=== PATIENT | male | born 1945 | race Caucasian/White ===

== ENCOUNTER 2019-11-09 02:43 | Emergency (ER) | payer OTHER ==
--- OUTSIDE RECORDS SUMMARY | 2019-11-09 02:46 | XMS REPORT | Clinical Summary ---
:1945 Author Organization [facility] Address [address] [place] [address] Care Team Providers Name Role Phone MD Briana Primary Care Provider Allergies Active Allergy Reactions Severity Noted Date Comments Ciprofloxacin Rash Low 01/28/2011 Levofloxacin Other (See Comments) 09/20/2012 Sulfa (Sulfonamide Antibiotics) 0 In childhood Medications Medication Sig Dispensed Refills Start Date End Date Status multivitamin capsule Take 1 capsule 0 Active by mouth daily. Lactobacillus Take by mouth. 0 A ctive acidophilus (PROBIOTIC ORAL) mesalamine (LIALDA Take by mouth 0 Active ORAL) daily. nitrofurantoin, Take 1 capsule 6 capsule 0 11/07/2019 11/10/19 2 Active macrocrystal-monohydr (100 mg total) 0 ate, (MACROBID) 100 by mouth 2 MG capsule (two) times daily for 3 days. phenazopyridine Take 1 tablet 15 tablet 0 11/07/2019 Active (PYRIDIUM) 100 MG (100 mg total) 0 tablet by mouth 3 (three) times daily as needed (Burning with urination after ceron removal) for up to 5 days TO start after ceron removal. oxybutynin Take 1 tablet 5 tablet 0 11/07/2019 Acti ve (DITROPAN-XL) 5 MG 24 (5 mg total) 0 hr tablet by mouth daily as needed (Bladder spasms/cathete r pain) for up to 5 days. amoxicillin (AMOXIL) Take 250 mg by 0 10/21 Discontinued 250 MG capsule mouth 3 0 (three) times daily. Active Problems Problem Noted Date Bladder cancer 11/07/2019 Encounters Date Type Specialty Care Team Description 11/07/2019 Anesthesia Event Crys Hicks, WELDING ENGINEER 11/07/2019 Surgery Hermelindo Wynn, CYSTOSCOPY ,TURBT 11/07/2019 Hospital Encounter Hermelindo Wynn MD 11/04/2019 Hospital Encounter Pre-Admission Testing after 11/08/2018 Social History Tobacco Use Types Packs/Day Years Used Date Current Every Day Smoker Smokeless Tobacco: Never Used Comments: 1-2 cigars a day Alcohol Use Drinks/Week oz/Week Comments Yes 7 Shots of liquor 4.2 Sex Assigned at Date Recorded Not on file Job Start Date Occupation Industry Not on file Not on file Not on file Travel History Travel Start Travel End No recent travel history available. Last Filed Vital Signs Vital Sign Reading Time Taken Blood Pressure 135/81 11/07/2019 10:30 PM CDT Pulse 69 11/07/2019 10:30 PM CDT Temperature 36.7 C (98 F) 11/07/2019 10:30 PM CDT Respiratory Rate 17 11/07/2019 10:30 PM CDT Oxygen Saturation 97% 11/07/2019 10:30 PM CDT Inhaled Oxygen Concentration - - Weight 73.4 kg (161 lb 13.1 oz) 11/07/2019 10:4 4 AM CDT Height 177.8 cm (5' 10") 11/07/2019 10:44 AM CDT Body Mass Index 23.22 11/07/2019 10:44 AM CDT Plan of Treatment Not on file Procedures Procedure Name Priority Date/Time Associated Diagnosis Comme nts TRANSFUSION SERVICE 11/08/2019 6:24 PM REPORT - SCAN CDT CYSTOSCOPY,BLUE LIGHT 11/07/2019 1:25 PM Malignant ne oplasm of CYSVIEW CDT overlapping sites of bladder (HCC) Special Needs Checked by Florin Ann CYSTOSCOPY,TURBT 11/07/2019 1:25 PM CDT Maligna nt neoplasm of overlapping sites of bladder (HCC) Special Needs Checked by Florin Ann ABORH, MANUAL STAT 11/07/2019 11:51 AM CDT Res ults for this procedure are i n the results section . POTASSIUM-STAT LAB STAT 11/07/2019 11:23 AM CDT Results for this procedure are i n the results section . TYPE AND SCREEN, AUTOMATED Routine 11/07/2019 11:18 AM CDT Results for this procedure are i n the results section . after 11/08/2018 Results TRANSFUSION SERVICE REPORT - SCAN (11/08/2019 6:24 PM CDT) Narrative Performed At This result has an attachment that is no t available. ABORH, manual (11/07/2019 11:51 AM CDT) ABO Grouping A [facility] Rh Factor NEG [facility] Specimen Blood Performing Organization Address [facility] Phone Number [address] [address] Potassium-Stat Lab (11/07/2019 11:23 AM CDT) Potassium 4.8 3.6 - 5.5 meq/L [facility] Specimen Blood, Arterial Performing Organization Address [facility] Phone Number [address] [address] CENTER Type and screen, automated (11/07/2019 11:18 AM CDT) ABO/RH AUTOMATED (BEAKER) A NEGATIVE [facility] Ab Scrn NEGATIVE [facility] Specimen Blood Performing Organization Address [facility] Phone Number [address] [address] after 11/08/2018 Insurance Payer Benefit Plan / Group Subscriber ID Type Phone A ddress MEDICARE MEDICARE A B xxxxxxxxxxx Medicare FOR LIFE xxxxxxxxx Other Govt (, [place], [place], etc.)
--- OUTSIDE RECORDS SUMMARY | 2019-11-09 02:46 | XMS REPORT | Continuity of Care Document ---
:1945 Author Organization [facility] t Address [address] [place] [address] Care Team Providers Name Role Phone Briana CASTAÑEDA Primary Care Physician Isha CASTAÑEDA Attending Clinician Denny Hicks CRNA Attending Clinician ISHA Attending Clinician Unavailable ISHA Admitting Clinician Unavailable Payers Payer Name Policy Policy Number Effective Expiration Source Type Date Date MEDICAREMEDICARE A xxxxxxxxxxx [facility] FOR xxxxxxxxx [facility] LIFExxxxxxxxxOther Govt L ukes - (, [place], [facility], [facility] etc.) Center Problems Condition Condition Condition Status Onset Resolution Last Treating Co mments Source Name Details Category Date Date Treatment Clinician Date Bladder Bladder Disease Active [facility] cancer cancer [facility] - 00:00: Medical 00 Center Allergies, Adverse Reactions, Alerts Allergy Allergy Status Severity Reaction(s) Onset Inactive Treating Comm ents Source Name Type Date Date Clinician Sulfa Propensi Active In [facility] (Sulfona ty to 8-14 childhood [facility] - mide adverse 00:00: Medical Antibiot reaction 00 Center ics) s Levoflox Propensi Active Other (See [facility] ty to Comments) 09-20 [facility] - adverse 00:00: Medical reaction 00 Center s Ciproflo Propensi Active Rash 2010-03 [facility] xacin ty to 03-30 [facility] - adverse 00:00: Medical reaction 00 Center s Social History Social Habit Start Date Stop Date Quantity Comments Source Sex Assigned At [facility] Tobacco Comment 2019-11-04 2019-11-04 1-[address] [facility] - 00:00:00 00:00:00 [facility] Center Smoking Status Start Date Stop Date Source Current every day smoker 2019-11-08 00:00:00 [facility] Medications Ordered Filled Start Stop Current Ordering Indication Dosage Frequency Signature Comments Components Source Medication Medication Date Date Medication? Clinician (SIG) Name Name amoxicillin 2020- No 250mg [id number] Take 250 [facility] (AMOXIL) 11-06 [id number] mg by Lonnie es - 250 MG 20:28: 00:00 3D mouth 3 Medical capsule 27 :00 (three) Center times daily. phenazopyri 0 2020- Yes 100mg Take [address] dine 11-[address] [facility] - (PYRIDIUM) 00:00: 23:59 (100 mg Med ical 100 MG 00 :00 total) by [place] tablet mouth 3 (three) times daily as needed (Burning with urination after ceron removal) for up to 5 days TO start after ceron removal. oxybutynin 0 2020- Yes 5mg Take 1 [facility] (DITROPAN-X 11-06 tablet (5 Theresa kes - L) 5 MG 24 00:00: 23:59 mg total) M edical hr tablet 00 :00 by mouth Center daily as needed (Bladder spasms/cat heter pain) for up to 5 days. nitrofurant 2019-0 2020- Yes 100mg Q.5D Take [address] [facility]in, 11-[address] [facility] - macrocrysta 00:00: 23:59 (100 mg Me dical l-monohydra 00 :00 total) by [facility], mouth 2 (MACROBID) (two) 100 MG times capsule daily for 3 days. multivitami 2020-0 Yes 1{capsu QD Take [address] n capsule 11-03 le} capsule by Jonnathan s - 09:21: mouth Medical 16 daily. Center Lactobacill 2020-0 Yes Take by [facility] St us 8- mouth. [facility] - acidophilus 09:21: Medica l (PROBIOTIC 16 Center ORAL) mesalamine 2020-0 Yes QD Take by [facility] (LIALDA 8-14 mouth [facility] - ORAL) 09:21: daily. [address] Vital Signs Vital Name Observation Time Observation Value Comments Source Systolic blood 2019-11-07 22:30:00 135 mm[Hg] [facility] Diastolic blood 2019-11-07 22:30:00 81 mm[Hg] [facility] Heart rate 2019-11-07 22:30:00 69 /min [facility] Body temperature 2019-11-07 22:30:00 36.67 Azra [facility] Respiratory rate 2019-11-07 22:30:00 17 /min [facility] Oxygen saturation in 2019-11-07 22:30:00 97 /min [facility] Arterial blood by [facility] nter Pulse oximetry Body height 2019-11-07 10:44:00 177.8 cm [facility] Body weight Measured 2019-11-07 10:44:00 73.4 kg [facility] BMI 2019-11-07 10:44:00 23.22 kg/m2 [facility] Procedures Procedure Date / Time Performed Performing Clinician [facility] e TRANSFUSION SERVICE 2019-11-08 18:24:58 Provider, Default [facility] REPORT - SCAN Scanning [facility] CYSTOSCOPY,TURBT 2019-11-07 13:25:00 Hermelindo Wynn [facility] CYSTOSCOPY,BLUE LIGHT 2019-11-07 13:25:[address] [facility] ABORH, MANUAL 2019-11-07 11:51:00 Faby Thomas [facility] POTASSIUM-STAT LAB 2019-11-07 11:23:00 Timbo Vences [facility] TYPE AND SCREEN, 2019-11-07 11:18:00 Garo Bennett [facility] AUTOMATED [facility] Results Test Description Test Time Test Comments Results Result Comments Source ABORDone., manual 2019-11-07 12:40:00 Test Item Value Reference Range Interpretation Comme nts ABO Grouping (test code = 2588) A Rh Factor (test code = 2589) NEG [facility] and screen, [id number] 12:20:00 Test Item Value Reference Range Interpretation Comments ABO/RH AUTOMATED (BEAKER) (test A NEGATIVE code = 2260) Ab Scrn (test code = 890-4) NEGATIVE [facility] [id number] 11:33:00 Test Item Value Reference Range Interpretation Comments Potassium (test code = 2823-3) 4.8 meq/L 3.6-5.5 Lab Interpretation (test code = Normal 19583-0) [facility] [id number] 11:33:00 Test Item Value Reference Range Interpretation Comments POTASSIUM (BEAKER) (test code = 4.8 meq/L 3.6-5.5 379)
--- NOTE | 2019-11-09 03:28 | EDPHYS ---
Physician Documentation [facility] Name: Fuentes Mock Age: 74 yrs Sex: Male : 1945 Arrival Date: 11/09/2019 Time: 02:46 Bed 6 Private MD: Stuart Warren ED Physician Jeremy Saucedo HPI: 11/08 03:07 This 74 yrs old Male presents to ER via Ambulatory with complaints of Urinary pkl Retention. 03:07 The patient presents with urinary symptoms, retention. Patient had TURP 2 days ago. Was pkl discharged with Reyes catheter. Patient removed Reyes catheter yesterday, has been unable to urinate since 10 PM last night. Historical: - Allergies: 03:03 Levaquin; mg2 03:03 Ciprofloxacin; mg2 03:03 Sulfa (Sulfonamide Antibiotics); mg2 - Home Meds: 03:03 Phenazopyridine Oral [Active]; Macrobid Oral [Active]; Lialda 1.2 gram oral TbEC 2 tabs mg2 once daily [Active]; - PMHx: 03:03 bladder ca and prostate ca; mg2 - PSHx: 03:03 TURP; mg2 - Immunization history:: Flu vaccine is not up to date. - Social history:: Smoking status: Patient reports the use of cigarette tobacco products, cigars, Patient uses alcohol, on a daily basis. Patient/guardian denies using street drugs. ROS: 03:07 Eyes: Negative for injury, pain, redness, and discharge, ENT: Negative for injury, pkl pain, and discharge, Neck: Negative for injury, pain, and swelling, Cardiovascular: Negative for chest pain, palpitations, and edema, Respiratory: Negative for shortness of breath, cough, wheezing, and pleuritic chest pain. 03:07 Abdomen/GI: 03:07 Abdomen/GI: Positive for abdominal pain, of the suprapubic area. 03:07 Back: Negative for acute changes. 03:07 : Positive for difficulty urinating. 03:07 MS/extremity: Negative for acute changes. 03:07 Skin: Negative for rash. 03:07 Neuro: Negative for altered mental status. Exam: 03:07 Head/Face: Normocephalic, atraumatic. Eyes: Pupils equal round and reactive to light, pkl extra-ocular motions intact. Lids and lashes normal. Conjunctiva and sclera are non-icteric and not injected. Cornea within normal limits. Periorbital areas with no swelling, redness, or edema. ENT: Nares patent. No nasal discharge, no septal abnormalities noted. Tympanic membranes are normal and external auditory canals are clear. Oropharynx with no redness, swelling, or masses, exudates, or evidence of obstruction, uvula midline. Mucous membranes moist. Neck: Trachea midline, no thyromegaly or masses palpated, and no cervical lymphadenopathy. Supple, full range of motion without nuchal rigidity, or vertebral point tenderness. No Meningismus. Chest/axilla: Normal chest wall appearance and motion. Nontender with no deformity. No lesions are appreciated. Cardiovascular: Regular rate and rhythm with a normal S1 and S2. No gallops, murmurs, or rubs. Normal PMI, no JVD. No pulse deficits. Respiratory: Lungs have equal breath sounds bilaterally, clear to auscultation and percussion. No rales, rhonchi or wheezes noted. No increased work of breathing, no retractions or nasal flaring. 03:07 Abdomen/GI: Bowel sounds: normal, Palpation: mild abdominal tenderness, in the suprapubic area. 03:07 Back: Exam negative for acute changes. 03:07 : Bladder: distension, that is moderate. 03:07 Musculoskeletal/extremity: Exam is negative for acute changes. 03:07 Skin: Exam negative for rash. 03:07 Neuro: Orientation: is normal, Mentation: is normal, Cranial nerves: grossly normal, Motor: is normal. Vital Signs: 02:54 BP 152 / 93; Pulse 92; Resp 18; Pulse Ox 96% on R/A; Weight 74.84 kg; Height 5 ft. 10 mg2 in. (177.80 cm); 02:54 Body Mass Index 23.67 (74.84 kg, 177.80 cm) mg2 MDM: 02:48 Patient medically screened. pkl 03:26 Data reviewed: vital signs, nurses notes. ED course: Patient feeling better. Advised to pkl follow up with Urologist in 2 to 3 days. Patient understood instructions. 11/08 03:23 Order name: Urine Dipstick--Ancillary (enter results); Complete Time: 04:32 ds4 11/08 03:24 Order name: Urine Microscopic Only ds4 11/08 03:07 Order name: Reyes; Complete Time: 03:13 pkl 11/08 03:13 Order name: Bladder Scanner; Complete Time: 03:13 mg2 11/08 03:24 Order name: Urine Culture ds4 Administered Medications: No medications were administered Disposition: 11/09/19 03:28 Discharged to Home. Impression: Retention of urine. S/P TURP. - Condition is Stable. - Medication Reconciliation Form, Thank You Letter, Antibiotic Education, Prescription Opioid Use form. - Follow up: Private Physician; When: 2 - 3 days; Reason: Re-evaluation by your physician. - Problem is new. - Symptoms have improved. Signatures: Dispatcher [employer] EDMS Jeremy Saucedo MD MD pkl Antoinette Velasquez RN RN Michael Cagle RN RN mg2 Corrections: (The following items were deleted from the chart) 03:36 03:28 11/09/2019 03:28 Discharged to Home. Impression: Retention of urine. S/P TURP. ea Condition is Stable. Forms are Medication Reconciliation Form, Thank You Letter, Antibiotic Education, Prescription Opioid Use. Follow up: Private Physician; When: 2 - 3 days; Reason: Re-evaluation by your physician. Problem is new. Symptoms have improved. pkl
--- NOTE | 2019-11-09 03:28 | ER ---
Nurse's Notes [facility] Name[facility] Fuentes Mock Age: 74 yrs Sex: Male : 1945 Arrival Date: 11/09/2019 Time: 02:46 Bed 6 Private MD: Stuart Warren Diagnosis: Retention of urine. S/P TURP Presentation: 11/08 02:54 Chief complaint: Patient states: i had TURP done 2 days ago at [facility]. i was dc mg2 with FC on me and I called my Dr. if I can removed the catheter at home because i think i can pee on my own already. now im here because my lower abdomen hurts and last time I urinated was \T\ 10 pm last night. Coronavirus screen: Client denies travel out of the [place] in the last 14 days. At this time, the client does not indicate any symptoms associated with coronavirus-19. The client reports previous COVID testing was negative. Date of collection: October 2019. Ebola Screen: No symptoms or risks identified at this time. Initial Sepsis Screen: Does the patient meet any 2 criteria? No. Patient's initial sepsis screen is negative. Does the patient have a suspected source of infection? No. Patient's initial sepsis screen is negative. Risk Assessment: Do you want to hurt yourself or someone else? Patient reports no desire to harm self or others. Onset of symptoms was November 06, 2019. 02:54 Method Of Arrival: Ambulatory mg2 02:54 Acuity: ELY 4 mg2 Triage Assessment: 03:04 General: Appears in no apparent distress. comfortable, Behavior is calm, cooperative. mg2 Pain: Complains of pain in abdomen. EENT: No signs and/or symptoms were reported regarding the EENT system. Neuro: Level of Consciousness is awake, alert, obeys commands, Oriented to person, place, time, situation. Cardiovascular: Capillary refill < 3 seconds Patient's skin is warm and dry. Respiratory: Airway is patent Respiratory effort is even, unlabored, Respiratory pattern is regular, symmetrical. GI: No signs and/or symptoms were reported involving the gastrointestinal system. : Reports inability to void, since 10 pm pain in suprapubic area. Derm: Skin is intact, is healthy with good turgor, Skin is pink, warm \T\ dry. normal. Musculoskeletal: Circulation, motion, and sensation intact. Capillary refill < 3 seconds. Historical: - Allergies: 03:03 Levaquin; mg2 03:03 Ciprofloxacin; mg2 03:03 Sulfa (Sulfonamide Antibiotics); mg2 - Home Meds: 03:03 Phenazopyridine Oral [Active]; Macrobid Oral [Active]; Lialda 1.2 gram oral TbEC 2 tabs mg2 once daily [Active]; - PMHx: 03:03 bladder ca and prostate ca; mg2 - PSHx: 03:03 TURP; mg2 - Immunization history:: Flu vaccine is not up to date. - Social history:: Smoking status: Patient reports the use of cigarette tobacco products, cigars, Patient uses alcohol, on a daily basis. Patient/guardian denies using street drugs. Screenin:13 Abuse screen: Denies threats or abuse. Denies injuries from another. Nutritional mg2 screening: No deficits noted. Tuberculosis screening: No symptoms or risk factors identified. Fall Risk None identified. Assessment: 03:14 General: Appears in no apparent distress. comfortable, Behavior is calm, cooperative. mg2 03:35 Reassessment: Patient and/or family updated on plan of care and expected duration. Pain ea level reassessed. Patient is alert, oriented x 3, equal unlabored respirations, skin warm/dry/pink. Discharge instruction given to patient, verbalized the understanding of instruction. Pt left ED ambulatory tolerating well. Vital Signs: 02:54 BP 152 / 93; Pulse 92; Resp 18; Pulse Ox 96% on R/A; Weight 74.84 kg; Height 5 ft. 10 mg2 in. (177.80 cm); 02:54 Body Mass Index 23.67 (74.84 kg, 177.80 cm) mg2 ED Course: 02:46 Patient arrived in ED. es 02:46 Stuart Warren MD is Private Physician. es 02:48 Jeremy Saucedo MD is Attending Physician. pkl 02:54 Michael Hernández RN is Primary Nurse. mg2 03:00 Triage completed. mg2 03:05 Arm band placed on. mg2 03:13 No provider procedures requiring assistance completed. Patient did not have IV access mg2 during this emergency room visit. 03:14 Patient has correct armband on for positive identification. Pulse ox on. NIBP on. Door mg2 closed. Warm blanket given. 03:14 Bladder scan completed. 552 ml. mg2 03:20 Reyes cath inserted, using sterile technique, 16 Fr., by me, balloon inflated, to ea gravity drainage, urine specimen collected. 03:24 Urine Dipstick--Ancillary (enter results) Sent. ds4 03:24 Urine Culture Sent. ds4 03:24 Urine Microscopic Only Sent. ds4 03:24 Urine Dipstick--Ancillary (enter results) Sent. ds4 Administered Medications: No medications were administered Outcome: 03:28 Discharge ordered by . isac 03:36 Discharged to home ambulatory. ea 03:36 Condition: stable 03:36 Discharge instructions given to patient, Instructed on discharge instructions, follow up and referral plans. Demonstrated understanding of instructions. 03:36 Patient left the ED. ea Signatures: Jeremy Saucedo MD MD pkl Salyer, Edna es Swanson, Donovan ds4 Antoinette Velasquez, RN RN Michael Cagle RN RN mg2
[2019-11-09 03:34] LABS: Urine Blood 3+ (NEG); Urine Glucose TRACE (NEG); Urine Protein 3+ (NEG)
[2019-11-09 04:09] VITALS: BP 152/93; O2SAT 96
[2019-11-09 04:41] LABS: Urine Culture Reflex Order NOT NEEDED
[2019-11-09 04:42] LABS: Urine Bacteria 20-50 /HPF (NONE SEEN); Urine Mucus SLIGHT /HPF (NONE SEEN); Urine RBC TNTC /HPF (NONE SEEN); Urine Urothelial Cells <5 /HPF (NONE SEEN)
== END 2019-11-09 03:36 | disposition home or self-care (01) ==
LOC: ER 02:43
DX: R33.9 Retention of urine, unspecified (principal); Z98.890 Other specified postprocedural states; F17.210 Nicotine dependence, cigarettes, uncomplicated; Z85.46 Personal history of malignant neoplasm of prostate; Z85.51 Personal history of malignant neoplasm of bladder; Z88.1 Allergy status to other antibiotic agents; Z88.2 Allergy status to sulfonamides; Z88.3 Allergy status to other anti-infective agents
CPT/HCPCS: 51702; 81003; 81015; 87086; 87088; 99284

== ENCOUNTER 2020-05-29 17:23 | Inpatient (IN) | payer OTHER ==
--- OUTSIDE RECORDS SUMMARY | 2020-05-29 17:27 | XMS REPORT | Continuity of Care Document ---
:1945 Author Organization [facility] t Address [address] [place] [address] Dr. Whitfield [address] [place] [id number] Care Team Providers Name Role Phone Briana CASTAÑEDA Primary Care Physician Paulo Lozano MD Attending Clinician Xavier Almodovar MD Attending Clinician Cintia Villagran MD Attending Clinician Darell Little MD Attending Clinician Jerry Shaw MD Attending Clinician Nino Herrera MD Attending Clinician PAULO LOZANO Attending Clinician Unavailable ISHA Attending Clinician Unavailable Isha CASTAÑEDA Attending Clinician Amara Escamilla CRNA Attending Clinician [phone] [facility] Attending Clinician Unavailable John CASTAÑEDA Attending Clinician Saad CASTAÑEDA Attending Clinician JOHN Attending Clinician Unavailable Miguel Angel Naqvi MD Attending Clinician Unavailable Mario Hoffmann MD Attending Clinician Dank Sewell MD Attending Clinician Denny Hicks CRNA Attending Clinician Xavier ALMODOVAR Admitting Clinician Unavailable ISHA Admitting Clinician Unavailable JOHN Admitting Clinician Unavailable Payers Payer Name Policy Type Policy Effective Date Expiration Date Sour ce Number MEDICAREMEDICARE A [id number] [address] 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 00:00: Me dical 00 [place] Lung mass Lung mass Disease Active [facility] 11-29 kes - 00:00: Medical 00 [place] Bladder Bladder Disease Active [facility] cancer cancer 11-06 kes - 00:00: Medical 00 [place] 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 [facility] Lung Lung Disease Active [facility] cancer cancer [facility] Pancytopen Pancytopen Disease Active [facility] ia ia [facility] Chronic Chronic Disease Active [facility] anticoagul anticoagul [facility] PAF PAF Disease Active [facility] (paroxysma (paroxysma [facility] - l atrial l atrial Medica l fibrillati fibrillati Ce nter on) on) Allergies, Adverse Reactions, Alerts Allergy Allergy Status Severity Reaction(s) Onset Inactive Treating Comm ents Source Name Type Date Date Clinician Sulfa Propensi Active In [facility] (Sulfona ty to 8-14 childhood [facility] - mide adverse 00:00: Medical Antibiot reaction 00 [place] ics) s Levoflox Propensi Active Other (See [facility] ac[facility] ty to Comments) 09-20 [facility] - adverse 00:00: Medical reaction 00 [place] s Ciproflo Propensi Active Rash 2010-03 [facility] xacin ty to 03-30 [facility] - adverse 00:00: Medical reaction 00 [place] s Social History Social Habit Start Date Stop Date Quantity Comments Source Sex Assigned At [facility] Exposure to Not sure [facility] - SARS-CoV-2 [facility] (event) Tobacco use and 2020-05-14 2020-05-[address] Theresa kes - exposure 00:00:00 00:00:00 [facility] Alcohol intake 2020-05-14 2020-05-14 Current drinker [facility] Luargenis - 00:00:00 00:00:00 of alcohol [facility] (finding) Tobacco Comment 2019-11-04 2019-11-04 1-2 cig[address] [facility] - 00:00:00 00:00:00 [facility] Smoking Status Start Date Stop Date Source Current every day smoker 2020-05-14 00:00:00 [facility] Medications Ordered Filled Start Stop Current Ordering Indication Dosage Frequency Signature Comments Components Source Medication Medication Date Date Medication? Clinician (SIG) Name Name rivaroxaban Yes 20mg Take [address] (XARELTO) 2-22 tablet (20 [facility] - 20 mg Tab 00:00: mg total) Med ical tablet 00 by mouth Center daily with dinner. multivitami Yes 1{capsu QD Take [address] n capsule 2-20 le} capsule by Luke s - 15:15: mouth Medical 46 daily. Center Lactobacill Yes Take by [facility] us 2-20 mouth. [facility] - acidophilus 15:15: Medica l (PROBIOTIC 46 Center ORAL) mesalamine Yes 2.4g QD Take 2.[address] (LIALDA 2-20 by mouth [facility] - ORAL) 15:15: daily . Medical Center pantoprazol Yes 40mg QD Take [address] e 2-20 by mouth [facility] - (PROTONIX) 15:15: daily. Medic al 40 MG 46 Center tablet esomeprazol Yes 20mg QD Take [address] e (NexIUM) 2-20 by mouth [facility] - 20 MG 15:15: daily. Medical capsule 46 Center sucralfate Yes 1g Q.25D Take [address] (CARAFATE) 2-20 by mouth 4 [facility] - 100 mg/mL 15:15: (four) Medica l suspension 46 times Center daily. HYDROcodone Yes 15mL Take [address] -acetaminop 2-20 mLs by [facility] - hen 15:15: mouth Medical (LORTAB,HYC 46 every 6 Cente r ET) 7.5-325 (six) mg/15 mL hours as Soln needed for solution Pain. aluminum-ma Yes 30mL Take [address] gnesium 2-20 mLs by [facility] - hydroxide-s 15:15: mouth 4 Med ical imethicone 46 (four) Center (MAALOX times PLUS) daily suspension before 200-200-20 meals and mg/5 mL nightly. Magic Yes Take by [facility] Mouthwash 2-20 mouth [facility] - (NO 15:15: every 6 Medical steroid) 46 (six) Center oral hours as suspension needed. lidocaine-d Yes 5mL Take [address] iphenhyd-Al 2-20 by mouth [facility] - -mag-sim 15:15: every 6 Medica l 200-25-400- 46 (six) Center 40 mg/30 mL hours as Mwsh needed. rivaroxaban 2020- No 20mg Take [address] (XARELTO) 2-20 02-20 by mouth [facility] - 20 mg Tab 13:13: 00:00 daily with M edical tablet 24 :00 dinner. Center oxybutynin 2020- No 5mg Take [address] (DITROPAN) 03-27 tablet (5 [facility] es - 5 MG tablet 00:00: 23:59 mg total) Medical 00 :00 by mouth 3 Center (three) times daily as needed (For bladder spasms) for up to 10 days. traMADoL 2020- No 50mg Take [address] (ULTRAM) 50 03-2710 tablet (50 L ukes - mg tablet 00:00: 23:59 mg total) Me dical 00 :00 by mouth Center every 6 (six) hours as needed for Pain for up to 5 days. Max Daily Amount: 200 mg nitrofurant 2020- No 100mg Q.5D Take [address] oin, 03-27 capsule [facility] - macrocrysta 00:00: 23:59 (100 mg Me dical l-monohydra 00 :00 total) by Adryan ter te, mouth 2 (MACROBID) (two) 100 MG times capsule daily for 3 days. phenazopyri No 97.5mg Take 97.[address] dine 97.5 1-05 01-08 mg by [facility] - mg Tab 00:00: 23:59 mouth Medical 00 :00 daily as Center needed for up to 3 days Please be aware that this medication will turn your urine orange. This is a normal side effect. ondansetron 2019- No 4mg Take [address] (ZOFRAN) 4 11-28 09-15 tablet (4 [facility] es - MG tablet 00:00: 23:59 mg total) Me dical 00 :00 by mouth 3 Center (three) times daily as needed for Nausea for up to 7 days. amoxicillin 2019- No 250mg [id number] Take [address] (AMOXIL) 11-06 [id number] mg by Lonnie es - 250 MG 20:28: 00:00 3D mouth 3 Medical capsule 29 :00 (three) Center times daily. phenazopyri 2019- No 100mg Take [address] dine 11-06 tablet [facility]ukes - (PYRIDIUM) 00:00: 23:59 (100 mg Med ical 100 MG 00 :00 total) by Center tablet mouth 3 (three) times daily as needed (Burning with urination after ceron removal) for up to 5 days TO start after ceron removal. oxybutynin 2019- No 5mg Take [address] [facility] (DITROPAN-X 11-06 tablet (5 Theresa kes - L) 5 MG 24 00:00: 23:59 mg total) M edical hr tablet 00 :00 by mouth Center daily as needed (Bladder spasms/cat heter pain) for up to 5 days. nitrofurant 2019- No 100mg Q.5D Take [address] oin, 11-06 capsule [facility] - macrocrysta 00:00: 23:59 (100 mg Me dical l-monohydra 00 :00 total) by Adryan ter te, mouth 2 (MACROBID) (two) 100 MG times capsule daily for 3 days. Vital Signs Vital Name Observation Time Observation Value Comments Source Systolic blood 2020-05-12 12:56:00 117 mm[Hg] [facility] Diastolic blood 2020-05-12 12:56:00 93 mm[Hg] [facility] Heart rate 2020-05-12 12:56:00 83 /min [facility] Body temperature 2020-05-12 12:56:00 35.94 Azra [facility] Respiratory rate 2020-05-12 12:56:00 18 /min [facility] Oxygen saturation in 2020-05-12 12:56:00 95 /min [facility] Arterial blood by Medical Ce nter Pulse oximetry Body height 2020-05-10 15:19:00 177.8 cm [facility] Body weight 2020-05-10 15:19:00 72.576 kg [facility] BMI 2020-05-10 15:19:00 22.96 kg/m2 [facility] Procedures Procedure Date / Time Performed Performing Clinician [facility] e REPORT OF PROCEDURE - 2020-05-12 12:06:06 Akiko Herrera [facility] ENDOSCOPY [facility] UPPER ENDOSCOPY,BALLOON 2020-05-12 10:00:00 Akiko Herrera [facility] BASIC METABOLIC PANEL (7) 2020-05-11 03:40:00 Rene Ngo [facility] HEPATIC FUNCTION PANEL 2020-05-11 03:40:00 Rene Ngo [facility] PROTHROMBIN TIME/INR 2020-05-11 03:40:00 Rene Ngo [facility] MAGNESIUM 2020-05-11 03:40:00 Rene Ngo [facility] PHOSPHORUS 2020-05-11 03:40:00 Rene Ngo [facility] CBC W/PLT COUNT & AUTO 2020-05-11 03:39:00 Rene Ngo [facility] (CELLAVISION MANUAL DIFF) 2020-05-11 03:39:00 Rene Ngo [facility] SARS-COV2/RT-PCR (HS & 2020-05-10 23:06:00 Michael Lozano tt [facility] REF LABS) [facility] CBC W/PLT COUNT & AUTO 2020-05-10 23:04:00 Michael Lozano [facility] BASIC METABOLIC PANEL (7) 2020-05-10 23:04:00 Michael Lozano ett [facility] PROTHROMBIN TIME/INR 2020-05-10 23:04:00 Michael Lozano C [facility] HEPATIC FUNCTION PANEL 2020-05-10 23:04:00 Rene Ngo [facility] TISSUE EXAM 2020-03-27 09:23:00 Hermelindo Wynn [facility] CYSTOSCOPY,BLADDER BIOPSY 2020-03-27 08:08:00 Hermelindo Wynn [facility] CYSTOSCOPY,TURBT 2020-03-27 08:08:00 Hermelindo Wynn [facility] PROTHROMBIN TIME/INR 2020-03-27 07:22:00 Mathew Ray [facility] ECG 12-LEAD 2020-03-27 00:00:00 Mathew Ray [facility] TRANSFUSION SERVICE 2019-11-30 18:01:27 Provider, Default [facility] - REPORT - SCAN Scanning [facility] REPORT OF PROCEDURE - 2019-11-29 16:19:52 Triny Naqvi [facility] ENDOSCOPY [facility] TISSUE EXAM 2019-11-29 12:49:00 Triny Naqvi [facility] FLOW CYTOMETRY 2019-11-29 12:35:55 Triny Naqvi [facility] REQUISITION [facility] FLOW CYTOMETRY 2019-11-29 12:35:00 Triny Naqvi [facility] EBUS FNA REQUEST 2019-11-29 12:28:15 Triny Naqvi [facility] FINE NEEDLE ASPIRATE BY 2019-11-29 12:28:[address] BRONCHOSCOPY,ENDOBRONCHIA 2019-11-29 11:35:00 Triny Naqvi [facility] ULTRASOUND (EBUS) Medical [facility] er TRANSTRACH/ TRANSBRONCH SAMPLING BRONCHOSCOPY,BIOPSY 2019-11-29 11:35:00 [facility]IVE METABOLIC 2019-11-29 05:46:00 [facility]CI[facility], [facility]ON[facility]ED 2019-11-29 05:46:00 Seven Nash [facility] MAGNESIUM 2019-11-29 05:46:00 [facility] 2019-11-29 05:46:00 [facility] CBC W/PLT COUNT & AUTO 2019-11-29 04:37:00 [facility] AND [facility]EN, 2019-11-29 04:37:00 Triny Naqvi [facility] AUTOMATED [facility] APTT 2019-11-29 04:36:00 Cabrera [facility] PROTHROMBIN TIME/INR 2019-11-29 04:36:00 Cabrera [facility] SARS-COV2/RT-PCR ([facility] & 2019-11-28 08:39:00 Rowdy Yi [facility] - REF LABS) [facility] PROTHROMBIN TIME/INR 2019-11-28 08:33:00 Mikey Rees [facility] APTT 2019-11-28 08:33:00 [facility] CBC W/PLT COUNT & AUTO 2019-11-28 05:01:00 Eloisa Blanco CH, I [facility] COMPREHENSIVE METABOLIC 2019-11-28 05:01:00 Eloisa Blanco [facility] MAGNESIUM 2019-11-28 05:01:00 Eloisa Blanco [facility] PHOSPHORUS 2019-11-28 05:01:00 Eloisa Blanco [facility] BASIC METABOLIC PANEL (7) 2019-11-27 05:51:00 S[facility]an [facility] CALCIUM, IONIZED 2019-11-27 05:51:00 Saad [facility] PHOSPHORUS 2019-11-27 05:51:00 [facility] W/[facility]T [facility] & AUTO 2019-11-27 05:51:00 [facility]NES[facility]UM 2019-11-27 05:51:00 Saad [facility] CT CHEST WITH & WITHOUT 2019-11-26 04:46:00 Charito Murray [facility] - IV CONTRAST [facility] CT ABDOMEN/PELVIS WITH & 2019-11-26 04:46:00 Charito Murray [facility] - WITHOUT IV CONTRAST Medical Cent er IR PORT-A-CATH PLACEMENT 2019-11-25 19:44:00 Susan Mcclellan [facility] SARS-COV2/RT-PCR ([facility] & 2019-11-25 12:23:00 Susan Mcclellan [facility] - REF LABS) [facility] CBC W/PLT COUNT & AUTO 2019-11-25 11:30:[address] [facility] PROTHROMBIN TIME/INR 2019-11-25 11:30:00 Charito Murray [facility] APTT 2019-11-25 11:30:00 Charito Murray [facility] COMPREHENSIVE METABOLIC 2019-11-25 11:30:00 Hannah Oscar [facility] TRANSFUSION SERVICE 2019-11-08 18:24:58 Luz Gamboa [facility] REPORT - SCAN Scanning [facility] TISSUE EXAM 2019-11-07 19:23:00 Hermelindo Wynn [facility] CYSTOSCOPY,TURBT 2019-11-07 17:53:[address] [facility] CYSTOSCOPY,BLUE LIGHT 2019-11-07 17:53:[address] [facility] 2019-11-07 11:51:00 Faby Thomas [facility] POTASSIUM-STAT LAB 2019-11-07 11:23:00 Timbo Vences [facility] TYPE AND SCREEN, 2019-11-07 11:18:00 PelonmichelleGaro [facility] - AUTOMATED [facility] Plan of Care Planned Activity Planned Date Details Comments Source Future Scheduled 2020-03-[address] [facility] - Test 00:00:00 (12+) [code = Medical Center DEPRESSION SCREENING (12+)] Future Scheduled 2019-11-22 INFLUENZA VACCINE (#1) [facility] - Test 00:00:00 [code = INFLUENZA Medical Ce nter VACCINE (#1)] Future Scheduled 2010-09-[address] [facility] - Test 00:00:00 WELLNESS (YEAR 2 or Medical Center FIRST YEAR if no IPPE) [code = MEDICARE ANNUAL WELLNESS (YEAR 2 or FIRST YEAR if no IPPE)] Future Scheduled 2009 PNEUMOCOCCAL 65+ YRS [facility] - Test 00:00:00 (1 of 1 - Medical Center [id number] PCV13) [code = PNEUMOCOCCAL 65+ YRS (1 of 1 - [id number] PCV13)] Future Scheduled 1994 SHINGLES VACCINES ([address] [facility] - Test 00:00:00 of 2) [code = SHINGLES Medic al Center VACCINES (1 of 2)] Future Scheduled 1963-09-24 DTAP/TDAP/TD VACCINES [facility] - Test 00:00:00 (1 - Tdap) [code = Medical C enter DTAP/TDAP/TD VACCINES (1 - Tdap)] Future Scheduled 1962 HEPATITIS C [facility]CRE[facility]ING [facility] - Test 00:00:00 [code = HEPATITIS C Medical Center SCREENING] Future Scheduled [address] [facility] - Test 00:00:00 [facility]) [code = 486139438] Encounters Start End Encounter Admission Attending Care Care Encounter Source Date/Time Date/Time Type Type Clinicians Facility Department ID 2020-03-14 2020-03-14 Outpatient [facility] [id number] [place] 00:00:00 00:00:00 EDWARD [address] 2020-03-01 2020-03-01 Outpatient [facility] [id number] [place] 00:00:00 00:00:00 EDWARD [address] 2020-03-01 2020-03-01 Outpatient [facility] [id number] [place] 00:00:00 00:00:00 EDWARD [address] Results Test Description Test Time Test Comments Results Result Comments Source CBC with platelet count + automated diff 2020-05-11 09:00:00 Test Item Value Reference Range Interpretation Comme nts WBC (test code = 6690-2) 1.8 See_Comment L [A utomated message] The system which generated this result transmitted ref erence range: 3.5 - 10.5 K/L. T he reference range was not u sed to interpret this result as normal/abnormal. RBC (test code = 789-8) 3.70 See_Comment L [Au tomated message] The system which generated this result transmitted ref erence range: 4.63 - 6.08 M/ L. The reference range was not u sed to interpret this result as normal/abnormal. MCHC (test code = 786-4) 33.0 See_Comment L [A utomated message] The system which generated this result transmitted ref erence range: 32.3 - 36.5 GM/ DL. The reference range was not u sed to interpret this result as normal/abnormal. Hematocrit (test code = 35.2 % 40.1-51 L 4544-3) MCV (test code = 787-2) 95.1 fL 79-92.2 H MCH (test code = 785-6) 31.4 pg 25.7-32.2 RDW (test code = 788-0) 13.2 % 11.6-14.4 Platelets (test code = 777-3) 123 See_Comment L [Automated message] The system which generated this result transmitted ref erence range: 150 - 450 K/CU MM. The reference range was not u sed to interpret this result as normal/abnormal. MPV (test code = 91180-1) 10.9 fL 9.4-12.4 nRBC (test code = 413) 0 See_Comment [Aut omated message] The system which generated this result transmitted ref erence range: 0 - 0 /100 WBC. The reference range was not used to interpret this result as corrie l/abnormal. Lab Interpretation (test code Abnormal = 12229-0) [facility] [id number] 09:00:00 Test Item Value Reference Range Interpretation Comments % Neutros (test code = 74 % 2816) % Lymphs (test code = 1 % 2817) % Monos (test code = 16 % 2818) % Eos (test code = 2 % 2819) % Baso (test code = 1 % 2820) % Metamyelo (test code 1 % 0-0 H = 2821) % Myelo (test code = 1 % 0-0 H 2822) % Bands (test code = 3 % 0-10 2826) # Neutros (test code = 1.33 K/ul 1.78-5.38 L 2830) # Lymphs (test code = 0.02 K/ul 1.32-3.57 L 2831) # Monos (test code = 0.29 K/uL 0.3-0.82 L 2832) # Eos (test code = 0.04 K/uL 0.04-0.54 2834) # Baso (test code = 0.02 K/uL 0.01-0.08 2835) # Metamyelo (test code 0.02 K/uL 0-0 H = 2836) # Myelo (test code = 0.02 K/uL 0-0 H 2837) # Bands (test code = 0.05 K/uL 0-0.8 2840) Total Counted (test 100 code = 1351) Large Platelet (test Present code = 2156) Toxic Granulation (test Present code = 771) Basophilic Stippling Present (test code = 473) Artifact (test code = Present 3432) Platelet Conc (test Decreased code = 3438) SENG (test code = SENG) Material Flow Engineer ID - Danica Jerry comments: Slide comments: Lab Interpretation Abnormal (test code = 99670-8) [facility] W/PLT COUNT & AUTO [id number] 09:00:00 Test Item Value Reference Range Interpretation Comments WHITE BLOOD CELL COUNT (BEAKER) 1.8 K/ L 3.5-10.5 L (test code = 775) RED BLOOD CELL COUNT (BEAKER) 3.70 M/ L 4.63-6.08 L (test code = 761) HEMOGLOBIN (BEAKER) (test code = 11.6 GM/DL 13.7-17.5 L 410) HEMATOCRIT (BEAKER) (test code = 35.2 % 40.1-51.0 L 411) MEAN CORPUSCULAR VOLUME (BEAKER) 95.1 fL 79.0-92.2 H (test code = 753) MEAN CORPUSCULAR HEMOGLOBIN 31.4 pg 25.7-32.2 (BEAKER) (test code = 751) MEAN CORPUSCULAR HEMOGLOBIN CONC 33.0 GM/DL 32.3-36.5 (BEAKER) (test code = 752) RED CELL DISTRIBUTION WIDTH 13.2 % 11.6-14.4 (BEAKER) (test code = 412) PLATELET COUNT (BEAKER) (test 123 K/CU MM 150-450 L code = 756) MEAN PLATELET VOLUME (BEAKER) 10.9 fL 9.4-12.4 (test code = 754) NUCLEATED RED BLOOD CELLS 0 /100 WBC 0-0 (BEAKER) (test code = 413) (CELLAVISION MANUAL DIFF)2020-05-11 09:00:00 Test Item Value Reference Range Interpretation Comments NEUTROPHILS - REL 74 % (CELLAVISION)(BEAKER) (test code = 2816) LYMPHOCYTES - REL 1 % (CELLAVISION)(BEAKER) (test code = 2817) MONOCYTES - REL 16 % (CELLAVISION)(BEAKER) (test code = 2818) EOSINOPHILS - REL 2 % (CELLAVISION)(BEAKER) (test code = 2819) BASOPHILS - REL 1 % (CELLAVISION)(BEAKER) (test code = 2820) METAMYELOCYTES - REL 1 % 0-0 H (CELLAVISION)(BEAKER) (test code = 2821) MYELOCYTES - REL 1 % 0-0 H (CELLAVISION)(BEAKER) (test code = 2822) BANDS - REL (CELLAVISION)(BEAKER) 3 % 0-10 (test code = 2826) NEUTROPHILS - ABS 1.33 K/ul 1.78-5.38 L (CELLAVISION)(BEAKER) (test code = 2830) LYMPHOCYTES - ABS 0.02 K/ul 1.32-3.57 L (CELLAVISION)(BEAKER) (test code = 2831) MONOCYTES - ABS 0.29 K/uL 0.30-0.82 L (CELLAVISION)(BEAKER) (test code = 2832) EOSINOPHILS - ABS 0.04 K/uL 0.04-0.54 (CELLAVISION)(BEAKER) (test code = 2834) BASOPHILS - ABS 0.02 K/uL 0.01-0.08 (CELLAVISION)(BEAKER) (test code = 2835) METAMYELOCYTES - ABS 0.02 K/uL 0.00-0.00 H (CELLAVISION)(BEAKER) (test code = 2836) MYELOCYTES-ABS 0.02 K/uL 0.00-0.00 H (CELLAVISION)(BEAKER) (test code = 2837) BANDS - ABS (CELLAVISION)(BEAKER) 0.05 K/uL 0.00-0.80 (test code = 2840) TOTAL COUNTED (BEAKER) (test code = 100 1351) LARGE PLT(BEAKER) (test code = Present 2156) TOXIC GRANULATION (BEAKER) (test Present code = 771) BASOPHILIC STIPPLING (BEAKER) (test Present code = 473) ARTIFACT (CELLAVISION)(BEAKER) Present (test code = 3432) PLATELET CONCENTRATION Decreased (CELLAVISION)(BEAKER) (test code = 3438) Material Flow Engineer ID - Danica Jerry comments: Slide comments:Basic metabolic [id number] 05:56:00 Test Item Value Reference Range Interpretation Comments Sodium (test code = 139 meq/L 494-988 0819-2) Potassium (test code = 3.9 meq/L 3.5-5.1 2823-3) Chloride (test code = 104 meq/L 98-107 2075-0) CO2 (test code = 23 meq/L 22-29 8-9) BUN (test code = 31 mg/dL 7-21 H 3094-0) Creatinine (test code 0.79 mg/dL 0.57-1.25 = 2160-0) Glucose (test code = 108 mg/dL 70-105 H 2345-7) Calcium (test code = 9.1 mg/dL 8.4-10.2 64413-9) EGFR (test code = 96 mL/min/1.73 [place] [address]-8) NOT ACCURATE CREATININE CLEARANCE IN PREDICTING GLOMERULAR FILTRATION RATE . ESTIMATED GFR I S NOT APPLICABLE FOR DIALYSIS PATIENTS. SENG (test code = SENG) Material Flow Engineer ID - EDASI Lab Interpretation Abnormal (test code = 70821-1) [facility] [id number] 05:56:00 Test Item Value Reference Range Interpretation Comments Protein, Total (test 6.7 See_Comment [Autom ated code = 2885-2) message] The system which generated this result transmit angie reference range : 6.0 - 8.3 gm/dL . The reference range was not u sed to interpret th is result as normal/abnormal . Albumin (test code = 3.7 g/dL 3.5-5 30329-8) Total Bilirubin (test 0.5 mg/dL 0.2-1.2 code = 1974-2) Bilirubin, Direct 0.2 mg/dL 0.1-0.5 (test code = 1967-7) Alkaline Phosphatase 56 U/L 40-150 (test code = 6768-6) AST (test code = 15 U/L 5-34 1920-8) ALT (test code = 16 U/L 6-55 1742-6) SNEG (test code = SENG) Material Flow Engineer ID - EDASI Lab Interpretation Normal (test code = 89665-5) [facility] 05:56:00 Test Item Value Reference Range Interpretation Comments Magnesium (test code = 1.8 mg/dL 1.6-2.6 49587-2) SENG (test code = SENG) Material Flow Engineer ID - EDASI Lab Interpretation (test Normal code = 23754-3) [facility] 05:56:00 Test Item Value Reference Range Interpretation Comments Phosphorus (test code = 3.7 mg/dL 2.3-4.7 2777-1) SENG (test code = SENG) Material Flow Engineer ID - EDASI Lab Interpretation (test Normal code = 05448-2) [facility] 05:56:00 Test Item Value Reference Range Interpretation Comments PHOSPHORUS (BEAKER) (test code = 3.7 mg/dL 2.3-4.7 604) Material Flow Engineer ID - EDASIHEPATIC FUNCTION [id number] 05:56:00 Test Item Value Reference Range Interpretation Comments TOTAL PROTEIN (BEAKER) (test code = 6.7 gm/dL 6.0-8.3 770) ALBUMIN (BEAKER) (test code = 1145) 3.7 g/dL 3.5-5.0 BILIRUBIN TOTAL (BEAKER) (test code 0.5 mg/dL 0.2-1.2 = 377) BILIRUBIN DIRECT (BEAKER) (test 0.2 mg/dL 0.1-0.5 code = 706) ALKALINE PHOSPHATASE (BEAKER) (test 56 U/L 40-150 code = 346) AST (SGOT) (BEAKER) (test code = 15 U/L 5-34 353) ALT (SGPT) (BEAKER) (test code = 16 U/L 6-55 347) Material Flow Engineer ID - EDASIBASIC METABOLIC [id number] 05:56:00 Test Item Value Reference Range Interpretation Comments SODIUM (BEAKER) 139 meq/L 136-145 (test code = 381) POTASSIUM (BEAKER) 3.9 meq/L 3.5-5.1 (test code = 379) CHLORIDE (BEAKER) 104 meq/L 98-107 (test code = 382) CO2 (BEAKER) (test 23 meq/L 22-29 code = 355) BLOOD UREA NITROGEN 31 mg/dL 7-21 H (BEAKER) (test code = 354) CREATININE (BEAKER) 0.79 mg/dL 0.57-1.25 (test code = 358) GLUCOSE RANDOM 108 mg/dL 70-105 H (BEAKER) (test code = 652) CALCIUM (BEAKER) 9.1 mg/dL 8.4-10.2 (test code = 697) EGFR (BEAKER) (test 96 mL/min/1.73 ESTIMA ANGIE GFR IS code = 1092) sq m NOT ACCURATE CREATININE CLEARANCE IN PREDICTING GLOMERULAR FILTRATION RATE . ESTIMATED GFR I S NOT APPLICABLE FOR DIALYSIS PATIEN TS. Material Flow Engineer ID - [id number] 05:56:00 Test Item Value Reference Range Interpretation Comments MAGNESIUM (BEAKER) (test code = 1.8 mg/dL 1.6-2.6 627) Material Flow Engineer ID - EDASIProthrombin time/[id number] 05:12:00 Test Item Value Reference Interpretation Comments Range Protime (test code = 16.8 See_Comment H [Autom ated 5902-2) message] The system which generated this result transmitted reference range : 11.9 - 14.2 seconds. The reference range was not used to interpret this result as normal/abnormal . INR (test code = 1.41 See_Comment [Automated 1121-6) message] The system which generated this result transmitted reference range : <=5.90. The reference range was not used to interpret this result as normal/abnormal . SENG (test code = Effective 08/18/2018: SENG) PT Reference Range ChangeNew: 11.9-14.2 Previous: 11.7-14.7 RECOMMENDED COUMADIN/WARFARIN INR THERAPY RANGESSTANDARD DOSE: 2.0-3.0 Includes: PROPHYLAXIS for venous thrombosis, systemic embolization; TREATMENT for venous thrombosis and/or pulmonary embolus.HIGH RISK: Target INR is 2.5-3.5 for patients wiht mechanical heart valves. Lab Interpretation Abnormal (test code = 78039-8) [facility][id number] 05:12:00 Test Item Value Reference Range Interpretation Comments PROTIME (BEAKER) 16.8 seconds 11.9-14.2 H (test code = 759) INR (BEAKER) (test 1.41 See_Comment [Automat ed message] code = 370) The system [employer] generated this result transmitted ref erence range: <=5.90. The reference range was not used to int erpret this result as normal/abnormal . Effective 08/18/2018: PT Reference Range ChangeNew: 11.9-14.2 Previous: 11.7- 14.7RECOMMENDED COUMADIN/WARFARIN INR THERAPY RANGESSTANDARD DOSE: 2.0-3.0 Includes: PROPHYLAXIS for venous thrombosis, systemic embolization; TREATMENT for venous thrombosis and/or pulmonary embolus.HIGH RISK: Target INR is2.5-3.5 for patients wiht mechanical heart valves.SARS-CoV2/RT-PCR (Asymptomatic ONLY) 2020-05-11 03:41:00 Test Item Value Reference Range Interpretation Comments SARS-COV2/RT-PCR Negative Not Detected, (test code = Negative, See 21765-3) external report for linked test SARS-COV-2 [facility] PERFORMING LAB (test code = 98441-0) SENG (test code = Negative result for this SENG) test determines that SARS-CoV-2 RNA was not present in the specimen above the Limit of Detection (LOD). However, Negative results do not preclude SARS-CoV-2 infection and should not be used as the sole basis for treatment or patient management decisions. Negative results must be combined with clinical observations, patient history, and epidemiological information. A false negative result may occur if a specimen is improperly collected, transported or handled. A false negative result should be considered if patient's recent exposures or clinical presentation indicate that COVID-19 (SARS-CoV-2) is likely and diagnostic tests for other causes of illness are negative. Re-testing should be considered in cases of suspected false negatives. The limit of detection for this assay is 800 copies/mL. This SARS CoV-2 test is a real-time RT-PCR test intended for the qualitative detection of nucleic acid from SARS-CoV-2 in a nasopharyngeal swab specimen collected from individuals suspected of COVID-19 by their healthcare provider. This test has not been Food and Drug Administration (FDA) cleared or approved. This is a modified version of an approved Emergency Use Authorization (EUA) and is in the process of review by the FDA. Once authorized by the FDA, the issued EUA will be effective until the declaration that circumstances exist justifying the authorization of the emergency use of in vitro diagnostic tests for detection and/or diagnosis of COVID-19 is terminated under Section 564(b)(2) of the Act or the EUA is revoked under Section 564(g) of the Act. Fact Sheet for Healthcare Providers:https://www.[employer]/sites/default/f mary ellen/product/documents/F act_Sheet_HC_Providers_L rpf_EDCP-SzF-4.pdf Fact Sheet for Healthcare Patients:https://www.[employer].com/sites/default/fi les/product/documents/Fa ct_Sheet_Patients_Lyra_S ARS-CoV-2.pdf Performing Laboratory:[facility] [place] [address] [facility])2020-05-11 03:41:00 Test Item Value Reference Range Interpretation Comments SARS-COV2/RT-PCR (test Negative Not Detected, Negative, code = 7045499) See external report for linked test SARS-COV-2 PERFORMING LAB [facility] (test code = 6251221) Negative result for this test determines that SARS-CoV-2 RNA was not present in the specimen above the Limit of Detection (LOD). However, Negative results do not preclude SARS-CoV-2 infection and should not be used as the sole basis for treatment or patient management decisions. Negative results mustbe combined with clinical observations, patient history, and epidemiological information. A false negative result may occur if a specimen is improperly collected, transported or handled. A false negative result should be considered if patient's recent exposures or clinical presentation indicate that COVID-19 (SARS-CoV-2) is likely and diagnostic tests for other causes of illness are negative. Re-testing should be considered in cases of suspected false negatives.The limit of detection for this assay is 800 copies/mL.This SARS CoV-2 test is a real-time RT-PCR test intended for the qualitative detection of nucleic acid from SARS-CoV-2 in a nasopharyngeal swab specimen collected from individuals susp ected of COVID-19 by their healthcare provider.This test has not been Food and Drug Administration (FDA) cleared or approved. This is a modified version of an approved Emergency Use Authorization (EUA) and is in the process of review by the FDA. Once authorized by the FDA, the issued EUA will be effective until the declaration that circumstances exist justifying the authorization of the emergency use of in vitro diagnostic tests for detection and/or diagnosis of COVID-19 is terminated under Section 564(b)(2) of the Act or the EUA is revoked under Section 564(g) of the Act.Fact Sheet for Healthcare Providers:https://www.[employer]/sites/default/files/product/documents/Fact_Sigrid burtonf_EY_Vngzyhpvs_Mptu_SABE-HpG-8.pdfFact Sheet for Healthcare Patients:https://www.[employer]/sites/default/files/product/ documents/Bkpb_Ajyet_Ykaiohek_Hjyj_WVWR-KeK-3.pdfPerforming Laboratory:[facility], [place] [address]LOKDDJZ FUNCTION [id number] 00:10:00 Test Item Value Reference Range Interpretation Comments TOTAL PROTEIN (BEAKER) (test code = 8.2 gm/dL 6.0-8.3 770) ALBUMIN (BEAKER) (test code = 1145) 4.5 g/dL 3.5-5.0 BILIRUBIN TOTAL (BEAKER) (test code 0.6 mg/dL 0.2-1.2 = 377) BILIRUBIN DIRECT (BEAKER) (test 0.3 mg/dL 0.1-0.5 code = 706) ALKALINE PHOSPHATASE (BEAKER) (test 67 U/L 40-150 code = 346) AST (SGOT) (BEAKER) (test code = 14 U/L 5-34 353) ALT (SGPT) (BEAKER) (test code = 18 U/L 6-55 347) Material Flow Engineer ID - PIAYA LBASIC METABOLIC [id number] 23:26:00 Test Item Value Reference Range Interpretation Comments SODIUM (BEAKER) 141 meq/L 136-145 (test code = 381) POTASSIUM (BEAKER) 4.2 meq/L 3.5-5.1 (test code = 379) CHLORIDE (BEAKER) 102 meq/L 98-107 (test code = 382) CO2 (BEAKER) (test 23 meq/L 22-29 code = 355) BLOOD UREA NITROGEN 32 mg/dL 7-21 H (BEAKER) (test code = 354) CREATININE (BEAKER) 0.99 mg/dL 0.57-1.25 (test code = 358) GLUCOSE RANDOM 109 mg/dL 70-105 H (BEAKER) (test code = 652) CALCIUM (BEAKER) 10.1 mg/dL 8.4-10.2 (test code = 697) EGFR (BEAKER) (test 74 mL/min/1.73 ESTIMA ANGIE GFR IS code = 1092) sq m NOT ACCURATE CREATININE CLEARANCE IN PREDICTING GLOMERULAR FILTRATION RATE . ESTIMATED GFR I S NOT APPLICABLE FOR DIALYSIS PATIEN TS. Material Flow Engineer ID - PIAYA LPROTHROMBIN TIME/[id number] 23:23:00 Test Item Value Reference Range Interpretation Comments PROTIME (BEAKER) 16.4 seconds 11.9-14.2 H (test code = 759) INR (BEAKER) (test 1.36 See_Comment [Automat ed message] code = 370) The system [employer] generated this result transmitted ref erence range: <=5.90. The reference range was not used to int erpret this result as normal/abnormal . Effective 08/18/2018: PT Reference Range ChangeNew: 11.9-14.2 Previous: 11.7- 14.7RECOMMENDED COUMADIN/WARFARIN INR THERAPY RANGESSTANDARD DOSE: 2.0-3.0 Includes: PROPHYLAXIS for venous thrombosis, systemic embolization; TREATMENT for venous thrombosis and/or pulmonary embolus.HIGH RISK: Target INR is2.5-3.5 for patients wiht mechanical heart valves.CBC W/PLT COUNT & AUTO [id number] 23:15:00 Test Item Value Reference Range Interpretation Comments WHITE BLOOD CELL COUNT (BEAKER) 2.2 K/ L 3.5-10.5 L (test code = 775) RED BLOOD CELL COUNT (BEAKER) 4.44 M/ L 4.63-6.08 L (test code = 761) HEMOGLOBIN (BEAKER) (test code = 14.0 GM/DL 13.7-17.5 410) HEMATOCRIT (BEAKER) (test code = 42.2 % 40.1-51.0 411) MEAN CORPUSCULAR VOLUME (BEAKER) 95.0 fL 79.0-92.2 H (test code = 753) MEAN CORPUSCULAR HEMOGLOBIN 31.5 pg 25.7-32.2 (BEAKER) (test code = 751) MEAN CORPUSCULAR HEMOGLOBIN CONC 33.2 GM/DL 32.3-36.5 (BEAKER) (test code = 752) RED CELL DISTRIBUTION WIDTH 13.4 % 11.6-14.4 (BEAKER) (test code = 412) PLATELET COUNT (BEAKER) (test 151 K/CU MM 150-450 code = 756) MEAN PLATELET VOLUME (BEAKER) 10.8 fL 9.4-12.4 (test code = 754) NUCLEATED RED BLOOD CELLS 0 /100 WBC 0-0 (BEAKER) (test code = 413) NEUTROPHILS RELATIVE PERCENT 70 % (BEAKER) (test code = 429) LYMPHOCYTES RELATIVE PERCENT 11 % (BEAKER) (test code = 430) MONOCYTES RELATIVE PERCENT 16 % (BEAKER) (test code = 431) EOSINOPHILS RELATIVE PERCENT 1 % (BEAKER) (test code = 432) BASOPHILS RELATIVE PERCENT 1 % (BEAKER) (test code = 437) NEUTROPHILS ABSOLUTE COUNT 1.51 K/ L 1.78-5.38 L (BEAKER) (test code = 670) LYMPHOCYTES ABSOLUTE COUNT 0.23 K/ L 1.32-3.57 L (BEAKER) (test code = 414) MONOCYTES ABSOLUTE COUNT (BEAKER) 0.35 K/ L 0.30-0.82 (test code = 415) EOSINOPHILS ABSOLUTE COUNT 0.02 K/ L 0.04-0.54 L (BEAKER) (test code = 416) BASOPHILS ABSOLUTE COUNT (BEAKER) 0.02 K/ L 0.01-0.08 (test code = 417) IMMATURE GRANULOCYTES-RELATIVE 1 % 0-1 PERCENT (BEAKER) (test code = 2801) Tissue [id number] 11:13:00 Test Item Value Reference Range Interpretation Comments Case Report (test code Surgical Pathology = 104) Report Case: [id number] Authorizing Provider: Hermelindo Wynn MD Collected: 03/27/2020 09:23 AM Ordering Location: [facility] Received: 03/27/2020 10:04 AM SERVICES Pathologist: Asa Huber MD Specimens: A) - Bladder Biopsy, Anterior left lateral wall B) - Bladder Biopsy, Anterior bladder neck DIAGNOSIS (test code = m2egnNJeWRVhx4kxNUJecSX 3220) uZzEwMzNcZnRuYmpcdWMxIH tccnRmMVxlcGljOTIwMFxhb aMsFDKwwBDuL9MbuupfMRlt YD3kLC6gcSxsiVQmmJWlDEU vAyMgq8wrh049oTBfd5djTA CHzekdlHi8jKqbU61vg3N2F atqC83yhWMcSMcqjRNfwaen dlYgNQQrYXGHKZ4RLpgbVhd BMHURSmpiPR9AIBFSX2EqQF VGVCBMQVRFUkFMIFdBTEwsI QLTS3WDQRWFKpQoPpMFCQFI DI9EBJYMZJ5XMOJVGOlPUAk ySbGWDZUCEU8VGP5HQKHVPI JKXKE1RWogWLGzZBLdVJ6sB SXQFhtUBMNzXbUSWILGJW7H WAMPTKUvN9hYWupWI3zpPJA oHJUmPL2dOeVUD7FAXcAuWI HVIDkKXUhFKJCQPSWXT4OPT SFNOBoGIOgLWAKAB2WzELfR BWkTV3fBY66KTBqYNkTSW1m duAVlNXVsOZZhRW6FZ0ENCD FSSVMgUFJPUFJJQSBJUyBQU rCBAW2CZMVgstctBVZsUe7j VVJJTkFSWSBCTEFEREVSLCB BTlRFUklPUiBORUNLIFdBTE ctIDRID4MQUYDZHqEiFkANZ MUNIY2XMTMPFZ3RAZBFSQdR YIpsHpULKTAGPN1XZN4UGOV SVZKPMWL7YJdzTFXfENHxUH 0gUFJFVklPVVMgUkVTRUNUS W1MFXBMGTFpR3iIXsjWQ2pl ZHPzCWQkTN8vKbNZG8ZNYtK gVVJPVEhFTElBTCBDSEFOR0 IXNMPCUIaSHNuBGUDDY5NyH JmTEYpCT5jXS46DZIwNOlYQ Z4efuHIlHWGfFVIcNM1PP0V VTEFSSVMgUFJPUFJJQSBJUy IZVnGCFJ5QPHCnnisjCQV1y 1xydGYxXHNzdGUxODAwMFxh bnNpXGRlZmxhbmcxMDMzXGZ 0bmJqXHVjMVxkZWZmMHtcZm 0tfNOevVniYyNfEULkv6ofb uPWzwlmiDa1t7otZRAxWtG1 aAScXNocA3rcceZweKSxERW hWGl9hW67JCPbgR9ceJMiYL wszkFrDuS4UNdbYBSeHwA4M YTdkGYkLASiK5hkKGSaWTfn HNYeIOumkBKnWHQ7cClbo4N 5bGVzaGVldHtcZjBcZnMyMi XGo2RpHRg1aRblT7CgFDGcH wI4lMUaHNCfVTavSSMtTNNc wiW1yK89XWxfumD0nKYae1A rs78rn265gU7zhLScEVR5EU XgWOIvsLEoMFErTWO1FCRyf FIjU4owHTHcEV9psiqdSBem EZlnVGNlcXV1SRFknEOzE0O iFXMeFLnqEJFginf6WlHzWa 2gdZBorYaqUCcoz1dht6ehk TAjInl5XJIeGsJjQagiEXpu u3Mqa8adZIEutr4eECC9oBQ gdQrlc0T8iIGlUPWymJJvJG ZkKC2btWBeBLKpgY1dhyctW HBnYnJkcmhlYWRccGdicmRy Fs0jwCdyMWA1OAmaJ1ljyM6 rYdN8KJmvJ5gisT1iVQj6YI joPXCuqBZ1mlZ6QYYnfHXaN 1OzfK8qVZWcAC0pmor9p2qg HYM0POyuWIXtWdB9yhE7DFT yvMXeXKDtwLamNRnav720EZ V8KqPyJSCej4OeS1YbpAlzL 14bcGeuQ27jGPPokJozhQ9q kKxaaP7eWtAsNdSjVOgrrVa cBP2bQUNzM7vrwZMgYJVvNW MkR2egSqQiwE5wtJuqISntt zShRZDqMka5BRKfqAKuUOHu Gje0DQXzWWUbV95haumkMMT 9xC2ll5qem5LuQSayMLL4PA Eui97nUNuscnQ8XNvdEk3oS YIbDmm2EkyxTCL2kM== CPT Code(s) (test code k0bpqGHyCQYzwGD9FsHtKAL = 3357) jx5ehp4CmfLBfkZPzJIifbY NzhwUvag89pQY5yH38AT7mL NYoLsG0OUArzzH6Qxb7GLJn SPNpsIQjU699b4izg8xqvgK piLM2eCpjGTKpSCEsUIjpRL ZzMjAgODgzMDUgeDIgXHBhc n0= CLINICAL HISTORY (test j7vpnGRrCHMnlFF4LqMzWWS code = 3356) rp8iuy7AmqCDexEDqTHskrW FckmKwdt53tCP1iQ96FH6xO APdXzK5DUPhjoP0Ltk8MHKi ZMAvyHHdC371p0lgf7wjwmA xfYG3uHgsNLZrWVIjQIdwGS WkUgRfVPQjdGxuLE49TG0lu 5ViYQNzCN7qHW23RILpLPZr rE9xYDEzlICjVV0kMSSaRNL kZXJccGFyfQ== SPECIMEN SOURCE (test h6codJBvSOLnbAI2FgKaOVV code = 3377) cz9urj7LqePAibLIiXDkxcG IytxBptm31nIF8wH82WT2oN PUuBsT3SHEhpcH8Vyh0PVUx ISPtqQWjE125o1gbr9hbepM deLV1vQjgWHAcKLAlXCyeIW HuOhUhKO9wPMGfNYItUBVhM JAmuBCsoU5qMEjhBrNtx0Os gDhdaN9sZHKiOFWOmPGxOWU yLCBhbnRlcmlvciBuZWNrXH Bhcn0= GROSS DESCRIPTION u2zleYFjERExsWAcFpBwRZK (test code = 3366) cJQPee5feOCReuXSlDkFrLt NcZnRuYmpcdWMxXGRlZmYwe 4yto065mFImv0ujBLEyNiY9 aSWiIDRzfVPzQ168l4nvd0f tjcVfmNP3LFGaTVH5XTiipu ZovbA0KNszfQOtQkT7KVjsk dVfZFnphuHyrpDxFre2LIDu D147HNV7uPldd3qoCHC6DTJ tLAOsJbYmGc9qvWMuK197EN GxLQQNXYWdwWp7EVBbtxCjy nInaMKUw515Q011g7weJKRy bzTlsThAwxvrf4fiG962EHI hcGVydzEyMjQwXHBhcGVyaD V5KSTkTF6dttvpGqQqMD6tc wwzKyEjWB5zxmw0SuCrGD1c cmdiNzIwXGhlYWRlcnkwXGZ ap9MpgmjuGS8iM5Ovt8M8dT 9maXRcZGVmdGFiNzIwXGZvc a5yyZEqLWpys2UqOFD3ywH7 vWBmwZLfFMPkLH26Cimre0H qMvuxNBW5FBKjpwNze3Qsr8 ewUqThmgKtY0vfM4BlLUIvD RYyENTqEpMqqtSvg7Doi0Vm mEHoyTz7s4pkHHRxLMHtnXj so7wvEBU6VJSnZ3S9aUXic8 hdHIhlHKHxnCT0wwavJZegE YXvroS9squjURogDMPdlKW7 vvadHCvoZZTwFlG6gxxvISl dRCBzQXG9MGozd439HQY9PH xzYmtwYWdlXHBnbmNvbnRcc GduZGVjXHBsYWluXHBsYWlu XGYwXGZzMjRccWxccGxhaW5 mAlLbSvMcOEeqGZ7sSEAwI1 mzsDDoKLRzDHAdC4igNcWkf K8rtZyqFVxtceOuIMHzBNMt C7JcpgQxJDvwLJDski3kyRr rQLwjEUWvQ70xxLCpueItUJ xpOoTnTGZwx2f9uEW3eTKpg QI3oGXkqKgvCxPmHP2jvYGl CR6fYRygDBdvjnFtw0OsPA8 1bWJlciBhbmQgImJsYWRkZX YqXdzmsUS8DsNrhmVjxwTdC 1ygpHztoCDol3OugDNndKws sOZtJBBhqk8opD1kPJDdcuZ yK8BzQYPena9tvXtgjoP7fS YdqKHyEAprDObxYBN3ZFPjW kJjpMnyp7soG2yiCYVcLDT5 Fw1ocOLlYINyclS1d7DpXBw uIEExLlxwYXJccGFyIEIuIF SeT2HkqsLpONvnBGHiaz8qs XnkNDqtGKCxC31syPLtaaHy NMjdWlNbIBEpx8m0rBJ7xWW jqFW0zCDwsFgpCuOiZU5cjZ LsCS5yLSlcEKilocXzb7FqB B94iKYhteRhdzJyXmHkSJQi QDVzFbrzsOA4HrTklnToUQK 4XI1vsEwwuopmnEXwKZk2lL QoVN0hFXMvWVSezTzrx4Cnt nQkJXA5KMIbQGV3WOSmOnZn jCjre7spR2eiKSXmTMZ9Gh5 kwMWcFPTajyL1m1XgSRyiIH IxLlxwYXJccGFyIENoZWxzZ ZLdI9MpaG4pYC9GWtycURWg XPOEL7VdQ57hoDHkgF== MICROSCOPIC c3cgcTIxMQWdxVW3MzPcHGG DESCRIPTION (test code ji1kef7FgoDGktIDzLRbzyH = 3371) HlkbQess63mUO9uW57DW3rA BKhBaG5WPUhflO6Xut0XOSq NGMfeQOlB999n0ntw7qqwiF tyYI3wZxcSAKtFTLdABysNB BbCkYrDQ1IUuKZIKHqi6GlQ WQuIFxwYXJ9 Gross assessment was [facility] performed at ([facility], code = 2777) Department of Pathology, [address] [place] [address], Technical component [facility] was performed at ([facility], code = 2778) Department of Pathology, [address] [place] [address], Professional component [facility] was performed at ([facility], code = 2779) Department of Pathology, [address] [place] [address], [facility] [id number] 11:13:00Surgical Pathology Report Case: [id number] Authorizing Provider: Hermelindo Wynn MD Collected: 03/27/2020 09:23 AM Ordering Location: [facility] Received: 03/27/2020 10:04 AM SERVICES Pathologist: Asa Huber MD Specimens: A) -Bladder Biopsy, Anterior left lateral wall B) - Bladder Biopsy, Anterior bladder neck A. URINARY BLADDER, ANTE RIOR LEFT LATERAL WALL, BIOPSY AND RESTAGING TRANSURETHRAL RESECTION OF BLADDER: - PREVIOUS RESECTION SITE CHANGES - REACTIVE UROTHELIAL CHANGES, NEGATIVE FOR DYSPLASIA/MALIGNANCY - MUSCULARIS PROPRIA IS PRESENTB. 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 Bladder, anterior left wallB. Bladder, anterior neckA. Received in formalin in a container labeled with the patient's name, medical record number and "bladder biopsy" is an aggrigate of multiple, montiel-pink, irregular nodular tissues (1 x 1 x 0.2 cm) which are submitted in toto in A1.B. Received in formalin in a container labeled with the patient's name,medical record number and "bladder biopsy" are 4 montiel-pink, irregular nodular tissues (1 x 0.5 x 0.2 c m) which are submitted in toto in B1.ZUHAIR Sanders, PA ([facility])nurse charge rn-B: Performed. [facility], Department of Pathology, [address] [place] [address], [facility], [address] [place] [address], Tel [phone], Department of Pathology, [address] [place] [address], JXVVMIUIGAV TIME/INR 2020-03-27 08:02:00 Test Item Value Reference Range Interpretation Comments PROTIME (BEAKER) (test code = 15.4 seconds 11.9-14.2 H 759) INR (BEAKER) (test code = 370) 1.25 <=5.90 Effective 08/18/2018: PT Reference Range ChangeNew: 11.9-14.2 Previous: 11.7- 14.7RECOMMENDED COUMADIN/WARFARIN INR THERAPY RANGESSTANDARD DOSE: 2.0-3.0 Includes: PROPHYLAXIS for venous thrombosis, systemic embolization; TREATMENT for venous thrombosis and/or pulmonary embolus.HIGH RISK: Target INR is2.5-3.5 for patients wiht mechanical heart valves.Fine Needle Aspiration by EBUS 2019-12-02 08:55:00 Test Item Value Reference Range Interpretation Comments Case Report (test code Medical Cytology Report = 104) Case: [id number] Authorizing Provider: Triny Naqvi MD Collected: 11/29/2019 12:28 PM Ordering Location: [facility] Received: 11/29/2019 02:03 PM SERVICES Pathologist: Asa Huber MD Specimen: Lymph Node, Subcarinal, Station 7 DIAGNOSIS (test code = o2ygqAPhBTYakYGfBlMqPFT 3220) pTCRag9fwSRFieZTkHvGsVz NcZnRuYmpcdWMxXGRlZmYwe 4fmm444pWFhd7ugUHVeYbY7 kMRgUXBqgUYtJ488ZEEtTWx er8yaw9ZsMPOrxHJmy2J0CW RUpxpkyXe7dIukZ64tp3I2X fyuI7pyCLSgVOCdY2CdDZ5b RBVhJtr0NCQ1OMA3SVRuZLV rC0OoFK1tXEGicCExYWj0a3 jyxFqvTVDoTUD7o0byRAurv qQ8XZ6mka0pnIu0n8izuiQx FZYbMAElzBISDMMgD0PwcMt sGz3zkBe1wIslFzbtOPJ1Kt j9MG6prw73jjf3uXmxBQKyt wknTqQ2JRncKFUvzmhzKFp4 MFxtYXJnbDcyMFxtYXJncjc yMFxtYXJndDcyMFxtYXJnYj piZSukSVSbMCS4TPyuu391M FZ9MTeqs7swc4ubxJNyRcw1 ARRvSnLiHekvSBgie2Ysj4l hOKMsFvM6LWxqXE5ruv54LS EiBPQ8qa1wwLRqhDhgybRrp QWdFHdfP2QsMXHzv896SLFn H7McGJQlp6H0tnTpCuWaODR moFM9tcY2PDMjPSg3tXNknm D0alCjbMXeG2rzsR38MgWnk KZvX8QhxY72YqKuqRDcI4Zg tQ95OsCmzSFeP5QoeR96XgD hbCUqWOYbzRWcMe7cmJSroA Eom1ZfxFNlLBwsA52wm837A NSqivHvG4iniGHytdzxaMUx gkvtBRkthmQ4AQYkCBQoTMe uXGYxXGZzMjBcbGFuZzEwMz NcaGljaFxmMVxkYmNoXGYxX BrsP3usVyKwHbMnUWWOBW8F QRZBX1GTUYOVEBRPQEFPSgZ NBFHJXZTIII0AUJdoXXVOPA HRZJDDZVeMVZLTRF6nJTHUV G3GNAeJPnJXRyLyT4PYUWEH UF9BEnSKWuWRH0CVZrRJXMt 6DCFkmdNsPYGuAOPQT8kFVT GOUKLIGeLRDDoAZ81QHbTFV RgvAKGzKDNwTJZPH82QKMGC QkxFIFdJVEggTUVUQVNUQVR KElQHP96FBIjaNQaLBpZVPJ 5IBEHTYBFlJ7TOGH3ZVWDpE 7ZMJ5iRF87MVGLFXC1QQPOX NN0BOcsmeAOiNQHgAEobIFK xXGZzMjJcbGFuZzEwMzNcaG ljaFxmMVxkYmNoXGYxXGxvY 3rmFzEsTzSeGog8AJXpmBBl UTPsUsj0ROGvoYZeBYEMxCj puQ0oSSLasWapxL2ubKP3NX MttwNqaLMBbD4iXPUFsJ1dH vI4BmWwEjD1CGW4ITThrFXi EBTnfgIhdQtksD2fVvHoVbE eOEhpxLDwymciGIlziaQ0EP Bhcn0= COMMENT (test code = w0nuvQJeVFIacJCmUkJnQIJ 3359) sOYQsy6ztXBAvtMCvNbDuMb NcZnRuYmpcdWMxXGRlZmYwe 9qsn168rTErn2mgZITkHoA8 jNEdSJJktTJtT874UGFkJPp fw3wdr4NmAJSumJEfi9T8JP HUvbzhgBk3uYnmC36vy6N1X buaW0biZMWxHVDoA2DaTS0i UQFfXih1CFU8ENX2FCNwKSY mH4OjIH9tVLGuzIQxMCl6t9 vonVsiBXPuNNG7r9rhTBipk rQtJG1uiu7msMm9f1ktcqBs QUOcQUAidLMLLZWgJ2XffRe oEs8azSx8kKixOqbbVLB2Zk c2KE1lbm79bjz6bSafZFIpj kfiYnL8RQldDNWebdfbIPy9 MFxtYXJnbDcyMFxtYXJncjc yMFxtYXJndDcyMFxtYXJnYj etUSlkMGVnQPZ0UBcvi403J TJ1JJkju1fks9eczXOmHgh1 EKBlYsBcSuikDStgv2Rxc0b iWZLekh6vLJM8iEKxaYxmm9 B6qQCvKHCmxFAvjzGyVMHwO gV2OSofDM9bzs38VYVtTVG4 dn1vzMIqcHkqhtQsyBQpQKn oU5UcKJLib127TBHcK6CqCZ Ykl1Y8wtWpMyShZWFjoHS4z sY5RJAqJQa7sXBhriB9byNj zKScB0xpvG26XuCmaHIbR7A xnE27ApUppVAmE7FqeO72Ha QifHZrB5FzpT46JyTgfRAtI JUezSMcGx2noQNpcGGus2By mWXyJJstE67an454SOQflfP hE5vkeWVckecceMTauwuyYQ kthtZ5OIMdQWRrDMnvKJKaI GZzMjBcbGFuZzEwMzNcaGlj cYnzLCobQbQhGLBdBWonY6l cZjFcZnMyMCBObyBzbWFsbC BjZWxsIGNvbXBvbmVudHMgY LCmAEYkLY8edH8qgCabIDFi WQDcjbYkp2OmX9coQU7iEGH hclxwYXIgUGxlYXNlIGFsc2 7cc9ImIRJ8nkapT0MyOWRjt UybrV4wmRShENVaqpObPeSp OXNdXPO1HpCYwLemUMQ4eja vD6VvDZUgo6CofUKijCPayE 0hisUviY51emG5sAckGKVeh ySwds5fDQFxbLDqIIIwULRv hpAtoV1buOzdqSPiZm7eOWG oLWIgc4ChuD4us5s1JJ8xVC IblOFfxLGol3Gxn264eSKrR aJsQTs6yTIgASFttYXsnDrk xIRka9v7lVRoVDFvn5GeqMm mCUcsR3nyK4VtTIJacEVdeA falNxupIEeXBJooZ4pzISvn 9KrWWBmz61tsWauYUlsTgXx CG52mFB9ZWZlc5W3OB2ddQZ hV4TmO7aii46cQD0eYJVeCZ o3dinmHGLTkZArT4TVRF1gD BY9RSnlEVfjBOXby2t2gKWn RZcoKMAdLQF1za34mMDuqDV tZJDqtPZbdsMntZYoHcL1iH KqIclhGMUpgeTkRS7pTLRgV HRoaXMgaXMgdHlwaWNhbCBv PrS9ir30hXVqtPYnZGFkasH fgc2qOXwfz0hayKOdfRchLC vWDIGpQwVyyxSwIMvouOm1W AGvaxL2zBRxxRBsEoQnuZ1u p3zmQPA1vOkkXEepFg2mTVD hv5N8SX8afGEdW3VmD7tcf5 4qCW1nAANlJRYkGr8hTRjaM SDhs66hqOqvCIbsPrLkHN57 zID1XENrw2J1XN8fpCCmN4I lN6mur59oVN9dVPVqCSNinP 9iAFczSPfxN7rhaPWwXJGga mVkLiAgXHBhcn0= CPT Code(s) (test code l0caqOSjFARxmFYuZyYcSSX = 3357) sYWCbq4wnUXTvnQCkZwKaXd NcZnRuYmpcdWMxXGRlZmYwe 9rhe585wIKga6fmQDWmBsP1 zFHgTCWqeJAgX630w2rzv5l hodVovSQ0KDIrNDE4GGcsji GydeE7KPfwlFTbQyC4HSjaz rKtKNrudoNnscAeBoo5JFIl G359AYM3sWiff9bmMRA4TEB uPTMjJsJuQw9ayBFvV558TE TpUGGDPGCkqVb3XTKnkmBzs jDmrSDJw118H454a8ngZZYl wyZpdVeBrywzj1mdL986NTD hcGVydzEyMjQwXHBhcGVyaD E2IYDhBC7qjbilOmIdOJ2vd knlHcYeZL7prvq8LfLwTD4t cmdiNzIwXGhlYWRlcnkwXGZ wd9KszzzlAS9rS7Lcq8A7qB 9maXRcZGVmdGFiNzIwXGZvc d3pvWHoUIcnl9ArRIX6abC6 sIWxtPGjQEQeBR07Rntoi9J yHppgITS9DIAtbhAxv0Pot5 gnPePonpQzG0atW1CiZWOjO NZdZSQvCaDlseUxd4Oxf8Zg lXZtyFo7r4kzEPNiSXCdyKg mr8raXGP3BSKbR8W6kAWks4 niUFhpEGQmvTC3yrvrUHxgV KUwknF2projGCjcDYUhzQT5 fzlxFQgnQPMcHcH6uetvRNu rZQEfGTE7EHkcg103GSW4EO xzYmtwYWdlXHBnbmNvbnRcc GduZGVjXHBsYWluXHBsYWlu XGYwXGZzMjRccWxccGxhaW5 zSfGaYdKyMMhtOZ4mYUZsI1 ocsVErOMVsDSUnA6vyNkKpi Z8ptTvlVLnuydRlQYa1TPkh OPI7KHGzNGzmHPY8 CLINICAL DATA (test l2odvSDaNLCtgIOvWvYsSYP code = 3355) mLCKas1uxNAGtgUNiMhPvWn NcZnRuYmpcdWMxXGRlZmYwe 4sht176jUMhe9svDFSjLgL0 hOYqYPChuSOlS289ISTvOJt id9lns2VyBKGwtRYwk4G4GC FQykipsFh4gTacC74gf0X2E vauW6eiYPWnZOOfN1KtQP4b GNZgZeo4GOF9CGP1DJLfEJE eN9RdQG1lDLXimOFcYRh3n7 rrkNhzKBDdIOH6x9qvYKmbn dZcBC3toh7kkXi4k4drfbYp DINxEXHqfFGCESEgT7ZcmNu pFp9mrGp4wUfpHhzxFBY8At w6PN5wpm46ixh1dQbhDTDif lnhKkR6PYbiZIMgmvtzTJh9 MFxtYXJnbDcyMFxtYXJncjc yMFxtYXJndDcyMFxtYXJnYj csAWrkPQVuMNK1VObdg435Z SU8JXpgy8riy2hnnPQqOdz2 NZBvMaVgFzqkEFzos5Mby7n zBETsns4qRJR7xXJkzDfli3 Q8qAIxDYRicCDeuiHoFOGiL bT3QNhzXK4tyt29NTLpLTT1 ai7lnBTkyDvnjjSapHQlAPv qM9JyCQXic310ABIdH0YxXQ Zvv3D7iyVmRnQbUMXbkTC4p cE9MOTzRLb2nCRgofX4kyCa kVMeS1nifR55BmJzeXWbT8M seV52OzLtgWUqU2BnrB62Io LplBSiE2HapO10WdYhzMQzV SGzcKUcJy1obZQnhLDvh1Nf mIXyEWetC25rr734CRRwdoY eT7ojzCNmyxydvITowrplFQ wssiC3RNPgDQXmXBfcTLQaO GZzMjBcbGFuZzEwMzNcaGlj tFtbQRtlMpWmSPJeHKaaA6y bTzPfKlEdIMMXGJLgWLJ3vO 6avBPqnQ9boJBcQX7wfJO3g Pl1CKgwh3Kubkqdw1EsrZhy sPEdbdLxFBS1zw55iVInwCA pLFSetvPcpz1fMQAvPuFyiR OiCTKoCIvtl106EZ01rH4oF LrtbREjgLsoiVtwgByaqY2l vRKwlO3tVYRpfQwwePGadTS ltsHrs30rcKurC2QtwYAgCM YkcO7teHNbVHkKWqSdVTH1N SlccGFyfQ== SPECIMEN SOURCE (test p2pztCCpHMVpmBXzRnHnOVG code = 3377) zRUChg7dhMFXruPDjIdSkVb NcZnRuYmpcdWMxXGRlZmYwe 0bps109nSTbh9meLOFhLxK5 wJKrLGIflNTcQ887u1lnd7t dwcElsJD9LSNjNQH8EXnlky RjopV1CBsxoUIiJzZ2EFkij rYuZCaznvCsrxXeBlr0CDPa X848SCZ6nOfrg6uiESZ3NWA hLYIkSkRvHl5zcCVdN684WP TmEPOMYEUbtJs0PIRgvlQup gSroBXRk156N830c7eoCPOd bdVsvUyOrihij7coY880CKS hcGVydzEyMjQwXHBhcGVyaD P7UADlAJ9yfagjMxWaWQ2nj mtkMlGuRK1esos4FnVyZJ3s cmdiNzIwXGhlYWRlcnkwXGZ mj0HliwabTV2rR0Ddd9B6jH 9maXRcZGVmdGFiNzIwXGZvc q5hxJFqRSqqr1RcAOZ6imQ3 hCYunNPhJWOkGG90Qwkvj7E qEjjrHTC1IFDyqjBun2Rdv6 htHsEzjuEfL4yaT3JwFJYvH COmXBDtNiSoyeMee1Opr2Fp sQRniYa7m4laTLAiGUCmuWi tn3zbVSI7LLMxQ5Q4eQGpv6 sqKRmwJUCayKL1waurDIluM PFpsdX7skblXDzgFEXggYG0 cfmbMBbeWVKrRrV8ctdfKIv oWSBpUJV0EBnuo311EZD7GQ xzYmtwYWdlXHBnbmNvbnRcc GduZGVjXHBsYWluXHBsYWlu XGYwXGZzMjRccWxccGxhaW5 lKxYvBaKqHVrwLL9lLOJdQ4 vsvQBrUSNgSVUuK6ceHpSdb R4hmExzQNschvQhMWvINKDW VM6OVSOtROGHDpTPRwtNMPk wVTOGGXSWV00yOyFQSnLtqR FyfQ== GROSS DESCRIPTION f9knpJUmLIUiwQHoKkYhARC (test code = 3366) iMRRxm4ddLPInkYMrLdYxHv NcZnRuYmpcdWMxXGRlZmYwe 1pxi713gVVmh3czTPVcPlC2 aORuSGEtzUPwX753WJEtOOp xb2gll6SdFVHxtDDth1O3PD MCbvrkaCg9pJmhW03ly7V9I szeV6yhSEIwUWRtP1OgWI6z NVCfOvp7PNT3EJC1WVAyIVO yH0RbYT5rGOGvoFUeTHh7i0 omrVssMDZbMZU9x8vaHSyrl cXsHN2pyj4cdZz3t0lbbwIg MSHhOQJfiWSGWBOvA0FfqVa mVu4tpRb9dHbeIdwmHDJ4Ea p7UP1ngr35lnu7eHjoGEDrx mawUeU4KPdnKDOhtdnhHOf2 MFxtYXJnbDcyMFxtYXJncjc yMFxtYXJndDcyMFxtYXJnYj wqGIocNSFtGSD4TPxsa254V DI3VNnna1hag3qnaTAaIxd4 LNZhQgPjEudjIPbon6Kjt0s lGUHpfb8iFOF1oTDmtRrjv6 H7kEYmAGXhfLHmvkRfGONgD yR2TUpaMK0hbb26JJFiMWI8 fh0loUMbiVstgcTsaULxGWj zT0VfHGHfi617NGPaH4CpZG Ugv6Z9jkJvGcPqZLXniSQ8r rW9YWEgFAu3tIQhlnV9ltEo sZPvW8fkyD55IgAwbXMaY4T ffT68GtSlkYAhS4RhbC62Vo UklLPtB3ByuK66KgAjuSEuV RPtwWGqBk2vyIErkRMij9Fk zFBySNcvS69vt792PKIrbcZ uI9ibgGLizrkcrEJuewzjEL hxsbV5NZEdCOEbIJwxVBOpF GZzMjJcbGFuZzEwMzNcaGlj wWkqUAwdDyGvRROtSAouP8r cZjFcZnMyMiBSZWNlaXZlZC AzNiBtbCBjeXRvcmljaCByZ YUbTgx2VNWrqsGfz9BxqNvn OyBwcmVwYXJlZCBjZWxsIGJ xw5MyBYNzQQFlxjGaGbHsyS Ftk4VnncAdxLYqAARkeEkiA 3RlZDogMDkwODIwXHBhciBS ZWNlaXZlZDogMDkwODIwXHB hcn0= MICROSCOPIC k3iexDGdZEMjeYQgZrPnNBD DESCRIPTION (test code gYHOww4yeTKTsuFBkFgEzYf = 3371) NcZnRuYmpcdWMxXGRlZmYwe 1tfn264uPBya3raCSXdKqO5 vOQlAVDvzQCyE302s6cga7c ytaKgrNM3HXKpPOV7VFpgzs IgqpU0ZYkuiTUfUbW2BMpkl tDqXGjhgjGvjvQwQkf1ITXw D519HOI9rYgmf3zhOHY1DXP dKXInLiUuAf7asJSqH942NV InPPLBBRKouRi4MLHwmxQzt oGavYAPt762L301w4zxRHTr slZexGhGfgxpr4sqZ259IAZ hcGVydzEyMjQwXHBhcGVyaD Q3SXMiVS1qnoasOuUgBD9bz ippPhLbPD2rgnn7LwQkUY4u cmdiNzIwXGhlYWRlcnkwXGZ hf3WuzavjVW0iH9Ruy1L3oQ 9maXRcZGVmdGFiNzIwXGZvc b3hnNFhPThht7XaOKQ1hxS0 mRYkpGBaKCPoED91Hyauu4I dUhwbMIM0DDEbabSod7Svl6 yoLnQzbxKbX0mrD9JfMMVfJ XQeKVTaGcIpilYba0Pbe0Cp jKJusDv2k9igPSJcWBOkmBa up8kiCNR5DOSsP7L4gHOty7 poAOglLYJelOF2zxcnKXtkC ETgotQ8nqqlVUkaOFIxsKQ0 kjirZOeyKBXrNhR1fqvmQPf lODZlCQK0WChqy775PLO5PM xzYmtwYWdlXHBnbmNvbnRcc GduZGVjXHBsYWluXHBsYWlu XGYwXGZzMjRccWxccGxhaW5 qQeUeZrOkPNvnQX9rEJGlJ0 uqzVQjHKXsWNNyA8nrEdFir B6sqZqgCBmmjlEeQPUsdiIk yw0nDD4eJDUfak6= SPECIAL STUDIES (test b4zwwLIuJSPsa2doYIDmhPG code = 3376) uZzEwMzNcZnRuYmpcdWMxIH gxulRaHWvsf0QvX6CuTzFmU FxhbnNpXGRlZmxhbmcxMDMz HRT8mpTyXANsNLpqYMEeIKb mVw0aeDRfkFpnKwNvQYAqi4 rjrdVMqrtsrRo0m2siTVClA cU3bFXyRCcxF2gdfgJltNSo Q4QyfKIrdGb4m5pxIkFhPuP 6hJSrPDvoX0uovlGrhAYsXH LwSKg2dH92DJOyfE9nhYKsC NgoqqZqMmQ8LEriSODeVuV7 VBZglKBiYAIdP3zrUELfSMw fODRgVVsoxRNmKJF8aPkof3 J9aNKfwYVjaVpsDwBlPuAjY eDFn9VaGAb2nEiyR7NwGHWl RmB8dJAnTKHmFTliMHLaNGF mssQ4pPzzfmKis75trMAtFM YwXGZzMjBcbGkwXHJpMCBDb 2HejFgyCEW2uTg1pAriKxbb EBL7Atr7CU4chn87kns2aHb cHHXjwxyjCyC0FJxzVRQwom zfJYm4BPgxOJAepBZ2RZOrh JEdQ8XmHZCeXS7xolq6DMC8 CRloCRAeMwF8TLCnrNOsYTK tlCmqSJauu660QBR7DbXcXV 3qC7Hkk8N2qW9owLBwNVKuv SHtRgEdOEUxai9dhSPyDKdp r9RtIWJ0ddO6vPCxvERvKHS kBT79Uumvk1EdSuckw9XgN3 1lyHI4YYfvh3jcVE9rHhZ8v zRyJQmfw8tygE4sHrA8RThs EP3oDU5kGRKgoT8qrfbdPQU nYnJkcmhlYWRccGdicmRyZm 5zzCfxXBV2NNvkF9wynI8eO iB6NAbgS9zraN9zYCk1AIqx cDQ7CXJncI8cUP8fbpeyv0x iBTvxZKemEJKsqcJ4dpK3UU QlfKNoY0RqwN3oTAInFK9ab tuhv9sdAGY7PRiuQNOiEEZ5 AsXiTNQli6Zaduf0FuXxw7L mrJBrMYruY74kt910XJBqzd YiI8sudMDiycntzZVkqvrnD KgdmbL7NGTmDEUwPJbyPVRj XGZzMjJcbGFuZzEwMzNcaGl jaFxmMVxkYmNoXGYxXGxvY2 nkXzJuX5MhLWTsGgSgLUfnT CtzgLUeoWZvcQQ3sX0nGB5n CXLblVVwQ5NiVPHfavAbnQU jCDU1vYDzaMUcGE1cAIztzR Pcx1thw3JyP8xtrLqsjYH4P D3yQTAtDMBeBXlln0SqdN6o LlxwbGFpblxmMVxmczIyXGx brgnjNLDjHUhfB1ncAqJlRX ZodZjvVSjin4LzVQRcAFBgW dkboxYjDIq2gcNxPLJfkrxt DAVevSkznR0eQgZwGgRdCxb lIW8oDOQhR1wbuEVzMBRcPH MkN4qzFpMevJ6vwQoePJdmV zIwVcFgPbEUj209if7tQZJr vJVqtzFDgLSywU4hYYnpKMm sFDymfLWwRUixa0zsGDXkh7 n5tDRnSVQbaeKut4udXKkhk yEaGTFdxVSkzJWeLKPvm88g OXhdgWtxjGpwTNKnn4VnkWq dh2IlOcAkAJuqf3DwF15txT JvbCBzbGlkZXMgcnVuIGFsb 83eu9acIKVnVyZ0iWJzpZS3 iDPohTGgi3SciUtgGXDuy1u dOMQdvv3xxmfemFNar6QybH 5pbmcuIEludGVybmFsIHBvc 4q5gMZoGNAnFKEjURsbxNb2 VITfb856nm7loaV5cCUsTAE 2YWlsYWJsZSBhcmUgZXZhbH VhdGVkXHBsYWluXGYxXGZzM jJcbGFuZzEwMzNcaGljaFxm IVqyGeHqYAYjZOklR2qyCgL nD6CiQZAqLvEdeQJqW6rwjI FyXHBsYWluXGYxXGZzMjJcb GFuZzEwMzNcaGljaFxmMVxk RkKiAHTcKWrdU7qdNdWoH2Y yXGZzMjIgIFxwbGFpblxmMV xmczIyXGxhbmcxMDMzXGhpY 1buXyIqHYWklAjxIAinn3Bw CPLlKITbUlevknIsFKa1mtF oXHBhclxwbGFpblxmMVxmcz OkAPcymoumCNKmRCkyR7ivG iJwVCNsjUgfUEril5IpCDRt GRRvZneeseNdNSwyqMYzl7j ue6PmY6lheYlarFY3XELnV9 llsVSbeOR6TQP0sU4wVSrzt qAzNCOqp2XpVVDvAEDoDjF5 mM5gOJJ4CuFLqCrlLSGdJSo uXGYxXGZzMjJcbGFuZzEwMz NcaGljaFxmMVxkYmNoXGYxX FlvR7klHkRqP3GvZLSlJpBp sTwmAWkeWTk5HoqzfSCrpjn mMVxmczIyXGxhbmcxMDMzXG vvK3iiDoNvERYcrVjgYTlgz 2NoXGYxXGNmMlxmczIyIHMg GTBprQQtsTHLOI90NCAnGGP vkOkuuK9vaHUNIIQxhkB7y0 J6RWyhQVXvHCv5PBrgobZmT AThuI7tYDItGL7dOHn7znFj AJWeg0WeIN3fWKGveLQeOQI 2BNHwv9NhW5Qfo2ZvRJTeVS Gunr2kxuRzWiOUkKHzTUZjg b74HIIcKU2oQ7xlTUZjPILv aaEepHQdf8BiWTPeaES9fAQ fVW2GKfFOp45uMIRbENPHur IhNROnuHafrNU1keO1tS5yV iBUaGUgRkRBIGhhcyBkZXRl nv8szcTcOJVrCEFsr5DxxWF rxKNdkvJiL2Gic5MiLASgqo 30RHixpPRrbl78VY1xM8Mvh 9XcxO5nJNjwNQNug8YtsDQu hFXxAOScv7AxV4izlscmZAr azMKirQ5wEIGiDNm9AXTcy1 AqXLAwp4BaPbLgtwKfSKStC EPlXHBgfJ02UEA9iVycnWic bzAvKK0nJSFrqrXhWODoRBS kuC4nTZkkzxVrIOVvrnR8n3 Y1DKscPFCfngEuFrayFAT6o xEgigK9rEVgB8tqvhxtUPrr XQUfr9PqrJ8tcONWwXNka1T tpYFsxVKUtZQzPF6zkfRjGY 6vTBB8IAmgMUTKFWUpVZzqB TTgGMY5KQrbMxenIBW8kxUr MBPyb8YeVNjjA8goA59xyPz wsFe5lSLglQqvdOYsgLSpPD ItewG4u4L7AVEqf8RdcbvmM HBsYWluXGYyXGZzMjJcbGFu ZzEwMzNcaGljaFxmMlxkYmN gTTMpNRfiH7gtCdMnCrOdUa ttJOX0oI== Gross assessment was [facility] performed at ([facility], code = 2777) Department of Pathology, [address] [place] [address], Technical component [facility] was performed at ([facility], code = 2778) Department of Pathology, [address] [place] [address], Professional component 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 This surgical biopsy specimen shows this carcinoma also present in th lung. The morphology of this tumor would be either compatible with metastatic high grade urothelial carcinoma or a poorly differentiated squamous carcinoma of th lung. The MANISHA-3 stain is positive in the urothelial component of the bladder cancer (this is typical of urothelial carcinoma) while the MANISHA-3 in negative inthe lung biopsy (typical for a squamous carcinoma). Therefore, a poorly differentiated squamous carcinoma of the lung is highly favored. 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 The interpretation of this case included the use of immunohistochemistry or special stains.Control Slides Examined: In-house known positive controls were evaluated along with the test tissue. These control slides run alongside of the patients sample show appropriate staining. Internal positive and negative controls when available are evaluated Immunohistochemistry technical testing was performed at [facility], Pathology Laboratory where it was developed and its performance characteristics were determined. It has not been cleared or approved by the U.S. Food and Drug Administration. The FDA has determined that such clearance or approval is not necessary. The test is used for clinical purposes. It should not be regarded as investigational or for research. This laboratory is certified under the Clinical Laboratory Improvement Amendments of 1988 (CLIA-88) as qualified to perform high complexity clinical laboratory testing.[facility], Department of Pathology, [address] [place] [address], [facility], [facility] of [facility]ology, [address] [place] [address], [facility], Department of Pathology, [address] [place] [address], EOTXDB [id number] 08:47:00Surgical Pathology Report Case: [id number] Authorizing Provider: Hermelindo Wynn MD Collected: 11/07/2019 07:23 PM Ordering Location: [facility] Received: 11/08/2019 09:13 AM SERVICES Pathologist: Asa Huber MD Specimens: A) -Bladder Tumor, Left anterior lateral wall bladder tumor B) - Bladder Tumor, Base of bladder tumor Immunostain for MANISHA-3 in order to compare with mediastinal tumor diagnosed subsequently:MANISHA-3 immunostain: Positive in uro thelial component; negative in small cell component.Additional CPT code:[id number] electronicallysigned by Asa Huber MD on 12/02/2019 at 8:47 AMThe addendum is to report results of an immunohistochemical stain. The final diagnosis is unchanged. GATA3 (block A2): positive in urothelia l carcinoma component, negative in small cell component. The control is adequate. The following special studies were performed on block A2 in this case and the interpretation is incorporated in the diagnostic report above:The immunohistochemistry test was developed and its performance characteristics d etermined by [facility], Pathology Laboratory. It has not been cleared or approvedby the U.S. Food and Drug Administration. The FDA has determined that such clearance or approval is not necessary. The test is used for clinical purposes. It should not be regarded as investigational or for research. This laboratory is certified under the Clinical Laboratory Improvement Amendments of 1988 (CLIA-88) as qualified to perform high complexity clinical laboratory testing. Additional CPT code: 14768Qpytdvyx electronically signed by Maria Elena Stuart MD on 12/01/2019 at 6:53 PMA. URINARY BLADDER,LEFT ANTERIOR LATERAL WALL, TUMOR, TURBT: - UROTHELIAL CARCINOMA/SMALL CELL CARCINOMA, HIGH GRADE (WHO GRADE 3), INVASIVE INTO MUSCULARIS PROPRIA (SEE COMMENT) - NEGATIVE FOR LYMPHOVASCULAR INVASIONB. URINARY BLADDER, BASE TUMOR, TURBT: - UROTHELIAL CARCINOMA/SMALL CELL CARCINOMA, HIGH GRADE (WHO GRADE 3), INVASIVE INTO MUSCULARIS PROPRIA (SEE COMMENT) - NEGATIVE FOR LYMPHOVASCULAR INVASION Signing Pathologist Direct Phone Line: [phone] signedby Asa Huber MD on 11/10/2019 at 3:59 PMA. 50% CONVENTIONAL UROTHELIAL, INCLUDING PAPILLARY COMPONENT AND 50% SMALL CELL CARCINOMAB. 80% SMALL CELL CARCINOMA, 15% CONVENTIONAL UROTHELIAL CARCINOMA AND 5% GLANDULAR [id number] B0Gvumg diagnosis: Malignancy neoplasm of overlapping sites of bladderA and B: Bladder tumorA. Received in formalin labeled with the patient's name, accession number and "left anterior lateral wall bladder tumor" is a 5.5 x 2.0 x 0.3 cm aggregate of montiel-pink rubbery tissue which is entirely submitted in A1-A3. B. Received in formalin labeled with thepatient's name, accession number and "base of bladder tumor" is a 4.0 x 2.0 x 0.3 cm aggregate of montiel-pink rubbery tissue which is entirely submitted in B1-B2. PA/pl A-B: Performed.TISSUE [id number] 18:49:00Surgical Pathology Report Case: [id number] Authorizing Provider: Triny Naqvi MD Collected: 11/29/2019 12:49 PM Ordering Location: [facility] Received: 11/29/2019 02:05 PM SERVICES Pathologist: Maria Elena Stuart MD Specimen: Lung, Left Lower Lobe, EBBX. Process in Cytology for Collodion Bag. Reflex Genetic Markers. LUNG, LEFT LOWER LOBE , ENDOBRONCHIAL BIOPSY:- POORLY DIFFERENTIATED SQUAMOUS CARCINOMA, FAVOR LUNG PRIMARY (SEE COMMENT) Signing Pathologist Direct Phone Line: [phone] signed by Maria Elena Stuart MD on 12/01/2019 at 6:49 PMUrothelial and squamous carcinomas can have some overlapping features. The prior bladder biopsy [id number] was reviewed. Based on the overall histologic features and immunohistochemical stains (negative GATA3, uroplakin III in current lung biopsy, and positive GATA3 in prior bladder biopsy ), history of smoking with a lung mass; a primary pulmonary squamous carcinoma is favored. INTRADEPARTMENTAL CONSULTATION: - Asa Huber MD has seen the case and agrees with the diagnosis.19841, 57817, 38017 x 4Mediastinal lymphadenopathy; bladder cancerA. Lung, Left Lower Lobe Endobr onchial Biopsy Specimen A: The specimen is received in a formalin-filled container and labeled with the patient's information and labeled "Lung, Left Lower Lobe Endobronchial biopsy" and consists of 0.4 cm x 0.3 cm white fragment, submitted entirely in A1 in a mesh bag. Performed. The interpretation of this case included the use of immunohistochemistry or special stains.FGZX0-xetfutgqWBD0-ejnlenmjQ61-positiveUroplakin III-negativeNapsin A- negativeControl Slides Examined: In-house known positive controls were evaluated along with the test tissue. These control slides run alongside of the patientssample show appropriate staining. Internal positive and negative controls when available are evaluated Immunohistochemistry technical testing was performed at [facility], Pathology Laboratory where it was developed and its performance characteristics were determined. It has not been cleared or approved by the U.S. Food and Drug Administration. The FDA has determined that such clearance or approval is not necessary. The test is used for clinical purposes. It should not be regarded as investigational or for research. This laboratory is certified under the Clinical Laboratory Improvement Amendments of 1988 (CLIA-88) as qualified to perform high complexity clinical laboratory testing.[facility], Department of Pathology, [address] [place] [address], [facility], [facility] of [facility], [address] [place] [address], [facility], Department of Pathology, [address] [place] [address], Jpsn Cytometry Requisition 2019-11-30 17:18:00 Test Item Value Reference Range Interpretation Comments Flow Cytometry (test code See Separate Report = 2758) Case # (test code = 2759) [id number] [facility] [id number] 17:18:00 Test Item Value Reference Range Interpretation Comments FLOW CYTOMETRY RESULT See Separate Report POINTER (HEDY) (test code = 2758) FLOW CYTOMETRY AP CASE # [id number] (BEAKER) (test code = 2759) Flow [id number] 14:20:00 Test Item Value Reference Range Interpretation Comments Case Report (test code = Flow Cytometry Report 104) Case: [id number] Authorizing Provider: Triny Naqvi MD Collected: 11/29/2019 12:35 PM Ordering Location: [facility] Received: 11/29/2019 02:10 PM SERVICES Pathologist: Kali Borjas MD Specimen: Other Flow Interpretation [id number] (test code = 3364) ZXmYDTko2stXXTlaRTjYw EwMzNcZnRuYmpcdWMxXGR lHpCwz4aio281mUKzf7lx SIAqEeD9cZYlHRLmwKDqO 336ZGYdDSozk3wuy7SkWH LwxJPpl6D6IEESneippNb 8sFzcO64or1P7HcspL7yi TYEqCBWlE2GtXX0lDCEaB zd7TGK9CQT9FNAjVXYxW7 NgYB9eMFKasDOkWYp2m3y yiOjkFQRmYIX3c9ruCOrm xeGhIX7mdc1vkEh8i9shq zEgRGVmYXVsdCBQYXJhZ3 LvwImzAm9wfSo5bQgjUhz sABT2Jpm5GA4dyn20reh3 xHnoKWDdmgnqEyM3LPznW KCjqwkpHVp4VVfpGXWyqW cyMFxtYXJncjcyMFxtYXJ ndDcyMFxtYXJnYjcyMFxo XEJzQHL1NEiml686GQC2N Lvta7kvh3wrhWYlHth4PV OpGaYbPpzxFGifd0Qqq8c rAMKbhn6dUWN9lHGtxGpv u7H6xXSnVFNlpGUxgzCtZ EJsFyH8WXocRR3xmz20DY XxDFF1sk6akMCufCejhhR xpILwUPewV2ZzPUEsi976 VHAiA6ZkHLAvq2E2ikEnO oDeXICyjIG5hsB5CONyTZ w2wRXnjjZ4mfPpdMZqN7r taS80FhFgnCWwZ8TxzZ61 PyBsjUTcK8OcbR15KuInr TDdC5RygN11WdCyeMLaSS CmxCKtPk9nhNTjrRTii6E emHZyFScrR19ct111FIJv axMuD2teaZZfxanhaDVvy gjwWWqbfzH3WKVyWSNlKD luXGYxXGZzMjBcbGFuZzE wMzNcaGljaFxmMVxkYmNo AMNhBYsvK7pdVjZoUaCrO YXPCP0ZVAbjZd0TLFfvPK FXVbAIBT9MCE7ORNKUXAZ JY7VOPzLOCNcyFksLUyIF RSNLGBIDIsr4GPGweyWdD t6vKKFXUeDVLmTuRLZDEU 7NGT5STTMUNHECNXECZVY BP83vjEEvBV4WBaRYTeZC K0pMRdSkIdRWVgKKYR6LB SYwPQxGRIlAF2gGXCRoJE ZBSUxBQkxFIEZPUiBFVkF IMKTGHD0EXDLyojOhF1SB IVVVTM6COxRlgOVbmH== Flow Interpretation i8mtwGZyZQIvgRGaWwKvC Comment (test code = LCbOSLqn3soBNRywSHeVd 3365) EwMzNcZnRuYmpcdWMxXGR iAnJir4zhu526hJFyl9yk IYNkMbI2qIPmOWNmsUKiO 415ARHaYHdrf3hzo6CqBM GwiNOhb7L4BTJSrfzimTj 9qVgaV69sg7G0WacgY0qm ZNIlFUUnI1KhHV1tPQJwK cs5IRB4RQC3NVFoWZNbK2 AoLK4fXBFwcNYoAMf9z0w hlFhlJYObETQ5r7raISfq brZdNO8apy8gkDn5f7gew zEgRGVmYXVsdCBQYXJhZ3 BmmOilSw7zzAp7rGscWwp aDZM4Btu7DV6kra83szp6 mMnvYWRepvqfZkY7FEiaI CSvvmszQQa8SLadCABmuL cyMFxtYXJncjcyMFxtYXJ ndDcyMFxtYXJnYjcyMFxo AFStLBP5IKcmd754GDW1K Jioa3tgu2rylSAwHkr7QM YsRhGrTzewMMmsw7Iym0p vKFTudo1iNDY5wLYpqXwx g6B2hGPyEKFivJCbpdBrM WPjdl22mYUqyLClqPRurt 1houTnbYYcsGZjFHK4lRC axaXcQPZlbZFjCLOaRX5h oOLtCYDhgZ6dqjojQVXvA nJkcmhlYWRccGdicmRyZm 3yrPvdWTJ2TGweZ1xboF8 xVuQ7IQsaH2fmwN1wBEh1 YDuyeOJ8GGGxfW3gMV9bw ilaz6flKxZuGE8wfrmcv6 yzBcEkXF1zmts7p8fxOjA pEV0ijafsg1joAyLmSCxv NDZtrntjWFLvf2OilwxpQ SCny6CyA8MqpFmjP21jyH cbN55sIBXylNqskU5heQk rqZ9zJxGcVgXsQVqoHWVr DNJqrWUgOTP6pCMtekVsz VMyiZXgTAPzZXfjMZS7nA BhclxwbGFpblxmMVxmczI lLCgwshuaNYLhPZrkT5sb SbTjPZQbdPagNKtqr9ZrV BJyBAYkMaxfqiUfDZw7wx JlOBXjq5xlJ1l3d75vrDY 5PX3rNHOaXHSzZAkoCRHh XGZzMjBcbGFuZzEwMzNca GljaFxmMVxkYmNoXGYxXG upV8cePfJeAkFjZSRhjJ6 isKQck3NwBLJOHTYaLp5B VJZlkPRrlZ6uQFBgYVmbO GYxXGZzMjBcbGFuZzEwMz NcaGljaFxmMVxkYmNoXGY sWBpiS3auSnQzI2NbYQQm PpBwiIMlD4qsXPbjxLPjw lxmMVxmczIwXGxhbmcxMD VyCYveI8jvAvTnXOVftEc cJBvkp7FiHKCuKPYqPyGw WL1rvhMBF8EdTDJtINkwC GYxXGZzMjBcbGFuZzEwMz NcaGljaFxmMVxkYmNoXGY mUPqvG1xyYaHhC8HlQUEy ApLmcOPbB9ocMKZdc74ui LNhfWWpjSyhxT0nOsYeTe PtVIveBS9eZCRfN2svsGS aRECiQXDeG2lbNoOtyV0i aFxmMVxmczIwICBccGxha N2gLoWpUoWeDHdrYL9qEN OqL9qnlBRpEPPgYFCyT0d vScFhfM2jyDgwTBixMoEv ZnMyMFxsdHJjaCBldmlkZ F9mKXAlGdHbOY6rd5HrPG O4rRInMKNofV9lbE3dfLX lTEAzb4Cno1BzABWktNmz yV1jYrLiEqDaVYxzWC6lQ SSxC4rfuZJgNUOrHDQnU3 byDcTjaD7edXctJHqrfzN cCH4xLQFdW79jAcwkIH12 VI17iICokwIoXvDDUPd7f HAzp1L6cUIaNUHtukGdZK wxJSkgaWRlbnRpZmllZC4 gIFRoZXJlIGlzIGlccGxh gU4nScJpSyLnHHtrLR4gZ WEoH5ubyCGyNQPkCFLhG7 ztDhAhvY5xdQrvMNllUyH iSbEwVDfleUManTKnb9Dq BvydnXMvxUHWQWd9rTWjs 4K1vSrwLIN1SC30rgRyd7 MhkNYskYWoXRi6pQDdm31 aNDA5SVc2GEDsu95mPNJy R61ykBYjDQIdn3YsGDvij GdeivC9xZDbIPW2bO2my5 e9XhdjkGVwpjbfJMouflP zFGxtpwbsEQXqJDefK2qw SlZaKXBfuAozNVvhu1KgC GYxXGZzMjBccGFyXHBsYW luXGYxXGZzMjBcbGFuZzE wMzNcaGljaFxmMVxkYmNo SKJeXLlcH4tzYyErE1CjW PHxSlJqnZDhF0ffEUgssI FpblxmMVxmczIwXGxhbmc aDOXfPLgzL2ckAaKbIMEo vDjjKNsiy5RgHLAvURBwO jBccGFyfQ== CPT Code(s) (test code = [id number] 3357) EZbGTDnr2blVABhiBZdBr EwMzNcZnRuYmpcdWMxXGR rNuByr5uzg052sMOdx4fx DODhCbP4uCRpFNDorHJiD 620IRWpRTxtw4bbu6BqXJ OtdQUog7D1HXENnyxcnIi 3xAgdQ28li5E3IdatL5tr RLKdWCCnH6VdEN6wXXTjA ic6PVV3WPT3KFYhKGVfA0 CsLZ4kNTQehAUwKOg0o4s sbTvlCVNwINT2p8koVNoh vfGkLJ3beg9jdYj6a5nou zEgRGVmYXVsdCBQYXJhZ3 XafUoiTl7rzDg5qUxnTmw iPII0Gru2GV1uxm33zfk5 xDgxSJOsgkjiInI7NSbyW IOmntysMEi1KAxbBYWyjQ cyMFxtYXJncjcyMFxtYXJ ndDcyMFxtYXJnYjcyMFxo TDMkZXG7LBkam488MMW6X Ixyr3sef9jwgLXcOxj2MA RgBrCgNexzJDkzn0Fzj5h gMCJriz1zTXT7wSTcjJtb k5D5fXGjTKPzxVKktrJlQ OPqVkM1UOqrQP4cqr08WN JmPWZ2jv3teARnjMgxulK fcSVbZVpeN7GiCPGfu204 VHHmK4FgAGNyw2K7pmFxN oDaBGZufUI3suH2WDWbKF e4qCYughG5vtRexOWnZ0v iwR35DlFjcUIvV3LawX76 PwHwpKVxO5QrxE65JsMrw QEhM4JynG98SkOrxBXqLI WpuEHqHj3hzDUgcZIxe1D ajXOcUXrlE93dw246HBFq ktCpA5npjEOenxnvfTUya risPZwhjnJ2JTQeSCMxOA luXGYxXGZzMjJcbGFuZzE wMzNcaGljaFxmMVxkYmNo FJWsZJugH7xcHoWfYkCsA sG5KWN8XUtcpOUpvbvqLR xmczIwXGxhbmcxMDMzXGh qW5mjEoPwKQRscOuiHJte k3MdRZNaEHIrRuKxpFTwv Q== CLINICAL HISTORY (test x9gjyXJiDAQmdLIaWlUyM code = 3356) ABbKVQmg3jbXRYfeRKxDq EwMzNcZnRuYmpcdWMxXGR yOlSeh4tjn273pSBmt9rx OPAoTsM8yOKhOGHhcAAcR 697RRZmLGjrc6nyz3HqJI WulHZso1F9UIFsbzcnxNo 2tRrbH52sl6J5CsdsM5il VNHsNKAiT4ZaFF2mZCTcV lv1ZKC2TNW1MKClQMHaP5 EuRI0pZHGdbDNzLSz9x8i trMloLQIjUYP3n5keSJib meRfSX5bvx4xuEg1s0vks zEgRGVmYXVsdCBQYXJhZ3 LkkVczBo9pfAm7kFreXpu vNIF2Tff0JV7yld78qnf6 gOaoNQSbpwyrOpQ1ZYpeL CUsgchtBGy2QLriXBRquV cyMFxtYXJncjcyMFxtYXJ ndDcyMFxtYXJnYjcyMFxo NNXiMYQ1TUddc695FJL4Q Rsej8hjh5qkcEHnWqc8PB DiBhMiBsmbMNxen7Hvp7j rNFLozo9jFMK8nXHpxBhj m4L7eKRwWJZkxZQsvwToM GCjNhF6VBuxPZ0adg49GU OmYBX8gc1otJOsdKnfveN vjUDfYFaxK1EmHAHyl051 HKZaY8QnEOHdk3V9phXlC hIqOLMmyKV8bdV7YLBrAV f0dIAwudC1tvLqaZWaY9y liT17HuPtuNWfO3IezI63 ZaMviEMhM2WpnZ06GmHrk YKvY3XjzL38TtDymNAoRO SifHZxJg5seMRpeNTde2G nhMBbAYqtD84gm685FFLp ktKrW5xsqNOpluvpbHNqa kfzQVwrugL9HWdoTdojlT FcbHRycGFyXHFsXHBsYWl uXGYxXGZzMjBcbGFuZzEw MzNcaGljaFxmMVxkYmNoX IQfJMrhJ8ldDfGtTvIiZC T3CKR6OUZyOZndbKlmcYV kaWFzdGluYWwgbWFzcyBc cGFyfQ== SPECIMEN SOURCE (test s7ltcOAlGDVboPSoVrOjQ code = 3377) IHzAULtu4xhBAHlgWRvUl EwMzNcZnRuYmpcdWMxXGR uKvFwt1bcz984pMFaf8ev FPShCrY4kXJnPQFusDGtM 058EDMaSLkhk9iwp8WaZT SuhFWgl4A9PUUVcwfswZs 4dPvdJ10kz8L0KdvuS0bl GFHlEPKvZ7ShEO3gICUwY tm4UVS2XHM2TOQrKJUjH8 UfYR7yOBMsfMAsVQl7w6d ypUdvITDePSB9c1veDHlm ttPqPS7bwa9hpVq6p8mtf zEgRGVmYXVsdCBQYXJhZ3 HeqFbuOx7oxMf0rQbhIrw kYLP1Jsz4PV0fap09wgw7 tWdjPXQejoniQsF4WMllA OGxnodjUKo3JNtnFGOzwE cyMFxtYXJncjcyMFxtYXJ ndDcyMFxtYXJnYjcyMFxo XVChVSA3OAccc578MIO8M Koqm8wtf8nptTFaKsn4GM SlRnXeBqgzQSqpv3Zln8h sVRCywq0jLMH0iCEocQwo o6C7oRBlSXLaeAUoeaMmY XCvGfS6HCugNB1ufj28BF KzZRG3ze1paINtdCltzyP vkBYhEFdqX1WuZAYrb038 VFSyV1AmEQLvb5S1lfJuU bZmKQXewIP4yvI9IMKoAM f2yOWhmqK3rgDquCUwG0o ziR06FzXsbDJcC9TyvN22 YpGxzLTtQ4FtcQ44MwTut RXjN7MamJ66AnMtnXOrVQ GgbQUbCw6okNMmhGXjz2W cfETdESwgA95pd437BDWw kwJzL8zaySDgggejuBUiu bqrPOqqqvC9LPOlhrHhyO eslB1hMlSxUkEeXAmtUS3 cHCBgF4kemXAyULJrJSQm S8ylFfYbyJ7qbJbcBShxs mLdHWhSAIeURPHCJ4AGPY BFQlVTIEZJTkUgTkVFREx FIEFTUElSQVRFXHBhcn0= CELLULAR BIOMARKER k3zxyPKnQRGjeNHhKdMoH ANALYSIS (test code = OFeREKje1leKWIesNVdAs 3380) EwMzNcZnRuYmpcdWMxXGR vIeZqq4tnq843dEPzr0vy KFEiHcO5sVHaNNRxiDVgF 519DFLeTFkgt1com9GkPN IxbOPmo0N7YLDIwlwdnSv 6lYebK22mx5X1FnkwZ9cv SLMyGSPgM0EeLK5lYGZvU su1GKD1JBQ8YNSjTNKkI2 YdWY9oGAJqeYKfOUh0l2t dmNpoREDyYJL0h4pcNJlk pnTxBK5fjk3emFk1n5xaf zEgRGVmYXVsdCBQYXJhZ3 ReaWxbCc1khKa5zPpqEdi hYHH9Lxl1VS8ile07rpd6 nNvqFQTiocylJsN6KRjjO PMvcicrEIb3QWqfRYZfnJ cyMFxtYXJncjcyMFxtYXJ ndDcyMFxtYXJnYjcyMFxo ECOrULE2EDjjv936QIL1Y Hdmt1wmk7qodUQzFbp2HV HaIrCuNmwaEIjvw3Ihz6a gMMNoyz9rCJL3zXYkpKer z0T6yCFdMWOgfVMvkiSxA HFlBzS2WNlfKZ3ggc35AW XyAPW9oe5srQIomJwmnnA cxPVeKPtjD9NhHAOsy633 DMUjV3SdTKJgm8P3wwQhR nMxOGJcePL4hsH1CNFsHO x5dDSsnjU0vzSblAQuB9h wsM70ZmEseUVoX1KdnJ63 CnQtdAFrI2DnzR69YnFjs BPwH6SxaZ49RiUvoYIiJJ YyuGLyKs8avGFobJOcr8W cqAArVDqvU15sl158VDKd irHdZ7glgGAhdhvevFFdy akgLFltyoN6BGLbwoHyoZ kdpH1iSqJhGyBbXEtxNL4 bMBZmW1aupYKoOFKrCFCb H4jlZfIatY7hsHmbVHdzr jUsGFQLBEqol8TiLbHoEL 1dLVJqHOnwE5D4Pcawv7G nUhAdBY7ySQ9tANIyMWEX ORmgI2TtJNwxN8OyMEffQ 0QzLCBDRDIwLCBDRDQsIE NENDVccGFyfQ== IMMUNOPHENOTYPIC n9xacMXgNOFfdUGcVaHmI FINDINGS (test code = DYvDRPpl8xbXZIfcCZaLa 3379) EwMzNcZnRuYmpcdWMxXGR qNyNmj0byw766hVBjk2sb OWCxYtL2kQVjXQIvtPLmJ 135OCPgEWozj6lkd6KgDR ZaeCKvl9D1JMGGekmagMo 1i4vdWdWwOlS3uARkSKjh F1rerhNrkSFsA9RlvXQks Gk7yDrfQ68dx3K8LxvgZ5 lgXQQfWUUqM6IfMT9dGUD uZbu1YGR2KUW0BYVfDGKa V2PqYY9qBCBpfSLbNSa4z 5mdvRxuALArWUF6s8xuBS ihjsUqMA9efl8kgUl6t2r jczEgRGVmYXVsdCBQYXJh N5MyqQftJr6qoJi0bMyaH hiwDEF9Ygc8ME1izh78to x6eJxuCCOniczlBuX1ZBe zQSUtaeabSRw6ZLrySARm bDcyMFxtYXJncjcyMFxtY XJndDcyMFxtYXJnYjcyMF ymIVFgEQR2TNsfd890EBV 7QZwcc9qau1rswSWzOxt2 UDVvOlNsHmziWGlel4Dvu 2goASWyou7yBWM0rFOnbL zte6V6wCMhGBNgsVVmcqO dOYOvSoK8MBodAI8mcw82 HIUiVQL3dz8flVWlmNxpc rGmnCYnVAtbF0SdMFJxr0 50HBGmN6GoYWXne8M7yjD tMpYnLFQtmSL5glE4XNPy NNh9eIRjqjD0jvWeoRQzV 3xfzB66WoMzbZFjZ6NgsJ 66HzGzuHFvR7XuxG43QpK hoHQrN2XqhC07TwCvwWLh ADTwkYJcAc1zvVXinUFna 6KrfSPgTNjzR73xo470WE TgrwTnX7zaeZFeblyqbMM yjmhcNWqoeyV2HUVsgyDl a9UiBORpZKN9WIybPQodt Vn9uEHruOpxDYSrmShbuQ 6cDjLkKgBxKBdsOJ5kRCI cR4mkhOEtJVBxJPLdT1cc XzQitQ6wyYxxPFedcgWmA FNwZWNpbWVuIFZpYWJpbG b3kSdjNbzdUVPtkoo+XH5 cflx+LH98lKRewaQoQtKG hcDwyBHjOVFwbBvhLBQ7N SL9LHisMLBocsp+XHBhci APxYKmGl0tvM91kY4cOME egRPxLTMux78wGABrMQZp ZGVudGlmaWVkOlxwYXJcc WLjWBd1yNHws1K1yYWfDn SEddopzMTyV9D6YFnrhJt xyCrjN6m1TFToF95ilDUk w9SeQp56KHTgUdN8f0Hqb JYfUReqlm8iBNAzVIdywb VzhV86QLBrQ5H8MfVMKTZ zERVlkyOnZnW4PsQcWR9j US3ien2keSIuiRIaOCNah B6rWV7tFOUvQDEyVY7hTP NlHIqpOCJgqNbgMC3qDUH MUaElprUdX1V2CtExyhvd VWXVKOZjlBzvYNczWA75b ZAlXUNyu5mwQ0aaTPSdVO EjCJMhoWs7aUGxRgN2ySS cFMEik0PsyUZ9bBPpYkAz XMXgrIxhNH9kTTKqRpd+L lxwYXJcflxwYXIgTXllbG 4mRC4qc33lM2j1aJExmB4 klHccoAhkkdO2RUXaLCbf PJ26tZBlSWDxNcucN2P6I UQqjdCrrKzyuBJtu0MbyC KkfuXkjOFkRXC8ZEDas1T sX6GjGCfmLV33uE3fwRCy cqLpu90qjbayVGR4Jd13Q O2xWTJdgXJuYUPlpYtyAV ZabeAawX0hy9V7vFPgGMA maLIvtEKwEIPlSKEia6La sE16BKhuH8PjtTBiVISor lx+XHBhciBUaGUgcmVtYW eidP7zJMN9QB70wkHnzqE seXplZCByZXByZXNlbnQg ee9nutkuPxgqIIEoxSgpT OYmd99nxNDmRCYgmEeyxO dlaNRkH7SetDLiRSUgDLD kZWJyaXMuXHBhclxwbGFp blxmMlxmczIyXGxhbmcxM GNrILgvU1olKmQlCPVkcW bgAhoha1AvUIFoCMVyGus mczIyXHBhclxwYXJkXHNz uXUfUUK2wRUrxiEjnVjpw WqvvI7rRhWpXbEtLZyhzH FpblxmMVxmczIwXGxhbmc hUMKkYDtsV2bkImToXAHd jGybAOhmz3DhMAZuUJDcJ jBccGFyfQ== DISCLAIMER (test code = g5xlhPOjFAYqkDGkSaKwS 3363) UBlABZsl2yvVXZhaKUjLp EwMzNcZnRuYmpcdWMxXGR jCqIfj1hgu781tKMsc3ri CWCeCdC8iIQyJIBzjRCrM 141PFMyBScem1rhs0BrLP HjyLCml4L6ITVWdhtsoCe 3eYrbR58bw5Q9VttzJ3sk XEXtOSGjY5EjVF9bXDPeX if0KIY1QDV0LFMlDGWdX5 PdLG0aXTZfkICqNNq8g3u riUwhFQUcAIS8j0eoXQay xoP7IP7dop4ljEo8n0ifz zEgRGVmYXVsdCBQYXJhZ3 RbpQahHv1vqMo6kPqbBgp wMZD5Lhx5GH7avx02yyh0 nEfeDYCmmsxyBxA3PYplE VYvfgozNBt0OYbhXCNkqH cyMFxtYXJncjcyMFxtYXJ ndDcyMFxtYXJnYjcyMFxo IOBqHBM5XPkky554EGS5C Vnss4bht2mifWPuBzp0OB FdDbGcQqwaVSaur7Vta4q vIDCpShV0DNekOA1zrw37 KRFoOXJ8xb4yqOYdxGgjp xTdgRHmOGopB9TgANKnu4 29LXLrS9UwLBEmy5I8gcL iObTsLFImlXQ7yeD2XWVb TGz1gKWdceV8enBofSQhZ 0absB44XvGwaGFjZ6SzqH 41MuRpuYTrL2RdnE78XtD bzPKsA0YpeP73EvUkfKCg IEXucTFnQh8lbAIzrPOay 7VfqYNdMWrcD63fe333TT GpbiTgC0mwxRIzanvkqWJ bdobxNMzbwoI2XKDgWBAc YWluXGYxXGZzMjJcbGFuZ zEwMzNcaGljaFxmMVxkYm EpYLNsQLzjG7dhKgBpHcB lIvFTlDWrMAT6AFQ0jwJ2 XPKbFRQieeRds5QwBTXbh uWvmBlzoWErtAGmFq6kxJ BlY2UmK7zeolTknVBzfWD 0aWNzIGRldGVybWluZWQg UcqbCoI1sP5gCUE8FeCWu VnjM1WdDBWluEBlpFAIKK 38BNTwkHWmGPNBeVZ6SKv cykJume18JGOgPH8rX2gf KRQwUCSmpaWhyZMxe6FnR NAkfJA0iXFcSQ8LGyDTs8 9kIGFuZCBEcnVnIEFkbWl alUB0cxW6cM7gCgOSvAHv RvFTIUcxhhMfFXUogl5uj aInVMVzPQOcx6WciTCcaI MmrfZdK4Hhm4QbCMBvxe9 5KQjmgNQeou80UA6zB2Cv c1VbkV3sDZWcw5uvgKilU S6gyYXcACThKDenbwIzPN CgqbOeksBdi7BaB2F8xK3 aYZana1OgPf1fAEAmq3Yk kyCeWxTAwAnqKHtkAk8fN WVxqycdzKQqK8ShnKrgfR VkIHVuZGVyIHRoZSBDbGl zmAWzuTTJOWSabyT0k8E2 LPozaWNmdcFnVV32YCVtW F0rxHXriOJkr4EdYQk5IT AoIkNMSUEiKSBhcyBxdWF mcHUzUZHevZ3wrZZpYg3l bSBoaWdoLWNvbXBsZXhpd YmyJ1fzpeeiSUtbiUDhzA otSr0mzUZtGMRlqzEcyNe deB2gPeUaFyXwIGcnvWJo uxbxTDeifjB4CUImlb3= Technical component was [facility] performed at ([facility], = 2778) Department of Pathology, [address] [place] [address], Professional component [facility] was performed at ([facility], code = 2779) Department of Pathology, [address] [place] [address], [facility] [id number] 14:20:00Flow Cytometry Report Case: [id number] Authorizing Provider: Triny Naqvi MD Collected: 11/29/2019 12:35 PM Ordering Location: [facility] Received: 11/29/2019 02:10 PM SERVICES Pathologist: Kali Borjas MD Specimen: Other LYMHPH NODE, EBUSFINE NEEDLE ASPIRATE, FLOW CYTOMETRY:-NO ABERRANT T LYMPHOCYTE POPULATION-INSUFFICIENT NUMBER OF B LYMPHOCYTES AVAILABLE FOR EVALUATION-SEE COMMENT Flow cytometry of a lymph node EBUS FNA sampling does NOT demonstrate evidence of a neoplastic T lymphocyte process. No significant number of B lymphocyte events(<1%) identified. There isinsufficient B lymphocytic events for proper lymphoma evaluation. Recommend correlation with cytology. [id number] year with mediastinal mass LYMHPH NODE, EBUS FINE NEEDLE ASPIRATECD8, surface- kappa, CD56,surface-lambda, CD5, CD19, CD10, CD3, CD20, CD4, QA10Ywoojmuy Viability: 67.1% Number of EventsAcquired: 73258 The following populations are identified:Lymphocytes: Bright CD45+ lymphocytes comprise 2.7% of total cells. T cells show a CD4:CD8 ratio of 4.4 and normal expression of the garcia T cell antigens CD3 and CD5. <1% B cells identified which appear polytypic with a kappa:lambda ratio of 1.6 . Myeloid/monocytic populations: As identified by CD45 and light scatter characteristics, granulocytes comprise 87.7%of total cells, and monocytes comprise 1.1% of total cells. The remaining events analyzed represent nonviable cells, non-hematolymphoid cells, and debris.These tests were developed and their performance characteristics determined by [facility] They have not been cleared or approved by the U.S. Food and Drug Administration. The FDA has determined that such clearance or approval is not necessary. It should not be regarded as investigational or for research. This laboratory is certified under the Clinical Laboratory Improvement Amendments of 1988 ("CLIA") as qualified to perform high-complexity clinical testing.[facility], Department of Pathology, [address] [place] [address], [facility], [facility] of [facility], [address] [place] [address], VXOP FNA [id number] 16:00:00 Test Item Value Reference Range Interpretation Comments Cytology (test code = See Separate Report 2629) [facility] [id number] 16:00:00 Test Item Value Reference Range Interpretation Comments CYTOLOGY RESULT POINTER See Separate Report (BEAKER) (test code = 2629) Comprehensive metabolic [id number] 09:09:00 Test Item Value Reference Range Interpretation Comments Protein, Total (test 6.1 See_Comment Specime n slightly code = 4045-2) hemolyzed [Automated message] The system which generated this result transmit angie reference range : 6.0 - 8.3 gm/dL . The reference range was not u sed to interpret th is result as normal/abnormal . Albumin (test code = 3.5 g/dL 3.5-5 Specime n slightly 37404-7) hemolyzed Alkaline Phosphatase 55 U/L 40-150 (test code = 6768-6) Total Bilirubin (test 0.5 mg/dL 0.2-1.2 Specim en slightly code = 1974-2) hemolyzed Sodium (test code = 137 meq/L 390-550 6637-2) Potassium (test code 4.3 meq/L 3.5-5.1 Specime n slightly = 0773-3) hemolyzed Chloride (test code = 108 meq/L 98-107 H 2074-0) CO2 (test code = 21 meq/L 22-29 L 2027-) BUN (test code = 21 mg/dL 7-21 3094-0) Creatinine (test code 0.94 mg/dL 0.57-1.25 Specim en slightly = 2160-0) hemolyzed Glucose (test code = 136 mg/dL 70-105 H 2345-7) Calcium (test code = 8.5 mg/dL 8.4-10.2 54733-1) AST (test code = 20 U/L 5-34 Specimen sl ightly 1920-8) hemolyzed ALT (test code = 30 U/L 6-55 Specimen sl ightly 1742-6) hemolyzed EGFR (test code = 78 mL/min/1.73 [place] [address]-2) NOT ACCURATE CREATININE CLEARANCE IN PREDICTING GLOMERULAR FILTRATION RATE . ESTIMATED GFR I S NOT APPLICABLE FOR DIALYSIS PATIEN TS. SENG (test code = SENG) Material Flow Engineer ID - CARLOS C Lab Interpretation Abnormal (test code = 87644-7) [facility] 09:09:00 Test Item Value Reference Range Interpretation Comments MAGNESIUM (BEAKER) 2.0 mg/dL 1.6-2.6 Specimen slightly (test code = 627) hemolyzed Material Flow Engineer ID - CARLOS [id number] 09:09:00 Test Item Value Reference Range Interpretation Comments PHOSPHORUS (BEAKER) 4.5 mg/dL 2.3-4.7 Specimen slightly (test code = 604) hemolyzed Material Flow Engineer ID - CARLOS CCOMPREHENSIVE METABOLIC [id number] 09:09:00 Test Item Value Reference Range Interpretation Comments TOTAL PROTEIN 6.1 gm/dL 6.0-8.3 Specimen sligh tly (BEAKER) (test code = hemoly zed 770) ALBUMIN (BEAKER) 3.5 g/dL 3.5-5.0 Specimen sl ightly (test code = 1145) hemolyzed ALKALINE PHOSPHATASE 55 U/L 40-150 (BEAKER) (test code = 346) BILIRUBIN TOTAL 0.5 mg/dL 0.2-1.2 Specimen sli ghtly (BEAKER) (test code = hemoly zed 377) SODIUM (BEAKER) (test 137 meq/L 136-145 code = 381) POTASSIUM (BEAKER) 4.3 meq/L 3.5-5.1 Specimen slightly (test code = 379) hemolyzed CHLORIDE (BEAKER) 108 meq/L 98-107 H (test code = 382) CO2 (BEAKER) (test 21 meq/L 22-29 L code = 355) BLOOD UREA NITROGEN 21 mg/dL 7-21 (BEAKER) (test code = 354) CREATININE (BEAKER) 0.94 mg/dL 0.57-1.25 Specimen slightly (test code = 358) hemolyzed GLUCOSE RANDOM 136 mg/dL 70-105 H (BEAKER) (test code = 652) CALCIUM (BEAKER) 8.5 mg/dL 8.4-10.2 (test code = 697) AST (SGOT) (BEAKER) 20 U/L 5-34 Specimen slightly (test code = 353) hemolyzed ALT (SGPT) (BEAKER) 30 U/L 6-55 Specimen slightly (test code = 347) hemolyzed EGFR (BEAKER) (test 78 mL/min/1.73 ESTIMA ANGIE GFR IS code = 1092) sq m NOT ACCURATE CREATININE CLEARANCE IN PREDICTING GLOMERULAR FILTRATION RATE . ESTIMATED GFR I S NOT APPLICABLE FOR DIALYSIS PATIEN TS. Material Flow Engineer ID - CARLOS CCalcium, [id number] 06:24:00 Test Item Value Reference Range Interpretation Comments Calcium, Ion (test code = 1993-) 1.21 mmol/L 1.12-1.27 pH, Blood (test code = 55060-0) 7.35 [facility], [id number] 06:24:00 Test Item Value Reference Range Interpretation Comments CALCIUM IONIZED (BEAKER) (test 1.21 mmol/L 1.12-1.27 code = 698) PH, BLOOD (BEAKER) (test code = 7.35 1810) CBC W/PLT COUNT & AUTO [id number] 06:18:00 Test Item Value Reference Range Interpretation Comments WHITE BLOOD CELL COUNT (BEAKER) 10.6 K/ L 3.5-10.5 H (test code = 775) RED BLOOD CELL COUNT (BEAKER) 4.07 M/ L 4.63-6.08 L (test code = 761) HEMOGLOBIN (BEAKER) (test code = 13.0 GM/DL 13.7-17.5 L 410) HEMATOCRIT (BEAKER) (test code = 39.1 % 40.1-51.0 L 411) MEAN CORPUSCULAR VOLUME (BEAKER) 96.1 fL 79.0-92.2 H (test code = 753) MEAN CORPUSCULAR HEMOGLOBIN 31.9 pg 25.7-32.2 (BEAKER) (test code = 751) MEAN CORPUSCULAR HEMOGLOBIN CONC 33.2 GM/DL 32.3-36.5 (BEAKER) (test code = 752) RED CELL DISTRIBUTION WIDTH 12.8 % 11.6-14.4 (BEAKER) (test code = 412) PLATELET COUNT (BEAKER) (test 178 K/CU MM 150-450 code = 756) MEAN PLATELET VOLUME (BEAKER) 11.3 fL 9.4-12.4 (test code = 754) NUCLEATED RED BLOOD CELLS 0 /100 WBC 0-0 (BEAKER) (test code = 413) NEUTROPHILS RELATIVE PERCENT 92 % (BEAKER) (test code = 429) LYMPHOCYTES RELATIVE PERCENT 5 % (BEAKER) (test code = 430) MONOCYTES RELATIVE PERCENT 2 % (BEAKER) (test code = 431) EOSINOPHILS RELATIVE PERCENT 0 % (BEAKER) (test code = 432) BASOPHILS RELATIVE PERCENT 0 % (BEAKER) (test code = 437) NEUTROPHILS ABSOLUTE COUNT 9.82 K/ L 1.78-5.38 H (BEAKER) (test code = 670) LYMPHOCYTES ABSOLUTE COUNT 0.50 K/ L 1.32-3.57 L (BEAKER) (test code = 414) MONOCYTES ABSOLUTE COUNT (BEAKER) 0.22 K/ L 0.30-0.82 L (test code = 415) EOSINOPHILS ABSOLUTE COUNT 0.00 K/ L 0.04-0.54 L (BEAKER) (test code = 416) BASOPHILS ABSOLUTE COUNT (BEAKER) 0.01 K/ L 0.01-0.08 (test code = 417) IMMATURE GRANULOCYTES-RELATIVE 1 % 0-1 PERCENT (BEAKER) (test code = 2801) Type and screen, [id number] 05:43:00 Test Item Value Reference Range Interpretation Comments ABO/RH AUTOMATED (BEAKER) (test A NEGATIVE code = 2260) Ab Scrn (test code = 890-4) NEGATIVE [facility] 05:10:00 Test Item Value Reference Range Interpretation Comments PTT (test code = 29769-5) 29.9 See_Comment [ Automated message] The system Shoop[employer] generated this result transmitted ref erence range: 22.5 - 3 6.0 seconds. The re ference range was not u sed to interpret this result as normal/abnor mal. Lab Interpretation (test Normal code = 12292-9) [facility] 05:10:00 Test Item Value Reference Range Interpretation Comments PARTIAL THROMBOPLASTIN TIME 29.9 seconds 22.5-36.0 (BEAKER) (test code = 760) PROTHROMBIN TIME/[id number] 05:09:00 Test Item Value Reference Range Interpretation Comments PROTIME (BEAKER) (test code = 15.0 seconds 11.9-14.2 H 759) INR (BEAKER) (test code = 370) 1.22 <=5.90 Effective 08/18/2018: PT Reference Range ChangeNew: 11.9-14.2 Previous: 11.7- 14.7RECOMMENDED COUMADIN/WARFARIN INR THERAPY RANGESSTANDARD DOSE: 2.0-3.0 Includes: PROPHYLAXIS for venous thrombosis, systemic embolization; TREATMENT for venous thrombosis and/or pulmonary embolus.HIGH RISK: Target INR is2.5-3.5 for patients wiht mechanical heart valves.SARS-COV2/RT-PCR ([facility]) 2019-11-28 13:24:00 Test Item Value Reference Range Interpretation Comments SARS-COV2/RT-PCR (test Negative Not Detected, Negative, code = 9799849) See external report for linked test SARS-COV-2 PERFORMING LAB [facility] (test code = 5876097) Negative result for this test determines that SARS-CoV-2 RNA was not present in the specimen above the Limit of Detection (LOD). However, Negative results do not preclude SARS-CoV-2 infection and should not be used as the sole basis for treatment or patient management decisions. Negative results mustbe combined with clinical observations, patient history, and epidemiological information. A false negative result may occur if a specimen is improperly collected, transported or handled. A false negative result should be considered if patient's recent exposures or clinical presentation indicate that COVID-19 (SARS-CoV-2) is likely and diagnostic tests for other causes of illness are negative. Re-testing should be considered in cases of suspected false negatives.The limit of detection for this assay is 800 copies/mL.This SARS CoV-2 test is a real-time RT-PCR test intended for the qualitative detection of nucleic acid from SARS-CoV-2 in a nasopharyngeal swab specimen collected from individuals susp ected of COVID-19 by their healthcare provider.This test has not been Food and Drug Administration (FDA) cleared or approved. This is a modified version of an approved Emergency Use Authorization (EUA) and is in the process of review by the FDA. Once authorized by the FDA, the issued EUA will be effective until the declaration that circumstances exist justifying the authorization of the emergency use of in vitro diagnostic tests for detection and/or diagnosis of COVID-19 is terminated under Section 564(b)(2) of the Act or the EUA is revoked under Section 564(g) of the Act.Fact Sheet for Healthcare Providers:https://www.[employer]/sites/default/files/product/documents/Fact_Shee z_CO_Wrbkjkagc_Amhk_EPDI-AmE-0.pdfFact Sheet for Healthcare Patients:https://www.[employer]/sites/default/files/product/ documents/Bsme_Fsnqv_Vaxvljnh_Dpik_KHLG-KzV-0.pdfPerforming Laboratory:[facility], [place] [id number] 09:17:00 Test Item Value Reference Range Interpretation Comments PARTIAL THROMBOPLASTIN TIME 31.6 seconds 22.5-36.0 (BEAKER) (test code = 760) PROTHROMBIN TIME/[id number] 09:16:00 Test Item Value Reference Range Interpretation Comments PROTIME (BEAKER) (test code = 14.7 seconds 11.9-14.2 H 759) INR (BEAKER) (test code = 370) 1.18 <=5.90 Effective 08/18/2018: PT Reference Range ChangeNew: 11.9-14.2 Previous: 11.7- 14.7RECOMMENDED COUMADIN/WARFARIN INR THERAPY RANGESSTANDARD DOSE: 2.0-3.0 Includes: PROPHYLAXIS for venous thrombosis, systemic embolization; TREATMENT for venous thrombosis and/or pulmonary embolus.HIGH RISK: Target INR is2.5-3.5 for patients wiht mechanical heart valves.[id number] 07:57:00 Test Item Value Reference Range Interpretation Comments PHOSPHORUS (BEAKER) (test code = 3.5 mg/dL 2.3-4.7 604) Material Flow Engineer ID Kimmy KHAN [id number] 07:57:00 Test Item Value Reference Range Interpretation Comments MAGNESIUM (BEAKER) (test code = 2.2 mg/dL 1.6-2.6 627) Material Flow Engineer ID - BILL MCOMPREHENSIVE METABOLIC [id number] 07:57:00 Test Item Value Reference Range Interpretation Comments TOTAL PROTEIN 6.8 gm/dL 6.0-8.3 (BEAKER) (test code = 770) ALBUMIN (BEAKER) 3.8 g/dL 3.5-5.0 (test code = 1145) ALKALINE PHOSPHATASE 68 U/L 40-150 (BEAKER) (test code = 346) BILIRUBIN TOTAL 0.6 mg/dL 0.2-1.2 (BEAKER) (test code = 377) SODIUM (BEAKER) (test 138 meq/L 136-145 code = 381) POTASSIUM (BEAKER) 4.0 meq/L 3.5-5.1 (test code = 379) CHLORIDE (BEAKER) 108 meq/L 98-107 H (test code = 382) CO2 (BEAKER) (test 21 meq/L 22-29 L code = 355) BLOOD UREA NITROGEN 15 mg/dL 7-21 (BEAKER) (test code = 354) CREATININE (BEAKER) 0.83 mg/dL 0.57-1.25 (test code = 358) GLUCOSE RANDOM 135 mg/dL 70-105 H (BEAKER) (test code = 652) CALCIUM (BEAKER) 8.7 mg/dL 8.4-10.2 (test code = 697) AST (SGOT) (BEAKER) 23 U/L 5-34 (test code = 353) ALT (SGPT) (BEAKER) 35 U/L 6-55 (test code = 347) EGFR (BEAKER) (test 90 mL/min/1.73 ESTIMA ANGIE GFR IS code = 1092) sq m NOT ACCURATE CREATININE CLEARANCE IN PREDICTING GLOMERULAR FILTRATION RATE . ESTIMATED GFR I S NOT APPLICABLE FOR DIALYSIS PATIEN TS. Material Flow Engineer ID - BILL [facility]BC W/PLT COUNT & AUTO [id number] 06:23:00 Test Item Value Reference Range Interpretation Comments WHITE BLOOD CELL COUNT (BEAKER) 7.6 K/ L 3.5-10.5 (test code = 775) RED BLOOD CELL COUNT (BEAKER) 4.51 M/ L 4.63-6.08 L (test code = 761) HEMOGLOBIN (BEAKER) (test code = 14.4 GM/DL 13.7-17.5 410) HEMATOCRIT (BEAKER) (test code = 43.2 % 40.1-51.0 411) MEAN CORPUSCULAR VOLUME (BEAKER) 95.8 fL 79.0-92.2 H (test code = 753) MEAN CORPUSCULAR HEMOGLOBIN 31.9 pg 25.7-32.2 (BEAKER) (test code = 751) MEAN CORPUSCULAR HEMOGLOBIN CONC 33.3 GM/DL 32.3-36.5 (BEAKER) (test code = 752) RED CELL DISTRIBUTION WIDTH 12.7 % 11.6-14.4 (BEAKER) (test code = 412) PLATELET COUNT (BEAKER) (test 166 K/CU MM 150-450 code = 756) MEAN PLATELET VOLUME (BEAKER) 10.2 fL 9.4-12.4 (test code = 754) NUCLEATED RED BLOOD CELLS 0 /100 WBC 0-0 (BEAKER) (test code = 413) NEUTROPHILS RELATIVE PERCENT 91 % (BEAKER) (test code = 429) LYMPHOCYTES RELATIVE PERCENT 7 % (BEAKER) (test code = 430) MONOCYTES RELATIVE PERCENT 1 % (BEAKER) (test code = 431) EOSINOPHILS RELATIVE PERCENT 0 % (BEAKER) (test code = 432) BASOPHILS RELATIVE PERCENT 0 % (BEAKER) (test code = 437) NEUTROPHILS ABSOLUTE COUNT 6.95 K/ L 1.78-5.38 H (BEAKER) (test code = 670) LYMPHOCYTES ABSOLUTE COUNT 0.53 K/ L 1.32-3.57 L (BEAKER) (test code = 414) MONOCYTES ABSOLUTE COUNT (BEAKER) 0.10 K/ L 0.30-0.82 L (test code = 415) EOSINOPHILS ABSOLUTE COUNT 0.00 K/ L 0.04-0.54 L (BEAKER) (test code = 416) BASOPHILS ABSOLUTE COUNT (BEAKER) 0.01 K/ L 0.01-0.08 (test code = 417) IMMATURE GRANULOCYTES-RELATIVE 0 % 0-1 PERCENT (BEAKER) (test code = 2801) [id number] 08:57:00 Test Item Value Reference Range Interpretation Comments PHOSPHORUS (BEAKER) (test code = 3.5 mg/dL 2.3-4.7 604) Material Flow Engineer ID DANICA [id number] 08:57:00 Test Item Value Reference Range Interpretation Comments MAGNESIUM (BEAKER) (test code = 2.1 mg/dL 1.6-2.6 627) Material Flow Engineer ID DANICA FBASIC METABOLIC [id number] 08:57:00 Test Item Value Reference Range Interpretation Comments SODIUM (BEAKER) 137 meq/L 136-145 (test code = 381) POTASSIUM (BEAKER) 4.0 meq/L 3.5-5.1 (test code = 379) CHLORIDE (BEAKER) 107 meq/L 98-107 (test code = 382) CO2 (BEAKER) (test 23 meq/L 22-29 code = 355) BLOOD UREA NITROGEN 11 mg/dL 7-21 (BEAKER) (test code = 354) CREATININE (BEAKER) 0.77 mg/dL 0.57-1.25 (test code = 358) GLUCOSE RANDOM 110 mg/dL 70-105 H (BEAKER) (test code = 652) CALCIUM (BEAKER) 8.5 mg/dL 8.4-10.2 (test code = 697) EGFR (BEAKER) (test 98 mL/min/1.73 ESTIMA ANGIE GFR IS code = 1092) sq m NOT ACCURATE CREATININE CLEARANCE IN PREDICTING GLOMERULAR FILTRATION RATE . ESTIMATED GFR I S NOT APPLICABLE FOR DIALYSIS PATIEN TS. Material Flow Engineer ID Kimym MENDOZA FCALCIUM, [id number] 06:31:00 Test Item Value Reference Range Interpretation Comments CALCIUM IONIZED (BEAKER) (test 1.18 mmol/L 1.12-1.27 code = 698) PH, BLOOD (BEAKER) (test code = 7.36 1810) CBC W/PLT COUNT & AUTO [id number] 06:12:00 Test Item Value Reference Range Interpretation Comments WHITE BLOOD CELL COUNT (BEAKER) 7.0 K/ L 3.5-10.5 (test code = 775) RED BLOOD CELL COUNT (BEAKER) 4.51 M/ L 4.63-6.08 L (test code = 761) HEMOGLOBIN (BEAKER) (test code = 14.3 GM/DL 13.7-17.5 410) HEMATOCRIT (BEAKER) (test code = 43.7 % 40.1-51.0 411) MEAN CORPUSCULAR VOLUME (BEAKER) 96.9 fL 79.0-92.2 H (test code = 753) MEAN CORPUSCULAR HEMOGLOBIN 31.7 pg 25.7-32.2 (BEAKER) (test code = 751) MEAN CORPUSCULAR HEMOGLOBIN CONC 32.7 GM/DL 32.3-36.5 (BEAKER) (test code = 752) RED CELL DISTRIBUTION WIDTH 13.1 % 11.6-14.4 (BEAKER) (test code = 412) PLATELET COUNT (BEAKER) (test 157 K/CU MM 150-450 code = 756) MEAN PLATELET VOLUME (BEAKER) 10.5 fL 9.4-12.4 (test code = 754) NUCLEATED RED BLOOD CELLS 0 /100 WBC 0-0 (BEAKER) (test code = 413) NEUTROPHILS RELATIVE PERCENT 69 % (BEAKER) (test code = 429) LYMPHOCYTES RELATIVE PERCENT 17 % (BEAKER) (test code = 430) MONOCYTES RELATIVE PERCENT 11 % (BEAKER) (test code = 431) EOSINOPHILS RELATIVE PERCENT 3 % (BEAKER) (test code = 432) BASOPHILS RELATIVE PERCENT 0 % (BEAKER) (test code = 437) NEUTROPHILS ABSOLUTE COUNT 4.80 K/ L 1.78-5.38 (BEAKER) (test code = 670) LYMPHOCYTES ABSOLUTE COUNT 1.20 K/ L 1.32-3.57 L (BEAKER) (test code = 414) MONOCYTES ABSOLUTE COUNT (BEAKER) 0.75 K/ L 0.30-0.82 (test code = 415) EOSINOPHILS ABSOLUTE COUNT 0.18 K/ L 0.04-0.54 (BEAKER) (test code = 416) BASOPHILS ABSOLUTE COUNT (BEAKER) 0.02 K/ L 0.01-0.08 (test code = 417) IMMATURE GRANULOCYTES-RELATIVE 0 % 0-1 PERCENT (BEAKER) (test code = 2801) ANG, TUNNEL CATH CENTRAL INS W/PORT [id number] 15:10:00Reason for exam:- >bladder cancerFINAL REPORT Right internal jugular chest port insertion History: Bladder cancer. Modality: Sonography and fluoroscopy. Sedation: Moderate sedation was administered. 1 mg of Versed and 50 mcg of fentanyl IV was used for moderate sedation monitored under my direction. Total intra-service time of sedation was 30minutes. The patient's vital signs were monitored throughout the procedure and recorded in the patient's medical record by the nurse. Transmission Worker: Cliff Crabtree MD Police Dispatcher: Ana Dey (resident). Approach: Right internal jugular vein Estimated blood loss: < 5 cc. Specimen: None. Fluoroscopy Time: 1.0 min.Reference Air Kerma (Ka, r): 2.6 mGy. Technique: Informed written consent was obtained. Discussion of risks, benefits, and alternatives were made with the patient. The patient expressed understanding and agreed to proceed. A universal timeout was performed prior to starting the procedure. Allelements maximal sterile barrier technique was utilized for this procedure, including utilization ofsterile scrub solution for skin prep, a large sterile sheet to cover the areas of the patient that were not prepped, and hand hygiene, mask, head covering, and sterile gown for performing radiologist and scrub technologist. The skin was anesthetized with 2% lidocaine. Ultrasound evaluation showed a patent and compressible right internal jugular vein, which was punctured under direct real- time ultrasound guidance with a micropuncture needle. An ultrasound image was saved to PACS. A 0.018 inch wire was placed through the needle into the right atrium. A 4 Faroese micropuncture sheath was placed and a 0.035 wire was advanced into the IVC. A subcutaneous tunnel and pocket were created in the right a nterior chest wall by blunt dissection. The pocket was flushed with antibiotic solution. A 6 FrenchBard single lumen power injectable port was placed within the pocket and the catheter brought through the tunnel. The catheter was cut to appropriate length A peel-away sheath was placed in the right IJ vein and the catheter was advanced through the sheath, with its distal tip terminating in the cavoatrial junction. The peel-away sheath was removed. The port was flushed and aspirated easily followingplacement. The skin incision was closed with 3-0 Monocryl and Dermabond. The small jugular incisionsite was closed using Dermabond. The patient tolerated the procedure well and left the department in the same condition. Results: Spot radiograph of the chest demonstrates the new right IJ Port-A-Cath to lie in the expected position with its tip overlying the cavoatrial junction. Impression: Successful, uncomplicated placement ofa right internal jugular chest port using sonographic and fluoroscopic guidance and conscious sedation. The port is ready for immediate use. Signed: Cliff Crabtree MDReport Verified Date/Time: 11/26/2019 15:10:51 Reading Location: [facility] P048 Angio Body Reading Room IR Port-a-Cath [id number] 15:10:00Interface, External Ris In - 11/26/2019 3:12 PM CDTFINAL REPORT Right internal jugular chest port insertion History: Bladder cancer. Modality: Sonography and fluoroscopy. Sedation: Moderate sedation was administered. 1 mg of Versed and 50 mcg of fentanyl IV was used for moderate sedation monitored under my direction. Total intra-service time of sedation was 30 minutes. The patient's vital signs were monitored throughout the procedure and recorded in the patient's medical record by the nurse. Transmission Worker: Cliff Crabtree MD Police Dispatcher: Ana Dey (resident). Approach: Right internal jugular vein Estimated blood loss: < 5 cc. Specimen: None. Fluoroscopy Time: 1.0 min.Reference Air Kerma (Ka, r): 2.6 mGy. Technique: Informed written consent was obtained. Discussion of risks, benefits, and alternatives were made with the patient. The patient expressed understanding and agreed to proceed. A universal timeoutwas performed prior to starting the procedure. All elements maximal sterile barrier technique was ut ilized for this procedure, including utilization of sterile scrub solution for skin prep, a large sterile sheet to cover the areas of the patient that were not prepped, and hand hygiene, mask, head covering, and sterile gown for performing radiologist and scrub technologist. The skin was anesthetized with 2% lidocaine. Ultrasound evaluation showed a patent and compressible right internal jugular vein, which was punctured under direct real-time ultrasound guidance with a micropuncture needle. An ultrasound image was saved to PACS. A 0.018 inch wire was placed through the needle into the right atrium. A 4 Faroese micropuncture sheath was placed and a 0.035 wire was advanced into the IVC. A subcutaneous tunnel and pocket were created in the right anterior chest wall by blunt dissection. The pocket was flushed with antibiotic solution. A 6 Faroese Bard single lumen power injectable port was placed within the pocket and the catheter brought through the tunnel. The catheter was cut to appropriatelength A peel-away sheath was placed in the right IJ vein and the catheter was advanced through the sheath, with its distal tip terminating in the cavoatrial junction. The peel-away sheath was removed.The port was flushed and aspirated easily following placement. The skin incision was closed with 3-0 Monocryl and Dermabond. The small jugular incision site was closed using Dermabond. The patient tolerated the procedure well and left the department in the same condition. Results: Spot radiograph of the chest demonstrates the new right IJ Port-A-Cath to lie in the expected position with its tip overlying the cavoatrialjunction. Impression: Successful, uncomplicated placement of a right internal jugular chest port using sonographic and fluoroscopic guidance and conscious sedation. The port is ready for immediate use. Signed: Cliff Crabtree MDReport Verified Date/Time: 11/26/2019 15:10:51 Reading Location: [place] [address] [facility] [address] [id number] 06:21:00Unlisted Reason for Exam - Click Yes and Enter Reason Below->NoFINAL REPORT CLINICAL HISTORY: Bladder cancer, staging FINDINGS: Multiple axial images of the chest, abdomen and pelvis were performed before and after the Kumpe located administration of IV contrast. Oral contrast was not given. This exam was performed according to our departmental dose-optimization program, which includes automated exposure control, adjustment of the mA and/or kV according to patient size and/or use of the iterative reconstruction technique. Comparison: None. Chest: Lung parenchyma: Moderate to severe emphysematous changes. There is a 5.0 x 2.6 cm cyst mass at the posterior margin of the left hilum adjacent to the mediastinum, possibly reflecting a pulmonary mass, mediastinal mass or adenopathy. Calcified granulomata in the right middle lobe and left lower lobe. Pleural effusion: None. Pneumothorax: None. Tracheobronchial tree: No significant findings.Pulmonary vasculature: No significant findings. Cardiac contours and great vessels: Atherosclerotic calcification of the coronary arteries. Mediastinum: 5.0 x 2.6 cm mass adjacent to the mediastinum and posterior left hilum, as described above. Lymph Nodes: 5.0 x 2.6 cm mass described above. No adenopathy is otherwise identified or suspected in the mediastinum or cathi. Skeleton: No lytic or blastic lesions in the thoracic spine. Other:Right IJ chest port Abdomen and pelvis: Liver: No significant find ings. Gallbladder and biliary tree: No significant findings. Spleen: Punctate calcified granulomata Adrenal Glands: No significant findings. Kidneys and ureters: No significant findings. Stomach and Duodenum: Small hiatal hernia. Pancreas: Punctate parenchymal calcifications Bowel: No significant findings. Appendix: Normal. Bladder: Decompressed Major vascular structures: Atherosclerotic calcifications. Reproductive organs: Previous prostatectomy and pelvic lymph node dissection. Other: No free air, fluid or adenopathy Skeleton: No lytic or blastic lesions in the lumbar spine, pelvis or femurs. IMPRESSION: 5.0 x 2.6 cm mass posterior to the left hilum, possibly reflecting bronchogenic malignancy,metastatic adenopathy or pulmonary metastasis. The lesion appears amenable to bronchoscopic biopsy. Pulmonary emphysema. No CT evidence of metastatic disease in the abdomen or pelvis. Previous prostatectomy. Signed: Sameer Raya MDReport Verified Date/Time: 11/26/2019 06:21:56 CT, ABDOMEN 2019-11-26 06:21:00Unlisted Reason for Exam - Click Yes and Enter Reason Below- >YesUnlisted Reason for Exam->bladder cancer stagingFINAL REPORT CLINICAL HISTORY: Bladder cancer, staging FINDINGS: Multiple axi al images of the chest, abdomen and pelvis were performed before and after the Kumpe located administration of IV contrast. Oral contrast was not given. This exam was performed according to our departmental dose-optimization program, which includes automated exposure control, adjustment of the mA and/or kV according to patient size and/or use of the iterative reconstruction technique. Comparison: None. Chest: Lung parenchyma: Moderate to severe emphysematous changes. There is a 5.0 x 2.6 cm cyst mass at the posterior margin of the left hilum adjacent to the mediastinum, possibly reflecting a pulmonary mass, mediastinal mass or adenopathy. Calcified granulomata in the right middle lobe and left lower lobe. Pleural effusion: None. Pneumothorax: None. Tracheobronchial tree: No significant findings.Pulmonary vasculature: No significant findings. Cardiac contours and great vessels: Atherosclerotic c alcification of the coronary arteries. Mediastinum: 5.0 x 2.6 cm mass adjacent to the mediastinum and posterior left hilum, as described above. Lymph Nodes: 5.0 x 2.6 cm mass described above. No adenopathy is otherwise identified or suspected in the mediastinum or cathi. Skeleton: No lytic or blastic lesions in the thoracic spine. Other:Right IJ chest port Abdomen and pelvis: Liver: No significant findings. Gallbladder and biliary tree: No significant findings. Spleen: Punctate calcified granulomata Adrenal Glands: No significant findings. Kidneys and ureters: No significant findings. Stomach and Duodenum: Small hiatal hernia. Pancreas: Punctate parenchymal calcifications Bowel: No significant findings. Appendix: Normal. Bladder: Decompressed Major vascular structures: Atherosclerotic calcifications. Reproductive organs: Previous prostatectomy and pelvic lymph node dissection. Other: No free air, fluid or adenopathy Skeleton: No lytic or blastic lesions in the lumbar spine, pelvis or femurs. IMPRESSION: 5.0 x 2.6 cm mass posterior to the left hilum, possibly reflecting bronchogenic malignancy,metastatic adenopathy or pulmonary metastasis. The lesion appears amenable to bronchoscopic biopsy. Pulmonary emphysema. No CT evidence of metastatic disease in the abdomen or pelvis. Previous prostatectomy. Signed: Sameer Raya MDReport Verified Date/Time: 11/26/2019 06:21:56 CT abdomen/pelvis without & with IV [id number] 06:21:00Interface, External Ris In - 11/26/2019 6:24 AM CDTFINAL REPORT CLINICAL HISTORY: Bladder cancer, staging FINDINGS: Multiple axial images of the chest, abdomen and pelvis were performed before and after the Kumpe located administration of IV contrast. Oral contrast was not given. This exam was performed according to our departmental dose-optimization program, which includes automated exposure control, adjustment of the mA and/or kV according to patient size and/or use of theiterative reconstruction technique. Comparison: None. Chest: Lung parenchyma: Moderate to severe emphysematous changes. There is a 5.0 x 2.6 cm cyst mass at the posterior margin of the left hilum adjacent to the mediastinum, possibly reflecting a pulmonary mass, mediastinal mass or adenopathy. Calcified granulomata in the right middle lobe and left lower lobe. Pleural effusion: None. Pneumothorax: None. Tracheobronchial tree: No significant findings. Pulmonary vasculature: No significant findings. Cardiac contours and great vessels: Atherosclerotic calcification of the coronary arteries. Mediastinum: 5.0 x 2.6 cm mass adjacent to the mediastinum and posterior left hilum, as described above. LymphNodes: 5.0 x 2.6 cm mass described above. No adenopathy is otherwise identified or suspected in the m ediastinum or cathi. Skeleton: No lytic or blastic lesions in the thoracic spine. Other:Right IJ chest port Abdomen and pelvis: Liver: No significant findings. Gallbladder and biliary tree: No significant findings. Spleen: Punctate calcified granulomata Adrenal Glands: No significant findings. Kidneys and ureters: No significant findings. Stomach and Duodenum: Small hiatal hernia. Pancreas: Punctate parenchymal calcifications Bowel: No significant findings. Appendix: Normal. Bladder: Decompressed Major vascular structures: Atherosclerotic calcifications. Reproductive organs: Previous prostatectomy and pelvic lymph node dissection. Other: No free air, fluid or adenopathy Skeleton: No lytic or blastic lesions in the lumbar spine, pelvis or femurs. IMPRESSION: 5.0 x 2.6 cm mass posterior to the lefthilum, possibly reflecting bronchogenic malignancy, metastatic adenopathy or pulmonary metastasis. The lesion appears amenable to bronchoscopic biopsy. Pulmonary emphysema. No CT evidence of metastaticdisease in the abdomen or pelvis. Previous prostatectomy. Signed: Samere Raya MDReport Verified Date/Time: 11/26/2019 06:21:56 [facility] [id number] 06:21:00 Interface, External Ris In - 11/26/2019 6:24 AM CDTFINAL REPORT CLINICAL HISTORY: Bladder cancer, staging FINDINGS: Multiple axial images of the chest, abdomen and pelvis were performed before and after the Kumpe located administration of IV contrast. Oral contrast was not given. This exam was performed according to our departmental dose-optimization program, which includes automated exposure control, adjustment of the mA and/or kV according to patient size and/or use of theiterative reconstruction technique. Comparison: None. Chest: Lung parenchyma: Moderate to severe emphysematous changes. There is a 5.0 x 2.6 cm cyst mass at the posterior margin of the left hilum adjacent to the mediastinum, possibly reflecting a pulmonary mass, mediastinal mass or adenopathy. Calcified granulomata in the right middle lobe and left lower lobe. Pleural effusion: None. Pneumothorax: None. Tracheobronchial tree: No significant findings. Pulmonary vasculature: No significant findings. Cardiac contours and great vessels: Atherosclerotic calcification of the coronary arteries. Mediastinum: 5.0 x 2.6 cm mass adjacent to the mediastinum and posterior left hilum, as described above. LymphNodes: 5.0 x 2.6 cm mass described above. No adenopathy is otherwise identified or suspected in the mediastinum or cathi. Skeleton: No lytic or blastic lesions in the thoracic spine. Other:Right IJ chest port Abdomen and pelvis: Liver: No significant findings. Gallbladder and biliary tree: No significant findings. Spleen: Punctate calcified granulomata Adrenal Glands: No significant findings. Kidneys and ureters: No significant findings. Stomach and Duodenum: Small hiatal hernia. Pancreas: Punctate parenchymal calcifications Bowel: No significant findings. Appendix: Normal. Bladder: Decompressed Major vascular structures: Atherosclerotic calcifications. Reproductive organs: Previous prostatectomy and pelvic lymph node dissection. Other: No free air, fluid or adenopathy Skeleton: No lytic or blastic lesions in the lumbar spine, pelvis or femurs. IMPRESSION: 5.0 x 2.6 cm mass posterior to the lefthilum, possibly reflecting bronchogenic malignancy, metastatic adenopathy or pulmonary metastasis. The lesion appears amenable to bronchoscopic biopsy. Pulmonary emphysema. No CT evidence of metastaticdisease in the abdomen or pelvis. Previous prostatectomy. Signed: Sameer Raya MDReport Verified Date/Time: 11/26/2019 06:21:56 [facility]2019-11-25 17:40:00 Test Item Value Reference Range Interpretation Comments SARS-COV2/RT-PCR (test Negative Not Detected, Negative, code = 3309229) See external report for linked test SARS-COV-2 PERFORMING LAB [facility] (test code = 5877784) Negative result for this test determines that SARS-CoV-2 RNA was not present in the specimen above the Limit of Detection (LOD). However, Negative results do not preclude SARS-CoV-2 infection and should not be used as the sole basis for treatment or patient management decisions. Negative results mustbe combined with clinical observations, patient history, and epidemiological information. A false negative result may occur if a specimen is improperly collected, transported or handled. A false negative result should be considered if patient's recent exposures or clinical presentation indicate that COVID-19 (SARS-CoV-2) is likely and diagnostic tests for other causes of illness are negative. Re-testing should be considered in cases of suspected false negatives.The limit of detection for this assay is 800 copies/mL.This SARS CoV-2 test is a real-time RT-PCR test intended for the qualitative detection of nucleic acid from SARS-CoV-2 in a nasopharyngeal swab specimen collected from individuals susp ected of COVID-19 by their healthcare provider.This test has not been Food and Drug Administration (FDA) cleared or approved. This is a modified version of an approved Emergency Use Authorization (EUA) and is in the process of review by the FDA. Once authorized by the FDA, the issued EUA will be effective until the declaration that circumstances exist justifying the authorization of the emergency use of in vitro diagnostic tests for detection and/or diagnosis of COVID-19 is terminated under Section 564(b)(2) of the Act or the EUA is revoked under Section 564(g) of the Act.Fact Sheet for Healthcare Providers:https://www.[employer].com/sites/default/files/product/documents/Fact_Shee j_VL_Wivetlhkc_Pejb_CAJY-QvH-1.pdfFact Sheet for Healthcare Patients:https://www.[employer].com/sites/default/files/product/ documents/Uqai_Iizxa_Bxehfida_Jfns_WTQO-NbZ-9.pdfPerforming Laboratory:[facility], [place] [address]VXONPUDUBARAO METABOLIC [id number] 12:06:00 Test Item Value Reference Range Interpretation Comments TOTAL PROTEIN 7.8 gm/dL 6.0-8.3 (BEAKER) (test code = 770) ALBUMIN (BEAKER) 4.4 g/dL 3.5-5.0 (test code = 1145) ALKALINE PHOSPHATASE 78 U/L 40-150 (BEAKER) (test code = 346) BILIRUBIN TOTAL 0.7 mg/dL 0.2-1.2 (BEAKER) (test code = 377) SODIUM (BEAKER) (test 139 meq/L 136-145 code = 381) POTASSIUM (BEAKER) 5.1 meq/L 3.5-5.1 (test code = 379) CHLORIDE (BEAKER) 104 meq/L 98-107 (test code = 382) CO2 (BEAKER) (test 28 meq/L 22-29 code = 355) BLOOD UREA NITROGEN 17 mg/dL 7-21 (BEAKER) (test code = 354) CREATININE (BEAKER) 0.93 mg/dL 0.57-1.25 (test code = 358) GLUCOSE RANDOM 109 mg/dL 70-105 H (BEAKER) (test code = 652) CALCIUM (BEAKER) 9.7 mg/dL 8.4-10.2 (test code = 697) AST (SGOT) (BEAKER) 17 U/L 5-34 (test code = 353) ALT (SGPT) (BEAKER) 18 U/L 6-55 (test code = 347) EGFR (BEAKER) (test 79 mL/min/1.73 ESTIMA ANGIE GFR IS code = 1092) sq m NOT ACCURATE CREATININE CLEARANCE IN PREDICTING GLOMERULAR FILTRATION RATE . ESTIMATED GFR I S NOT APPLICABLE FOR DIALYSIS PATIEN TS. Material Flow Engineer ID - PIAYA LPROTHROMBIN TIME/[id number] 11:59:00 Test Item Value Reference Range Interpretation Comments PROTIME (BEAKER) (test code = 15.2 seconds 11.9-14.2 H 759) INR (BEAKER) (test code = 370) 1.23 <=5.90 Effective 08/18/2018: PT Reference Range ChangeNew: 11.9-14.2 Previous: 11.7- 14.7RECOMMENDED COUMADIN/WARFARIN INR THERAPY RANGESSTANDARD DOSE: 2.0-3.0 Includes: PROPHYLAXIS for venous thrombosis, systemic embolization; TREATMENT for venous thrombosis and/or pulmonary embolus.HIGH RISK: Target INR is2.5-3.5 for patients wiht mechanical heart valves.[id number] 11:59:00 Test Item Value Reference Range Interpretation Comments PARTIAL THROMBOPLASTIN TIME 32.9 seconds 22.5-36.0 (BEAKER) (test code = 760) CBC W/PLT COUNT & AUTO [id number] 11:42:00 Test Item Value Reference Range Interpretation Comments WHITE BLOOD CELL COUNT (BEAKER) 6.8 K/ L 3.5-10.5 (test code = 775) RED BLOOD CELL COUNT (BEAKER) 4.80 M/ L 4.63-6.08 (test code = 761) HEMOGLOBIN (BEAKER) (test code = 15.4 GM/DL 13.7-17.5 410) HEMATOCRIT (BEAKER) (test code = 46.6 % 40.1-51.0 411) MEAN CORPUSCULAR VOLUME (BEAKER) 97.1 fL 79.0-92.2 H (test code = 753) MEAN CORPUSCULAR HEMOGLOBIN 32.1 pg 25.7-32.2 (BEAKER) (test code = 751) MEAN CORPUSCULAR HEMOGLOBIN CONC 33.0 GM/DL 32.3-36.5 (BEAKER) (test code = 752) RED CELL DISTRIBUTION WIDTH 13.1 % 11.6-14.4 (BEAKER) (test code = 412) PLATELET COUNT (BEAKER) (test 184 K/CU MM 150-450 code = 756) MEAN PLATELET VOLUME (BEAKER) 10.6 fL 9.4-12.4 (test code = 754) NUCLEATED RED BLOOD CELLS 0 /100 WBC 0-0 (BEAKER) (test code = 413) NEUTROPHILS RELATIVE PERCENT 69 % (BEAKER) (test code = 429) LYMPHOCYTES RELATIVE PERCENT 19 % (BEAKER) (test code = 430) MONOCYTES RELATIVE PERCENT 9 % (BEAKER) (test code = 431) EOSINOPHILS RELATIVE PERCENT 2 % (BEAKER) (test code = 432) BASOPHILS RELATIVE PERCENT 0 % (BEAKER) (test code = 437) NEUTROPHILS ABSOLUTE COUNT 4.68 K/ L 1.78-5.38 (BEAKER) (test code = 670) LYMPHOCYTES ABSOLUTE COUNT 1.28 K/ L 1.32-3.57 L (BEAKER) (test code = 414) MONOCYTES ABSOLUTE COUNT (BEAKER) 0.62 K/ L 0.30-0.82 (test code = 415) EOSINOPHILS ABSOLUTE COUNT 0.14 K/ L 0.04-0.54 (BEAKER) (test code = 416) BASOPHILS ABSOLUTE COUNT (BEAKER) 0.02 K/ L 0.01-0.08 (test code = 417) IMMATURE GRANULOCYTES-RELATIVE 0 % 0-1 PERCENT (BEAKER) (test code = 2801) SHTIAL, [id number] 12:40:00 Test Item Value Reference Range Interpretation Comments ABO Grouping (test code = 2588) A Rh Factor (test code = 2589) [facility]G [facility] [id number] 11:33:00 Test Item Value Reference Range Interpretation Comments Potassium (test code = 2823-3) 4.8 meq/L 3.6-5.5 Lab Interpretation (test code = Normal 39913-1) [facility] [id number] 11:33:00 Test Item Value Reference Range Interpretation Comments POTASSIUM (BEAKER) (test code = 4.8 meq/L 3.6-5.5 379)
[2020-05-29] MEDS ORDERED: NA CHLORIDE 0.9% 1,000 ML IV ONE (17:42)
[2020-05-29 17:46] VITALS: BMI 21.8
[2020-05-29] MEDS ORDERED: ONDANSETRON 4 MG/2 ML VIAL IV PRN (17:57)
[2020-05-29] MEDS: GOLYTELY 4000 ML PO SCH (18:14)
[2020-05-29 18:52] LABS: Absolute Lymphocytes (CBC) 0.2 K/uL (0.7-4.9); Basophils % 0.3 % (0-1.3); Hematocrit 31.5 % (39.6-49.0); Lymphocytes % 6.9 % (15.3-44.8); MPV 8.6 fL (7.6-11.3); RBC Red Blood Cell Count 3.37 M/uL (4.33-5.43)
[2020-05-29] MEDS: NA CHLORIDE 0.9% 1,000 ML IV SCH (19:00)
[2020-05-29 19:07] LABS: Potassium 4.7 mmol/L (3.5-5.1)
[2020-05-29 19:30] LABS: Urine Appearance CLEAR; Urine Bilirubin NEGATIVE (NEG); Urine Blood 1+ (NEG); Urine Color YELLOW; Urine Glucose NEGATIVE (NEG); Urine Protein TRACE (NEG); Urine Specific Gravity 1.015 (1.005-1.030); Urine Urobilinogen 0.2 mg/dL (0.2-1.0)
[2020-05-29 19:41] LABS: Blood Morphology Comment NOT SEEN (NOT SEEN); Platelet Estimate DECR; White Blood Cell Scan OK (OK)
[2020-05-29 19:58] LABS: Urine Microscopic Reflex ORDER UMIC
[2020-05-29 20:08] LABS: Urine Bacteria <20 /HPF (NONE SEEN)
[2020-05-30 06:37] LABS: Absolute Lymphocytes (CBC) 0.2 K/uL (0.7-4.9); Basophils % 0.2 % (0-1.3); Hematocrit 27.9 % (39.6-49.0); Lymphocytes % 9.8 % (15.3-44.8); MPV 8.2 fL (7.6-11.3); RBC Red Blood Cell Count 2.99 M/uL (4.33-5.43)
[2020-05-30 06:51] LABS: BUN Blood Urea Nitrogen 13 mg/dL (7-18); Bicarbonate 27 mmol/L (21-32); Glucose Level 98 mg/dL (74-106); Sodium Level 140 mmol/L (136-145)
[2020-05-30 07:17] LABS: Urine Appearance CLEAR; Urine Bilirubin NEGATIVE (NEG); Urine Blood 3+ (NEG); Urine Color YELLOW; Urine Glucose NEGATIVE (NEG); Urine Protein NEGATIVE (NEG); Urine Urobilinogen 0.2 mg/dL (0.2-1.0)
[2020-05-30 07:18] LABS: Urine Microscopic Reflex ORDER UMIC
[2020-05-30 07:26] LABS: Urine Bacteria NONE SEEN /HPF (NONE SEEN); Urine RBC 20-50 /HPF (NONE SEEN)
[2020-05-30] MEDS: NA CHLORIDE 0.9% 1,000 ML IV SCH ×2 (08:09→11:00)
[2020-05-30 08:39] LABS: Blood Morphology Comment NOT SEEN (NOT SEEN); Platelet Estimate DECR; White Blood Cell Scan OK (OK)
[2020-05-30 11:05] VITALS: O2SAT 100
--- NOTE | 2020-05-30 14:57 | RAD REPORT ---
EXAM DESCRIPTION: RAD - Abdomen 1 View (KUB) - 05/30/2020 2:27 pm CLINICAL HISTORY: Abdomen pain. FINDINGS: The rectum is mildly distended with stool. Surgical clips are present throughout the pelvi s. Air is present remainder the colon nondilated small bowel in nonspecific. No significant abnormal calcification is displayed
[2020-05-30] MEDS ORDERED: BISACODYL 10 MG RECTAL SUPP PR SCH (17:00)
[2020-05-30] MEDS ORDERED: RIVAROXABAN 20 MG TABLET PO SCH (17:00)
--- NOTE | 2020-05-30 17:40 | PN ---
Date of Progress Note: 05/30/2020 The patient states he has not had any bowel movement and he has consumed 3/4 of the GoLYTELY. He sta negar in the past however to ease his lower abdominal discomfort has passed some gas and had some belch ing as well. He is slightly tender in the lower abdomen, which was not present on admission. Theref ore sent down for a KUB. HR/MODL Voice ID: [id number] Report ID: [id number]
[2020-05-30] MEDS: GOLYTELY 4000 ML PO SCH (18:00)
--- NOTE | 2020-05-30 18:01 | HP ---
Date of Admission: 05/30/2020 Entrance Complaint: General abdominal discomfort with no bowel movement. History Of Present Illness: The patient has had significant problems over the past months after shivani gaitan diagnosed with lung cancer and bladder cancer. He has been undergoing chemo and radiation. He und erwent the EGD a couple weeks ago and repeated a few days ago. Significant difference with the latte r showing multiple ulcerations, at the moment is unknown etiology. Awaiting biopsy report. However, constipation has been an issue over these past few weeks despite the use of wccl-peg-aepmray medicat ion and in the past few days, he has not had a bowel movement at all. A few days prior to this, he s tates they were very firm, hard, balls of stool, and had a normal bowel movement for weeks now. Social History: The patient has a history of alcohol intake and smoking. However, neither has been an issue as of late. Family History: Noncontributory. Physical Examination: General: The patient is a slightly uncomfortable elderly male. Vital Signs: Stable vital signs. Head and Neck: Normocephalic. Pupils equal to light and accommodation. Fundi negative. Trachea mi dline. Thyroid not palpable. ENT negative. Chest: Clear to P and A. Cardiovascular: PMI midclavicular line. Heart: Sounds normal. Peripheral pulses present and equal bilaterally. Abdomen: Minimal tenderness in the lower abdominal or in suprapubic area. No guarding, rebound, ten derness or rigidity. Bowel sounds hypoactive. Extremities: Moderately dehydrated. Good tone and movement bilaterally. Reflexes physiological. Rectal: High impaction. Impression: The patient will be admitted, kept n.p.o., GoLYTELY will be administered and the patient is advised to put the radiation which was supposed to be done in next few days on hold until this is rectified. HR/MODL Voice ID: [id number]
[2020-05-30 18:30] VITALS: BP 151/72; TEMP 97
[2020-05-30] MEDS ORDERED: HOME MED 1 EA UNK (Esomeprazole Mag Trihydrate [Nexium] 40 MG Capsule.Dr) PO SCH (21:00)
[2020-05-31] MEDS ORDERED: PANTOPRAZOLE 40MG TABLET PO SCH (07:30)
[2020-05-31] MEDS ORDERED: Mesalamine [Mesalamine] 1.2 GM Tablet.Dr PO SCH (09:00)
--- NOTE | 2020-07-09 20:42 | DS ---
Date of Discharge: 05/30/2020 Hospital Course: The patient was admitted to the hospital on 05/30 after been seen in the office wit h lower abdominal discomfort, no bowel movement, and limited intake. Diagnosis of dehydration was billy bhatia. He had a high rectal impaction on examination and therefore admitted. Once in the hospital, he was placed on IV fluids, required GoLYTELY and the impaction. Once this was done, the patient felt c onsiderably better. KUB showed no obstruction. Once he had his bowel movement and hydrated, he tole rated fluids. He was discharged in fair condition. Final Diagnoses: Rectal impaction, dehydration, lung cancer by history, bladder cancer by history. HR/MODL Voice ID: [id number] Report ID: [id number]
== END 2020-05-30 19:45 | disposition home or self-care (01) | DRG 392 ==
LOC: 2ND 17:23 → OBSVTOIN 05-30 16:12
PROVIDERS: ADMIT Family Medicine; ATTEND Family Medicine
DX: K59.00 Constipation, unspecified (principal); C34.90 Malignant neoplasm of unspecified part of unspecified bronchus or lung; C79.11 Secondary malignant neoplasm of bladder; Z20.822 Contact with and (suspected) exposure to COVID-19
CPT/HCPCS: 36415; 74018; 77300; 77336; 77338; 80048; 81003; 81015; 85025; 87086; 87088; G0378; G0379; J7030; U0002

== ENCOUNTER 2020-06-28 06:18 | Emergency (ER) | payer OTHER, MEDICARE ==
--- OUTSIDE RECORDS SUMMARY | 2020-06-28 06:23 | XMS REPORT | Continuity of Care Document ---
:1945 Author Organization [facility] t Address [address] [place] [address] Dr. Whitfield [address] [place] [id number] Care Team Providers Name Role Phone Briana CASTAÑEDA Primary Care Physician Paulo Lozano MD Attending Clinician Xavier Almodovar MD Attending Clinician Cintia Villagran MD Attending Clinician Darell Little MD Attending Clinician Jerry Shaw MD Attending Clinician Nino Herrera MD Attending Clinician PAULO LOZANO Attending Clinician Unavailable TIANNA Attending Clinician Unavailable Tianna CASTAÑEDA Attending Clinician Amara Escamilla CRNA Attending Clinician [phone] RAMO Attending Clinician Unavailable Vy CASTAÑEDA Attending Clinician Saad CASTAÑEDA Attending Clinician VY Attending Clinician Unavailable Miguel Angel Naqvi MD Attending Clinician Unavailable Mario Hoffmann MD Attending Clinician Dank Sewell MD Attending Clinician Denny Hicks CRNA Attending Clinician Xavier ALMODOVAR Admitting Clinician Unavailable TIANNA Admitting Clinician Unavailable VY Admitting Clinician Unavailable Payers Payer Name Policy Type Policy Effective Date Expiration Date Sour ce Number MEDICAREMEDICARE A [id number] 2009 [facility] [place] [id number] 2009-P 00:00:00 - Medical resentMedicare Center [facility] FOR [id number] [facility] [id number] 2020- 00:00:00 - Medical PresentOther Govt Center ([facility] [place], [facility], etc[facility] Problems Condition Condition Condition Status Onset Resolution Last Treating Co mments Source Name Details Category Date Date Treatment Clinician Date Dysphagia, Dysphagia, Disease Active [facility] unspecifie unspecifie 2 Theresa kes - d type d type 00:00: Medical 00 [place] 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 00:00: Me dical 00 [place] Lung mass Lung mass Disease Active [facility] St 11-29 [facility] - 00:00: Medical 00 [place] Bladder Bladder Disease Active [facility] cancer cancer 11-06 kes - 00:00: Medical 00 [place] 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 [facility] Lung Lung Disease Active [facility] cancer cancer [facility] Pancytopen Pancytopen Disease Active C [facility] ia ia [facility] Chronic Chronic Disease Active [facility] anticoagul anticoagul [facility] PAF PAF Disease Active [facility] (paroxysma (paroxysma kes - l atrial l atrial Medica l fibrillati fibrillati Ce nter on) on) Allergies, Adverse Reactions, Alerts Allergy Allergy Status Severity Reaction(s) Onset Inactive Treating Comm ents Source Name Type Date Date Clinician Sulfa Propensi Active In [facility] (Sulfona ty to 8-14 [facility] [place] - mide adverse 00:00: Medical Antibiot reaction 00 Center ics) s Levoflox Propensi Active Other (See [facility] acin ty to Comments) 09-20 [facility] - adverse 00:00: Medical reaction 00 [place] Ciproflo Propensi Active Rash 2010-03 [facility] xacin ty to 03-30 [facility] - adverse 00:00: Medical reaction 00 [place] s Social History Social Habit Start Date Stop Date Quantity Comments Source Sex Assigned At [facility] Tobacco use and 2020-05-14 2020-05-[address] [facility] [address] [facility] kes - exposure 00:00:00 00:00:00 [facility] Center Alcohol intake 2020-05-14 2020-05-14 Current drinker ISSAC burton Luargenis - 00:00:00 00:00:00 of alcohol [facility] (finding) Tobacco Comment 2019-11-04 2019-11-04 1-2 cigars [address] [facility] - 00:00:00 00:00:00 [facility] Smoking Status Start Date Stop Date Source Current every day smoker 2020-05-14 00:00:00 [facility] Medications Ordered Filled Start Stop Current [...] 50mg Take [address] [facility] (ULTRAM) 50 03-27 tablet (50 L ukes - mg tablet [...] 4mg Take [address] (ZOFRAN) 4 11-28-15 tablet (4 [facility] es - MG tablet 00:00: 23:59 mg total) Me dical 00 :00 by mouth 3 Center (three) times daily as needed for Nausea for up to 7 days. amoxicillin No 250mg [id number] Take [address] (AMOXIL) 11-06 [id number] mg by Lonnie es - 250 MG 20:28: 00:00 3D mouth 3 Medical capsule 29 :00 (three) Center times daily. phenazopyri No 100mg Take [address] [...] Me dical l-monohydra 00 :00 total) by [facility] ter te, mouth 2 (MACROBID) (two) 100 MG times capsule daily for 3 days. Vital Signs Vital Name Observation Time Observation Value Comments Source Systolic blood 2020-05-12 12:56:00 117 mm[Hg] [facility] Diastolic blood 2020-05-12 12:56:00 93 mm[Hg] [facility] Heart rate 2020-05-12 12:56:00 83 /min [facility] Body temperature 2020-05-12 12:56:[address] [facility] Respiratory rate 2020-05-12 12:56:00 18 /min [facility] Oxygen saturation in 2020-05-12 12:56:00 95 /min [facility] Arterial blood by Medical Ce nter Pulse oximetry Body height 2020-05-10 15:19:00 177.8 cm [facility] Body weight 2020-05-10 15:19:00 72.576 kg [facility] BMI 2020-05-10 15:19:00 22.96 kg/m2 [facility] Procedures Procedure Date / Time Performed Performing Clinician [facility] e REPORT OF PROCEDURE - 2020-05-12 12:06:06 Akiko Herrera [facility] ENDOSCOPY [facility] UPPER ENDOSCOPY,BALLOON 2020-05-12 10:00:[address] [facility] BASIC METABOLIC PANEL (7) 2020-05-11 03:40:00 Rene Ngo [facility] HEPATIC FUNCTION PANEL 2020-05-11 03:40:00 Rene Ngo [facility] PROTHROMBIN TIME/INR 2020-05-11 03:40:00 Rene Ngo [facility] MAGNESIUM 2020-05-11 03:40:00 Rene Ngo [facility] PHOSPHORUS 2020-05-11 03:40:00 Rene Ngo [facility] CBC W/PLT COUNT & AUTO 2020-05-11 03:39:00 Rene Ngo [facility] (CELLAVISION MANUAL DIFF) 2020-05-11 03:39:00 Rene Ngo [facility] SARS-COV2/RT-PCR ([facility] & 2020-05-10 23:06:00 Michael Lozano tt [facility] - REF LABS) [facility] CBC W/PLT COUNT & AUTO 2020-05-10 23:04:00 Michael Lozano [facility] DIFFERENTIAL [facility] BASIC METABOLIC PANEL (7) 2020-05-10 23:04:[address] [facility] PROTHROMBIN TIME/INR 2020-05-10 23:04:00 Michael Lozano C [facility] HEPATIC FUNCTION PANEL 2020-05-10 23:04:00 Rene Ngo [facility] TISSUE EXAM 2020-03-27 09:23:00 Hermelindo Wynn [facility] CYSTOSCOPY,BLADDER BIOPSY 2020-03-27 08:08:00 Hermelindo Wynn [facility] CYSTOSCOPY,TURBT 2020-03-27 08:08:00 Hermelindo Wynn [facility] PROTHROMBIN TIME/INR 2020-03-27 07:22:00 Mathew Ray [facility] ECG 12-LEAD 2020-03-27 00:00:[address] [facility] TRANSFUSION SERVICE 2019-11-30 18:01:27 Provider, Luz [facility] - REPORT - SCAN Scanning [facility] REPORT OF PROCEDURE - 2019-11-29 16:19:52 Triny Naqvi [facility] T[facility] EX[facility] 2019-11-29 12:49:00 [facility] FLOW CYTOMETRY 2019-11-29 12:35:[address] [facility] REQUISITION [facility] FLOW CYTOMETRY 2019-11-29 12:35:[address] [facility] EBUS FNA REQUEST 2019-11-29 12:28:15 Triny Naqvi [facility] FINE NEEDLE ASPIRATE BY 2019-11-29 12:28:00 [facility] BRONCHOSCOPY,ENDOBRONCHIA 2019-11-29 11:35:00 Triny Naqvi [facility] ULTRASOUND (EBUS) Medical Cent er TRANSTRACH/ TRANSBRONCH SAMPLING BRONCHOSCOPY,BIOPSY 2019-11-29 11:35:00 Triny Naqvi [facility] COMPREHENSIVE METABOLIC 2019-11-29 05:46:00 Triny Naqvi [facility] CALCIUM, IONIZED 2019-11-29 05:46:00 Seven Nash [facility] MAGNESIUM 2019-11-29 05:46:00 [facility]OS[facility] 2019-11-29 05:46:00 Eloisa Blanco [facility] CBC W/PLT COUNT & AUTO 2019-11-29 04:37:00 [facility] SCREEN, 2019-11-29 04:37:00 [facility] APTT 2019-11-29 04:36:00 Mikey Rees [facility] PROTHROMBIN TIME/INR 2019-11-29 04:36:00 Cabrera [facility] SARS-COV2/RT-PCR ([facility] & 2019-11-28 08:39:00 Rowdy Yi [facility] - REF LABS) [facility] PROTHROMBIN TIME/INR 2019-11-28 08:33:00 Mikey Rees [facility] APTT 2019-11-28 08:33:00 Cabrera Mikey [facility] CBC W/PLT COUNT & AUTO 2019-11-28 05:01:00 Eloisa Blanco [facility] COMPREHENSIVE METABOLIC 2019-11-28 05:01:00 Eloisa Blanco [facility] MAGNESIUM 2019-11-28 05:01:00 Eloisa Blanco [facility] PHOSPHORUS 2019-11-28 05:01:00 Eloisa Blanco [facility] BASIC METABOLIC PANEL (7) 2019-11-27 05:51:00 [facility] CALCIUM, IONIZED 2019-11-27 05:51:00 Seven Nash [facility] PHOSPHORUS 2019-11-27 05:51:00 [facility] W/[facility]T [facility] & AUTO 2019-11-27 05:51:00 Seven Nash [facility] MAGNESIUM 2019-11-27 05:51:00 [facility] CHEST WITH & WITHOUT 2019-11-26 04:46:00 Charito Murray [facility] - IV CONTRAST [facility] CT ABDOMEN/PELVIS WITH & 2019-11-26 04:46:00 Charito Murray [facility] - WITHOUT IV CONTRAST Medical Cent er IR PORT-A-CATH PLACEMENT 2019-11-25 19:44:00 Susan Mcclellan [facility] SARS-COV2/RT-PCR ([facility] & 2019-11-25 12:23:00 Susan Mcclellan [facility] - REF LABS) [facility] CBC W/PLT COUNT & AUTO 2019-11-25 11:30:00 Charito Murray [facility] PROTHROMBIN TIME/INR 2019-11-25 11:30:[address] [facility] APTT 2019-11-25 11:30:00 Charito Murray [facility] COMPREHENSIVE METABOLIC 2019-11-25 11:30:00 Hannah Oscar [facility] TRANSFUSION SERVICE 2019-11-08 18:24:58 Luz Gamboa [facility] REPORT - SCAN Scanning [facility] TISSUE EXAM 2019-11-07 19:23:00 Hermelindo Wynn [facility] CYSTOSCOPY,TURBT 2019-11-07 17:53:[address] [facility] CYSTOSCOPY,BLUE LIGHT 2019-11-07 17:53:00 Hermelindo Wynn [facility] S t [facility] ABORH, MANUAL 2019-11-07 11:51:[address] [facility] POTASSIUM-STAT LAB 2019-11-07 11:23:[address] [facility] TYPE AND SCREEN, 2019-11-07 11:18:00 Garo Bennett [facility] s - AUTOMATED [facility] Plan of Care Planned Activity Planned Date Details Comments Source Future Scheduled 2020-11-[address] [facility] - Test 00:00:00 (Season Ended) [code = Medic la Center INFLUENZA VACCINE (Season Ended)] Future Scheduled 2020-03-[address] [facility] - Test 00:00:00 (12+) [code = Medical Center DEPRESSION SCREENING (12+)] Future Scheduled 2010-09-[address] [facility] - Test 00:00:00 WELLNESS (YEAR 2 or Medical Center FIRST YEAR if no IPPE) [code = MEDICARE ANNUAL WELLNESS (YEAR 2 or FIRST YEAR if no IPPE)] Future Scheduled 2009 PNEUMOCOCCAL 65+ YRS [facility] - Test 00:00:00 (1 of 1 - Medical Center [id number] PCV13) [code = PNEUMOCOCCAL 65+ YRS (1 of 1 - [id number] PCV13)] Future Scheduled 1994 SHINGLES VACCINES ([address] [facility] - Test 00:00:00 of 2) [code = SHINGLES Medic la Center VACCINES (1 of 2)] Future Scheduled [...] es - Test 00:00:00 malignant neoplasm of [facility] colon (procedure) [code = 898564203] Encounters Start End Encounter Admission Attending Care Care Encounter Source Date/Time Date/Time Type Type Clinicians Facility Department ID 2020-03-14 2020-03-14 Outpatient RAMO, [facility] [id number] [address] [place] 00:00:00 00:00:00 EDWARD [address] 2020-03-01 2020-03-01 Outpatient RAMO, [facility] [id number] [address] [place] 00:00:00 00:00:00 EDWARD [address] 2020-03-01 2020-03-01 Outpatient RAMO, [facility] [id number] [address] [place] 00:00:00 00:00:00 EDWARD [address] [...] result as normal/abnormal. MPV (test code = 36275-9) 10.9 fL 9.4-12.4 nRBC (test code = 413) 0 See_Comment [Aut omated message] The system which generated this result transmitted ref erence range: 0 - 0 /100 WBC. The reference range was not used to interpret this result as corrie l/abnormal. Lab Interpretation (test code Abnormal = 74719-8) [facility] [id number] 09:00:00 Test Item Value Reference Range Interpretation [...] = 3438) SENG (test code = SENG) Resp Ther ID - Danica Jerry comments: Slide comments: Lab Interpretation Abnormal (test code = 49934-4) [facility]T COUNT & AUTO [id number] 09:00:00 Test Item Value Reference Range Interpretation [...] CONCENTRATION Decreased (CELLAVISION)(BEAKER) (test code = 3438) Resp Ther ID - Danica Jerry comments: Slide comments:Basic metabolic [id number] 05:56:00 Test Item Value Reference Range Interpretation Comments Sodium (test code = 139 meq/L 028-516 8891-2) Potassium (test code = 3.9 meq/L 3.5-5.1 2823-3) Chloride (test code = 104 meq/L 98-107 5-0) CO2 (test code = 23 meq/L 22-29 2027-9) BUN (test code = 31 mg/dL 7-21 H 3094-0) Creatinine (test code 0.79 mg/dL 0.57-1.25 = 2160-0) Glucose (test code = 108 mg/dL 70-105 H 2345-7) Calcium (test code = 9.1 mg/dL 8.4-10.2 64099-0) EGFR (test code = 96 mL/min/1.73 [place] [address]-5) NOT ACCURATE CREATININE CLEARANCE IN PREDICTING GLOMERULAR FILTRATION RATE . ESTIMATED GFR I S NOT APPLICABLE FOR DIALYSIS PATIENTS. SENG (test code = SENG) Resp Ther ID - EDASI Lab Interpretation Abnormal (test code = 59731-4) [facility] function [id number] 05:56:00 Test Item Value Reference Range Interpretation Comments Protein, Total (test 6.7 See_Comment [Autom ated code = 2885-2) message] The system which generated this result transmit ugo reference range : 6.0 - 8.3 gm/dL . The reference range was not u sed to interpret th is result as normal/abnormal . Albumin (test code = 3.7 g/dL 3.5-5 67494-8) Total Bilirubin (test 0.5 mg/dL 0.2-1.2 code = 1974-2) Bilirubin, Direct 0.2 mg/dL 0.1-0.5 (test code = 1968-7) Alkaline Phosphatase 56 U/L 40-150 (test code = 6768-6) AST (test code = 15 U/L 5-34 1920-8) ALT (test code = 16 U/L 6-55 1742-6) SENG (test code = SENG) Resp Ther ID - EDASI Lab Interpretation Normal (test code = 90026-5) [facility]2021-02-19 05:56:00 Test Item Value Reference Range Interpretation Comments Magnesium (test code = 1.8 mg/dL 1.6-2.6 62577-4) SENG (test code = SENG) Resp Ther ID - EDASI Lab Interpretation (test Normal code = 47287-9) [facility]2021-02-19 05:56:00 Test Item Value Reference Range Interpretation Comments Phosphorus (test code = 3.7 mg/dL 2.3-4.7 2777-1) SENG (test code = SENG) Resp Ther ID - EDASI Lab Interpretation (test Normal code = 49360-8) [facility]2021-02-19 05:56:00 Test Item Value Reference Range Interpretation Comments PHOSPHORUS (BEAKER) (test code = 3.7 mg/dL 2.3-4.7 604) Resp Ther ID - EDASIHEPATIC FUNCTION [id number] 05:56:00 Test Item Value Reference Range Interpretation [...] (test code = 16 U/L 6-55 347) Resp Ther ID - EDASIBASIC METABOLIC [id number] 05:56:00 Test Item Value Reference Range Interpretation [...] 697) EGFR (BEAKER) (test 96 mL/min/1.73 ESTIMA UGO GFR IS code = 1092) sq m NOT ACCURATE CREATININE CLEARANCE IN PREDICTING GLOMERULAR FILTRATION RATE . ESTIMATED GFR I S NOT APPLICABLE FOR DIALYSIS PATIEN TS. Resp Ther ID - [id number] 05:56:00 Test Item Value Reference Range Interpretation Comments MAGNESIUM (BEAKER) (test code = 1.8 mg/dL 1.6-2.6 627) Resp Ther ID - EDASIProthrombin time/[id number] 05:12:00 Test Item Value Reference Interpretation Comments Range Protime (test code = 16.8 See_Comment H [Autom ated 5902-2) message] The system which generated this result transmitted reference range : 11.9 - 14.2 seconds. The reference range was not used to interpret this result as normal/abnormal . INR (test code = 1.41 See_Comment [Automated 6301-6) message] The system which generated this result [...] valves. Lab Interpretation Abnormal (test code = 67501-2) [facility]illo[facility]HROMBIN TIME/[id number] 05:12:00 Test Item Value Reference Range Interpretation Comments PROTIME (BEAKER) 16.8 seconds 11.9-14.2 H (test code = 759) INR (BEAKER) (test 1.41 See_Comment [Automat ed message] code = 370) The system [employer] h generated this result transmitted ref erence range: [...] Not Detected, (test code = Negative, See 15592-7) external report for linked test SARS-COV-2 [facility] PERFORMING LAB (test code = 29298-5) SENG (test code = Negative result for [...] of the Act. Fact Sheet for Healthcare Providers:https://www.[employer].Wepa/sites/default/f mary ellen/product/documents/F act_Sheet_HC_Providers_L yzo_NROW-IzW-9.pdf Fact Sheet for Healthcare Patients:https://www.Thucy/sites/default/fi les/product/documents/Fa ct_Sheet_Patients_Lyra_S ARS-CoV-2.pdf Performing Laboratory:[facility] [place] [address] [facility] & REF LABS)2020-05-11 03:41:00 Test Item Value Reference Range Interpretation Comments SARS-COV2/RT-PCR (test Negative Not Detected, Negative, code = 8810315) See external report for linked test SARS-COV-2 PERFORMING LAB [facility] (test code = 3949461) Negative result for this test determines that [...] 564(g) of the Act.Fact Sheet for Healthcare Providers:https://www.[employer]/sites/default/files/product/documents/Fact_Sigrid burtons_TW_Kxsqpbagt_Ykdl_OTCJ-WfI-2.pdfFact Sheet for Healthcare Patients:https://www.[employer]/sites/default/files/product/ documents/Wvda_Tungk_Ixkrqisg_Gtbj_MTLQ-StD-7.pdfPerforming Laboratory:[facility] [place], [place] [address]TJSEXKP FUNCTION [id number] 00:10:00 Test Item Value Reference Range Interpretation [...] (test code = 18 U/L 6-55 347) Resp Ther ID - PIAYA LBASIC METABOLIC [id number] 23:26:00 Test Item Value Reference Range Interpretation [...] 697) EGFR (BEAKER) (test 74 mL/min/1.73 ESTIMA UGO GFR IS code = 1092) sq m NOT ACCURATE CREATININE CLEARANCE IN PREDICTING GLOMERULAR FILTRATION RATE . ESTIMATED GFR I S NOT APPLICABLE FOR DIALYSIS PATIEN TS. Resp Ther ID - PIAYA LPROTHROMBIN TIME/[id number] 23:23:00 Test Item Value Reference Range Interpretation Comments PROTIME (BEAKER) 16.4 seconds 11.9-14.2 H (test code = 759) INR (BEAKER) (test 1.36 See_Comment [Automat ed message] code = 370) The system [employer] generated this result transmitted ref erence range: [...] mechanical heart valves.CBC W/PLT COUNT & AUTO [id number] 23:15:00 Test Item Value Reference Range Interpretation [...] PERCENT (BEAKER) (test code = 2801) Tissue [id number] 11:13:00 Test Item Value Reference Range Interpretation Comments Case Report (test code Surgical Pathology = 104) Report Case: [id number] Authorizing Provider: Hermelindo Wynn MD Collected: 03/27/2020 09:23 AM Ordering Location: [facility] Received: 03/27/2020 10:04 AM SERVICES Pathologist: Asa Huber MD Specimens: A) - Bladder Biopsy, Anterior left lateral wall B) - Bladder Biopsy, Anterior bladder neck DIAGNOSIS (test code = w5pdqIGdJVEhi8osZJQsgBK 3220) uZzEwMzNcZnRuYmpcdWMxIH tccnRmMVxlcGljOTIwMFxhb gZpEXUdwCKyI0KmzpanLFpq JB4lWV5mpHgdiTImaSHeKOU cDtLpm6lei543rNRkn3qaQP WTpjsxqPr9fUmyO49uk5Z4S izwI18faSViKQiozRCnreyy ulYvUIVpTAUPBH7ONvrlIdk KBUITPnuxGM3JOAMID1JsWS VGVCBMQVRFUkFMIFdBTEwsI YUBR6SEWEQVWfPuYuNKRJTT WP8BXPWZBY4GJIHVMTgTMAd cPjULDWEAUI4ZPN7DMFZJPQ DXQZD6URctUUJdFJXoNU0qU WNGClvARFZnMbRXBDFDXY8X MBKMNZIgQ0sOZqxME0kiLTF gRGDrUP3eBeGLU1UJPkBgYG OTXPsAUKoQBEZULAMBB9IBC LLAYLkLDQoZUXNOY9TtNFsB IVsOJ8kNU70VKVbUEaJJG5n atPXmAPEeWUTuQB6GC6LLRW FSSVMgUFJPUFJJQSBJUyBQU iBSRT4OZCSjpcnmRKRzIs6g VVJJTkFSWSBCTEFEREVSLCB BTlRFUklPUiBORUNLIFdBTE qtMTKHL7WDBOOEBsQoQjRIO FHHMV7QTALEUE6BSHEOXTqK MOydTyNVIJCEKW9KJO1SROZ PGOBFNVR2VXsvVFVvTULdCA 0gUFJFVklPVVMgUkVTRUNUS A7SHNGLFNVcX5nWBgyNX6oo MYMvHUYqLT5aScDIE4XSMyR gVVJPVEhFTElBTCBDSEFOR0 MVAWPXUHnDXFnDLFZME0DvK KhJFXdZC7zCI84KFGmUAeXC U5ektYOaYVIqLPIjOM7QI8Q VTEFSSVMgUFJPUFJJQSBJUy LIIjKRRL7NMLWchcntEPW9h 1xydGYxXHNzdGUxODAwMFxh bnNpXGRlZmxhbmcxMDMzXGZ 0bmJqXHVjMVxkZWZmMHtcZm 4tdKGwrVjkVtBcCYFsp4cwf mYYtilufSq5q4ixIFUsCmE1 uCUpGTkuM1wrfbEtyPHqJHQ lFDl5wB55OERsrY4wiEDlDH johiUcIpS2RSvoEVZmRnB9Q EFfvXJaQBZwX9czLMXiHIwz DZNtDNcevSYsSCO4aKsug7I 5bGVzaGVldHtcZjBcZnMyMi XXm1LlMZa8zVypP4EjKLFxN hU5aXRzNPCjNIanULBtIXYj zwB9iP14JPoitbM2jZEcg6V jr06hr773yQ8saXFwQLJ0NW JfVDFsfXAwXLLrVXS0VRVjx AGeI2gaMLStOH7puialRKrw IZwoTWFylVK0RSOitJGdO4S oISYwYJutPKCufsv6XvMtNv 6ywQLvxOykGQgfs3epw0auq XQcVgy4PQXiVpXbUovfEBrs n8Mzg9whJNLpxo6uTBD2tCC xhXkxm0K9hGWdYKTraMFkUK TsGJ0wwVSeJBOllD3giqwwP HBnYnJkcmhlYWRccGdicmRy Ad3cqXnfEYV0PYieM1yqhR0 nTdM1PRjrZ6gngX4tYWc8YD mlERJxfBT1zhV1GWHvfDBlH 1UmfL1yNUEkXM3rqwj3d3ns RFU1INoqUKMnZeC8diB9AYQ jlGMzPMFucIvcBJhwf688HU Q6FpVaTMTaw2ZlE8CikTigU 04edNrzF14oNFUvvFqyzK6v lJngeY3lSuOhAcSlFWhaqBb sWK1mWETmD0jjyTAlYHMbMF YtW6gfRkRgzJ9zwFvaRBrua hSrLICjFha5XRIuqXXjCPPb Lcs5OYJtRQAtM20gpuhdDTT 0dM1nf5lhq1IiGHboEGU9IF Lnc22jKIrxigE4LNjoBp6qW ALtMdw1ZptcBYZ4uG== CPT Code(s) (test code e1zfyBGwQSVjnQO2GdFxMIP = 3357) il8dqu4MkwFIxzSEaQJaplU YtjjYpnk43aZH2wJ11VW6lA BIcDgV5IIXucdW5Sej2OYRi VXJpaMSyN485z8iaj5pfytP tbWS9iDptKZNfVUIeNLkyGI ZzMjAgODgzMDUgeDIgXHBhc n0= CLINICAL HISTORY (test j3eqzLKkTGEjhOK1XiJoUXU code = 3356) pi3jyd4IfnOJaxXUwIIoptN FqyoYkoy31gMI0zB58QH0kV SBjChE5NOVuwdA3Tye5MGCo FFJunYVsC266d9gpr0lclzN ckLL4vKnoHVDqSQHzNCgdRE JwWfYtXIIvjBjhAI77EY2fu 4UeFHAiPP7zPA41OYFcMWPy pD0hUGZixZSnWH4gXRBvOUM kZXJccGFyfQ== SPECIMEN SOURCE (test e7yyuUYdDENjbQP9HdTdYWA code = 3377) ms1wmc4SciDTueIAzIGnltT DivdWuui66pWL6eG10OV9nZ JOaUqB4YJNgpeY4Blt8OXCg RKDdmIScX710s0liu5rqhzJ oiPD5lLmzGGLhGETgDHpzCP EoFlOxRZ7mSXAiCDLgXBXaY LYdbUTikZ8qGZpnAtQgb0Sw wHyrlK1iQLZdVYYKhFVtYUR yLCBhbnRlcmlvciBuZWNrXH Bhcn0= GROSS DESCRIPTION s4nilQNvSNQlbJKdUvHgXFC (test code = 3366) gSRBhd2jjCMXzwWYkUvEkPy NcZnRuYmpcdWMxXGRlZmYwe 5oes665oWUkn9bvSFYyCiH0 xDKpBYGuoWCxY659j7kle2c xhvFqsPA1YNLsNXD8KWstpo BnkrT0FEzrtISbMnQ9UThez xHpNWxmarDeplQgHde2NWQw T705RFO3bWhuz6tpBQN3LNY qKOSeHdXcWv1jzAOjK558RH RvCCGIQXTryNp9AJDrypBmf bVfvHOMr566V002p7grXSBo eoDebKfCjtgoo6nwW557WUC hcGVydzEyMjQwXHBhcGVyaD A2SLTlBB3gnvrxInZlNQ5pt wnmQhZzJC9iqog2RnWxJL9m cmdiNzIwXGhlYWRlcnkwXGZ xq3KweurfOU5vY0Qhg9L8dR 9maXRcZGVmdGFiNzIwXGZvc d4inJOjOCqed4FwHKO7nuS7 vLKurLSlHCXyPI26Hxuyu3O vKzzePDM7MPLimaNsc7Edw7 pvPeYtzxXlW6ebE7YmWPLxI WOvULKhUiGdhbEdr2Xkb8Ev lPUgvNx3n7nyAPIuDFJyeHa dj2qxCFN1ATFiI3Q0iRGsb4 ilLNtyRYRmdNI2drjwDBjzK QOhxdG9mvkxWZoyQQCwiSS8 hqggWXajKOAvExM3awowZBi cGNYbDEM3FUjcy695WXI1LU xzYmtwYWdlXHBnbmNvbnRcc GduZGVjXHBsYWluXHBsYWlu XGYwXGZzMjRccWxccGxhaW5 rWhNtJmJxAYckED2bGUPjM4 cqgJNzLOVeQPJzY2ufYbAio Q0pfLojVUldpnVyXHYvNPRt K8PdwbRxWQhfLGPlkh3hcXs fVIfpEQTbA15kjHDdqfMyDR anBcFuDILrn7n0aYX3sLGep KG7rNGfjEcsPrJpDS3bpTHi AI4mXViuPIntqsKqz8BeLC1 1bWJlciBhbmQgImJsYWRkZX EhJljqfYN4SgGdknTkeyAdI 2yqqNybbQOtu4DahPMaaElq dOXmRVRhxs3dvY1rIDPlivX nF1IwYKLmte4frEalikN7aL GmoVLvDOueIThpWPX4UBBxZ gIquBgqc3buG5urVLOeZHC7 Pl2ucXQvXQXbvrV8a2McJTa uIEExLlxwYXJccGFyIEIuIF WeZ3DzuhEcDPggIZZoyp0ix PfnJXafGXSyI96hjXCfbpRb PTapCkOrMWIrg3t0oTZ7tEY ikEE2gJCcxFbqPbReYY5ziQ NnRR5dUHyaNAwkucGie7EdB G48cQTkakYgomRlZuAeTLDn BWYgQsacaKY5YzBtqrStPUV 0RG9yzVbratfnyLVmWUv7zE NmHA7fSHZeZNYtuRrka5Msw iCmJAC6LDFtLLF5QOXqZjMd vMwtw8ihG9hwQEFfIUC5Kv8 rkAZqPESfizW4o6YbSLekKT IxLlxwYXJccGFyIENoZWxzZ ZInT5ZxkU9uUB3XAkvnAAVg UJBEO5JfP56kvKKybH== MICROSCOPIC k3ppbDFnORWriPF5CqSkBEZ DESCRIPTION (test code cq8bou9BxsWTizIHnOQwupE = 3371) QpntQhpj74sHQ2pT51HC2jR QImTrN1KDCfucP6Jsl7ANWj YKLjtMSgS726y2apk1iwhvS yjMX2rCfzLHPyRMMkAPkiFT IbUqRfNY1TMeKVIPLps7QyX WQuIFxwYXJ9 Gross assessment was [facility] performed at ([facility], code = 2777) Department of Pathology, [address] [place] [address], Technical component [facility] was performed at ([facility], code = 2778) Department of Pathology, [address] [place] [address], Professional component [facility] was performed at ([facility], code = 2779) Department of Pathology, [address] [place] [address], [facility]ISS[facility] [id number] 11:13:00Surgical Pathology Report Case: [id number] Authorizing Provider: Hermelindo Wynn MD Collected: 03/27/2020 09:23 AM Ordering Location: [facility] Received: 03/27/2020 10:04 AM SERVICES Pathologist: [...] IS PRESENT Signing Pathologist Direct Phone Line: [phone] signed by Asa Huber MD on 03/28/2020 at 11:12 [id number] x2 Malignant neoplasm of overlapping sites of [...] are submitted in toto in B1.ZUHAIR Sanders, ELIESER ([facility])research and development specialist-B: Performed. [facility], Department of Pathology, [address] [place] [address], [facility], Department of Pathology, [address] [place], [place] [address], Tel [phone], Department of Pathology, [address] [place], [place] [address], CCLWMCVWCQC TIME/INR 2020-03-27 08:02:00 Test Item Value Reference [...] code Medical Cytology Report = 104) Case: [id number] Authorizing Provider: Triny Naqvi MD Collected: 11/29/2019 12:28 PM Ordering Location: [facility] Received: 11/29/2019 02:03 PM SERVICES Pathologist: Asa Huber MD Specimen: Lymph Node, Subcarinal, Station 7 DIAGNOSIS (test code = [id number] 3220) tSLAjz1rlEFPsxAHyDpJvKk NcZnRuYmpcdWMxXGRlZmYwe 1agy112lJJsc7xlZKFqZtO1 zKPyTHRbpNUuU285SBVwNCk og2dnx5YbTDAjiUVux2L7GV PGwyfsbJe6xCpzT01fs6M4I girD0fbCUZzSWDtT8LrLH3a WUWxVkb4DGW1KGU7ZWXtXNA dI8OtKW5iHWTqiLHdEQa8k6 lepAhjVRYsXKR5o9usLSmkb mK5UH7cfc8njSi2f3vkxkDg PALnRIOuxJHPTJRbM2XgkXw bIb8qnQp4kTwjLfscQBI6Lz m1IV0oxd93jas1iFnrMTTpp hmiNfT2JXmvNFHelgfyAOn1 MFxtYXJnbDcyMFxtYXJncjc yMFxtYXJndDcyMFxtYXJnYj ohQDkjFFZgOPY9UWrtw373C NT5HQozo9hhn1fruNKsEev4 LYArSyBuEuaoBZket6Sin2g jEUCbReB5ADbxLP9loi18RW EdVJP9lj6tnWSodPrpjiShj UFmCBzpR7KfCSHnj481SNUb R4RkDAAgp5G8sfLzDpHrPGI diFW5ylB4LRNpKLx1xMOahy M4vnXswJYoM9ygpH84QeEmb HKgU9EheW18CfGzfYWbZ0Fp bD81EcVrmXLqA5MvgF47VrR ztQShEVKpxXTaTr7thVJesX Qzu6KtwSDbCOdjK12ex368G OKsolTtD6ujhIXtrxckpUWx alalWGtalcK6UHCrSKKbBMf uXGYxXGZzMjBcbGFuZzEwMz NcaGljaFxmMVxkYmNoXGYxX VtgL6ynKuHjBbOtLDYKJU5I KPCRL8GLNICWSJEENFDIMwL TDERJNVOHVZ7NSYjgEDDYGR VCEVIQPIbCJGPLGW7nBWUGW V6DDMxWOwSYScLuU9OIWZZT QH1RHvFFWwJSY7APYwIVMXv 3RHNebaEaKWSnMIEGG0aOSH NZGKLBVpPSEUiPV12CKtITA BjlQFQzRAZiTJGZK42UVPTQ QkxFIFdJVEggTUVUQVNUQVR CHrVIX70DKIvvVYyHPxFZQV 8CPOCWLHMdZ9HBRO7CMMReD 5LJI6uCR55NOKSLBN7PPUCW IC6XEhokzOGtFWEuDKvwBRJ xXGZzMjJcbGFuZzEwMzNcaG ljaFxmMVxkYmNoXGYxXGxvY 8qdJbTdHzTrWbv9PWUveZVa GLPlJbq5OLOulQAjRVZIpZz kjD7tZSQbqBqhiC8dtFR6RJ TlafWwcTLTfE2xAFFBxD0zG fD6UgLrHlY6XPP7BZKbbKSe DMLkwaHbhWkmjQ7rPtRwJnS lLOlboRFftutcBBtbjvY4RZ Bhcn0= COMMENT (test code = k1buhNXkCQFhqOZdXjZfVWZ 3359) aPYGwv4cdSVHwbINlVkKhIl NcZnRuYmpcdWMxXGRlZmYwe 5sqh300yDSor3nvHLTwTtS3 dNBeMSAkkFPeU599LBFmLPi re7ueu9WlNYLynBLaw0A6ON GNqkwsnQq1oOyzG87sv6L5P lpxL8ykZSFhIIIrR1FaRS3k XULfNgd3OAB1IVD4RNSnHGO xQ4PvKU5dTKFklUTbMKs6z1 cssRcwIBAxVMZ2b9mqVFzir fXgNK1mpk1ycUw0r4njndQl LKGrNIPtcSGNPSOzO0FijXu qLf6asSa4sXxsYbcrWYL9Va t1NJ2csn97oxe2iQeoIWEgm otmBfL4HErgXTLcnwxbZHa6 MFxtYXJnbDcyMFxtYXJncjc yMFxtYXJndDcyMFxtYXJnYj ebBSeaNRQzCQA2SHclm013U FK7FVvdy3zjk1jamIHpFdw3 GNZaWzYzDqcgBNfie3Uic7n sONTptm6rHPE2jQBcvQowq4 E1lOViTJZcwNHgjzNuFKHqD qL3HPwgNB2loj92AKNaPSA0 ge3lpCEmcYxbemGisJBbCWe jT1ClVYMby679RUYgC6WhOB Fzt0R7oyNnAvIoNCIplWQ3i oF8NLPiPCb4bHHwudM6moPb lCNrX9syoC86ZxAkaQHpV2Z fpW71CiJrtUCoP6OfnE77Gc VjmMEuA1LxiP10GjZvqNPmU RUttSJfZd6uyNUbePDdj9Vw bXVmKUfwA78oq602WGJqyzK fT6ugbDAxeyuzvLZmxycfUA byvpZ3GNXjJYHePCzlELJuY GZzMjBcbGFuZzEwMzNcaGlj qXwdNCddGxIeYIOvCZsoH3y cZjFcZnMyMCBObyBzbWFsbC BjZWxsIGNvbXBvbmVudHMgY KTaEFXxKD7rxV0uvOyqJNZm HFWsieDlk2UxU8hbXR2bBYH hclxwYXIgUGxlYXNlIGFsc2 0sf7WsYIZ6vuwhP5IpDIQfj UnddJ6dpPUmQCJhekYpBjCi GILhHZJ7NyXQyEwqEQP9iui tT5QhVOKzx9DurOJviCOgkS 1qqmTgmN07jcH0xPulLMRnv pWsgj6sRPFonOKbICFtPDVw mbLtrT3gdTcjaIQsLa9wXMC bPUTvi4AvkW2es5c3AN5zWP LwbBPhpKLzn5Bcs115dZXaL iHsQXd3bOQgKLXxsPGlkVdp wWDuh0e2qQYnJOOcv0YohNb aEUsdC4vzW4YaGFXmhBXxsF setOdlqHWwPDSslV2pzNMqw 3YvWMGcv06psUryXLxwXgYm QO60iNI3YPWwb7I5VC6uqHZ sD1FyZ3ccf21lXS9zXHTkIL s0cgkzHKEXvPLeD1QISM8qA KF5UGhsJBzbWVEna2w5pBTc EByzWSFlLEU8ye51sLWyqMG nLODrtASokhIadYIfDkQ1nN FwBcujBVZfuxLiWK5tWDTiE HRoaXMgaXMgdHlwaWNhbCBv LkD3fm36bGZudQWbGNYfrtI wcy9xCPfvw5npjEGtoZllKY qFLAUgSsSecjUcLYmsjDy7J BDcjeM4nQHczOEwReJoyO0l x2irAIM5pGtmUDimIq9wDZM gn1Q5VY3pyNAoQ7VaC4nnz0 3fGD5jGUMvNVHqZp0rOAhpT BKvk06mvGgrVRyrBvDxQQ18 iZQ5BCVkl8N9JD6nnMXsV9G qS8jqq14eSB3oQJWvTSQlxA 1gVQurPKsvV1irwCHjXCZga mVkLiAgXHBhcn0= CPT Code(s) (test code e9ckvMDqZQRhdNGgCqNlPUK = 3357) qTGRbp5liWXWqtGMhFvDhUs NcZnRuYmpcdWMxXGRlZmYwe 9lvj657hQWby1eoVVPwFrL3 oGPmZJGgsQJaL584d7ade2o xdpEtkQC4MSMtTOT7CEivlp YfmwO5ESnvhUNfUnY0DBmtz nShNRixfgNgvdXeKnz5KZTx B873EYY2jMyph6pkXHO3BAS cHVLmUfFcTq4xaFDvZ699NT RyVATFHNVapQh6BYBfvsVms lIddCKKo127V954a4rfFITl etHlmKcXtifpx0ehE129HKZ hcGVydzEyMjQwXHBhcGVyaD B2ZJWnWP6fdgkyNbQyFM2in amoOkHdHO0basz2DxJzTV7k cmdiNzIwXGhlYWRlcnkwXGZ sl9JnrlooGO8zD1Vxx6I9fL 9maXRcZGVmdGFiNzIwXGZvc n5fxXJgXOciv9JuPME1yaJ6 zZSmzTSbSNCnEO28Hsgau3U rDdgjLXG3SPNifbLrd7Ucn2 soZpYgkxKtS5mxA1TjPHAxC SCdXJYuAsNflbPwy3Qzv2Oe vHHvoPe4r8ijZTTnECVnaXj mb8nrAJM8BYNwF1S4qLGwi8 hiHGvcJFHunNN3kjjhPDdkH NYmknX3nmbfVKniCPYaxEG4 twvxHYbaVIJzHnA1nvkaIWf rQFLdDLF5JElrk872XLD0IL xzYmtwYWdlXHBnbmNvbnRcc GduZGVjXHBsYWluXHBsYWlu XGYwXGZzMjRccWxccGxhaW5 iTaLaVlBkVIyuZC7dKZTnQ8 onrMHwJTYiQVAbZ1yoZnPty H9uvVjbQVsgnjKpXWs9GJzi PNZ7FHWgEOldGNY3 CLINICAL DATA (test j3hyrSYbDUKdkUHlXpCiEAX code = 3355) hIUFwj1xjGBUilODuYnUcJk NcZnRuYmpcdWMxXGRlZmYwe 3oeb651xZBhc6fnOTAnRbR6 cTYlZQIedEXjI695LTMdSNs zm6vew8WoKATilIZxn7K0UE NKihzagSj1gSmgH40tv3H1I jayI9fwINJrGJQxX4OdMY3d YGPfKjc4ISK1IMP3HKEvUQK yI5CiSD9qUTXfvXVoARq7j3 stmYreENHbFPT7v2czYTzwe hQlCJ7uky5hqOt5x0bgmkZv MOVnPWPocGBUNFPxB4QzeMm jBj4rlOb1jSkrQfnpSCO7Pj i0XY3hcl05ljp9kBjrEPWzm jteHgC0QUlfPJQojsrpTUi2 MFxtYXJnbDcyMFxtYXJncjc yMFxtYXJndDcyMFxtYXJnYj caDRwxXTFxHIE3XHcii813K UA2XLnru1hox2ccbHSrTbu4 QFAtOkIaOqssVNkoo2Mzi0d oDFOseo2rIBX2gBIjlEztq9 R1xXAhEIOxbXKssxGoGFKiL zY0VEdiCI6fib78WUXhEPK7 vt4vuJNrkPhctgJauELoRXg bY7LwGULoc485YZZhK7RsPO Jaj4C7cbLzVbJvJPGedOE3w kU6QTFfOEk8jJVmdyU0jwLg fISmY0iuyX84NeXilSBzN8F ylV36NyKkqYLvZ9JaeD90Pd ZxkHFdQ0JkiB29VlSqzWXnF GDzpIKkEp7jtIKrzDTtr0Cn qHNaMOxiS46ly177YHCbreE xS1rjlRKwcvqxbDHawhlcIO wyftT0PUZpTWAePDxvUULeW GZzMjBcbGFuZzEwMzNcaGlj jVjsXBqqZpYcRXNpJGmnD6g wMpCvTzIrAESQIBZiUVW7pR 4hlCLayN3imPPdEU5vbPY2y Vv0JYepm8Zeamssc3BidEps wBUmnlGaWXZ3pb10hMTimER xQWVkykEswt0hOEBeRbYxsS QgUXKwXJtoo387IO81qU1vA CoouTFeaMmznNhckPwnuY4p wUQywS3hMJVfjMthdANerAG bfrFwf50edBbkB2RlfLEfEM LtvZ8quOOoMQeBFnOhQCB4D SlccGFyfQ== SPECIMEN SOURCE (test j3qyqHYyIIHacHCgRaCaAWO code = 3377) xQPWkr0oyKIAgxERcWeJeFf NcZnRuYmpcdWMxXGRlZmYwe 4bcu906aYOnr7mdDOSwHfN5 dXKiYMOmtDTqH929o9trs5s ztwRncWT6UZIuMPE6LRfmaz HgzxL2WBvqiFYfRjS3XTygz pMaVVxyujGaznOuJaj7LHOu Q808FIU7bTgng1ejYZN8BBH uBFSvRgHxTk3slENqC711TP QnZHMNGEQxzOq8UIHbmoZvb bKckQWIf535D572e6klTZZy stVeoCpFxjova8rbB291RAO hcGVydzEyMjQwXHBhcGVyaD L6FLBwRC7bsdwiZpFiCP5xh rrpHnSoVQ4clbv6TaIoFR5y cmdiNzIwXGhlYWRlcnkwXGZ io5BvcyesWF7pJ2Xdr5A6rV 9maXRcZGVmdGFiNzIwXGZvc e0msGFhITzwg0LkQIB0udV8 aGZexLFqKGTjUS03Hlqni4K fDcayYRU8ADQnuoLlt1Brd8 ecDkIozoXnS4fvF3FuSIImZ MCfZVOtCsInltYct6Xim9Aj fCZytXs1w3heKBOvBRVwiDp xf8gwOEY0WUFyX1P4aMHgu5 ozDQyjIOIvvCE3jjinQXdkJ UZgxuN4cwulDMnaKORxaYI7 bkyuAWpxAHPhKbS5bupkKVo xWEVhYKB7NElcr391RZK1XY xzYmtwYWdlXHBnbmNvbnRcc GduZGVjXHBsYWluXHBsYWlu XGYwXGZzMjRccWxccGxhaW5 hJwTuRaAhZIlfGM8vDRQsU4 pbjDDxKDHfOUMrS0jcEoTvu B3xvTjySOlzzrTvKHrIIODO HO0LWEWeLIGJQrFZAudPMGw vOJGPAKBWH55eWyTHRlBjbU FyfQ== GROSS DESCRIPTION k0yngFXmVBWubECrKlTrKKF (test code = 3366) aFJZbq1xhWLCwlPKfXjNbQv NcZnRuYmpcdWMxXGRlZmYwe 9nuy853sATxc5xtFRGxZsU4 aXYvXPKbtOAiO377CPLtCRh iq0tvc7PvTCVenEUlj8E4JT ZBoqnitKe3wJvwB17lz9E7U dgmJ1rzGGQjGKJcX3DxAR0e BLJvFky1UVV2STL6SVWjKFC rU1YgTP5mYXOmaULrNJw4p4 npmSsxBMCoVXX1x0qfFTkjl xUnNM6zuv6puJv5n1ccqoIt GDJnGMYtbGFEZEQkP0FpmBz rCu7xrBb3qNchRhbuGJR0Lv t1KU9cja88nvn8yIjrIFTze zyqVjB4HWrfKFEqggukWFc9 MFxtYXJnbDcyMFxtYXJncjc yMFxtYXJndDcyMFxtYXJnYj ngDEpeGTOnKEZ2LOrqb019S TG4DFaza3hnb9gzlFDxFss4 WHSuIaAjBrrwWNmzo1Gaw3e tYPKkrj5uPSL6dLXfrHigg6 Y2fKRuQDJkuDPwhkTjXBMsC hT7PXpqUP3mnq87NFIjFRL5 vy7bfCRziUzmffUknYGkXRy dA8WeICTcl273BZSeG4VpSW Awf7R2pzSwKyZnKXCbkDU5t iC2NFSrTGn4aXUjjqB8xhIt yMOrK3bzkM99SkBtuTYgB3A weD06XjOrzCZwR0YkgI32Ib TcvSVoV0JuaM82DpFtoLYxZ LXtzEXrNf1eeUOjyRPmn7Aa bXDrJUnzW16ly407YMKedaR kX6tzfFZpwlanwBDzhtevXP wmlaC9AQWqICTiPRkmBQIeW GZzMjJcbGFuZzEwMzNcaGlj fPbnCXliQvQxGBLoEMmsW3q cZjFcZnMyMiBSZWNlaXZlZC AzNiBtbCBjeXRvcmljaCByZ PBoAql7WJJsamAdv7GwpAua OyBwcmVwYXJlZCBjZWxsIGJ mt0LzBDNgWKRxytJrLgFchS Uda7PwxiBrvUTnSKUrdFhrF 3RlZDogMDkwODIwXHBhciBS ZWNlaXZlZDogMDkwODIwXHB hcn0= MICROSCOPIC v7mgyYAlKMShnVQaCuVuQIW DESCRIPTION (test code eVEGbu2heSPBgiPQsAxVjHi = 3371) NcZnRuYmpcdWMxXGRlZmYwe 6sfw511dJKap4cbYOZwKzD2 nYZhLYVlnLFpF692b7vqj3c pyxNwyXS9DIOkVWG0WEouwv YjszF5PVpnfIEtTeW7RJvxt hVrUNjnrpBbffGiVem3ZVEj B694RIM7nNuzj6fmMQR0VGJ uFHBbFfMaOv0wxWVhB815UP MoDCEASNEogFe7JQFtkoUhp cIntTSXh130Z941w9pxVPKd wuGqfQuQpwbbx4ohB047SKB hcGVydzEyMjQwXHBhcGVyaD W8SDFlJG6ubndjGyBlMH5ag dcbXyYaIC9xoyh3JcTbHR6w cmdiNzIwXGhlYWRlcnkwXGZ xb0WzfyvtVX4wG9Yqs5G1kD 9maXRcZGVmdGFiNzIwXGZvc z8xcWPaWPeic1QcZFK0smQ1 fNEeqVCnUUDgNX57Opamy6E oAaysXJB3CFYbvdYwb1Iss2 eaXoCykbKuD0vkA6PuPNSaA DXhRJEkAmBrwiRkg4Xsa2Ex pBPhdJk2p9jeGAJzKGOvoTt bb9txGJE6XPVkM4L6zRDil2 rsUDkdPFXcjXT3ybuwEYktM KZzmdE1tpmsAJhbCNAonZX2 evhdTPnqIYJzDeM5yqdrHPw mDCTcXIO5JTbeg778XWZ6OG xzYmtwYWdlXHBnbmNvbnRcc GduZGVjXHBsYWluXHBsYWlu XGYwXGZzMjRccWxccGxhaW5 hUlCpFqNqAQljGJ1hVEAaO9 ndkGQdYWGzRYDtX2umUpNvx D5avDzgGYbrfeOeNIIsbsNo ex8fQZ4gBQOesm0= SPECIAL STUDIES (test t7vyzWLkVDPvr5swBUAtyOE code = 3376) uZzEwMzNcZnRuYmpcdWMxIH kgucSzJRzds3PsY1HcAhDvK FxhbnNpXGRlZmxhbmcxMDMz DWU1lfCvJYWdHMdzMHJaOHa bKg5ieCLjfWuhFlGgXVUnf3 nyfkJKiyiybDz4n3dvNFLlK iU2eCLuAYwiB9rbicAjiHLw N5AcqKBfwAz7b1hpSuLjChJ 0tLIrDNgiE9aeitTzdWGgYC TtSDc8xK56SDOlbC6gjGCbS JxovcTaLvI0FPliNBAdSiQ1 EFCryTIpAIUyP6ldVDQxNYu jXOOwMTrnkHMfVAQ0bDwqo2 Q3qOUrtQZdqCubKqOyKiTuX bDSj2DhDUb6wQciO7JzLIEa EfG8gHIjAAPnDFvhABDvPYU rbtC5aRdxizEam62xgURfHK YwXGZzMjBcbGkwXHJpMCBDb 2RfuFiaYQX9uJa8kYfeHgoz IHV9Kfu4CA1osk35nry3gAd hOQTmxanuSvE7NAjdBSTnii wmJDd5YGufIDRmoAO7ZRVtj MIzI0SpCBSyUR5cjhl2KMN3 LDocAHJdUuK0NGSxgLQbPFB uhYvqDIlwq567XPA4MnQoPE 9wX6Ctc5E7nM1hgGCuVUVho PYzFnTwFCItly4kgEUcSTij h7NrOIH2xiC2dFGodGUnFDZ bIP01Nqils1ZqEuyip8VwX8 1kaBG1WYkcu0xmOX5jYvI0u oRoFKfhd0gufU6mMhQ9JGtf DF1lHZ3bMTAaiA3yufxbVIZ nYnJkcmhlYWRccGdicmRyZm 3hzYfyQIJ5CMebJ3nohK0aM wD3GIqiK1ittK4uYEc4BDvh kQD5EIJebY7pOV0vqxhck8j vLKraVLwoUMBxvyY3cdB5PS JnhGXuU4WapH8jLBDaIC4cc musr3unYQW7OQalSJRyEUG1 WaXmYSKmm5Adgxn2WxYql9V luYLpZMcyV91xh805KYUojr DfB2bmoOPvdwnxmWOkpftrG OeasyC2IAMdCWUfULgmWVHu XGZzMjJcbGFuZzEwMzNcaGl jaFxmMVxkYmNoXGYxXGxvY2 cjFbPkI5OiYMQkKiCeTVtlK EbqiUEpgWLdeCY0aV0fFX2z LGBzhTJzN5CdTDDoupMygKB jUCK2mINiaSHpDI3bYMcsfH Pfg6kas2FeP0poeAqmrWT3W Y8kSGTiRALlJPsui1TmrG5y LlxwbGFpblxmMVxmczIyXGx kbaenLDWfWGavH4dnLeSnWC RszIijGIinw6ZoDYWtVRFhI cukccPkOPu7laIlUUBywnkj IMJhgCnhzA3hUdCvSfShHst xWI8pRZZwG0vvoDFkFQIxVP OoB7fvNyWvgA1nkQuzITclY qQoMhYtByUEp582am1aAEGf jIRcqlSAoUTwcY9ePYhdHWs tBJbobNTmQYuaf0vrBKXoi2 r1bYKnWDKyfdNpw8nqXMxph gTbAUIuuIGphUQdYDHvp85b OYzloKinmLqvVYAnm3KelNz zd4JaEcYoYTvoy3SjJ89lgS JvbCBzbGlkZXMgcnVuIGFsb 90dx3emZFSfXjN9bZJbdTS2 jLCbnUIqj6VpzOgnAFQil3j yYSFrny4rnuwomLWrz7OjbY 5pbmcuIEludGVybmFsIHBvc 4s8zNMjSMZmEPNgYGcnhBh4 RVVcu814mh3dyrL4cOYqMFO 2YWlsYWJsZSBhcmUgZXZhbH VhdGVkXHBsYWluXGYxXGZzM jJcbGFuZzEwMzNcaGljaFxm MPcdAkLaNBYmVLaoY8ewBaU zA4TzBCRfZsWegIPpM4rniS FyXHBsYWluXGYxXGZzMjJcb GFuZzEwMzNcaGljaFxmMVxk YkQcUORxOFdiT0cdEePqB1T yXGZzMjIgIFxwbGFpblxmMV xmczIyXGxhbmcxMDMzXGhpY 8dzSdCjUESfoLzbQVsvc1Vx ZPAwRXPjQijjahNuBPl2xiV oXHBhclxwbGFpblxmMVxmcz UeXFqksnmfJPCnNYulO0arG dVaBYVgcDzkUJnhx5EiJGJu HJNxZenpvuGjBRqepFLlg8m cz5ZhW1dlqQqwiIU7VQAzJ2 mnwOZojEY6SPR4iO4wRDjnm pTvJYVdu0EpKTOjOCNtYaL7 mQ5mQHD8KdJVdHeyZCVdYJv uXGYxXGZzMjJcbGFuZzEwMz NcaGljaFxmMVxkYmNoXGYxX HebT8kuBnEnE5VkRQRdZmFp wRonSTjwYSb7RczesPSemhy mMVxmczIyXGxhbmcxMDMzXG jpV5vxHzIsKATucOoiGWduv 2NoXGYxXGNmMlxmczIyIHMg KYIifSRnrYYQHG44GSXpPMG mnDwzxP7nhCVJYVJewyD4t2 F2CNnyTPFbGNy2XXeivsDbN DRwaM5rTATjVP0fUDn3ocZj IFCmk6RlMN1iLUNpeVEsSDO 2LAJct7ZkW1Joi2EwKHWmGD Yntd8fkmYnYzAAcELjLDGqu v08YXQvDS1bE0tmGRNeRNNj zvAdfOEfa2ErRJGlhYA0aKT nYS5DEiNIi07rWKFlLTBFzb RvXOLbmOwzsNX2srY0yY0tG iBUaGUgRkRBIGhhcyBkZXRl kq1wjcUfUXRzZXOkr1YnzRI eeFHwbuUxG1Jlz1BvSRXvcq 45CQtggVRcrf07BD8rH7Nov 3AlvP3wQEvcIBWdl1IfnUMy cMZeRBUzj7OoS5bhxrcwAEz wdFRrwN1yIQQlZVa7RAXah7 TbYRZar6FiRfChksOvVIZqE YXbOEKzlL09CDD4jKitcHvg grMgCR2oNSGdsvPyJNTwDLA anS7kBJyknuYeDOHtqjO8i0 S3NXziCNRllhTqXwltOIS3g wIgupH3mLPiJ1iylefmFRos BGVes7GesB8iiIVQwGCik8A yvUMlxZLAyMNpCC5xvvEyLE 8uIXH9YCnuANIOAVLpRJagB ABaJZT4FPmfHajjDFO3gaFf ZGBqw1KyDZupN5akG97hkGw juIy6kDWtvSixiRFepHSeRH YomiI7f7P6OMSik1CipsimQ HBsYWluXGYyXGZzMjJcbGFu ZzEwMzNcaGljaFxmMlxkYmN pVQCjUNcfT6iqJyCuRgNtUk hqNKS5xK== Gross assessment was [facility] performed at ([facility], code = 2777) Department of Pathology, [address] [place] [address], Technical component [facility] was performed at ([facility], code = 2778) Department of Pathology, [address] [place] [address], Professional component [facility] was performed at ([facility], code = 2779) Department of Pathology, [address] [place] [address], 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 This surgical biopsy specimen shows this carcinoma [...] carcinoma of the lung is highly favored. 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 The interpretation of this case included the use of immunohistochemistry or special stains.Control Slides Examined: In-house known positive controls were evaluated along with the test tissue. These control slides run alongside of the patients sample show appropriate staining. Internal positive and negative controls when available are evaluated Immunohistochemistry technical testing was performed at [facility], Pathology Laboratory where it was developed and [...] qualified to perform high complexity clinical laboratory testing.[facility], Department of Pathology, [address] [place] [address], [facility], Department of Pathology, [address] [place] [address], [facility], Department of Pathology, [address] [place] [address], GMTVTM [id number] 08:47:00Surgical Pathology Report Case: [id number] Authorizing Provider: Hermelindo Wynn MD Collected: 11/07/2019 07:23 PM Ordering Location: [facility] Received: 11/08/2019 09:13 AM SERVICES Pathologist: Asa Huber MD Specimens: A) -Bladder Tumor, Left anterior lateral wall bladder tumor B) - Bladder Tumor, Base of bladder tumor Immunostain for MANISHA-3 in order to compare with mediastinal tumor diagnosed subsequently:MANISHA-3 immunostain: Positive in uro thelial component; negative in small cell component.Additional CPT code:10052Uvyubrql electronicallysigned by Asa Huber MD on 12/02/2019 [...] and its performance characteristics d etermined by [facility], Pathology Laboratory. It has not been cleared [...] complexity clinical laboratory testing. Additional CPT code: 11041Jcyggtfx electronically signed by Maria Elena Stuart MD [...] LYMPHOVASCULAR INVASION Signing Pathologist Direct Phone Line: [phone] signedby Asa Huber MD on 11/10/2019 at 3:59 PMA. 50% CONVENTIONAL UROTHELIAL, INCLUDING PAPILLARY COMPONENT AND 50% SMALL CELL CARCINOMAB. 80% SMALL CELL CARCINOMA, 15% CONVENTIONAL UROTHELIAL CARCINOMA AND 5% GLANDULAR [id number] I6Soslb diagnosis: Malignancy neoplasm of overlapping sites of [...] entirely submitted in B1-B2. PA/pl A-B: Performed.TISSUE [id number] 18:49:00Surgical Pathology Report Case: [id number] Authorizing Provider: Triny Naqvi MD Collected: 11/29/2019 12:49 PM Ordering Location: [facility] Received: 11/29/2019 02:05 PM SERVICES Pathologist: Maria Elena Stuart MD Specimen: Lung, Left Lower Lobe, EBBX. Process in Cytology for Collodion Bag. Reflex Genetic Markers. LUNG, LEFT LOWER LOBE , ENDOBRONCHIAL BIOPSY:- POORLY DIFFERENTIATED SQUAMOUS CARCINOMA, FAVOR LUNG PRIMARY (SEE COMMENT) Signing Pathologist Direct Phone Line: [phone] signed by Maria Elena Stuart MD on 12/01/2019 at 6:49 PMUrothelial and squamous carcinomas can have some overlapping features. The prior bladder biopsy [id number] was reviewed. Based on the overall histologic features and immunohistochemical stains (negative GATA3, uroplakin III in current lung biopsy, and positive GATA3 in prior bladder biopsy ), history of smoking with a lung mass; a primary pulmonary squamous carcinoma is favored. INTRADEPARTMENTAL CONSULTATION: - Asa Huber MD has seen the case and agrees with the diagnosis.08872, 20427, 35373 x 4Mediastinal lymphadenopathy; bladder cancerA. Lung, Left [...] included the use of immunohistochemistry or special stains.YBTO1-cxkjyktsPRR9-ftwlhjjvW36-positiveUroplakin III-negativeNapsin A- negativeControl Slides Examined: In-house known positive controls were evaluated along with the test tissue. These control slides run alongside of the patientssample show appropriate staining. Internal positive and negative controls when available are evaluated Immunohistochemistry technical testing was performed at [facility], Pathology Laboratory where it was developed and [...] qualified to perform high complexity clinical laboratory testing.[facility], Department of Pathology, [address] [place] [address], [facility], Department of Pathology, [address] [place] [address], [facility], Department of Pathology, [address] [place] [address], [employer] Cytometry Requisition 2019-11-30 17:18:00 Test Item Value Reference Range Interpretation Comments Flow Cytometry (test code See Separate Report = 2758) Case # (test code = 2759) [id number] [facility]illo[facility]OW CY[facility]OMETRY [id number] 17:18:00 Test Item Value Reference Range Interpretation Comments FLOW CYTOMETRY RESULT See Separate Report POINTER (HEDY) (test code = 2758) FLOW CYTOMETRY AP CASE # [id number] (HEDY) (test code = 2759) Flow [id number] 14:20:00 Test Item Value Reference Range Interpretation Comments Case Report (test code = Flow Cytometry Report 104) Case: [id number] Authorizing Provider: Triny Naqvi MD Collected: 11/29/2019 12:35 PM Ordering Location: [facility] Received: 11/29/2019 02:10 PM SERVICES Pathologist: Kali Borjas MD Specimen: Other Flow Interpretation [id number] (test code = 3364) YPtBFZlg0ipGSWwbMUoUh EwMzNcZnRuYmpcdWMxXGR hKjBwg0drl435rCTco4si QIHyQpK1mYWsHTRqjGCnQ 745EYPvKTrbd7ncq2PiFB RyyQWtc4F4DWQQblqjrIu 1qHrgZ25yn4N0RzjlB8ts EQPpXIUvY5JpFK6kYEKnH tj0SLJ3GXR0SQYfKSEnE7 FwKT7aRFTbeNBdHIr2s0u buTgoOXJtCOW5c4ccRFgz kmRbHW1vnn1wsRy2r2ady zEgRGVmYXVsdCBQYXJhZ3 TafYptZm4djQi7uMpxPsg cXYL5Nnd3VZ4ukz73xrd2 dPwoTTLfraqoZiS0HBnzM ZUeoqqtXEl2ATfhWMWzoQ cyMFxtYXJncjcyMFxtYXJ ndDcyMFxtYXJnYjcyMFxo NVKbTRF0PMvxm681TFR0W Sinq9izh4rkzTNvWmt1PO DnRiDdBkotNMshu6Coq2t bMJPyin4zKNB1fUIuiHaj v7B4qKRpIFWggOMmniZsO CRqYlO8XMfvGA1tig77UV QbELS2ae8ozGFnaQyrulQ nzRJzZGpjX6XfMDWuf804 ZPGkC7OiUBZxd4U1xxDqJ pMwHJFgwSE4rdW5ZBJgTZ o7lPAnxoX1kcIbbINbX9i kwO15BdSxjKJjR7LjdV39 LzXlrZEyB1AlwP98KzHiu ZOvE3QazY99JtVaaSDrOS BnyKMiFn8hzFGmmQRso4C daIMdGGbvB05nj446HQXj ggCpE0xkcOJashedaCQdw cwpDYjbuiR1DIBhAJVrAT luXGYxXGZzMjBcbGFuZzE wMzNcaGljaFxmMVxkYmNo GNWsWUtiX5ukUiWlYwAuI LTRVM0BFFfsHl8AGWcjVO GDIcIANY4NJZ8PPAWDOOP GN1KXFyHXSPllUxyUFtWH BLVSCYOIPig4IAFrymCwI x2uHDGMEcLKGeDjCFPYJH 4NYG1ZUZMLOGOKSJTGBZA LZ44knPDqLQ6JPdVXWtEI Q2tUEvWgPgGCRfQFFC9GV ZXeKPdSCSfPG1vIERAiSU ZBSUxBQkxFIEZPUiBFVkF ZVSQNMD7XXZXwioTkW7MI UGGNFV3OQdScuKAirI== Flow Interpretation z6rtaLLdUYRqiAYvLqDyG Comment (test code = XHmDAOtw2vcENXgnSSzNr 3365) EwMzNcZnRuYmpcdWMxXGR qRdHso3hnd712nILdm0mc HPAuJoZ8pJLmOGHlhQZgG 603GYMoYTquy0kdr0RtJR ZlxDSyu2O0CHNZxedryBn 6yQznC55yh9H6RuczU1oq BRRfTWNdC1RhAD5jKMQtE pp9OEP1FZH4VYTzXAStT8 UhDJ8zNGAmvBMrZPp8j8o zlZhkESDeXHV9r7kyHLww juMwVU5qki8viPs7s3ouz zEgRGVmYXVsdCBQYXJhZ3 ObtLstMt9xmCo9fXzbMmh cSTH4Jrz3RA2diw03baz5 mFfjUDArsblxOjI4MFdnR VXlayqoINl2SZuaFMVfaX cyMFxtYXJncjcyMFxtYXJ ndDcyMFxtYXJnYjcyMFxo OTFuAAH9YNmfh630BNP5E Gzzw7rds0vxiACdOsy9QB UfLrMqOcwoQVjpr7Awx5n hIIVkjh5kDSU7mZOzxMja u5U2hGDlRUWrqIKhvaDcM OQpan27cHHirBUxoTYyed 7lcnGtjGYawSKjMWH5xSR fcuHuSRXgqXBnSFPtBJ2n lIIgFGCgnO6plhrgTISrZ nJkcmhlYWRccGdicmRyZm 3qjIkjAOH0PIfwQ2ribT9 zXnJ4AAndB2hgsD3jQOj1 GFdvwQF9QAIhpF3xFU3tu hvdz8lwMyApUH5vrhelg4 vqRuNcIQ9xrno2f4jtGsG nIN2axfgfg1lmHaLoAYrq KOIqmqrdAPEov2EjfqytH HYud2DtW9McaUaiC30klU sjL58nHXDwiSzopW4zoVa ifG8fEuBzNgOjLNtwFJVl WIQotYMuVEM1kEMbfbXhr JUawJHpVIOnCDacALP6wC BhclxwbGFpblxmMVxmczI mDVfljjniMTQgIRdiH4ba IdUcVQOcuOapSGrmk5JdO MJyAWOfHgvnavXtKLn6lj WqYMGvx2jiW9y4g00fvVX 7PV9iTMPoXWXrVFlrDRIl XGZzMjBcbGFuZzEwMzNca GljaFxmMVxkYmNoXGYxXG zyD3spRiInYiWtLMKcjY3 zjLJbn4TkYFKFAJMkRw6W HNHmxVMveN7jQLFtKYivE GYxXGZzMjBcbGFuZzEwMz NcaGljaFxmMVxkYmNoXGY rACgsQ3phSyMrM3EjGTGx UbVebFOnX5afPMvbiZBmy lxmMVxmczIwXGxhbmcxMD IfBFnoW0tyFyVoSLLedQx jQLgbt7FrYEYsDNUvCvWl KZ6myrTTT2ZqEYRzMChgN GYxXGZzMjBcbGFuZzEwMz NcaGljaFxmMVxkYmNoXGY tTFtvZ9jtPtGcK7WjWBBg LpZieIMaY1tjIFIpa91gw YBvsSIdgAqeqX6dIfEpPk LdTWebSJ9vCYLpY0hdfPV pTOWyFUXbQ5nhWgSeoF1k aFxmMVxmczIwICBccGxha X6zQrFmWnRkYQypHI4iUP XxO8zebGEfMTQaPTIxQ5x tUgGjeC2crTzbXUamZhOg ZnMyMFxsdHJjaCBldmlkZ W4iFJDeXqHzEL1ng4XsLL C4wXKzKEQfyD5clA3htUR zMFUgp7Ijz3FxDXKltOtg bJ2kKfLvAbYdCYhwEO0oA IYnN0irgTJgIAVbZMFwR2 ocHxZfcZ3spDpiRUbawwV xJD7tZQZxX34wFfpoYD53 RL57uWFnfjOhDdDIHWp8j VStt4L2oAOvPWZhpsXuES wxJSkgaWRlbnRpZmllZC4 gIFRoZXJlIGlzIGlccGxh cP2aWfKpCpCrTHhcVV5qR MQmZ7bfmWIxVXAqGEWjY7 kiLjRakR0vrHzeLCpdEtC cPcCsHCiosDVlnIWti6Op EpduyZGomISRABn7hMUhc 9H1sJgxASX0ZB06fzPbc5 ZddHHfgILqBQq1lUTmh22 pNHJ9DNz2ASTdn40aSTVw G11vcBLvATUrr2ItDFeqf LqwwaC5tFPjSEZ0vU5hp4 b3KsoglBYmlmrqQNtwiaH zRRyvnboyWFNdOQxbI1dp PtUtLJCghWdpKMdny3NiK GYxXGZzMjBccGFyXHBsYW luXGYxXGZzMjBcbGFuZzE wMzNcaGljaFxmMVxkYmNo HNQiIJpfR2syPuKoC6OrH AMbLbXahZMtX2tmYNwpiB FpblxmMVxmczIwXGxhbmc fDVLwLKtgY5udScXxQZKa sCldGIbjx4WiPBKiOSVuA jBccGFyfQ== CPT Code(s) (test code = l2dnvJEzLMIkdZTpGpMvD 3357) KDhZWQzq7jyTUUfgDReBp EwMzNcZnRuYmpcdWMxXGR xNbUig6eji154xYLzv2sy TBBaMgC7tRUwXLWhaCDbY 997WBGrMRcak3ijr8OdNT BglJFkr6U4NHDCbuiweNw 7zAlvM72dh0U0TyppM9jz PTVzUNAfV8MfTY1bUCVsR dt3YQH4LBK7HVEmVTSeP6 SqRY7sFEYfhNFeGPr9r4n xdFueSSSuFJB9i1lwDHgs hmKsEA4mea3ghPn0f2mcs zEgRGVmYXVsdCBQYXJhZ3 AueHahQu1guTc0jIjlYrs rCBO5Kyl7SY2uga11bqw0 yPxcGVCyciuqZdA8JVskU JOrygbuOAa9RAwoNAZpwC cyMFxtYXJncjcyMFxtYXJ ndDcyMFxtYXJnYjcyMFxo KOIpMGD7LNape868GNU6H Euyq5srs1zadILsRjl2QJ UiFmTiSpiePBtpl4Jhk3j xUZEpxa3uAQM9wLDfbHvq x8J2fLUcEQAkoLRrczGfG JSnGlE6DZmxUL2axw22QQ AiFNY0tl4mrXWpoIgaqfL paDHeDWfrN6GhJQVgc748 NXQiA2FhELElf5X5foNjV sXwSQMmtWV2rkI4UKSfFG s9vHAezpI0ocGcrQCvT5x jrE06NeXmnWCpG5TrhW94 TeQbwJUuC8JovB02UjJmd FIoF0QmhJ84KvYrrNQrIP ZpoXIaGi7nwHBkaKNir2Z lsXNrWNloN92eg019OHJd upMuE9fegRMhkiczjJLbs fguYYcvclJ5EBFzKGJgSQ luXGYxXGZzMjJcbGFuZzE wMzNcaGljaFxmMVxkYmNo YPEtTDdzW3nkHyNoDcFqI aB3OUL4CLsapZCtnywmFE xmczIwXGxhbmcxMDMzXGh jI9dnHcYlPVGhaAzqCThs s7TbNSQgDCNzUhFwtNKvg Q== CLINICAL HISTORY (test l2jisYEtTLUudKMwXmZzV code = 3356) KYxHLAlq7qpLJTrgEVzIg EwMzNcZnRuYmpcdWMxXGR zCrLrr6eqd370lLLku2jp RVOySuB1dRNcRFIicPNsT 764APKwRQrot2ydo3ScXP OwvPBnv2T5RWKsfpjixKn 2yXlsB65cz1V3ExplL9nr DELnLRWyW0WeWQ7fXQEcL rn0RTW5YQU8UQIpSRKlB8 XpWD0zYWPntMRkATv7n9p xsXydUQBhUZP9i1dhELim dgAkLA9nyy4bhRs0x9dxm zEgRGVmYXVsdCBQYXJhZ3 LtfRcuPm3bgIc3dAgpRqn vRMM0Xhj0YV1lmx21zrr4 oDpgWLYxcaznUwE8XWizN PWutvzrOLx3FEqtSGCoxE cyMFxtYXJncjcyMFxtYXJ ndDcyMFxtYXJnYjcyMFxo XABgSTX6CHzcn607QMR1U Zuwd4qej9risNYeNjs9WX HxExKoFmqqVAqxb6Sfi5y nQRJptm9bPCL1sYJelUgg u5H9yBFzIMXxnRTvkhDfL SGfZiQ0FXdmRN6ohg48MI QnNWQ3it9cgLAdsYibciP feOFhBQweV9TtUYCba940 GIInH8JsBXOau9R8juMcV pRgWPCqwUY6kjF3YBSsEC h5cMRtivC4fyHgyWVgX8x bbP33XjGvfRYfF0PhkD44 ZmMqaYEfW7KsvD94OnFji XAoJ1JaeR50JiZuyTAlUF XfuGHaEv1czJHjkDWhi9U ahZXdEHrpD22qr565FIGe dtAsC8jgiELdundgiQQdq tuuLVwpzfC5ZSfmPimvpE FcbHRycGFyXHFsXHBsYWl uXGYxXGZzMjBcbGFuZzEw MzNcaGljaFxmMVxkYmNoX YQuAEsjR5teKpRxEiMlFQ G6YIW3KQDnMMkbhUubaYP kaWFzdGluYWwgbWFzcyBc cGFyfQ== SPECIMEN SOURCE (test u0deyMPgWTDpbUClXiUtN code = 3377) ZYnSLPxi9olVIPyyWGgDb EwMzNcZnRuYmpcdWMxXGR pTvMmk2dfm141yNUdt3wy VEKyGhD8dWZeGNAebRQjL 309TGFgVRgll1swm3ElKA VfkKUow8P8IIGXgsicdDj 1rKknW61uh3Y7ZxwuP1jj RDCsQROpD8PlKW1aKJUfX fu5RGL8ZHD1SCOxDGCnJ1 BzNH4aCAQknUXcQQi3o6y svKpoLCFvYJZ4t5kbXOey haDhNZ1rvs4otEj3j9owc zEgRGVmYXVsdCBQYXJhZ3 RalWtlBm3vvBo2jXlkAhw vYYO8Pqj0XP0hqa99jxf6 tDoaMANtvmzkFlI4ZEgbX OGoxyiwQDb9ALqnOQTtvG cyMFxtYXJncjcyMFxtYXJ ndDcyMFxtYXJnYjcyMFxo PURzJMV5WUuqt722DNI6L Kiab3agw7osePRpEqc6VK MiAuAtYcgfMWpzj0Kqa6d sXIYhzj1oXWV9iHJirLuc q8Z3gKXrRMOmvGZdfzMlV NRkBkN8LFiyDQ3fjq68OQ GlAMF8hx0miQFnnAfschF suPHpETgnO8YiAMQsr076 VPSgM6JlLPZcw5C4lkQwW fSkCPYxuTS0fjS6NZLkDD a5kQOzuaT8jjQynSTqA2v qbI91WwOefZCiC2AgzZ28 UtAvwWFcV2KmeE87OtPfq PHtK8DawF40RgSsiGGlWK WxjMKoCc2bvDLcwLLmz1Y leBQlWHovD34oz634IJMp hqWzA5uezDVabhnobANst zhxYBmnqiQ0ADAbfrYblB wzrQ8zZiHyDaEuEUqqEE5 oYCZkM7lrzRPfYGSfFHFh G1ljMkUiwX8xlJbpWHnmv wAwOVxWFOyRTGOPM9BSZE BFQlVTIEZJTkUgTkVFREx FIEFTUElSQVRFXHBhcn0= CELLULAR BIOMARKER w6ajgUXsADPayDVuFvDzB ANALYSIS (test code = HQvARLum9enLFPtyPHqIr 3380) EwMzNcZnRuYmpcdWMxXGR rVcDjr4jma628mGRma5rs VYDfXaR3uAVnILEdhMFnW 589LNLhGHheg2ggb0HfNS MruCDps0Y8BNXYkjzhmHr 0rWzjQ28io7L7WewxT1zs ZPVbLJIiZ3KrYH9uFPAqF sj2LCB4EBI7UMInPMLrH3 DeBT0yAYDhyJRbWFe0j7y jdMxhPRCjREH1c9lmRGzm rxHiKQ9cuz2biEy4z2fzw zEgRGVmYXVsdCBQYXJhZ3 RahTeeKh3jpYr4aGmlDog hGJT7Qly7JW9fpm02vim4 yKjlEPUjxzpbXpH2OUkrN ERehxqhTSt1RDlmXOJbmP cyMFxtYXJncjcyMFxtYXJ ndDcyMFxtYXJnYjcyMFxo WJMqXEU6VVhdy708BUN0C Rgue1ama6xkePWzZbt4VM EtDxHlDybvQNazr8Fag5v aAZAjfw7wQEU5oDWqcEgq n5N7nGRqEXJzcMPovyDrZ GFaZxN2GJzpRL5ivw73DL BkFAW6iz3tgBJkeLvcayF oaCYkPNqxY3SiGZSdb748 LAXhB6InRXEcj9H2viYvX iClBTNtlJT6nqE7FTAxGR m0qJFtwiT8scXugVIqX9o noX61EfUwxYFeT3PpqY77 LvMcnNGaX4XedF49SeMtm ZQcS5GhqN15OrWlxTNgIR LpkLYyGl4qxGEquATws4Z apPOaRGtgZ37pu304ZJHm amTmT9nshDSdkwvwoPWay sjpKFhhqtX9BQNvykUudC yyoZ4wIkLcXyAuGNypDR5 mLGUzZ6zldSCcLOWcLKLb O4fvYyHbqF5viCbeQHouf dEvTSTEMIpdm5BoPoZtJW 6iBXNgSMxeY0X3Buhoa0A aDhLpJX5hBD6hUFKiYQEB NBkyE5XwUAfeR4GvGDuvL 0QzLCBDRDIwLCBDRDQsIE NENDVccGFyfQ== IMMUNOPHENOTYPIC l8aziPCzZVTltRNaGwOwE FINDINGS (test code = EWaKORee6asJHXicWDdPk 3379) EwMzNcZnRuYmpcdWMxXGR fZrChs1uqu733sIUmc5ag NBRpLmE6bIEdUFRgmRNyX 047RBWgYYvuh7nsl7KiFZ WspKVuw0L6DYFJgepshVi 4l6dyKwPbEjO9bPEsCWtf K2akfmFroVQqK6CfzIHqs Os8zAqbM91jt6H8CupsX9 nfPZRmNWMvV7BjSN7lHSI tZeb9NDB9MBI9PGPwEXPv E9FgYA1nDERcfORyDPt8y 7poiQhxJKNsZNE6x4urUR gmqmGmSN8hnh7wvMy1a9x jczEgRGVmYXVsdCBQYXJh A0JzhCfrFp9apUw4vAaoP uueBRI4Teh7VA6jvr74vg v9tBngDMKbqjbaSfO0MSp zZJCulnbzCZd0MNzhGHXs bDcyMFxtYXJncjcyMFxtY XJndDcyMFxtYXJnYjcyMF yyTQUfGIG0NOgjr949QCJ 1ZNkrn4kxp7qknUVoGds3 OSLkOdFoMeobLEvqk3Pdc 2owOISuxs2tGCF0uNEzuW mal4K6oTBjMBCamGYedpZ rLZMqLlZ8IEohXW1saq83 LCUzPFX8bd7cpKYqeNmdl uRiwJToCMbvR8OgLLXjw9 99HHImU5OsHIXlb8D6axM hRnGzKYJzuOD5ctS1JJGo IXh2kJCvfuG3zoXykPLlS 3zdqB67OeAdiWVmS8ZxlL 09CcKjhIUnG0WasJ84DvR vcCWlX0FitO30XwPlkOMv TBQotXTlNw9xgIJobPSyt 6ByiSShYJrdI91le786HR IfuuPlH5oqgOEtsxsgrVV wcgorGSfxcwF1EYRefoXw d9KfVUCxXDL9JGnyQFupj Uj4zKHwtBsjXZXsjGuzoN 5bOwCqTyNiBYcmNB1cZYF mG1bnjSQoYLKpPMJtD0nh IsAskP4bfOrtRPxnzfEtM FNwZWNpbWVuIFZpYWJpbG e2fKwfHsciBWFoqgs+XH5 cflx+ZT14eJRmehGpCiHB joMuwRNyNLUszTjlJMR1R XB9TKgcRUPoxjf+XHBhci HToNItBx2ykH15zN1kDYV rgMUxXPBkr70yYUAbFQDk ZGVudGlmaWVkOlxwYXJcc UUoMGj9mSGjt1V3mKWjSi FRgnneaRYdR4V0ZSmqkLe ynNgsW7w8JJTaX15miDEr k4FcSo79STAjReC6w3Eib OYuNTneed8aDULvMJamqp YtzM60MLHkZ5B2OxMNNGA xCFNqvxTfToT4NxZeCT0u BG2ktq4xbEDlwKQiBZAyu U6nJZ9yAAFeVBWjQL5nIL EdLRkqKYQswQsiME6fDCP ZKyGukoRaW1X8ZvXnynto RIKJYFPtfCgoGJjeTV11w CRqNNSko3qbX9rqZSIbAA LeIJCzgDb7cPXuHmO8vKY uQCHgy6HcqHQ8kITaMjOz FVDrcWpeMR7uMFHhDxo+L lxwYXJcflxwYXIgTXllbG 4lEP5cg43tR9j6sXPsnK5 leQvduFpejwA7DZSwUBse PT03sJYqUBCfFmzaF8V7C AVndxGaxDuowBVcz7UwgU ZbvaLrkMDvUZE1YTIwv6F mZ8NlEXxfID86kC7smHIp wlQet88hqtezFSG2Pw56Z Y5hIYRswPPzKXWafZfbGB ZjlfUtdP2ez6F0hFBcQWY kgSXrjFOxGDKeKDVea0Gn aX44ACthB3TmiVRkRNJur lx+XHBhciBUaGUgcmVtYW mlyO5eGLS5XF48puPxjfD seXplZCByZXByZXNlbnQg gc8wxttuOzdcUBBhbHaeG HEoi52ykLPxOQMinNujwG wetHOzO1EdnGUoYINrAZA kZWJyaXMuXHBhclxwbGFp blxmMlxmczIyXGxhbmcxM TLlAKytP5jgLvLhEHQouT qkBsyzt5YiZODbVQXnCdd mczIyXHBhclxwYXJkXHNz dSLhCRP0xDVsbiNewFjdc QfbdY9jWeKeLiTlYLifoS FpblxmMVxmczIwXGxhbmc xGERyLOjdD1phDaVnRRMu yYjzSKznx9ZaYONzTCCzI jBccGFyfQ== DISCLAIMER (test code = b4gwjGXfLBQnuMXmRdAsG 8582) GTrLMCdx9dxSBUvfIHbJx EwMzNcZnRuYmpcdWMxXGR hYeFay5dkd503nLDxq7us ZCNePmI5cEAyNBRwgIGsD 207BQWrXLuyz9eda2GkNM McuOJdl9C4TVNFtlycoCq 3gDlxM06ng7B2JtvhR2qa QZAxWHNgK9MkFE2kODPbW qw3UEG8DSJ7UWDjLOIoG0 TlHA5qINYgnGGeTHo4c1h dgHrtVNHrYNB8q3deWCjx joQ4JG8lml2fvIh0h3jfc zEgRGVmYXVsdCBQYXJhZ3 OcoZlfHc0bkBc3eDkcFfg dUHY0Nth1SL6rzu65zgd1 xIizJDLeimfaOxW7ABugR AZpyxldUTm3JAqbCNEewD cyMFxtYXJncjcyMFxtYXJ ndDcyMFxtYXJnYjcyMFxo XFHgQPO1YEkfe375SOF4P Quis0psl9iqcNUwNdi1II EsUtPqKaqzJHojo0Kzd7t qJHMtDpM7DEyrFE9dzy09 FCKrJKU8ed6ooRLesHjfk zSwkZMdVBgkL0OqDCTgg9 37JBGzW1CtYZMkc0S3oqQ sOdKgLMEdrPH4bdN7RYKk QSw8iSKjwxE8vnPzeMMhL 2hunT71BkBqwKBhD5LnvR 39XuSzaEFlD2UopM78LbX qxZCsO2JttL29AgHduWZr QVPiaQKxCh1seIPugOVld 3SqgJBiTHdjP26ds795OG MkdtEgX4sotCGefxwhnJM xodtkKGzzosR7IYCxLYMg YWluXGYxXGZzMjJcbGFuZ zEwMzNcaGljaFxmMVxkYm StSVWjYDnmW1neHuKcZoR rZoQJtYMdILI0XIR2zzU9 WUXsTBOdcnYgo1HsODHgs aYofKtipUAnoLChYb9dnV EtG9DlI5wcljGygPGgvXQ 0aWNzIGRldGVybWluZWQg EyshApH4tJ3zADO0ZtGXi UojB8JzEUQfnFYlrBKIFE 92EKPcqRXkIUWRsQJ0QFr nzeVpus23NDWiYS6kE1if KOYzESJrtgKcjFOip7CrK GPboML7vEQjYR0OAcKDm9 9kIGFuZCBEcnVnIEFkbWl iyJZ0ipF4bA8cScQSsWQe KmNKCWunsnYeIVHagk4me zMnKWHpKKFum5NqqPNkyB WgjuVbY1Jkn3XaJXMdtq9 8CCeyfPAqpa85JL2zA9Ef b4UtyM9aNBVcq3gbrPrcG I7ffFKaXWUpZIutvnQyGX ZczaMekuAyh7OnC3S9kC9 tZOgpg3TqPd9mZAUdd0Fl noPaHoEEjCedDSehFp3oG VXikwekaGEpR3NigMslyR VkIHVuZGVyIHRoZSBDbGl ihWDaaPAGWJKxruT5d0C7 QNwytDHlrmIeDV81OVAyH P3zwKTmrLPbl2HuWSk1LZ AoIkNMSUEiKSBhcyBxdWF xuFRlRAHdeY4vrMKmPg6f bSBoaWdoLWNvbXBsZXhpd LfjP7redkwpYMcolFQaeX daAb9xqRTiPBUamuYipXj vyJ2qEwXmNxKqBRgdbNJb zsugDXttkyM8QGRtjb6= Technical component was [facility] performed at ([facility], = 5294) Department of Pathology, [address] [place] [address], Professional component [facility] performed at ([facility], code = 2779) Department of Pathology, [address] [place] [address], [facility] [id number] 14:20:00Flow Cytometry Report Case: [id number] Authorizing Provider: Triny Naqvi MD Collected: 11/29/2019 12:35 PM Ordering Location: [facility] Received: 11/29/2019 02:10 PM SERVICES Pathologist: [...] proper lymphoma evaluation. Recommend correlation with cytology. [id number] year with mediastinal mass LYMHPH NODE, EBUS FINE NEEDLE ASPIRATECD8, surface- kappa, CD56,surface-lambda, CD5, CD19, CD10, CD3, CD20, CD4, NC10Shuudprt Viability: 67.1% Number of EventsAcquired: 31427 The following populations are identified:Lymphocytes: Bright CD45+ [...] developed and their performance characteristics determined by [facility] They have not been cleared or approved by the U.S. Food and Drug Administration. The FDA has determined that such clearance or approval is not necessary. It should not be regarded as investigational or for research. This laboratory is certified under the Clinical Laboratory Improvement Amendments of 1988 ("CLIA") as qualified to perform high-complexity clinical testing.[facility], Department of Pathology, [address] [place] [address], [facility], Department of Pathology, [address] [place] [address], [facility] FNA [id number] 16:00:00 Test Item Value Reference Range Interpretation Comments Cytology (test code = See Separate Report 2629) [facility] [id number] 16:00:00 Test Item Value Reference Range Interpretation Comments CYTOLOGY RESULT POINTER See Separate Report (BEAKER) (test code = 2629) Comprehensive metabolic [id number] 09:09:00 Test Item Value Reference Range Interpretation Comments Protein, Total (test 6.1 See_Comment Specime n slightly code = 5995-2) hemolyzed [Automated message] The system which generated this result transmit ugo reference range : 6.0 - 8.3 gm/dL . The reference range was not u sed to interpret th is result as normal/abnormal . Albumin (test code = 3.5 g/dL 3.5-5 Specime n slightly 43653-4) hemolyzed Alkaline Phosphatase 55 U/L 40-150 (test code = 6768-6) Total Bilirubin (test 0.5 mg/dL 0.2-1.2 Specim en slightly code = 1974-2) hemolyzed Sodium (test code = 137 meq/L 361-201 8688-2) Potassium (test code 4.3 meq/L 3.5-5.1 Specime n slightly = 2823-3) hemolyzed Chloride (test code = 108 meq/L 98-107 H 2074-0) CO2 (test code = 21 meq/L 22-29 L 2027-) BUN (test code = 21 mg/dL 7-21 3094-0) Creatinine (test code 0.94 mg/dL 0.57-1.25 Specim en slightly = 2160-0) hemolyzed Glucose (test code = 136 mg/dL 70-105 H 2345-7) Calcium (test code = 8.5 mg/dL 8.4-10.2 12868-5) AST (test code = 20 U/L 5-34 Specimen sl ightly 1920-8) hemolyzed ALT (test code = 30 U/L 6-55 Specimen sl ightly 1742-6) hemolyzed EGFR (test code = 78 mL/min/1.[place] [address]-4) NOT ACCURATE CREATININE CLEARANCE IN PREDICTING GLOMERULAR FILTRATION RATE . ESTIMATED GFR I S NOT APPLICABLE FOR DIALYSIS PATIEN TS. SENG (test code = SENG) Resp Ther ID - CARLOS C Lab Interpretation Abnormal (test code = 32377-5) [facility] Test Item Value Reference Range Interpretation Comments MAGNESIUM (BEAKER) 2.0 mg/dL 1.6-2.6 Specimen slightly (test code = 627) hemolyzed Resp Ther ID - CARLOS [id number] 09:09:00 Test Item Value Reference Range Interpretation Comments PHOSPHORUS (BEAKER) 4.5 mg/dL 2.3-4.7 Specimen slightly (test code = 604) hemolyzed Resp Ther ID - CARLOS CCOMPREHENSIVE METABOLIC [id number] 09:09:00 Test Item Value Reference Range Interpretation [...] hemolyzed EGFR (BEAKER) (test 78 mL/min/1.73 ESTIMA UGO GFR IS code = 1092) sq m NOT ACCURATE CREATININE CLEARANCE IN PREDICTING GLOMERULAR FILTRATION RATE . ESTIMATED GFR I S NOT APPLICABLE FOR DIALYSIS PATIEN TS. Resp Ther ID - CARLOS CCalcium, [id number] 06:24:00 Test Item Value Reference Range Interpretation Comments Calcium, Ion (test code = 1993-) 1.21 mmol/L 1.12-1.27 pH, Blood (test code = 49379-2) 7.35 [facility] [id number] 06:24:00 Test Item Value Reference Range Interpretation Comments CALCIUM IONIZED (BEAKER) (test 1.21 mmol/L 1.12-1.27 code = 698) PH, BLOOD (BEAKER) (test code = 7.35 1810) CBC W/PLT COUNT & AUTO [id number] 06:18:00 Test Item Value Reference Range Interpretation [...] (test code = 2801) Type and screen, [id number] 05:43:00 Test Item Value Reference Range Interpretation Comments ABO/RH AUTOMATED (BEAKER) (test A NEGATIVE code = 2260) Ab Scrn (test code = 890-4) NEGATIVE [facility] 05:10:00 Test Item Value Reference Range Interpretation Comments PTT (test code = 42952-7) 29.9 See_Comment [ Automated message] The system F[employer] generated this result transmitted ref erence range: 22.5 - 3 6.0 seconds. The re ference range was not u sed to interpret this result as normal/abnor mal. Lab Interpretation (test Normal code = 84254-6) [facility] 05:10:00 Test Item Value Reference Range Interpretation Comments PARTIAL THROMBOPLASTIN TIME 29.9 seconds 22.5-36.0 (BEAKER) (test code = 760) PROTHROMBIN TIME/[id number] 05:09:00 Test Item Value Reference Range Interpretation [...] is2.5-3.5 for patients wiht mechanical heart valves.SARS-COV2/RT-PCR ([facility]) 2019-11-28 13:24:00 Test Item Value Reference Range Interpretation Comments SARS-COV2/RT-PCR (test Negative Not Detected, Negative, code = 6462987) See external report for linked test SARS-COV-2 PERFORMING LAB [facility] (test code = 3161533) Negative result for this test determines that [...] 564(g) of the Act.Fact Sheet for Healthcare Providers:https://www.[employer]/sites/default/files/product/documents/Fact_Shee u_FC_Jerhnzkbx_Mnhw_JUFM-TvX-5.pdfFact Sheet for Healthcare Patients:https://www.[employer]/sites/default/files/product/ documents/Ymuu_Lmfxk_Pyvqzsgf_Hmbt_KYLJ-CgB-7.pdfPerforming Laboratory:[facility], [place] [id number] 09:17:00 Test Item Value Reference Range Interpretation Comments PARTIAL THROMBOPLASTIN TIME 31.6 seconds 22.5-36.0 (BEAKER) (test code = 760) PROTHROMBIN TIME/[id number] 09:16:00 Test Item Value Reference Range Interpretation [...] INR is2.5-3.5 for patients wiht mechanical heart valves.[id number] 07:57:00 Test Item Value Reference Range Interpretation Comments PHOSPHORUS (BEAKER) (test code = 3.5 mg/dL 2.3-4.7 604) Resp Ther ID - BILL [id number] 07:57:00 Test Item Value Reference Range Interpretation Comments MAGNESIUM (BEAKER) (test code = 2.2 mg/dL 1.6-2.6 627) Resp Ther ID - BILL MCOMPREHENSIVE METABOLIC [id number] 07:57:00 Test Item Value Reference Range Interpretation [...] 347) EGFR (BEAKER) (test 90 mL/min/1.73 ESTIMA UGO GFR IS code = 1092) sq m NOT ACCURATE CREATININE CLEARANCE IN PREDICTING GLOMERULAR FILTRATION RATE . ESTIMATED GFR I S NOT APPLICABLE FOR DIALYSIS PATIEN TS. Resp Ther ID - BILL MCBC W/PLT COUNT & AUTO [id number] 06:23:00 Test Item Value Reference Range Interpretation [...] 0-1 PERCENT (BEAKER) (test code = 2801) [id number] 08:57:00 Test Item Value Reference Range Interpretation Comments PHOSPHORUS (BEAKER) (test code = 3.5 mg/dL 2.3-4.7 604) Resp Ther ID Kimmy MENDOZA [id number] 08:57:00 Test Item Value Reference Range Interpretation Comments MAGNESIUM (BEAKER) (test code = 2.1 mg/dL 1.6-2.6 627) Resp Ther ID Kimmy MENDOZA FBASIC METABOLIC [id number] 08:57:00 Test Item Value Reference Range Interpretation [...] 697) EGFR (BEAKER) (test 98 mL/min/1.73 ESTIMA UGO GFR IS code = 1092) sq m NOT ACCURATE CREATININE CLEARANCE IN PREDICTING GLOMERULAR FILTRATION RATE . ESTIMATED GFR I S NOT APPLICABLE FOR DIALYSIS PATIEN TS. Resp Ther ID Kimmy MENDOZA FCALCIUM, [id number] 06:31:00 Test Item Value Reference Range Interpretation Comments CALCIUM IONIZED (BEAKER) (test 1.18 mmol/L 1.12-1.27 code = 698) PH, BLOOD (BEAKER) (test code = 7.36 1810) CBC W/PLT COUNT & AUTO [id number] 06:12:00 Test Item Value Reference Range Interpretation [...] 2801) ANG, TUNNEL CATH CENTRAL INS W/PORT [id number] 15:10:00Reason for exam:- >bladder cancerFINAL REPORT Right [...] the patient's medical record by the nurse. Para Professional: Cliff Crabtree MD Geospatial Developer: Ana Dey (resident). Approach: Right internal jugular [...] needle into the right atrium. A 4 Libyan micropuncture sheath was placed and a 0.035 [...] MDReport Verified Date/Time: 11/26/2019 15:10:51 Reading Location: [place] [address] Angio Body Reading Room IR Port-a-Cath [id number] 15:10:00Interface, External Ris In - 11/26/2019 3:12 [...] the patient's medical record by the nurse. Para Professional: Cliff Crabtree MD Geospatial Developer: Ana Dey (resident). Approach: Right internal jugular [...] needle into the right atrium. A 4 Libyan micropuncture sheath was placed and a 0.035 wire was advanced into the IVC. A subcutaneous tunnel and pocket were created in the right anterior chest wall by blunt dissection. The pocket was flushed with antibiotic solution. A 6 [place] Bard single lumen power injectable port was [...] MDReport Verified Date/Time: 11/26/2019 15:10:51 Reading Location: [place] [address] Angio Body [facility], [id number] 06:21:00Unlisted Reason for Exam - Click Yes [...] the abdomen or pelvis. Previous prostatectomy. Signed: Dmitri Raya MDReport Verified Date/Time: 11/26/2019 06:21:56 CT, [...] the abdomen or pelvis. Previous prostatectomy. Signed: Dmitri Raya MDReport Verified Date/Time: 11/26/2019 06:21:56 CT abdomen/pelvis without & with IV [id number] 06:21:00Interface, External Ris In - 11/26/2019 6:24 [...] the abdomen or pelvis. Previous prostatectomy. Signed: Dmitri Raya MDReport Verified Date/Time: 11/26/2019 06:21:56 [facility] [id number] 06:21:00 Interface, External Ris In - 11/26/2019 [...] the abdomen or pelvis. Previous prostatectomy. Signed: Dmitri Raya MDRepcit[facility] Verified Date/Time: 11/26/2019 06:21:56 [facility]2019-11-25 17:40:00 Test Item Value Reference Range Interpretation Comments SARS-COV2/RT-PCR (test Negative Not Detected, Negative, code = 8547051) See external report for linked test SARS-COV-2 PERFORMING LAB [facility] (test code = 9733318) Negative result for this test determines that [...] 564(g) of the Act.Fact Sheet for Healthcare Providers:https://www.[place]epa/sites/default/files/product/documents/Fact_Shee w_IY_Bjcbdgcjz_Zozq_NIUI-QiJ-7.pdfFact Sheet for Healthcare Patients:https://www.[place].com/sites/default/files/product/ documents/Bkxj_Prcee_Gsguxyyu_Zwrb_NWZZ-KnW-4.pdfPerforming Laboratory:[facility], [place] [address]NFSZYWXNJYDMM METABOLIC [id number] 12:06:00 Test Item Value Reference Range Interpretation [...] 347) EGFR (BEAKER) (test 79 mL/min/1.73 ESTIMA UGO GFR IS code = 1092) sq m NOT ACCURATE CREATININE CLEARANCE IN PREDICTING GLOMERULAR FILTRATION RATE . ESTIMATED GFR I S NOT APPLICABLE FOR DIALYSIS PATIEN TS. Resp Ther ID - PIAYA LPROTHROMBIN [id number] 11:59:00 Test Item Value Reference Range Interpretation [...] INR is2.5-3.5 for patients wiht mechanical heart valves.[id number] 11:59:00 Test Item Value Reference Range Interpretation Comments PARTIAL THROMBOPLASTIN TIME 32.9 seconds 22.5-36.0 (BEAKER) (test code = 760) CBC W/PLT COUNT & AUTO [id number] 11:42:00 Test Item Value Reference Range Interpretation [...] 0-1 PERCENT (BEAKER) (test code = 2801) SHITAL, [id number] 12:40:00 Test Item Value Reference Range Interpretation Comments ABO Grouping (test code = 2588) A Rh Factor (test code = 2589) [facility]G [facility] [id number] 11:33:00 Test Item Value Reference Range Interpretation Comments Potassium (test code = 2823-3) 4.8 meq/L 3.6-5.5 Lab Interpretation (test code = Normal 17854-7) [facility]illo[facility]OT[facility]UM[facility]STAT [id number] 11:33:00 Test Item Value Reference Range Interpretation Comments POTASSIUM (BEAKER) (test code = 4.8 meq/L 3.6-5.5 379)
[2020-06-28 07:41] LABS: Absolute Lymphocytes (CBC) 0.2 K/uL (0.7-4.9); Basophils % 0.3 % (0-1.3); Hematocrit 25.6 % (39.6-49.0); Lymphocytes % 9.1 % (15.3-44.8); MPV 8.9 fL (7.6-11.3); RBC Red Blood Cell Count 2.71 M/uL (4.33-5.43)
[2020-06-28 07:47] LABS: Protime INR 1.53
[2020-06-28 07:58] LABS: ALT/SGPT 22 U/L (12-78); AST/SGOT 14 U/L (15-37); Albumin 2.9 g/dL (3.4-5.0); Alkaline Phosphatase 58 U/L (45-117); BUN Blood Urea Nitrogen 26 mg/dL (7-18); Bicarbonate 27 mmol/L (21-32); Bilirubin Direct < 0.1 mg/dL (0-0.2); Bilirubin Total 0.2 mg/dL (0.2-1.0); Glucose Level 107 mg/dL (74-106); Magnesium 1.9 mg/dL (1.8-2.4); NT PRO-BNP 195 pg/mL (<450); Potassium 3.9 mmol/L (3.5-5.1); Sodium Level 140 mmol/L (136-145); Troponin (Emerg Dept Use Only) < 0.02 ng/mL (0.0-0.045)
--- NOTE | 2020-06-28 08:04 | RAD REPORT ---
EXAM DESCRIPTION: [place] Single View06/28/2020 7:58 am CLINICAL HISTORY: With hemoptysis COMPARISON: 2019 FINDINGS: Bilateral interstitial lung opacities. Heart is borderline enlarged. Central venous catheter with its tip the superior vena cava IMPRESSION: Bilateral interstitial lung opacities. This probably represents pneumonitis, viral pneu monia or interstitial pulmonary edema
[2020-06-28 09:37] LABS: Platelet Estimate ADEQ; White Blood Cell Scan OK (OK)
[2020-06-28 09:38] LABS: Anisocytosis 1+; Blood Morphology Comment NOTED (NOT SEEN)
--- NOTE | 2020-06-28 10:12 | RAD REPORT ---
EXAM DESCRIPTION: CT - Chest For Pe Angio - 06/28/2020 9:51 am CLINICAL HISTORY: hemoptysis COMPARISON: 2019 TECHNIQUE: Dynamically enhanced axial 3 mm thick images of the chest were obtained during administra tion of <100> mL Isovue 370 IV contrast. Coronal and oblique reconstruction images were generated and reviewed. Exam utilizes a protocol for optimal evaluation of pulmonary arterial tree. Maximum intensity projections 3D imaging was utilized All CT scans are performed using dose optimization technique as appropriate and may include automated exposure control or mA/KV adjustment according to patient size. FINDINGS: A pulmonary embolus is not seen. A thoracic aortic aneurysm is not noted. A pleural effusion is not seen. A pericardial effusion is not seen. 4.8 x 2.7 centimeter mass within mediastinum posterior to the left mainstem/lower lobe bronchus mildl y decreased in size. The bronchus intermedius is narrowed. Mild to moderate left lower lobe opacities are present. Small left pleural effusion. COPD IMPRESSION: Negative for a pulmonary embolism. 4.8 centimeter mass in the mediastinum posterior to the left mainstem/lower lobe bronchus compresses bronchus intermedius. Postobstructive pneumonitis involves the left lower lobe.
--- NOTE | 2020-06-28 12:24 | EDPHYS ---
Physician Documentation [facility] Name: Fuentes Mock Age: 74 yrs Sex: Male : 1945 Arrival Date: 06/28/2020 Time: 06:21 Bed 13 Private MD: ED Physician Chadwcik Ty HPI: 06/28 08:05 This 74 yrs old Male presents to ER via Ambulatory with complaints of kdr Coughing blood. 08:05 The patient or guardian reports cough, that is intermittent, described as mild, with kdr productive sputum, that is bloody. Onset: The symptoms/episode began/occurred suddenly, at 04:00. Modifying factors: The symptoms are alleviated by nothing. the symptoms are aggravated by nothing. Associated signs and symptoms: The patient has no apparent associated signs or symptoms. Associated signs and symptoms: Pertinent positives:. Severity of symptoms: At their worst the symptoms were mild moderate just prior to arrival, in the emergency department the symptoms have improved mildly. The patient has experienced similar episodes in the past, a few times. The patient has not recently seen a physician. The patient awoke about 4:00 AM with something in his mouth and then he spit it out and noted it to be blood. He then began to cough and for the next few hours, he was constantly coughing up blood. He has not coughed any more blood up for the last hour and a half. He has had this previously and had a bronchoscopy at [facility] last November. Historical: - Allergies: 06:49 Ciprofloxacin; ea 06:49 Levaquin; ea 06:49 Sulfa (Sulfonamide Antibiotics); ea - Home Meds: 06:49 Lialda 1.2 gram Oral TbEC 2 tabs once daily [Active]; Macrobid Oral [Active]; ea Phenazopyridine Oral [Active]; - PMHx: 06:49 bladder ca and prostate ca; ea - PSHx: 06:49 TURP; ea - Immunization history:: Adult Immunizations up to date. - Social history:: Smoking status: Patient denies any tobacco usage or history of. ROS: 08:05 Constitutional: Negative for fever, chills, and weight loss, Eyes: Negative for injury, kdr pain, redness, and discharge, ENT: Negative for injury, pain, and discharge, Neck: Negative for injury, pain, and swelling, Cardiovascular: Negative for chest pain, palpitations, and edema, Abdomen/GI: Negative for abdominal pain, nausea, vomiting, diarrhea, and constipation, Back: Negative for injury and pain, : Negative for injury, bleeding, discharge, and swelling, MS/Extremity: Negative for injury and deformity, Skin: Negative for injury, rash, and discoloration, Neuro: Negative for headache, weakness, numbness, tingling, and seizure activity. Psych: Negative for depression, anxiety, suicide ideation, homicidal ideation, and hallucinations, Allergy/Immunology: Negative for hives, rash, and allergies, Endocrine: Negative for neck swelling, polydipsia, polyuria, polyphagia, and marked weight changes, Hematologic/Lymphatic: Negative for swollen nodes, abnormal bleeding, and unusual bruising. 08:05 Respiratory: Positive for cough, hemoptysis, shortness of breath, Negative for dyspnea on exertion, pleurisy, wheezing. Exam: 08:05 Constitutional: This is a well developed, well nourished patient who is awake, alert, kdr and in no acute distress. Head/Face: Normocephalic, atraumatic. Eyes: Pupils equal round and reactive to light, extra-ocular motions intact. Lids and lashes normal. Conjunctiva and sclera are non-icteric and not injected. Cornea within normal limits. Periorbital areas with no swelling, redness, or edema. Neck: Trachea midline, no thyromegaly or masses palpated, and no cervical lymphadenopathy. Supple, full range of motion without nuchal rigidity, or vertebral point tenderness. No Meningismus. Chest/axilla: Normal chest wall appearance and motion. Nontender with no deformity. No lesions are appreciated. Cardiovascular: Regular rate and rhythm with a normal S1 and S2. No gallops, murmurs, or rubs. Normal PMI, no JVD. No pulse deficits. Respiratory: Lungs have equal breath sounds bilaterally, clear to auscultation and percussion. No rales, rhonchi or wheezes noted. No increased work of breathing, no retractions or nasal flaring. Abdomen/GI: Soft, non-tender, with normal bowel sounds. No distension or tympany. No guarding or rebound. No evidence of tenderness throughout. Back: No spinal tenderness. No costovertebral tenderness. Full range of motion. Skin: Warm, dry with normal turgor. Normal color with no rashes, no lesions, and no evidence of cellulitis. MS/ Extremity: Pulses equal, no cyanosis. Neurovascular intact. Full, normal range of motion. Neuro: Awake and alert, GCS 15, oriented to person, place, time, and situation. Cranial nerves II-XII grossly intact. Motor strength 5/5 in all extremities. Sensory grossly intact. Cerebellar exam normal. Normal gait. Psych: Awake, alert, with orientation to person, place and time. Behavior, mood, and affect are within normal limits. Vital Signs: 06:46 BP 123 / 81; Pulse 102; Resp 19; Temp 98; Pulse Ox 95% ; Weight 68.95 kg; Height 5 ft. ea 10 in. (177.80 cm); 07:16 BP 123 / 76; Pulse 92; Resp 17 S; Pulse Ox 96% on R/A; jd3 08:53 BP 118 / 75; Pulse 95; Resp 16 S; Pulse Ox 97% on R/A; jd3 09:47 BP 122 / 77; Pulse 91; Resp 17 S; Pulse Ox 96% on R/A; jd3 10:40 Pulse 90; Resp 17 S; Pulse Ox 98% on R/A; jd3 11:58 BP 120 / 78; Pulse 91; Resp 17 S; Pulse Ox 98% on R/A; jd3 13:32 BP 126 / 71; Pulse 87; Resp 17 S; Pulse Ox 99% on R/A; jd3 15:00 BP 167 / 78; Pulse 83; Resp 17 S; Pulse Ox 96% on R/A; jd3 16:00 Pulse Ox 90% on R/A; jd3 16:07 BP 123 / 86; Pulse 93; Resp 19 S; Pulse Ox 96% on 2 lpm NC; jd3 17:04 BP 140 / 73; Pulse 96; Resp 17 S; Pulse Ox 99% on 1 lpm NC; jd3 18:12 BP 125 / 82; Pulse 100; Resp 16 S; Pulse Ox 99% on R/A; jd3 06:46 Body Mass Index 21.81 (68.95 kg, 177.80 cm) ea 16:00 pt couging and reporting shortness of breath, provider notified j MDM: 08:05 Data reviewed: vital signs, nurses notes, lab test result(s), EKG, radiologic studies. kdr Counseling: I had a detailed discussion with the patient and/or guardian regarding: the historical points, exam findings, and any diagnostic results supporting the discharge/admit diagnosis, lab results, radiology results. 12:23 Patient medically screened. kdr 06/28 07:14 Order name: Basic Metabolic Panel; Complete Time: 09:34 kdr 06/28 07:14 Order name: CBC with Diff; Complete Time: 11:06 kdr 06/28 07:14 Order name: LFT's; Complete Time: 09:34 kdr 06/28 07:14 Order name: Magnesium; Complete Time: 09:34 kdr 06/28 07:14 Order name: NT PRO-BNP; Complete Time: 09:34 kdr 06/28 07:14 Order name: PT-INR; Complete Time: 09:34 kdr 06/28 07:14 Order name: Troponin (emerg Dept Use Only); Complete Time: 09:34 kdr 06/28 07:14 Order name: DD; Complete Time: 09:34 kdr 06/28 09:37 Order name: CBC Smear Scan; Complete Time: 11:06 EDMS 06/28 16:42 Order name: SARS-COV-2 RT PCR; Complete Time: 16:43 EDMS 06/28 17:07 Order name: COVID-19/FLU A+B EDMS 06/28 07:14 Order name: XRAY Chest (1 view); Complete Time: 09:34 kdr 06/28 07:14 Order name: EKG; Complete Time: 07:15 kdr 06/28 07:14 Order name: Cardiac monitoring; Complete Time: 07:18 kdr 06/28 07:14 Order name: EKG - Nurse/Tech; Complete Time: 07:40 kdr 06/28 07:14 Order name: IV Saline Lock; Complete Time: 07:36 kdr 06/28 07:14 Order name: Labs collected and sent; Complete Time: 07:36 kdr 06/28 07:14 Order name: O2 Per Protocol; Complete Time: 07:17 kdr 06/28 07:14 Order name: O2 Sat Monitoring; Complete Time: 07:17 kdr 06/28 09:35 Order name: CT Chest For PE Angio; Complete Time: 11:06 kdr Administered Medications: 17:04 Drug: Rocephin (cefTRIAXone) 1 grams Route: IV; Rate: calculated rate; Site: right jd3 antecubital; 18:00 Follow up: IV Status: Completed infusion; IV Intake: 10ml j 17:04 Drug: SOLU-Medrol 40 mg Route: IVP; Site: right antecubital; jd3 18:00 Follow up: Response: No adverse reaction jd3 Disposition: 06/28/20 16:25 Transfer ordered to [facility]. Diagnosis are Hemoptysis, Lung cancer. - Reason for transfer: Higher level of care. - Accepting physician is Dr. Zhou. - Condition is Fair. - Problem is new. - Symptoms have improved. Signatures: Dispatcher [employer] EDMS Chadwick Ty MD MD kdr Antoinette Velasquez RN RN ea Davies, Jonathon, RN RN jd3 Corrections: (The following items were deleted from the chart) 15:42 15:01 CORONAVIRUS+MR.LAB.BRZ ordered. EDNV EDMS 16:23 12:23 Hospitalization Ordered by Stuart Warren MD for Observation. Preliminary kdr diagnosis is Hemoptysis; Bladder disorder, unspecified; lung cancer. Bed requested for Telemetry/MedSurg (observation). Status is Observation. Condition is Fair. Problem is an acute exacerbation. Symptoms have improved. kdr 17:07 16:22 CORONAVIRUS+MR.LAB.BRZ ordered. EDMS EDMS 17:07 16:23 Influenza Screen (A \T\ B)+BA.LAB.BRZ ordered. EDNV EDMS 18:53 16:25 06/28/2020 16:25 Transfer ordered to [facility]. jd3 Diagnosis is Hemoptysis; Lung cancer. Reason for transfer: Higher level of care. Accepting physician is Dr. Zhou. Condition is Fair. Problem is new. Symptoms have improved. kdr
--- NOTE | 2020-06-28 12:24 | ER ---
Nurse's Notes [facility] Name: Fuentes Mock Age: 74 yrs Sex: Male : 1945 Arrival Date: 06/28/2020 Time: 06:21 Bed 13 Private MD: Diagnosis: Hemoptysis;Lung cancer Presentation: 06/28 06:46 Chief complaint: Patient states: Coughing up blood since Thursday reports he had one ea episode today. Coronavirus screen: At this time, the client does not indicate any symptoms associated with coronavirus-19. Ebola Screen: No symptoms or risks identified at this time. Initial Sepsis Screen: Does the patient meet any 2 criteria? No. Patient's initial sepsis screen is negative. Does the patient have a suspected source of infection? No. Patient's initial sepsis screen is negative. Risk Assessment: Do you want to hurt yourself or someone else? Patient reports no desire to harm self or others. Onset of symptoms was June 28, 2020. 06:46 Acuity: ELY 3 ea 06:46 Method Of Arrival: Ambulatory ea Historical: - Allergies: 06:49 Ciprofloxacin; ea 06:49 Levaquin; ea 06:49 Sulfa (Sulfonamide Antibiotics); ea - Home Meds: 06:49 Lialda 1.2 gram Oral TbEC 2 tabs once daily [Active]; Macrobid Oral [Active]; ea Phenazopyridine Oral [Active]; - PMHx: 06:49 bladder ca and prostate ca; ea - PSHx: 06:49 TURP; ea - Immunization history:: Adult Immunizations up to date. - Social history:: Smoking status: Patient denies any tobacco usage or history of. Screenin:46 Abuse screen: Denies threats or abuse. Nutritional screening: No deficits noted. ea Tuberculosis screening: No symptoms or risk factors identified. Fall Risk None identified. Assessment: 06:49 General: Appears in no apparent distress. Behavior is calm, cooperative, appropriate ea for age. Pain: Denies pain. Neuro: Level of Consciousness is awake, alert, obeys commands, Oriented to person, place, time, situation. Respiratory: Airway is patent Respiratory effort is even, unlabored, Respiratory pattern is regular, symmetrical. Derm: Skin is pink, warm \T\ dry. 07:15 General: Appears in no apparent distress. comfortable, Behavior is calm, cooperative, jd3 appropriate for age. Pain: Denies pain. Neuro: Level of Consciousness is awake, alert, obeys commands, Oriented to person, place, time, situation. Cardiovascular: Heart tones present Capillary refill < 3 seconds Patient's skin is warm and dry. Respiratory: Airway is patent Respiratory effort is even, unlabored, Respiratory pattern is regular, symmetrical. GI: No signs and/or symptoms were reported involving the gastrointestinal system. : No signs and/or symptoms were reported regarding the genitourinary system. EENT: No signs and/or symptoms were reported regarding the EENT system. Derm: Skin is intact, Skin is dry, Skin is normal, Skin temperature is warm. Musculoskeletal: Circulation, motion, and sensation intact. Range of motion: intact in all extremities. 08:53 Reassessment: Patient appears in no apparent distress at this time. No changes from jd3 previously documented assessment. Patient and/or family updated on plan of care and expected duration. Pain level reassessed. Patient is alert, oriented x 3, equal unlabored respirations, skin warm/dry/pink. Patient denies pain at this time. 09:47 Reassessment: Patient appears in no apparent distress at this time. No changes from jd3 previously documented assessment. Patient and/or family updated on plan of care and expected duration. Pain level reassessed. Patient is alert, oriented x 3, equal unlabored respirations, skin warm/dry/pink. Patient denies pain at this time. 10:40 Reassessment: Patient appears in no apparent distress at this time. No changes from jd3 previously documented assessment. Patient and/or family updated on plan of care and expected duration. Pain level reassessed. Patient is alert, oriented x 3, equal unlabored respirations, skin warm/dry/pink. awaiting results Patient denies pain at this time. 11:58 Reassessment: Patient appears in no apparent distress at this time. Patient and/or jd3 family updated on plan of care and expected duration. Pain level reassessed. Patient is alert, oriented x 3, equal unlabored respirations, skin warm/dry/pink. 13:32 Reassessment: Patient appears in no apparent distress at this time. Patient and/or jd3 family updated on plan of care and expected duration. Pain level reassessed. Patient is alert, oriented x 3, equal unlabored respirations, skin warm/dry/pink. provider at bedside discussing plan of care. 15:22 Reassessment: Patient appears in no apparent distress at this time. Patient and/or jd3 family updated on plan of care and expected duration. Pain level reassessed. Patient is alert, oriented x 3, equal unlabored respirations, skin warm/dry/pink. pt coughing up blood, provider notified. 16:07 Reassessment: Patient and/or family updated on plan of care and expected duration. Pain jd3 level reassessed. Patient is alert, oriented x 3, equal unlabored respirations, skin warm/dry/pink. awaiting admission Patient states feeling better. 17:05 Reassessment: Patient appears in no apparent distress at this time. Patient and/or jd3 family updated on plan of care and expected duration. Pain level reassessed. Patient is alert, oriented x 3, equal unlabored respirations, skin warm/dry/pink. Patient states feeling better. 17:20 Reassessment: report given to Lissy DYER at [facility]. j 18:12 Reassessment: Patient appears in no apparent distress at this time. Patient and/or jd3 family updated on plan of care and expected duration. Pain level reassessed. Patient is alert, oriented x 3, equal unlabored respirations, skin warm/dry/pink. awaiting EMS for transfer. pt resting comfortably in bed playing on cell phone. no reports of pain at this time. 18:52 Reassessment: Patient appears in no apparent distress at this time. Patient and/or jd3 family updated on plan of care and expected duration. Pain level reassessed. Patient is alert, oriented x 3, equal unlabored respirations, skin warm/dry/pink. report given to [facility]. Vital Signs: 06:46 BP 123 / 81; Pulse 102; Resp 19; Temp 98; Pulse Ox 95% ; Weight 68.95 kg; Height 5 ft. ea 10 in. (177.80 cm); 07:16 BP 123 / 76; Pulse 92; Resp 17 S; Pulse Ox 96% on R/A; jd3 08:53 BP 118 / 75; Pulse 95; Resp 16 S; Pulse Ox 97% on R/A; jd3 09:47 BP 122 / 77; Pulse 91; Resp 17 S; Pulse Ox 96% on R/A; jd3 10:40 Pulse 90; Resp 17 S; Pulse Ox 98% on R/A; jd3 11:58 BP 120 / 78; Pulse 91; Resp 17 S; Pulse Ox 98% on R/A; jd3 13:32 BP 126 / 71; Pulse 87; Resp 17 S; Pulse Ox 99% on R/A; jd3 15:00 BP 167 / 78; Pulse 83; Resp 17 S; Pulse Ox 96% on R/A; jd3 16:00 Pulse Ox 90% on R/A; jd3 16:07 BP 123 / 86; Pulse 93; Resp 19 S; Pulse Ox 96% on 2 lpm NC; jd3 17:04 BP 140 / 73; Pulse 96; Resp 17 S; Pulse Ox 99% on 1 lpm NC; jd3 18:12 BP 125 / 82; Pulse 100; Resp 16 S; Pulse Ox 99% on R/A; jd3 06:46 Body Mass Index 21.81 (68.95 kg, 177.80 cm) ea 16:00 pt couging and reporting shortness of breath, provider notified jd3 ED Course: 06:21 Patient arrived in ED. bp1 06:48 Triage completed. ea 06:48 Patient has correct armband on for positive identification. Bed in low position. Call ea light in reach. Side rails up X 1. 06:48 Arm band placed on right wrist. Patient placed in an exam room, on a stretcher, on ea pulse oximetry. 07:06 Mat Galaviz RN is Primary Nurse. jd3 07:12 Chadwick Ty MD is Attending Physician. kdr 07:39 Inserted saline lock: 20 gauge in right forearm, using aseptic technique. Blood jd3 collected. 07:55 X-ray completed. Portable x-ray completed in exam room. md1 07:58 XRAY Chest (1 view) In Process Unspecified. EDMS 09:51 CT Chest For PE Angio In Process Unspecified. EDMS 12:22 Stuart Warren MD is Hospitalizing Provider. kdr 18:52 No provider procedures requiring assistance completed. Patient transferred, IV remains jd3 in place. Administered Medications: 17:04 Drug: Rocephin (cefTRIAXone) 1 grams Route: IV; Rate: calculated rate; Site: right jd3 antecubital; 18:00 Follow up: IV Status: Completed infusion; IV Intake: 10ml jd3 17:04 Drug: SOLU-Medrol 40 mg Route: IVP; Site: right antecubital; jd3 18:00 Follow up: Response: No adverse reaction jd3 Intake: 18:00 IV: 10ml; Total: 10ml. jd3 Outcome: 12:23 Decision to Hospitalize by Provider. kdr 16:25 ER care complete, transfer ordered by . kdr 18:52 Transferred by ground EMS to [facility], Transfer form completed. jd3 X-rays sent w/ patient. 18:52 Condition: stable 18:52 Instructed on the need for transfer, Demonstrated understanding of instructions. 18:53 Patient left the ED. jd3 Signatures: Dispatcher [employer] Chadwick Dao MD MD kdr Antoinette Velasquez RN Mat Borges ea, RN RN Yesica Garcia md1 Licha Gamboa
[2020-06-28 16:41] LABS: SARS-COV-2 RT PCR NEGATIVE (NEGATIVE)
[2020-06-28] MEDS ORDERED: METHYLPREDNISOLONE 40 MG INJ ONE (17:14)
[2020-06-28] MEDS ORDERED: CEFTRIAXONE/SWI 1gm 1 GM/10 ML SYR ONE (17:14)
[2020-06-29 04:33] VITALS: TEMP 98
[2020-06-29 04:45] VITALS: O2SAT 99
[2020-06-29 04:46] VITALS: BP 125/82
--- NOTE | 2020-06-29 12:50 | EKG ---
Test Date: 2020-06-28 Test Time: 07:45:49 Last Model Maker: DAVID MEASUREMENT RESULTS: Intervals: Rate: 91 IN: 170 QRSD: 138 QT: 388 QTc: 477 [place]: P: 83 IN: 170 QRS: 75 T: 36 INTERPRETIVE STATEMENTS: Normal sinus rhythm Possible Left atrial enlargement Right bundle branch block Abnormal ECG No previous ECG available for comparison Electronically Signed On 06-29-20 12:46:03 CDT by Dominic Zamudio
== END 2020-06-28 18:53 | disposition short-term general hospital (02) ==
LOC: ER 06:18
DX: C34.90 Malignant neoplasm of unspecified part of unspecified bronchus or lung (principal); Z20.822 Contact with and (suspected) exposure to COVID-19; Z85.46 Personal history of malignant neoplasm of prostate; Z85.51 Personal history of malignant neoplasm of bladder
CPT/HCPCS: 96365; 93005; 85025; 80048; 36415; 83735; 85610; 85379; 80076; 84484; 83880; 0240U; 71275; 71045; 96375; 99285; Q9967; J0696; J2920

== ENCOUNTER 2020-07-24 09:49 | Day surgery (SDC) | payer OTHER, MEDICARE ==
--- NOTE | 2020-07-06 16:10 | RAD REPORT ---
EXAM DESCRIPTION: RAD - Chest Pa And Lat (2 Views) - 07/06/2020 3:52 pm CLINICAL HISTORY: preop, patient pending bladder cystoscopy, history of lung cancer COMPARISON: Portable June 28, two view chest October 2019 TECHNIQUE: Frontal and lateral views of the chest were obtained. FINDINGS: The lungs are fibrotic with bullous changes in the upper lung pa. Calcified granulomas are present. Right-sided Port-A-Cath is in place. No acute infiltrates failure or volume overload. No new or enlarging mass lesion identifiable. Diaphr agm is flattened. Increased retrosternal space present. Heart size is normal and central vasculatur e is within normal limits. No pleural effusion or pneumothorax seen. No acute bony finding noted. No aortic abnormality. IMPRESSION: Prominent COPD with no new mass and no acute infiltrate. Severity of chronic disease could potentially mask a mild edema or infiltrate. Neither is suspected.
[2020-07-24] MEDS ORDERED: Ringers Lactate 1,000 ML IV ONE (10:23)
[2020-07-24] MEDS ORDERED: CEFAZOLIN/SWI 2gm 2 GM/20 ML SYR ONE (10:24)
[2020-07-24] MEDS ORDERED: FENTANYL CITR 100 MCG/2 ML ONE (11:43)
[2020-07-24] MEDS ORDERED: propofoL 200 MG/20 ML VIAL IV ONE (11:43)
[2020-07-24] MEDS ORDERED: LIDOCAINE 1% MPF 5 ML VIAL ONE (11:43)
[2020-07-24] MEDS ORDERED: KETOROLAC 30 MG/ML INJ ONE (12:37)
[2020-07-24] MEDS ORDERED: ONDANSETRON 4 MG/2 ML VIAL ONE (12:42)
[2020-07-24 14:15] VITALS: BP 123/70; TEMP 98.2; O2SAT 100
--- NOTE | 2020-07-24 22:32 | OP ---
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 Postoperative Diagnosis: Small cell carcinoma of the bladder. Principle Procedures: 1.Cystoscopy and transurethral resection of the base of a bladder tumor. 2.Bladder biopsies. Indication For Procedure: Mr. Mock is a 74-year-old gentleman who was originally diagnosed by Dr. Simmons with cystoscopy and transurethral resection of a bladder tumor that revealed small cell carcino ma of the bladder. He subsequently underwent chemotherapy targeting the small cell with presumptive resolution as evidenced by followup biopsies performed by Dr. Simmons, which found no evidence of resid ual malignancy. He presented to me in followup with need for repeat cystoscopy as several months had elapsed since his last evaluation and treatment and an area of a residual mucosal change with yellow ing of the tissue as well as erythema was noted in the anterior wall of the bladder near the dome. A s a result, I counseled him on the recommendation for repeat staging, bladder biopsies as well as res ection of the residual tumor seen in the location as possible. I requested he obtain an MRI preopera tively to also better stage the tumor. Since the tumor was known to be muscle invasive from the init ial pathology, he would likely require additional treatment beyond the chemotherapy and transurethral resections performed to date for the muscle invasive disease. The MRI performed on 07/03/2020 revea led no evidence of any visible bladder mass or ureterocele. Minimal asymmetry seen in the thickness of the anterior left bladder wall relative to the right measuring 6 mm along the left aspect and 5 mm along the right aspect. No lymphadenopathy or mass seen in the pelvis. No free fluid collections e vident. No iliac chain adenopathy evident. No inguinal adenopathy seen. No aggressive marrow lesio n is seen. No pathologic areas of postcontrast enhancement seen. Procedure In Detail: The patient was consented in the preoperative holding area before being transfe rred to the operative suite where general anesthesia was induced. He was given antimicrobial prophyl axis and pneumo boots were provided for DVT prophylaxis. He was placed in the lithotomy position, pa dded and secured to the table appropriately. His genitalia were prepped using Hibiclens, and he was draped in standard fashion. The case was begun using a 22-Ukrainian rigid cystoscope to traverse the ur ethra and into the bladder. There was no significant prostatic urethral obstruction noted. The blad pantera was then surveyed in its entirety, and there was some erythema in the region of the trigone, and an area of likely prior biopsy of the trigone to the right side that was performed. The remainder of the bladder was free of visible mucosal lesion with the exception of the anterior dome on the left t hat extended to the right where an approximately 4-5 cm ovoid patch of erythematous and irregular-brenden earing mucosa was noted along with site of prior resection. As a result, I employed the cold cup bio psy forceps to resect the entirety of the base of the ovoid lesion in the anterior dome since there w as no projecting papillary tumor. Several biopsies were taken, likely more than 8 to 10 biopsies wer e taken to completely remove all visible mucosal change in that ovoid region of the anterior dome. I then turned my attention to the trigone where 3 biopsies were taken from the erythematous area noted there. Then using the Bugbee electrode and sterile water irrigation, the trigone was fulgurated and the entirety of the anterior dome lesion especially at the base in the periphery was fulgurated unti l no bleeding vessels were noted. His bladder was decompressed, and any additional oozing vessels we re fulgurated. The bladder was then filled again and the cystoscope was removed. An 18-Ukrainian ureth ral Reyes catheter was placed into his bladder with ease and 10 cc of sterile water was placed into t he balloon. The patient was then taken out of the lithotomy position, awakened from general anesthes ia, transferred to a stretcher, and then transferred to the recovery room in good condition. Complications: None. Discharge Disposition: I would like for him to keep the urethral Reyes catheter for at least the nex t 24 to 48 hours to allow bladder rest and decrease his risk of voiding under pressure where he might rupture the weakened bladder wall in the anterior dome region. He can either remove the catheter hi mself at home on morning or we can arrange followup for him in the [facility] with nurse practitioner, Sigrid for catheter removal and voiding trial. Ultimately, he should follow up with me in about 2 weeks to discuss the results of the pathology relative to the MRI completed, and ultimately benign in appearance. Subsequent considerations for possible partial cystectomy johanna haresh bladder sparing chemoradiation will be discussed at that time in consultation with his medical on cologist and the radiation oncologist. Of note, the patient is no longer on oral anticoagulants with the exception of aspirin, which he plans to start tomorrow. FELIPE/MODL Voice ID: [id number] Report ID: [id number]
== END 2020-07-24 14:07 | disposition home health service (06) ==
LOC: OR 09:49
PROVIDERS: ATTEND Urology
PROC: 0TBB8ZX Excision of Bladder, Via Natural or Artificial Opening Endoscopic, Diagnostic (ICD-10-PCS; principal; 2020-07-24 11:00)
PROC: 0TBB8ZX Excision of Bladder, Via Natural or Artificial Opening Endoscopic, Diagnostic (ICD-10-PCS; 2020-07-24 11:00)
DX: D09.0 Carcinoma in situ of bladder (principal); Z20.822 Contact with and (suspected) exposure to COVID-19
CPT/HCPCS: 87086; 88305; 71046; 52204; 52234; U0003; J2704; J3010; J0690; J7120; J2405; 87088

== ENCOUNTER 2020-08-21 03:04 | Emergency (ER) | payer OTHER, MEDICARE ==
--- OUTSIDE RECORDS SUMMARY | 2020-08-21 03:11 | XMS REPORT | Continuity of Care Document ---
:1945 Author Organization [facility] t Address [address] [place] [address] Dr. Whitfield [address] [place] [id number] Care Team Providers Name Role Phone Briana CASTAÑEDA Primary Care Physician David Pedraza MD Attending Clinician Katherine CASTAÑEDA, Luis Alfredo Attending Clinician Arodlo Noriega MD Attending Clinician Roselyn Hernández MD Attending Clinician Unavailable Aubrey Ospina MD Attending Clinician DAVID PEDRAZA Attending Clinician Unavailable Paulo Lozano MD Attending Clinician Xavier Almodovar MD Attending Clinician Cintia Villagran MD Attending Clinician Darell Little MD Attending Clinician Jerry Shaw MD Attending Clinician Nino Herrera MD Attending Clinician PAULO LOZANO Attending Clinician Unavailable Isha CASTAÑEDA Attending Clinician ISHA Attending Clinician Unavailable Amara Escamilla CRNA Attending Clinician [phone] Archie GONZALEZ Attending Clinician Unavailable Ramo CASTAÑEDA, Y.H. Attending Clinician Bee CASTAÑEDA Attending Clinician John CASTAÑEDA Attending Clinician Saad CASTAÑEDA Attending Clinician JOHN Attending Clinician Unavailable Miguel Angel Naqvi MD Attending Clinician Mario Hoffmann MD Attending Clinician Dank Sewell MD Attending Clinician Denny Hicks CRNA Attending Clinician DAVID PEDRAZA Admitting Clinician Unavailable Xavier ALMODOVAR Admitting Clinician Unavailable ISHA Admitting Clinician Unavailable JHON Admitting Clinician Unavailable Payers Payer Name Policy Type Policy Effective Date Expiration Date Sour ce Number MEDICAREMEDICARE A [id number] 2009 ISSAC Shyanne burton Mary [id number] 2009- 00:00:00 - M edical PresentMedicare Center TRICARETRICARE FOR [id number] 2020 [id number] 00:00:00 - [facility] ([facility], [place], [facility], etc.) MEDICAREMEDICARE PART [id number] 2009 emleia Rodríguez AND 00:00:00 [facility] [id number] 2009- [place] [id number] 2020 [facility] 00:[facility]00 [facility] [id number]/4 /2020-PresentMilitary Problems Condition Condition Condition Status Onset Resolution Last Treating Co mments Source Name Details Category Date Date Treatment Clinician Date Hemoptysis Hemoptysis Disease Active [facility] Medical 00 [place] Dysphagia, Dysphagia, Disease Active [facility] unspecifie unspecifie 2-18 Theresa kes - d type d type 00:00: Medical 00 [place] 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 Lung Lung Disease Active [facility] cancer cancer [facility] Pancytopen Pancytopen Disease Active C [facility] ia ia [facility] Chronic Chronic Disease Active [facility] anticoagul anticoagul [facility] - [facility]ion [facility] [place]F PAF Disease Active [facility] (paroxysma (paroxysma [facility] - l atrial l atrial Medica l fibrillati fibrillati Ce nter on) on) Allergies, Adverse Reactions, Alerts Allergy Allergy Status Severity Reaction(s) Onset Inactive Treating Comm ents Source Name Type Date Date Clinician Sulfa Propensi Active In [facility] (Sulfona ty to 8-14 childhood [facility] - mide adverse 00:00: Medical Antibiot reaction 00 Center ics) s Levoflox Propensi Active Other (See [facility] I [facility] acin ty to Comments) 09-20 [facility] - adverse 00:00: Medical reaction 00 [place] s Levoflox Propensi Active [place] ac[place] to 09-09 [facility] adverse 00:00: st reaction 00 s to drug Ciproflo Propensi Active Rash 2010-03 [facility] xacin ty to 03-30 [facility] - adverse 00:00: Medical reaction 00 [place] s Ciproflo Propensi Active [place] xacin ty to 12-05 [facility] adverse 00:00: st reaction 00 s to drug Sulfa Propensi Active Unknown In [place] (Sulfona ty to Reaction 03-23 childhood Met hodi mide adverse 00:00: st Antibiot reaction 00 ics) s to drug Social History Social Habit Start Date Stop Date Quantity Comments Source Sex Assigned At [facility] Tobacco use and 2020-07-02 2020-07-02 Never used [facility] - exposure 00:00:00 00:00:00 [facility] Alcohol intake 2020-07-02 2020-07-02 Current drinker [facility] 00:[facility]00 00:00:00 of alcohol [facility] (finding) Tobacco Comment 2020-06-28 2020-06-28 .5 cigars a day [facility] Hernandez - 00:00:00 00:00:00 [facility] Cigarettes smoked 2020-03-01 2020-03-01 Samson Espinozaist current (pack per 00:00:00 00:00:00 day) - Reported Cigarette 2020-03-01 2020-03-01 Samson Espinoza ist pack-years 00:00:00 00:00:00 History of tobacco 1962-03-23 2020-02-26 Current some day Samson Espinozaist use 00:00:00 00:00:00 smoker Smoking Status Start Date Stop Date Source Current every day smoker 2020-07-02 00:00:[address] [facility] [facility] Current some day smoker 2020-03-01 00:00:00 Maurice randhawa [facility] Medications Ordered Filled Start Stop Current Ordering Indication Dosage Frequency Signature Comments Components Source Medication Medication Date Date Medication? Clinician (SIG) Name Name multivitami Yes 1{capsu QD Take [address] n capsule 4-10 le} capsule by Luke s - 17:28: mouth Medical 11 daily. Center Lactobacill Yes Take by [facility] us 4-10 mouth. [facility] - acidophilus 17:28: Medica l (PROBIOTIC 11 Center ORAL) mesalamine Yes 2.4g QD Take 2.[address] (LIALDA 4-10 by mouth [facility] - ORAL) 17:28: daily . Medical 11 Center pantoprazol Yes 40mg QD Take [address] e 4-10 by mouth [facility] - (PROTONIX) 17:28: daily. Medic al 40 MG 11 Center tablet esomeprazol Yes 40mg Q.5D Take [address] e (NexIUM) 4-10 by mouth 2 Lonnie es - 20 MG 17:28: (two) Medical capsule 11 times Center daily Per Mr. Mock, takes 40mg x2 daily. sucralfate Yes 1g Q.25D Take [address] (CARAFATE) 4-10 by mouth 4 Lonnie es - 100 mg/mL 17:28: (four) Medica l suspension 11 times Center daily. HYDROcodone Yes 15mL Take [address] -acetaminop 4-10 mLs by [facility]ukes - hen 17:28: mouth Medical (LORTAB,HYC 11 every 6 Cente r ET) 7.5-325 (six) mg/15 mL hours as Soln needed for solution Pain. aluminum-ma Yes 30mL Take [address] gnesium 4-10 mLs by [facility] - hydroxide-s 17:28: mouth 4 Med ical imethicone 11 (four) Center (MAALOX times PLUS) daily suspension before 200-200-20 meals and mg/5 mL nightly. Magic Yes Take by [facility] Mouthwash 4-10 mouth [facility] - (NO 17:28: every 6 Medical steroid) 11 (six) Center oral hours as suspension needed. lidocaine-d Yes 5mL Take [address] iphenhyd-Al 4-10 by mouth Luke s - -mag-sim 17:28: every 6 Medica l 200-25-400- 11 (six) Center 40 mg/30 mL hours as Mwsh needed. metoprolol Yes 50mg QD Take [address] succinate 4-10 by mouth [facility] - (TOPROL-XL) 17:28: daily. Medi catrina 50 MG 24 hr 11 Center tablet rivaroxaban 2020- No 20mg Take [address] (XARELTO) 2-22 04-09 tablet (20 Lonnie es - 20 mg Tab 00:00: 00:00 mg total) Me dical tablet 00 :00 by mouth Center daily with dinner. rivaroxaban 2020- No 20mg Take [address] (XARELTO) 2-20 02-20 by mouth [facility] - 20 mg Tab 13:13: 00:00 daily with M edical tablet 24 :00 dinner. Center oxybutynin 2020- No 5mg Take [address] (DITROPAN) 03-2715 tablet (5 Lonnie es - 5 MG [...] 97.5mg Take 97.[address] dine 97.5 03-27 mg by [facility] - mg Tab 00:00: 23:59 mouth Medical 00 :00 daily as Center needed for up to 3 days Please be aware that this medication will turn your urine orange. This is a normal side effect. multivitami 2019-03 Yes 1{capsu Take 1 [place] capsule 2-10 le} capsule by Meth naz 12:56: mouth. st 15 loratadine 2019-03 Yes 10mg QD Take 10 mg [place] (CLARITIN) 2-10 by mouth Metho di 10 mg 12:56: daily. st tablet 15 Lactobac 2019-03 Yes Take by Arielle n no.41/Bifid 2-10 mouth. Method i obact no.7 12:56: st (PROBIOTIC- 15 10 ORAL) ondansetron 2019- No 4mg Take [address] (ZOFRAN) 4 11-28 tablet (4 Lonnie es - MG tablet 00:00: 23:59 mg total) Me dical 00 :00 by mouth 3 Center (three) times daily as needed for Nausea for up to 7 days. amoxicillin 2019- No 250mg [id number] Take [address] (AMOXIL) 11-06 [id number] mg by Lonnie es - 250 MG [...] removal. oxybutynin 2019- No 5mg Take 1 [facility] (DITROPAN-X 11-06 tablet (5 Theresa kes - L) 5 MG 24 00:00: 23:59 mg total) M edical hr tablet 00 :00 by mouth Center daily as needed (Bladder spasms/cat heter pain) for up to 5 days. nitrofurant 2019- No 100mg Q.5D Take [address] oin, 11-06 capsule [facility] - macrocrysta 00:00: 23:59 (100 mg Me dical l-monohydra 00 :00 total) by Adryan ter te, mouth 2 (MACROBID) (two) 100 MG times capsule daily for 3 days. FAMOTIDINE Yes [place] ORAL 03-23 Methodi 00:00: st 00 mesalamine 0 Yes [place] (LIALDA) 3 Methodi 1.2 gram EC 00:00: st tablet 00 Vital Signs Vital Name Observation Time Observation Value Comments Source Systolic blood 2020-06-30 11:00:00 105 mm[Hg] [facility] Diastolic blood 2020-06-30 11:00:00 80 mm[Hg] [facility] S [facility] Heart rate 2020-06-30 11:00:00 105 /min [facility] Body temperature 2020-06-30 11:00:00 36.89 Azra [facility] Respiratory rate 2020-06-30 11:00:00 16 /min [facility] Oxygen saturation in 2020-06-30 11:00:00 99 /min [facility] Arterial blood by Medical Ce nter Pulse oximetry Body height 2020-06-28 20:31:00 177.8 cm [facility] Body weight 2020-06-28 20:31:00 67.5 kg [facility] BMI 2020-06-28 20:31:00 21.35 kg/m2 [facility] Systolic blood 2020-03-01 12:54:00 161 mm[Hg] Mauriceto n [facility] pressure Diastolic blood 2020-03-01 12:54:00 95 mm[Hg] [place] [facility] pressure Body height 2020-03-01 12:53:00 177.8 cm Davies [facility] Body weight 2020-03-01 12:53:00 76.204 kg Davies [facility] BMI 2020-03-01 12:53:00 24.11 kg/m2 Davies [facility] Oxygen saturation in 2020-03-01 12:53:00 97 /min Davies [facility] Arterial blood by Pulse oximetry Heart rate 2020-03-01 12:53:00 85 /min Davies [facility] Body temperature 2020-03-01 12:53:00 36.61 Azra [facility] ton [facility] Respiratory rate 2020-03-01 12:53:00 17 /min [place] [facility] Procedures Procedure Date / Time Performing Clinician Source Performed BASIC METABOLIC PANEL () 2020-06-30 04:12:00 [facility] PROTHROMBIN TIME/INR 2020-06-30 04:12:00 [facility] CBC W/PLT COUNT & AUTO 2020-06-30 04:12:00 [facility] (CELLAVISION MANUAL DIFF) 2020-06-30 04:12:00 [facility] HEMOGLOBIN AND HEMATOCRIT 2020-06-29 11:41:00 [facility] BRONCHOSCOPY 2020-06-29 07:34:00 Jose Ospina [facility] BASIC METABOLIC PANEL (7) 2020-06-29 04:06:00 [facility] PROTHROMBIN TIME/INR 2020-06-29 04:06:00 [facility] CBC W/PLT COUNT & AUTO 2020-06-29 04:06:00 [facility] (CELLAVISION MANUAL DIFF) 2020-06-29 04:06:00 [facility] ECG 12-LEAD 2020-06-28 22:04:02 Ashleigh Dee [facility] SARS-COV2/RT-PCR (SLHS & REF 2020-06-28 21:51:00 Wendy Dee [facility] - LABS) [facility] CBC W/PLT COUNT & AUTO 2020-06-28 21:51:00 Ashleigh Dee [facility] DIFFERENTIAL [facility] PROTHROMBIN TIME/INR 2020-06-28 21:51:[address] [facility] APTT 2020-06-28 21:51:00 [facility] COMPREHENSIVE METABOLIC 2020-06-28 21:51:00 Ashleigh Dee [facility] LACTIC ACID, VENOUS 2020-06-28 21:51:00 Ashleigh Dee [facility] THROMBOELASTOGRAPH (TEG) 2020-06-28 21:51:00 Ashleigh Dee [facility] TYPE AND SCREEN, AUTOMATED 2020-06-28 21:51:00 Ramone Veliz [facility] XR CHEST 1 VIEW 2020-06-28 21:14:00 Ashleigh Dee [facility] - PORTABLE/BEDSIDE [facility] REPORT OF PROCEDURE - 2020-05-12 12:06:06 [facility] - ENDOSCOPY [facility] UPPER ENDOSCOPY,BALLOON 2020-05-12 10:00:00 [facility] DILATION [facility] BASIC METABOLIC PANEL (7) 2020-05-11 03:40:00 Rene Ngo [facility] HEPATIC FUNCTION PANEL 2020-05-11 03:40:00 Rene Ngo [facility] PROTHROMBIN TIME/INR 2020-05-11 03:40:00 Rene Ngo [facility] MAGNESIUM 2020-05-11 03:40:00 Rene Ngo [facility] PHOSPHORUS 2020-05-11 03:40:00 Rene Ngo [facility] CBC W/PLT COUNT & AUTO 2020-05-11 03:39:00 Rene Ngo [facility] (CELLAVISION MANUAL DIFF) 2020-05-11 03:39:00 Rene Ngo CH, I [facility] SARS-COV2/RT-PCR (SLHS & REF 2020-05-10 23:06:00 Michael Lozano [facility] - LABS) [facility] CBC W/PLT COUNT & AUTO 2020-05-10 23:04:00 Michael Lozano [facility] - DIFFERENTIAL [facility] BASIC METABOLIC PANEL (7) 2020-05-10 23:04:00 Michael Lozano [facility] PROTHROMBIN TIME/INR 2020-05-10 23:04:00 Michael Lozano [facility] HEPATIC FUNCTION PANEL 2020-05-10 23:04:00 Rene Ngo [facility] TISSUE EXAM 2020-03-27 09:23:00 Hermelindo Wynn [facility] CYSTOSCOPY,BLADDER BIOPSY 2020-03-27 08:08:00 Hermelindo Wynn [facility] CYSTOSCOPY,TURBT 2020-03-27 08:08:00 Hermelindo Wynn [facility] PROTHROMBIN TIME/INR 2020-03-27 07:22:00 Mathew Ray CH, I [facility] ECG 12-LEAD 2020-03-27 00:00:00 Mathew Ray [facility] PET CT WHOLE BODY EXTERNAL 2020-03-08 10:11:00 Suresh Gomez STUDY PET CT SKULL BASE TO MID 2020-03-08 00:00:00 Amina Gamboa THIGH PULMONARY FUNCTION TEST 2020-03-06 00:00:[address] CHEST EXTERNAL STUDY 2020-02-20 07:56:[address] [address] CHEST W CONTRAST ABDOMEN 2020-02-20 00:00:00 Provider, Histor ical Samson [facility] W CONTRAST PELVIS W CONTRAST MRI BRAIN W WO CONTRAST 2019-12-16 00:00:00 Provider, Sai Davies [facility] TRANSFUSION SERVICE REPORT - 2019-11-30 18:01:27 ProviderFaizan [facility] SCAN [facility] REPORT OF PROCEDURE - 2019-11-29 16:19:52 [facility] TISSUE EXAM 2019-11-29 12:49:00 [facility] FLOW CYTOMETRY REQUISITION 2019-11-29 12:35:55 Triny Naqvi [facility] FLOW CYTOMETRY 2019-11-29 12:35:00 Triny Naqvi [facility] EBUS FNA REQUEST 2019-11-29 12:28:15 Triny Naqvi [facility] FINE NEEDLE ASPIRATE BY EBUS 2019-11-29 12:28:00 Trniy Naqvi [facility] BRONCHOSCOPY,ENDOBRONCHIAL 2019-11-29 11:35:00 Triny Naqvi [facility] ULTRASOUND ([facility]) [facility] TRANSTRACH/ TRANSBRONCH SAMPLING BRONCHOSCOPY,BIOPSY 2019-11-29 11:35:00 [facility]PREH[facility] METABOLIC 2019-11-29 05:46:00 Triyn Naqvi [facility] CALCIUM, IONIZED 2019-11-29 05:46:00 Seven Nash [facility] MAGNESIUM 2019-11-29 05:46:00 Eloisa Blanco [facility] PHOSPHORUS 2019-11-29 05:46:00 Eloisa Blanco [facility] CBC W/PLT COUNT & AUTO 2019-11-29 04:37:00 Triny Naqvi [facility] TYPE AND SCREEN, AUTOMATED 2019-11-29 04:37:00 Triny Naqvi [facility] APTT 2019-11-29 04:36:00 Cabrera [facility] PROTHROMBIN TIME/INR 2019-11-29 04:36:00 Cabrera [facility] SARS-COV2/RT-PCR (HS & REF 2019-11-28 08:39:00 Rowdy Yi [facility] - LABS) [facility] PROTHROMBIN TIME/INR 2019-11-28 08:33:00 Cabrera [facility] APTT 2019-11-28 08:33:00 Cabrera [facility] CBC W/PLT COUNT & AUTO 2019-11-28 05:01:00 Eloisa Blanco [facility] COMPREHENSIVE METABOLIC 2019-11-28 05:01:00 Eloisa Blanco [facility] MAGNESIUM 2019-11-28 05:01:00 Eloisa Blanco [facility] PHOSPHORUS 2019-11-28 05:01:00 Eloisa Blanco [facility] BASIC METABOLIC PANEL (7) 2019-11-27 05:51:00 [facility] CALCIUM, IONIZED 2019-11-27 05:51:00 Saad [facility] PHOSPHORUS 2019-11-27 05:51:00 Seven Nash [facility] CBC W/PLT COUNT & AUTO 2019-11-27 05:51:00 Seven Nash [facility] MAGNESIUM 2019-11-27 05:51:[address] [facility] & WITHOUT IV 2019-11-26 04:46:00 Charito Murray [facility] CONTRAST [facility] CT ABDOMEN/PELVIS WITH & 2019-11-26 04:46:00 Charito Murray [facility] - WITHOUT IV CONTRAST Medical Cent er IR PORT-A-CATH PLACEMENT 2019-11-25 19:44:00 Susan Mcclellan CH I [facility] SARS-COV2/RT-PCR (SLHS & REF 2019-11-25 12:23:00 Beto Mcclellan [facility] - LABS) [facility] CBC W/PLT COUNT & AUTO 2019-11-25 11:30:00 Charito Murray [facility] PROTHROMBIN TIME/INR 2019-11-25 11:30:00 Charito Murray [facility] APTT 2019-11-25 11:30:00 Charito Murray [facility] COMPREHENSIVE METABOLIC 2019-11-25 11:30:[address] [facility] CT ABDOMEN PELVIS W WO 2019-11-25 00:00:00 Provider, Sai Read CONTRAST CT CHEST W WO CONTRAST 2019-11-25 00:00:00 Provider, Historical Samson Read TRANSFUSION SERVICE REPORT - 2019-11-08 18:24:58 Provider, Faizan foley [facility] TISSUE EXAM 2019-11-07 19:23:00 [facility] CYSTOSCOPY,TURBT 2019-11-07 17:53:00 [facility] CYSTOSCOPY,BLUE LIGHT 2019-11-07 17:53:00 [facility] ABORH, MANUAL 2019-11-07 11:51:00 Faby Thomas [facility] POTASSIUM-STAT LAB 2019-11-07 11:23:00 Timbo Vences [facility] TYPE AND SCREEN, AUTOMATED 2019-11-07 11:18:00 Garo Bennett [facility] CT ABDOMEN PELVIS W CONTRAST 2019-09-19 00:00:00 Provider, Inocencio Read Plan of Care Planned Activity Planned Date Details Comments Source Future Scheduled 2020-11-21 INFLUENZA VACCINE [facility] - Test 00:00:00 (Season Ended) [code = [facility] INFLUENZA VACCINE (Season Ended)] Future Scheduled 2020-10-21 INFLU[place]ZA VACCINE [place] [facility] Test 00:00:00 [code = INFLUENZA VACCINE] Future Scheduled 2020-03-[address] [...] 00:00:00 (1 of 1 - Medical Center [id number] PCV13) [code = PNEUMOCOCCAL 65+ YRS (1 of 1 - [id number] PCV13)] Future Scheduled 1994 COLONOSCOPY SCREENING [place] [facility] Test 00:00:00 [code = COLONOSCOPY SCREENING] Future Scheduled 1994 SHINGLES VACCINES (#1) [place] [facility] Test 00:00:00 [code = SHINGLES VACCINES (#1)] Future Scheduled 1994 SHINGLES VACCINES ([address] [facility] - Test 00:00:00 of 2) [code = SHINGLES Medic al Center VACCINES (1 of 2)] Future Scheduled 1963-09-24 DTAP/TDAP/TD VACCINES [facility] - Test 00:00:00 (1 - Tdap) [code = Medical C enter DTAP/TDAP/TD VACCINES (1 - Tdap)] Future Scheduled 1962 Hepatitis C screening [place] [facility] Test 00:00:00 (procedure) [code = 596147736] Future Scheduled 1962 HEPATITIS C SCREENING [facility] - Test 00:00:00 [code = HEPATITIS C Medical Center SCREENING] Future Scheduled 1956 COVID-19 VACCINE (1) Shazia ston [facility] Test 00:00:00 [code = COVID-19 VACCINE (1)] Future Scheduled 1950 65+ PNEUMOCOCCAL Davies [facility] Test 00:00:00 VACCINE (1 of 2 - PPSV23) [code = 65+ PNEUMOCOCCAL VACCINE (1 of 2 - PPSV23)] Future Scheduled [address] [facility]nie es - Test 00:00:00 malignant neoplasm of Medica l Center colon (procedure) [code = 280252926] Encounters Start End Encounter Admission Attending Care Care Encounter Source Date/Time Date/Time Type Type Clinicians Facility Department ID 2020-03-14 2020-03-14 Outpatient RAMO, [facility] [id number] [place] 00:00:00 00:00:00 EDWARD [address] 2020-03-01 2020-03-01 Outpatient RAMO [facility] [id number] [place] 00:00:00 00:00:00 EDWARD [address] 2020-03-01 2020-03-01 Outpatient RAMO, [facility] [id number] [place] 00:00:00 00:00:00 EDWARD [address] Results Test Description Test Time Test Comments Results Result Sourc e Comments ECG 12 lead 2020-06-21 Interface, External [facility] 1 Ris In - 07/01/2020 - Med ical 09:07:55 9:07 AM Center CDTVentricular Rate 100 BPMAtrial Rate 100 BPMP-R Interval 162 msQRS Duration 132 msQ-T Interval 392 msQTC Calculation(Bazett) 505 msP [place] 64 degreesR [place] 65 degreesT [place] 11 degreesSinus rhythm with occasional Premature ventricular complexesLeft atrial enlargementRight bundle branch blockT wave abnormality, consider inferior ischemiaAbnormal ECGWhen compared with ECG of 27-MAR-2020 07:10,Premature ventricular complexes are now PresentInverted T waves have replaced nonspecific T wave abnormality in Inferior leadsConfirmed by MD Interiano Roberto ([id number]) on 07/01/2020 9:07:54 AM CBC with platelet count + automated diff 2020-06-30 08:44:00 Test Item Value Reference Range Interpretation Comme nts WBC (test code = 6690-2) 1.9 See_Comment L [A utomated message] The system which generated this result transmitted ref erence range: 3.5 - 10.5 K/L. T he reference range was not u sed to interpret this result as normal/abnormal. RBC (test code = 789-8) 2.56 See_Comment L [Au tomated message] The system which generated this result transmitted ref erence range: 4.63 - 6.08 M/ L. The reference range was not u sed to interpret this result as normal/abnormal. MCHC (test code = 786-4) 34.0 See_Comment L [A utomated message] The system which generated this result transmitted ref erence range: 32.3 - 36.5 GM/ DL. The reference range was not u sed to interpret this result as normal/abnormal. Hematocrit (test code = 24.4 % 40.1-51 L 4544-3) MCV (test code = 787-2) 95.3 fL 79-92.2 H MCH (test code = 785-6) 32.4 pg 25.7-32.2 H RDW (test code = 788-0) 18.1 % 11.6-14.4 H Platelets (test code = 777-3) 122 See_Comment L [Automated message] The system which generated this result transmitted ref erence range: 150 - 450 K/CU MM. The reference range was not u sed to interpret this result as normal/abnormal. MPV (test code = 84074-1) 9.9 fL 9.4-12.4 nRBC (test code = 413) 0 See_Comment [Aut omated message] The system which generated this result transmitted ref erence range: 0 - 0 /100 WBC. The reference range was not used to interpret this result as corrie l/abnormal. Lab Interpretation (test code Abnormal = 70387-7) [facility] [id number] 08:44:00 Test Item Value Reference Range Interpretation Comments % Neutros (test code = 61 % 2816) % Lymphs (test code = 10 % 2817) % Monos (test code = 22 % 2818) % Eos (test code = 2819) 3 % % Baso (test code = 2820) 1 % % Bands (test code = 3 % 0-10 6) # Neutros (test code = 1.16 K/ul 1.78-5.38 L 2830) # Lymphs (test code = 0.19 K/ul 1.32-3.57 L 2831) # Monos (test code = 0.42 K/uL 0.3-0.82 2832) # Eos (test code = 2834) 0.06 K/uL 0.04-0.54 # Baso (test code = 2835) 0.02 K/uL 0.01-0.08 # Bands (test code = 0.06 K/uL 0-0.8 2840) Total Counted (test code 100 = 1351) WBC Morphology (test code Normal = 487) Giant Platelet (test code Present = 313) Hypochromia (test code = 1+ few 963) Anisocytosis (test code = 2+ moderate 961) Microcytes (test code = 1+ few 965) Macrocytes (test code = 2+ moderate 964) Poikilocytes (test code = 1+ few 966) Ovalocytes (test code = 1+ few 477) Artifact (test code = Present 3432) Platelet Conc (test code Decreased = 3438) SENG (test code = SENG) [facility] ID - EzBailey ManuelKelley comments: Slide comments: Lab Interpretation (test Abnormal code = 64194-5) [facility] W/PLT COUNT & AUTO [id number] 08:44:00 Test Item Value Reference Range Interpretation Comments WHITE BLOOD CELL COUNT (BEAKER) 1.9 K/ L 3.5-10.5 L (test code = 775) RED BLOOD CELL COUNT (BEAKER) 2.56 M/ L 4.63-6.08 L (test code = 761) HEMOGLOBIN (BEAKER) (test code = 8.3 GM/DL 13.7-17.5 L 410) HEMATOCRIT (BEAKER) (test code = 24.4 % 40.1-51.0 L 411) MEAN CORPUSCULAR VOLUME (BEAKER) 95.3 fL 79.0-92.2 H (test code = 753) MEAN CORPUSCULAR HEMOGLOBIN 32.4 pg 25.7-32.2 H (BEAKER) (test code = 751) MEAN CORPUSCULAR HEMOGLOBIN CONC 34.0 GM/DL 32.3-36.5 (BEAKER) (test code = 752) RED CELL DISTRIBUTION WIDTH 18.1 % 11.6-14.4 H (BEAKER) (test code = 412) PLATELET COUNT (BEAKER) (test 122 K/CU MM 150-450 L code = 756) MEAN PLATELET VOLUME (BEAKER) 9.9 fL 9.4-12.4 (test code = 754) NUCLEATED RED BLOOD CELLS 0 /100 WBC 0-0 (BEAKER) (test code = 413) (CELLAVISION MANUAL DIFF)2020-06-30 08:44:00 Test Item Value Reference Range Interpretation Comments NEUTROPHILS - REL 61 % (CELLAVISION)(BEAKER) (test code = 2816) LYMPHOCYTES - REL 10 % (CELLAVISION)(BEAKER) (test code = 2817) MONOCYTES - REL 22 % (CELLAVISION)(BEAKER) (test code = 2818) EOSINOPHILS - REL 3 % (CELLAVISION)(BEAKER) (test code = 2819) BASOPHILS - REL 1 % (CELLAVISION)(BEAKER) (test code = 2820) BANDS - REL (CELLAVISION)(BEAKER) 3 % 0-10 (test code = 2826) NEUTROPHILS - ABS 1.16 K/ul 1.78-5.38 L (CELLAVISION)(BEAKER) (test code = 2830) LYMPHOCYTES - ABS 0.19 K/ul 1.32-3.57 L (CELLAVISION)(BEAKER) (test code = 2831) MONOCYTES - ABS 0.42 K/uL 0.30-0.82 (CELLAVISION)(BEAKER) (test code = 2832) EOSINOPHILS - ABS 0.06 K/uL 0.04-0.54 (CELLAVISION)(BEAKER) (test code = 2834) BASOPHILS - ABS 0.02 K/uL 0.01-0.08 (CELLAVISION)(BEAKER) (test code = 2835) BANDS - ABS (CELLAVISION)(BEAKER) 0.06 K/uL 0.00-0.80 (test code = 2840) TOTAL COUNTED (BEAKER) (test code 100 = 1351) WBC MORPHOLOGY (BEAKER) (test Normal code = 487) GIANT PLATELETS (BEAKER) (test Present code = 313) HYPOCHROMIA (BEAKER) (test code = 1+ few 963) ANISOCYTOSIS (BEAKER) (test code 2+ moderate = 961) MICROCYTES (BEAKER) (test code = 1+ few 965) MACROCYTES (BEAKER) (test code = 2+ moderate 964) POIKILOCYTES (BEAKER) (test code 1+ few = 966) OVALOCYTES (BEAKER) (test code = 1+ few 477) ARTIFACT (CELLAVISION)(BEAKER) Present (test code = 3432) PLATELET CONCENTRATION Decreased (CELLAVISION)(BEAKER) (test code = 3438) [facility] ID - Steve Haddad comments: Slide comments:Basic Metabolic Panel 2020-06-30 04:51:00 Test Item Value Reference Range Interpretation Comments Sodium (test code = 141 meq/L 527-024 1790-2) Potassium (test 3.8 meq/L 3.5-5.1 code = 2823-3) Chloride (test code 107 meq/L 98-107 = 2075-0) CO2 (test code = 24 meq/L 22-29 2027-) BUN (test code = 14 mg/dL 7-21 3094-0) Creatinine (test 0.79 mg/dL 0.57-1.25 code = 2160-0) Glucose (test code 103 mg/dL 70-105 = 2345-7) Calcium (test code 8.5 mg/dL 8.4-10.2 = 16679-2) EGFR (test code = 96 mL/min/1.73 [place] [address]-0) NOT ACCURATE CREATININE CLEARANCE IN PREDICTING GLOMERULAR FILTRATION RATE . ESTIMATED GFR I S NOT APPLICABLE FOR DIALYSIS PATIEN SENG (test code = [facility] ID - SENG) [facility] METABOLIC [id number] 04:51:00 Test Item Value Reference Range Interpretation Comments SODIUM (BEAKER) 141 meq/L 136-145 (test code = 381) POTASSIUM (BEAKER) 3.8 meq/L 3.5-5.1 (test code = 379) CHLORIDE (BEAKER) 107 meq/L 98-107 (test code = 382) CO2 (BEAKER) (test 24 meq/L 22-29 code = 355) BLOOD UREA NITROGEN 14 mg/dL 7-21 (BEAKER) (test code = 354) CREATININE (BEAKER) 0.79 mg/dL 0.57-1.25 (test code = 358) GLUCOSE RANDOM 103 mg/dL 70-105 (BEAKER) (test code = 652) CALCIUM (BEAKER) 8.5 mg/dL 8.4-10.2 (test code = 697) EGFR (BEAKER) (test 96 mL/min/1.73 ESTIMA ANGIE GFR IS code = 1092) sq m NOT ACCURATE CREATININE CLEARANCE IN PREDICTING GLOMERULAR FILTRATION RATE . ESTIMATED GFR I S NOT APPLICABLE FOR DIALYSIS PATIEN TS. [facility] ID - EDASIProthrombin time/[id number] 04:36:00 Test Item Value Reference Interpretation Comments Range Protime (test code = 16.4 See_Comment H [Autom ated 5902-2) message] The system which generated this result transmitted reference range : 11.9 - 14.2 seconds. The reference range was not used to interpret this result as normal/abnormal . INR (test code = 1.36 See_Comment [Automated 6301-6) message] The system which [...] valves. Lab Interpretation Abnormal (test code = 24853-9) [facility]PROT[facility]/[id number] 04:36:00 Test Item Value Reference Range Interpretation Comments PROTIME (HEDY) 16.4 seconds 11.9-14.2 H (test code = 759) INR (BEAKER) (test 1.36 See_Comment [Automat ed message] code = 370) The system [employer] generated this result transmitted ref erence range: <=5.90. The reference range was not used to int erpret this result as normal/abnormal . Effective 08/18/2018: PT Reference Range ChangeNew: 11.9-14.2 Previous: 11.7- 14.7RECOMMENDED COUMADIN/WARFARIN INR THERAPY RANGESSTANDARD DOSE: 2.0-3.0 Includes: PROPHYLAXIS for venous thrombosis, systemic embolization; TREATMENT for venous thrombosis and/or pulmonary embolus.HIGH RISK: Target INR is2.5-3.5 for patients wiht mechanical heart valves.Hemoglobin and [id number] 12:00:00 Test Item Value Reference Range Interpretation Comments Hemoglobin (test code 8.2 See_Comment L [Auto mated = 786-4) message] The system which generated this result transmit angie reference range : 13.7 - 17.5 GM/ DL. The reference range was not u sed to interpret th is result as normal/abnormal . Hematocrit (test code 24.4 % 40.1-51 L = 4544-3) SENG (test code = SENG) [facility] ID - [id number] Lab Interpretation Abnormal (test code = 97106-0) [facility]MO[facility] AND [id number] 12:00:00 Test Item Value Reference Range Interpretation Comments HEMOGLOBIN (BEAKER) (test code = 8.2 GM/DL 13.7-17.5 L 410) HEMATOCRIT (BEAKER) (test code = 24.4 % 40.1-51.0 L 411) [facility] ID - [id number] W/PLT COUNT & AUTO [id number] 09:08:00 Test Item Value Reference Range Interpretation Comments WHITE BLOOD CELL COUNT (BEAKER) 1.6 K/ L 3.5-10.5 L (test code = 775) RED BLOOD CELL COUNT (BEAKER) 2.63 M/ L 4.63-6.08 L (test code = 761) HEMOGLOBIN (BEAKER) (test code = 8.4 GM/DL 13.7-17.5 L 410) HEMATOCRIT (BEAKER) (test code = 24.8 % 40.1-51.0 L 411) MEAN CORPUSCULAR VOLUME (BEAKER) 94.3 fL 79.0-92.2 H (test code = 753) MEAN CORPUSCULAR HEMOGLOBIN 31.9 pg 25.7-32.2 (BEAKER) (test code = 751) MEAN CORPUSCULAR HEMOGLOBIN CONC 33.9 GM/DL 32.3-36.5 (BEAKER) (test code = 752) RED CELL DISTRIBUTION WIDTH 17.8 % 11.6-14.4 H (BEAKER) (test code = 412) PLATELET COUNT (BEAKER) (test 122 K/CU MM 150-450 L code = 756) MEAN PLATELET VOLUME (BEAKER) 10.5 fL 9.4-12.4 (test code = 754) NUCLEATED RED BLOOD CELLS 0 /100 WBC 0-0 (BEAKER) (test code = 413) (CELLAVISION MANUAL DIFF)2020-06-29 09:08:00 Test Item Value Reference Range Interpretation Comments NEUTROPHILS - REL 85 % (CELLAVISION)(BEAKER) (test code = 2816) LYMPHOCYTES - REL 5 % (CELLAVISION)(BEAKER) (test code = 2817) MONOCYTES - REL 6 % (CELLAVISION)(BEAKER) (test code = 2818) BANDS - REL (CELLAVISION)(BEAKER) 4 % 0-10 (test code = 2826) NEUTROPHILS - ABS 1.36 K/ul 1.78-5.38 L (CELLAVISION)(BEAKER) (test code = 2830) LYMPHOCYTES - ABS 0.08 K/ul 1.32-3.57 L (CELLAVISION)(BEAKER) (test code = 2831) MONOCYTES - ABS 0.10 K/uL 0.30-0.82 L (CELLAVISION)(BEAKER) (test code = 2832) BANDS - ABS (CELLAVISION)(BEAKER) 0.06 K/uL 0.00-0.80 (test code = 2840) TOTAL COUNTED (BEAKER) (test code = 100 1351) SMUDGE CELLS (BEAKER) (test code = Present 1371) GIANT PLATELETS (BEAKER) (test code Present = 313) POLYCHROMATOPHILLIC RBCS(BEAKER) 1+ few (test code = 478) ANISOCYTOSIS (BEAKER) (test code = 1+ few 961) MICROCYTES (BEAKER) (test code = 1+ few 965) SCHISTOCYTES (BEAKER) (test code = 1+ few 765) OVALOCYTES (BEAKER) (test code = 1+ few 477) PLATELET CONCENTRATION Decreased (CELLAVISION)(BEAKER) (test code = 3438) [facility] ID - Rosen KalebKelley comments: Slide comments:BASIC METABOLIC PANEL 2020-06-29 04:45:00 Test Item Value Reference Range Interpretation Comments SODIUM (BEAKER) 138 meq/L 136-145 (test code = 381) POTASSIUM (BEAKER) 4.3 meq/L 3.5-5.1 (test code = 379) CHLORIDE (BEAKER) 106 meq/L 98-107 (test code = 382) CO2 (BEAKER) (test 23 meq/L 22-29 code = 355) BLOOD UREA NITROGEN 16 mg/dL 7-21 (BEAKER) (test code = 354) CREATININE (BEAKER) 0.73 mg/dL 0.57-1.25 (test code = 358) GLUCOSE RANDOM 129 mg/dL 70-105 H (BEAKER) (test code = 652) CALCIUM (BEAKER) 8.7 mg/dL 8.4-10.2 (test code = 697) EGFR (BEAKER) (test 105 mL/min/1.73 ESTIM ATED GFR IS code = 1092) sq m NOT ACCURATE CREATININE CLEARANCE IN PREDICTING GLOMERULAR FILTRATION RATE . ESTIMATED GFR I S NOT APPLICABLE FOR DIALYSIS PATIEN TS. [facility] ID - EDASIPROTHROMBIN TIME/[id number] 04:29:00 Test Item Value Reference Range Interpretation Comments PROTIME (BEAKER) 15.6 seconds 11.9-14.2 H (test code = 759) INR (BEAKER) (test 1.29 See_Comment [Automat ed message] code = 370) The system [employer] generated this result transmitted ref erence range: [...] patients wiht mechanical heart valves.SARS-CoV2/RT-PCR (Asymptomatic ONLY) 2020-06-29 03:31:00 Test Item Value Reference Range Interpretation Comments SARS-COV2/RT-PCR Negative Not Detected, (test code = Negative, See 72484-0) external report for linked test SARS-COV-2 [facility] PERFORMING LAB (test code = 87061-4) SENG (test code = Negative result for [...] of the Act. Fact Sheet for Healthcare Providers:https://www.[employer]/sites/default/f mary ellen/product/documents/F act_Sheet_HC_Providers_L qed_WSWR-XrS-4.pdf Fact Sheet for Healthcare Patients:https://www.[employer]/sites/default/fi les/product/documents/Fa ct_Sheet_Patients_Lyra_S ARS-CoV-2.pdf Performing Laboratory:[facility] [place] [address] [facility])2020-06-29 03:31:00 Test Item Value Reference Range Interpretation Comments SARS-COV2/RT-PCR (test Negative Not Detected, Negative, code = 9293230) See external report for linked test SARS-COV-2 PERFORMING LAB [facility] (test code = 6429863) Negative result for this test determines that [...] 564(g) of the Act.Fact Sheet for Healthcare Providers:https://www.Never[employer]idel.com/sites/default/files/product/documents/Fact_Shee t_PT_Aqgevythu_Ewhf_UANZ-WcU-3.pdfFact Sheet for Healthcare Patients:https://www.[employer].com/sites/default/files/product/ documents/Cmib_Cvjzv_Prcziyrb_Exbn_CAZX-GeQ-7.pdfPerforming Laboratory:[facility], [place] [address]XLV, CHEST, 1 VIEW, NON [id number] 02:29:00Reason for exam:->hemoptysisShould this be performed at the bedside?->Yes [facility] : 1945 Sex: MFINAL REPORT INDICATION: hemoptysis COMPARISON: 11/26/2019 CT TECHNIQUE: Single frontal view of the chest. FINDINGS: Patient is rotated to the left somewhat limiting evaluation.Lungs and pleura: No consolidation. No effusion. Round opacity in the left perihilar region approximately 3.5 cm diameter corresponds to mass seen on prior CT chest. Calcified granuloma present atthe right lung base.Heart and mediastinum: Normal heart size. Unremarkable mediastinal contours.Osseous structures: No acute abnormality.Other: A right transjugular central venous catheter tip overliesthe SVC.. Signed: Rosario Shah MDReport Verified Date/Time: 06/29/2020 02:29:00 XR chest 1 view portable / bedside 2020-06-29 02:29:00Interface, External Ris In - 06/29/2020 2:31 AM CDTFINAL REPORT INDICATION: hemoptysis COMPARISON: 11/26/2019 CT TECHNIQUE: Single frontal view of the chest. FINDINGS: Patient is rotated to the left somewhat limiting evaluation.Lungs and pleura: No consolidation. No effusion. Round opacity in the left perihilar region approximately 3.5 cm diameter corresponds to mass seen on prior CT chest. Calcified granuloma present at the right lung base.Heart and mediastinum: Normal heart size. Unremarkable mediastinal contours.Osseous structures: No acute abnormality.Other: A right transjugular central venous catheter tip overlies the SVC.. Signed: Rosario Shah MDReport Verified Date/Time: 06/29/2020 02:29:00 [facility] Thromboelastograph (TEG)2020-06-28 23:24:00 Test Item Value Reference Range Interpretation Comments TEG Activated Clotting 7.5 See_Comment H [Aut omated message] Time (test code = The system which 33972-0) generated this result transmitted ref erence range: 4.0 - 7. 0 minutes. The reference range was not used to int erpret this result as normal/abnormal . TEG Fibrinogen Activity 69.7 See_Comment [Au tomated message] (test code = 59763-6) The sy stem which generated this result transmitted ref erence range: 61.0 - 7 3.0 degrees. The reference range was not used to int erpret this result as normal/abnormal . TEG Platelet Aggregation 67.0 See_Comment H [A utomated message] (test code = 34805-3) The sy stem which generated this result transmitted ref erence range: 55.0 - 6 5.0 MM. The referen ce range was not u sed to interpret this result as normal/abnor mal. TEG Fibrinolysis (test 0.7 % 0-5 code = 46055-2) TEG-H Activated Clotting 8.5 See_Comment H [A utomated message] Time (test code = 1411) The system which generated this result transmitted ref erence range: 4.0 - 7. 0 minutes. The reference range was not used to int erpret this result as normal/abnormal . TEG-H Fibrinogen 70.2 See_Comment [Automated message] Activity (test code = The sy stem which 1412) generated this result transmitted ref erence range: 61.0 - 7 3.0 degrees. The reference range was not used to int erpret this result as normal/abnormal . TEG-H Platelet 67.1 See_Comment H [Automated m essage] Aggregation (test code = The system which 1413) generated this result transmitted ref erence range: 55.0 - 6 5.0 MM. The referen ce range was not u sed to interpret this result as normal/abnor mal. TEG-H Fibrinolysis (test 0.6 % 0-5 code = 1414) Lab Interpretation (test Abnormal code = 89810-0) [facility]ROM[facility]2020-06-28 23:24:00 Test Item Value Reference Range Interpretation Comments TEG ACTIVATED CLOTTING TIME 7.5 minutes 4.0-7.0 H (BEAKER) (test code = 1407) TEG FIBRINOGEN ACTIVITY (BEAKER) 69.7 degrees 61.0-73.0 (test code = 1408) TEG PLT. AGGREGATION (BEAKER) 67.0 MM 55.0-65.0 H (test code = 1409) TEG FIBRINOLYSIS (BEAKER) (test 0.7 % 0.0-5.0 code = 1410) [facility] ACTIVATED CLOTTING TIME 8.5 minutes 4.0-7.0 H (BEAKER) (test code = 1411) [facility] FIBRINOGEN ACTIVITY (BEAKER) 70.2 degrees 61.0-73.0 (test code = 1412) TGH PLT. AGGREGATION (BEAKER) 67.1 MM 55.0-65.0 H (test code = 1413) [facility]GH FIBRINOLYSIS (BEAKER) (test 0.6 % 0.0-5.0 code = 1414) Type and screen, [id number] 22:45:00 Test Item Value Reference Range Interpretation Comments ABO/RH AUTOMATED (BEAKER) (test A NEGATIVE code = 2260) Ab Scrn (test code = 890-4) NEGATIVE [facility]iumCom[facility] metabolic [id number] 22:17:00 Test Item Value Reference Range Interpretation Comments Protein, Total (test 6.2 See_Comment [Autom ated code = 2885-2) message] The system which generated this result transmit angie reference range : 6.0 - 8.3 gm/dL . The reference range was not u sed to interpret th is result as normal/abnormal . Albumin (test code = 3.7 g/dL 3.5-5 99423-4) Alkaline Phosphatase 72 U/L 40-150 (test code = 6768-6) Total Bilirubin (test 0.4 mg/dL 0.2-1.2 code = 1975-2) Sodium (test code = 137 meq/L 111-775 7622-2) Potassium (test code 3.9 meq/L 3.5-5.1 = 2823-3) Chloride (test code = 105 meq/L 98-107 5-0) CO2 (test code = 21 meq/L 22-29 L 8-9) BUN (test code = 18 mg/dL 7-21 3094-0) Creatinine (test code 0.76 mg/dL 0.57-1.25 = 2160-0) Glucose (test code = 151 mg/dL 70-105 H 2345-7) Calcium (test code = 9.1 mg/dL 8.4-10.2 06519-4) AST (test code = 15 U/L 5-34 1920-8) ALT (test code = 17 U/L 6-55 1742-6) EGFR (test code = 100 mL/min/1.[place] [address]-2) NOT ACCURATE CREATININE CLEARANCE IN PREDICTING GLOMERULAR FILTRATION RATE . ESTIMATED GFR I S NOT APPLICABLE FOR DIALYSIS PATIEN TS. SENG (test code = SENG) [facility] ID - DB Lab Interpretation Abnormal (test code = 09638-3) [facility]iumCOMPREHENSIVE METABOLIC [id number] 22:17:00 Test Item Value Reference Range Interpretation Comments TOTAL PROTEIN 6.2 gm/dL 6.0-8.3 (BEAKER) (test code = 770) ALBUMIN (BEAKER) 3.7 g/dL 3.5-5.0 (test code = 1145) ALKALINE PHOSPHATASE 72 U/L 40-150 (BEAKER) (test code = 346) BILIRUBIN TOTAL 0.4 mg/dL 0.2-1.2 (BEAKER) (test code = 377) SODIUM (BEAKER) (test 137 meq/L 136-145 code = 381) POTASSIUM (BEAKER) 3.9 meq/L 3.5-5.1 (test code = 379) CHLORIDE (BEAKER) 105 meq/L 98-107 (test code = 382) CO2 (BEAKER) (test 21 meq/L 22-29 L code = 355) BLOOD UREA NITROGEN 18 mg/dL 7-21 (BEAKER) (test code = 354) CREATININE (BEAKER) 0.76 mg/dL 0.57-1.25 (test code = 358) GLUCOSE RANDOM 151 mg/dL 70-105 H (BEAKER) (test code = 652) CALCIUM (BEAKER) 9.1 mg/dL 8.4-10.2 (test code = 697) AST (SGOT) (BEAKER) 15 U/L 5-34 (test code = 353) ALT (SGPT) (BEAKER) 17 U/L 6-55 (test code = 347) EGFR (BEAKER) (test 100 ESTIMATE D GFR IS code = 1092) mL/min/1.73 sq NOT ACCURA TE m CREATININE CLEARANCE IN PREDICTING GLOMERULAR FILTRATION RATE . ESTIMATED GFR I S NOT APPLICABLE FOR DIALYSIS PATIEN TS. [facility] ID - [id number] 22:12:00 Test Item Value Reference Range Interpretation Comments PTT (test code = 33249-2) 34.1 See_Comment [ Automated message] The system [employer] generated this result transmitted ref erence range: 22.5 - 3 6.0 seconds. The re ference range was not u sed to interpret this result as normal/abnor mal. Lab Interpretation (test Normal code = 95783-5) [facility]iumAPTT2021-[facility] 22:12:00 Test Item Value Reference Range Interpretation Comments PARTIAL THROMBOPLASTIN TIME 34.1 seconds 22.5-36.0 (BEAKER) (test code = 760) Lactic acid, [id number] 22:11:00 Test Item Value Reference Range Interpretation Comments Lactate, Venous (test code = 0.79 mmol/L 0.5-2.2 2872) SENG (test code = SENG) [facility] ID - DB Lab Interpretation (test Normal code = 62631-0) [facility]iumCB W/PLT COUNT & AUTO [id number] 22:11:00 Test Item Value Reference Range Interpretation Comments WHITE BLOOD CELL COUNT (BEAKER) 2.1 K/ L 3.5-10.5 L (test code = 775) RED BLOOD CELL COUNT (BEAKER) 2.72 M/ L 4.63-6.08 L (test code = 761) HEMOGLOBIN (BEAKER) (test code = 8.7 GM/DL 13.7-17.5 L 410) HEMATOCRIT (BEAKER) (test code = 25.7 % 40.1-51.0 L 411) MEAN CORPUSCULAR VOLUME (BEAKER) 94.5 fL 79.0-92.2 H (test code = 753) MEAN CORPUSCULAR HEMOGLOBIN 32.0 pg 25.7-32.2 (BEAKER) (test code = 751) MEAN CORPUSCULAR HEMOGLOBIN CONC 33.9 GM/DL 32.3-36.5 (BEAKER) (test code = 752) RED CELL DISTRIBUTION WIDTH 18.0 % 11.6-14.4 H (BEAKER) (test code = 412) PLATELET COUNT (BEAKER) (test 114 K/CU MM 150-450 L code = 756) MEAN PLATELET VOLUME (BEAKER) 10.1 fL 9.4-12.4 (test code = 754) NUCLEATED RED BLOOD CELLS 0 /100 WBC 0-0 (BEAKER) (test code = 413) NEUTROPHILS RELATIVE PERCENT 93 % (BEAKER) (test code = 429) LYMPHOCYTES RELATIVE PERCENT 4 % (BEAKER) (test code = 430) MONOCYTES RELATIVE PERCENT 3 % (BEAKER) (test code = 431) EOSINOPHILS RELATIVE PERCENT 0 % (BEAKER) (test code = 432) BASOPHILS RELATIVE PERCENT 0 % (BEAKER) (test code = 437) NEUTROPHILS ABSOLUTE COUNT 1.92 K/ L 1.78-5.38 (BEAKER) (test code = 670) LYMPHOCYTES ABSOLUTE COUNT 0.09 K/ L 1.32-3.57 L (BEAKER) (test code = 414) MONOCYTES ABSOLUTE COUNT (BEAKER) 0.06 K/ L 0.30-0.82 L (test code = 415) EOSINOPHILS ABSOLUTE COUNT 0.00 K/ L 0.04-0.54 L (BEAKER) (test code = 416) BASOPHILS ABSOLUTE COUNT (BEAKER) 0.00 K/ L 0.01-0.08 L (test code = 417) IMMATURE GRANULOCYTES-RELATIVE 0 % 0-1 PERCENT (BEAKER) (test code = 2801) PROTHROMBIN TIME/[id number] 22:11:00 Test Item Value Reference Range Interpretation Comments PROTIME (BEAKER) 16.0 seconds 11.9-14.2 H (test code = 759) INR (BEAKER) (test 1.32 See_Comment [Automat ed message] code = 370) The system [employer] generated this result transmitted ref erence range: <=5.90. The reference range was not used to int erpret this result as normal/abnormal . Effective 08/18/2018: PT Reference Range ChangeNew: 11.9-14.2 Previous: 11.7- 14.7RECOMMENDED COUMADIN/WARFARIN INR THERAPY RANGESSTANDARD DOSE: 2.0-3.0 Includes: PROPHYLAXIS for venous thrombosis, systemic embolization; TREATMENT for venous thrombosis and/or pulmonary embolus.HIGH RISK: Target INR is2.5-3.5 for patients wiht mechanical heart valves.LACTIC ACID, [id number] 22:11:00 Test Item Value Reference Range Interpretation Comments LACTATE BLOOD VENOUS (2) (BEAKER) 0.79 mmol/L 0.50-2.20 (test code = 2872) [facility] ID - DBCBC W/PLT COUNT & AUTO [id number] 09:00:00 Test Item Value Reference Range Interpretation [...] CONCENTRATION Decreased (CELLAVISION)(BEAKER) (test code = 3438) [facility] ID - Danica Rosalino comments: Slide comments:Hepatic function [id number] 05:56:00 Test Item Value Reference Range Interpretation Comments Protein, Total (test 6.7 See_Comment [Autom ated code = 2885-2) message] The system which generated this result transmit angie reference range : 6.0 - 8.3 gm/dL . The reference range was not u sed to interpret th is result as normal/abnormal . Albumin (test code = 3.7 g/dL 3.5-5 68962-6) Total Bilirubin (test 0.5 mg/dL 0.2-1.2 code = 1975-2) Bilirubin, Direct 0.2 mg/dL 0.1-0.5 (test code = 1968-7) Alkaline Phosphatase 56 U/L 40-150 (test code = 6768-6) AST (test code = 15 U/L 5-34 1920-8) ALT (test code = 16 U/L 6-55 1742-6) SENG (test code = SENG) [facility] ID - EDASI Lab Interpretation Normal (test code = 30262-3) [facility] Test Item Value Reference Range Interpretation Comments Magnesium (test code = 1.8 mg/dL 1.6-2.6 04634-8) SENG (test code = SENG) [facility] ID - EDASI Lab Interpretation (test Normal code = 16469-8) [facility]00 Test Item Value Reference Range Interpretation Comments Phosphorus (test code = 3.7 mg/dL 2.3-4.7 2777-1) SENG (test code = SENG) [facility] ID - EDASI Lab Interpretation (test Normal code = 34957-0) [facility]00 Test Item Value Reference Range Interpretation Comments PHOSPHORUS (BEAKER) (test code = 3.7 mg/dL 2.3-4.7 604) [facility] ID - EDASIHEPATIC FUNCTION [id number] 05:56:00 Test Item Value Reference Range Interpretation [...] (test code = 16 U/L 6-55 347) [facility] ID - EDASIBASIC METABOLIC [id number] 05:56:00 Test Item Value Reference Range Interpretation [...] S NOT APPLICABLE FOR DIALYSIS PATIEN TS. [facility] ID - [id number] 05:56:00 Test Item Value Reference Range Interpretation Comments MAGNESIUM (BEAKER) (test code = 1.8 mg/dL 1.6-2.6 627) [facility] ID - EDASIPROTHROMBIN TIME/[id number] 05:12:00 Test Item Value Reference Range Interpretation Comments PROTIME (HEDY) 16.8 seconds 11.9-14.2 H (test code = 759) INR (JINNYAKER) (test 1.41 See_Comment [Automat ed message] code = 370) The system [employer] generated this result transmitted ref erence range: <=5.90. The reference range was not used to int erpret this result as normal/abnormal . Effective 08/18/2018: PT Reference Range ChangeNew: 11.9-14.2 Previous: 11.7- 14.7RECOMMENDED COUMADIN/WARFARIN INR THERAPY RANGESSTANDARD DOSE: 2.0-3.0 Includes: PROPHYLAXIS for venous thrombosis, systemic embolization; TREATMENT for venous thrombosis and/or pulmonary embolus.HIGH RISK: Target INR is2.5-3.5 for patients wiht mechanical heart valves.SARS-COV2/RT-PCR ([facility]) 2020-05-11 03:41:00 Test Item Value Reference Range Interpretation Comments SARS-COV2/RT-PCR (test Negative Not Detected, Negative, code = 4766928) See external report for linked test SARS-COV-[address] [facility] (test code = 8126766) Negative result for this test determines that [...] 564(g) of the Act.Fact Sheet for Healthcare Providers:https://www.eGood/sites/default/files/product/documents/Fact_Shee d_GC_Uxkfimbns_Unae_NCCI-CdE-7.pdfFact Sheet for Healthcare Patients:https://www.eGood/sites/default/files/product/ documents/Gknd_Imkbf_Rcnslqxf_Iovc_ZLPU-LtD-0.pdfPerforming Laboratory:[facility] [place] [address] [place], [place] [address]XSYTVJT FUNCTION [id number] 00:10:00 Test Item Value Reference Range Interpretation [...] (test code = 18 U/L 6-55 347) [facility] - PIAYA LBASIC METABOLIC [id number] 23:26:00 Test Item Value Reference Range Interpretation [...] S NOT APPLICABLE FOR DIALYSIS PATIEN TS. [facility] - PIAYA LPROTHROMBIN TIME/[id number] 23:23:00 Test Item Value Reference Range Interpretation Comments PROTIME (BEAKER) 16.4 seconds 11.9-14.2 H (test code = 759) INR (BEAKER) (test 1.36 See_Comment [Automat ed message] code = 370) The system [employer] generated this result transmitted ref erence range: [...] mechanical heart valves.CBC W/PLT COUNT & AUTO [id number] 23:15:00 Test Item Value Reference Range Interpretation [...] PERCENT (BEAKER) (test code = 2801) Tissue [id number] 11:13:00 Test Item Value Reference Range Interpretation Comments Case Report (test code Surgical Pathology = 104) Report Case: [id number] Authorizing Provider: Hermelindo Wynn MD Collected: 03/27/2020 09:23 AM Ordering Location: [facility] Received: 03/27/2020 10:04 AM SERVICES Pathologist: Asa Huber MD Specimens: A) - Bladder Biopsy, Anterior left lateral wall B) - Bladder Biopsy, Anterior bladder neck DIAGNOSIS (test code = m7otnLUrJFFez2ybELRkkPU 3220) uZzEwMzNcZnRuYmpcdWMxIH tccnRmMVxlcGljOTIwMFxhb oDwGKKwkQEnI0DzkzhgKQmn CT8uAS2ijNyusCEpzTNjFIZ zTxQvk8jit256fNXso3azFT ZFjjnnvEm9kChhD03fx4W9W hdlI97kgPMbPQwvjJXiweyq wxCfVJNaRHPQJP1JImizIpb EVVIDGpfoIX6GXHYPY0DkXJ VGVCBMQVRFUkFMIFdBTEwsI DICC6DKLCBHIbPgYyBHILNJ YE9HVEAFHB1GDUBBAFlYHYr oUiPIUTXHTS4BXW6IOVUWYO BLTAQ6WRhpDAEoFAWlKP2qV CMCAepFSTWtMyREKCRXPI6L QLFFOAJrS1aFAieAA0sdOLS rCXAxVK4aRkHQO6MZNtRsIX CQHTrNWQeRPLNVPFNWO6JVG AGKXMfJVKbPUSXMK6LxDUjF BTgFE4wVL75ONPwREbSZG6n brRTgBNKqSPQoNK1ZP7CBEG FSSVMgUFJPUFJJQSBJUyBQU rXANJ5XRKSsudpvYGUkNx4i VVJJTkFSWSBCTEFEREVSLCB BTlRFUklPUiBORUNLIFdBTE qaBGFDD1QXUZPNYsQlGhFLZ YWUUD0ZFZTPJH7GKONZMAmV RWcnDwXAKIQNCJ4GLL3QFLW EDMDHUEZ0MCwwFHBbUQSpER 0gUFJFVklPVVMgUkVTRUNUS D0KTDHTLSSrQ7rPZowMZ2tf GROuYKTtKZ3iMxSMZ8OASbH gVVJPVEhFTElBTCBDSEFOR0 TWUUONBHmWRJiZQBAQE8TeY WpREWyGK2jSX18LTLjULhNB W5euzJAdVQGoOKElAK5MY0F VTEFSSVMgUFJPUFJJQSBJUy YPYvOYCI2ZFKVmqulgJDC8b 1xydGYxXHNzdGUxODAwMFxh bnNpXGRlZmxhbmcxMDMzXGZ 0bmJqXHVjMVxkZWZmMHtcZm 9klZAsqIoyTxSoUGIht5bsc gLAxwbacEc2p9zzQKLqGpI1 iCZxEMluE6yhdwRblGAoIKJ pNBn3aH47YYWzkC0ucSGmFI bafdYjQsH8SOtzNQFqBkP5Z VPqqEPhLKFzW1zqTWSwJGsy UZNeJPxmzHJnHQS7uNawd8Q 5bGVzaGVldHtcZjBcZnMyMi BJp7IoZLg4yXfuB1XaBOUbZ aZ5rQSqNQGcMSieYAGfNQJs tkF9lM96XHrbgyD9aCIok3Q ms76rz670nR4rwKSvDTM7HW FmRICpjWArTMEmZJB6WMLgz KAmG5whSPSyVF7jldtvDWlx OTcyQHQmtUF6LJLjhKQmN8J iNMVdVGkiVPFynyu1ElMaOw 5hgOGrvHfcSFryy1cun0cvj LWkWsp1OPNsZuRtUhbhYVor p8Fhh4vzUGUgls8gSBS7wEC bfVvyk7S8wMChYRBemVQzEI RpOY9tsQHsYZCwuP3ylqagG HBnYnJkcmhlYWRccGdicmRy Bt3utYwkLDA0DOujM1bpgS5 hLsG3PDlbO1eepP4iWLm5VI fuRFHykYO6jwO8KTMyfPVzS 5GysS5cNOFpSN2voeu9u0uq ISY0YKyvHDGhYkV1jyX9ZTS ddSHfPOKyxXcjCWiuj863VK Z3EsRcWOJmd1QqH0FzhAkbI 25wyBpyX63eSCRzyXbkeP8h aWeboE0dJhJnXsCqVFtquNv qLB7iYINlP0ieaQEcWIXgRP DuH2raLgEhrN1rhFdgNHcma pEsZIIaZva3QQCltHNfZXMu Kan0PKIpSUViN52mlbhdMVN 6xT3jn1bvz8XtZNaaHSG7NC Gmr38mLYenkoJ4QSzoKc5qG RNpHtz3VyxzNJO0cU== CPT Code(s) (test code x2njsYDuTLUysRE8FdAfRFX = 3357) pk6clh2VupXYwpLOvDMrqcF NdeiHysq79zBC8jF77ZU3iG VGhFuX7QDVorgR2Sdb6UREw JVEjfRQeB713w6hip0dhimZ ijAL6fVcyHWKnFIKaIJxvEG ZzMjAgODgzMDUgeDIgXHBhc n0= CLINICAL HISTORY (test o6cniTFfPSPtoVO2OfWpEAH code = 3356) mz9axy6MnsSGfiBOgUFvyhD SvnnSfht26iPB0gS44HM9fH MMiMmF3YILhnoZ1Zom1ALLi RMHiwKKhF085v2mdm1vwcdI qfMJ7qRgbCYWoROSfXJntRW SfWkXuMKFkcIfgPM84DR6kl 0DhJALiSP8gSL92OVVkOVMq pO8bKCTdrNOqZS4fBPXiAAP kZXJccGFyfQ== SPECIMEN SOURCE (test e5zdjKMaAGQqgPQ0NeOkXWF code = 3377) oq2uxo9IjeJTtvHDpFOcvyH PvnrGxez78ePG2hM26HB3hG SGdGaK4QYZivfC6Kkh8KWEw NONdcNVeC947v6auq9cpfbP zpZF3sXciODUcKTXqOLwkZR ZxEcVvXM4eUZWeOSPqOBClK JNodZEwnC9kGHqeXlBbm5Nv fEgouF8kDANeIPZDoTFmWTA yLCBhbnRlcmlvciBuZWNrXH Bhcn0= GROSS DESCRIPTION b9xzsFVtJJOasVHpHlFcHUP (test code = 3366) wZJBbd2otWPYcoZQsUuFiCt NcZnRuYmpcdWMxXGRlZmYwe 5gok085zWQde6inHCGrToV3 kJVzSBIcrFFbX026i0ffa3h lsbNorOJ0MVKuQWX4CXksxy OvhoS0FTeedNPuNoI7NHmsi eGsAOwutiOztmLeGuz2QUIi R567KSL4tKxec8njPBP7VJM eHKMeMtZpZh0gmDSwB311YT FjIJIYHWOclCx8SOUiyxPwd tPnvFEUa601Y128i3uvDMJq cyCltHtJqauuy9ksT415HJB hcGVydzEyMjQwXHBhcGVyaD O5VJRmJN1shgejUiFaTJ2la xsjVrFvHG4cqpv3QlAlIQ8k cmdiNzIwXGhlYWRlcnkwXGZ wv7YhymnbGK2hB4Qim3G4iB 9maXRcZGVmdGFiNzIwXGZvc p0sxMGjEWrei6OyRBA5faW5 dMUezUNbHPXoUS73Rfkru6A eBrnpDUF1UGAjxvHmh3Xzo9 fpIvMjyePuA3wmX3VeFJCkP UCxDUViChKxndGts1Fjk6Iz kPLhnSf7k0srLECvZWWzwJp mw7lzBST4SJSnY7Y4xTWkp4 dxDQhjQNKmmWK2yrirSUmmG XExxoA7sjbqIVzlVRZtjOR8 hanxNLevXGNoSvX9dylbMYb lUEGhDPZ2WDbxi584TDQ3RD xzYmtwYWdlXHBnbmNvbnRcc GduZGVjXHBsYWluXHBsYWlu XGYwXGZzMjRccWxccGxhaW5 lZgBrXsYvFJstTW8pDQMzU0 lauQPhRECeKSXqD6qzKdHgq U2gyIltSCcqmxSnIXHpSKQe P8XsfqXzVKgcUNCmef3frEf nAJkzBAGaK11zxUDclnRfFT gtJcRmSGIwk9a3qQK7vLMre QP9tNRnoTowYpBfEN0kdULd MT9kQQrfUFzkyxFdc0FjHZ4 1bWJlciBhbmQgImJsYWRkZX PjMlxnoUO0KkHvmgDebiCiZ 3qkwLbciHBju2ZvhXKowOzx xVSvVVEtbf7lrB6bZSBpmhD dE3BhXAQukm1xqEgoblV2cG XgtCRyEDfoIEeqJEH9VDDcZ rLceYoks7zrF1wbRPPoUNJ0 Cv1xgQDdPXQgzrF1k3VqOQs uIEExLlxwYXJccGFyIEIuIF MfS4XyjuGwTMhbCQTpgg3gq EerNAgcAFCbG82ztVYwdnLl SJzeGpUzZKYsj7w2uNJ1uTX gjDM1fBHcaHqvVeZnZQ8uuU YrUZ6pERkoOJorncYap4JzU U99tEVxvrDcxsEyWtDhSXZb AKKiFjyrjWE3TiNykuAiBEM 1BC4hjJrzangswYCrCFf8cQ CnRO0fKWEaBFYmaNzcv7Nqy iMcUIP4TPKgESM2FUQaUjMu dHxqq2mtT8nmLMXtFXX1Oe2 usMQfJISvjvZ6d4PcQCqlJE IxLlxwYXJccGFyIENoZWxzZ ITeY0IqcA5lTM7TYsmwKIEn UPITS6HlW88clBFumU== MICROSCOPIC o6ekkTHgLCNfhTL6FrHwJIX DESCRIPTION (test code zj3vxq1SywCBcpMAxOMwgpM = 3371) QodqQbfs96kGA8uF74UE9gG TMqUtF9FOStscB6Hxy0BXQd NJNwsRJdM833o4cqy3tcfvO sgVZ7iJdiZFWkZWLbNIvlIG ChQkVhEP0MTcEIDYRxg9VjN WQuIFxwYXJ9 Gross assessment was [facility] performed at ([facility], code = 2777) Department of Pathology, [address] [place] [address], Technical component [facility] was performed at ([facility], code = 2778) Department of Pathology, [address] [place] [address], Professional component [facility] was performed at ([facility], code = 2779) Department of Pathology, [address] [place] [address], [facility] [id number] 11:13:00Surgical Pathology Report Case: [id number] Authorizing Provider: Hermelindo Wynn MD Collected: 03/27/2020 09:23 AM Ordering Location: [facility] Received: 03/27/2020 10:04 AM SERVICES [...] IS PRESENT Signing Pathologist Direct Phone Line: [phone] signed by Asa Huber MD on 03/28/2020 at 11:12 [id number] x2 Malignant neoplasm of overlapping sites of [...] submitted in toto in B1.ZUHAIR Sanders, PA ([facility])construction consultant-B: Performed. [facility], Department of Pathology, [address] [place] [address], [facility], Department of Pathology, [address] [place] [address], Tel [phone]. John's [facility], Department of Pathology, [address] [place] [address], YKNITCWIYUA TIME/INR 2020-03-27 08:02:00 Test Item Value Reference [...] INR is2.5-3.5 for patients wiht mechanical heart valves.PET/CT Whole Body External Study 2020-03-15 11:48:53This exam was not acquired at a [facility] facility and has not been interpreted by a [facility] Provider. The exam was imported into our imaging system.[facility] Chest External [id number] 10:39:45This exam was not acquired at a [facility] facility and has not been interpreted by a [facility] Provider. The exam was imported into our imaging system.[facility]Fine Needle Aspiration by [id number] 08:55:00 Test Item Value Reference Range Interpretation Comments Case Report (test code Medical Cytology Report = 104) Case: [id number] Authorizing Provider: Triny Naqvi MD Collected: 11/29/2019 12:28 PM Ordering Location: [facility] Received: 11/29/2019 02:03 PM SERVICES Pathologist: Asa Huber MD Specimen: Lymph Node, Subcarinal, Station 7 DIAGNOSIS (test code = k4evnTItBBMhiWYsEgCvYHI 3220) oGALia0vkZGZoiMKqXoAeSo NcZnRuYmpcdWMxXGRlZmYwe 7zax647oQAzq8xhLDMdGdN9 mFUdGJPhbIYnQ111VEFmKQb tg8kqi0TuOKFnmRRxh2L6AT GExoctkWz3hItoK12iz9D4K qiiR6beCIKqLKOdH5OkAO5q FWHhYav1GJB5REH9CTQhSBP bL8MaUY4sVCPkcNRaIVb3z5 inxBkrNTQqIUP6y0tzXCwio bM1GG4gon2bxIs2h4szxnMj ZAQsVEBmiWOSFLSoN8MliRp qSw9zhEt9dGkmKeknTIC4Aj r8IT3osy60rvc3rIxaPQFfb xueQgT2SJpfEWZkxqkwHQu0 MFxtYXJnbDcyMFxtYXJncjc yMFxtYXJndDcyMFxtYXJnYj iqOYvsVDLfWXU4BCbqg461A BU7AIvhm5gnh2mfxIWcXpl7 YKFbQlSxHedrFFsqe1Nmw7w cFXPbCkJ6DZrsRF6bij90PV TqOBK7la7dwAXncDabhkPhh VJrCVimA4NlYOZhb942OQLw W0DhMCNhr4P4gvQzYaZuSYB jjLB4hqG5KAEkIKw1zXLekh T7vaUneAJcS8ponU25DxMqd SLvU1JmoL01XhEwjJVjL2Ev qS91IcOoqNRqS8HjoP73MvQ oeFVePCApwDPmKh3djAZkmA Zfo8UtjEUdFDsgA78ut055V CMuucKoV8zvyFMbvalfjAQq jijbOIhfucI1UMSrDEYbKXt uXGYxXGZzMjBcbGFuZzEwMz NcaGljaFxmMVxkYmNoXGYxX YprY1ncFzMyIzFmIGHTRQ9H LCMRD2ZTISBCTUAIGNPDHjJ BLZSMMILWJZ6XXLwtWCMBMK RIJXZNXEdBUKWZBD5sYINUM N9SXAeFFcIRRdBuB1TCRTAO MZ4SAzUDXtOJA5QUQmXIDOt 3KRUhqaWoDWVqILAWB8aHPN XQVEHVJrCHIWxXQ44YKgQXJ NzoUKGeKFJqOYNMM84MJTYK QkxFIFdJVEggTUVUQVNUQVR HKjUWK99OFKodFVrYBxUILO 4SSKPLGOVdM2DCZU1GQAHgC 4XNH4sBQ55FLQUWEU0GIVEQ MC0MPzkdgMTgZXExDDziEFD xXGZzMjJcbGFuZzEwMzNcaG ljaFxmMVxkYmNoXGYxXGxvY 7uvChMbHyEeDkb4FKUucFIp BWKlWwz9KBJkwTFuDYPLtKk vdQ7iLEWohQzlnR4yoPY4SM AajxLpbKVNyO9nAFEDbJ5uH gC4PdKwYtO1OUJ2DCOihJPb OLYyirInjKogaZ4uKyGvKzT oBPedfZRbvlhyMUbpqkK7KA Bhcn0= COMMENT (test code = r9rndTVzPHZbvXGdPnHcYPI 3359) uUDUoi6veKDXiyVVkUpGnVw NcZnRuYmpcdWMxXGRlZmYwe 9tak201oGWxj9bjSTNgVrY2 wVFeYOCtaJEzF673JJOeZHr ga8iay0ChPPNlhWJyt3P1ZV OAbipssQw8rZoxX67iy0C7E gaqH0xiKPGxWNBnP1AbRH5g ASQgCqc2WTT8WFZ4YBEvIIH bM1ChIY1fFXEhiFAvADf3s0 xukRrkXISdAKO7h7uxQIfhl vCiJM6rva8zpRh1b3gvsyTi DFLaGFAsqSGHMHPbU8UdsRc zWt4akMp5rTcdIspkMKJ4Ed c8YL0wlz18div3wHmeRACga wveAqY4QBpaPEAcnmibZTp6 MFxtYXJnbDcyMFxtYXJncjc yMFxtYXJndDcyMFxtYXJnYj loWCziZIRtJLL2WKqtm992W JL2SFxxk9zni1pkrBJqYpa1 VEDqAhBuZvfeHHrkv4Nay4h lKXVrol5lKDI5wDOfpMgcr8 X6hRRcDHLveRIjcqHiHHWiW pC3GGkxTK5los18LDYjBZU0 ph1vvYJrjGthsgCmeDVaANi rC4DfPAMyc124KMHtR9UePY Ueg7C3vuRkImKvSYCshMD4h xM0XPXwABn1yKSesjF9ezTw yLOmM2jnlV72AjLboCKaS1F trW59MdNuwHUcA7TfyK04Nk KrvIDcE0GzfF08CkBnmKMfU YFraFKgJx1rsURpqNWtl6Nn yCAnWVxvO88tt402CMIvfnN fU4byjBYebhmjzWGiqqdcWO ufdeF6MWTfJLBdRCvnWYOjV GZzMjBcbGFuZzEwMzNcaGlj eVtsDVuhJsNrALUjUBswZ9s cZjFcZnMyMCBObyBzbWFsbC BjZWxsIGNvbXBvbmVudHMgY DTeERObFH9ihT5fcHlfBAZw GURxgkYhd4NuR6mjET8wBZD hclxwYXIgUGxlYXNlIGFsc2 3ni5OpNTD8pyobZ3MfKLInf EgipQ8uvHMmGKEwedVeAbYi MQPnEQL4GeDZeMddVSD9wil dV7ElMCGqk2VavKFiqLHxiE 4eghVpoC95ddG7eXnzIHGda pXlaj0pURUvrXAbRQTfFHUo myJwlJ9foTyvvMOqMv5zMJM fJOIhi2DmpF1ia0d2JD9pJI NhaXGzeKYwt0Viw610uYGjM mXoKNm6uVBbBZEgcZVonHof xYZia9a9eGYePOMpu4NtnXr mAObcL0ouJ3KvFDTvhFJohL ikpJkidEHcCMHxoM6nvWCao 8ZwYWVfb81inBigSJdmVtLf QZ22wVF0RDQxd8G6WB4gnKW kI9NtV6xaz39lAC6vHJNwBT p7irruCEEDuMQsA7ZXEC1zN OH6NUbvZGsyJTLur3y9kHNg AFiiLSJiIOC1qx14mZGnkLB ySOCjcQGbvwWroFKoSjS7tC NqXsblRHLmqxEfMP7jTXEyR HRoaXMgaXMgdHlwaWNhbCBv BbD7cq58fQAwaYDsSMNiduR lsu1lVJuvi8gcrWUeePgtQA qXBGGmJbNpckFaRRguzQd6C PHvajW3tXHhpQRfHlUxuY2c r7eeFYQ5cVcqTDjjQq6lKLA vt4I9LF7gcBVvY0EdI9djt3 7pMC0nPMNiMMAmCc9hFFjiH FAus08ifIvaOKvoMuWmJS84 bMY7ECPia5V2KN4apDDiB7P kQ7che22vYN2gKUUwPKPasZ 0iWTsxPXgdN5ucqGVnFVPhf mVkLiAgXHBhcn0= CPT Code(s) (test code r1buaPQnAMSrwJLiBoTsXHP = 3357) hYSCxa4fkODHulDZoWoZuXw NcZnRuYmpcdWMxXGRlZmYwe 1wdc193pPDrg9efVOKpZdZ4 jWDdVAXgpLBiU978l3hia4q sxlVelLP2AHLfPFT4YYsarb PveiI1UDzliXRgXuA8LYyeb nEiGCqohoHslqCrSrl6JDPh W802PWV8kUahd3iiFUI5EPV uFDLqGnTcBr9lwIScC926YT JqOSNNNVAmsAo3UYGyyeSbq wLmhVKSk865D843t1alPZNq rrAnuHiCbgtpf5loX046AHH hcGVydzEyMjQwXHBhcGVyaD B8HLNuCW6ckzexRvDmLR1eu cmaKoLyKP9cwju0DvHmNW4j cmdiNzIwXGhlYWRlcnkwXGZ mx6QrpkzzPI7xD6Num8H3uB 9maXRcZGVmdGFiNzIwXGZvc f2oiUXhXPviz5NdHPI1cwO0 eFUeoTHyPNGfBR33Xgfpl5W jFqglPOS9UTBmegRoj9Hqi2 ybMkBdcwTdB3ueU0SyVSPiF WDxBDKvEnYppvOju3Mtj4Wj mVNikOh5d6sjNTNkJGKajEm pm0vrGHC0KMAqN0V8qUZcm9 xwABftRHMptJK9zapaOAcgI THcyzH3jvcsDVtdIJVznLQ1 wukyVXqkLLQrNpT8dqhlSIl pTLFnNYT2BTdef727UEY2LF xzYmtwYWdlXHBnbmNvbnRcc GduZGVjXHBsYWluXHBsYWlu XGYwXGZzMjRccWxccGxhaW5 xNyYuEgHmLJpnDZ8rCNUmI2 fdbEGdOMIuPOTfD9jyRpNbb L5zhXpxKWexraDwINh1NDpa OQF3TGRsXTreDKM3 CLINICAL DATA (test a6zykBZwBTMoqRZrIuSgMNK code = 3355) fPJAno9kgLTUpdLJwUuGhUb NcZnRuYmpcdWMxXGRlZmYwe 1jes130wRLdm8qfKLPeGmJ0 xWSiVXLqnYRdR048KKNlETl gw2mnf4VxRPZgtSGwy2P7IR ZWisqfnOn2wTsbL56io1G6B sbjV8wgSPFpGQQaT5YwAI8l UVLyFin1WJS5HRB8VTLnPSI tN8DhFW9iNOQxzFAfRGb5s4 brxRykZAWeXJR7z8brWFwoh eKpUH5obj3wfVv3o0pzevIm HYVfXJYjqMGRAHObF5AxhAp tXj2xxVg4cGwkOfqlXIE2Aw n2AF3xgh20dle4yPvoSYXjl kfzPkV2NPtdQZKwsgajVMc0 MFxtYXJnbDcyMFxtYXJncjc yMFxtYXJndDcyMFxtYXJnYj clBHtqMRSkEXM0NRzsx884S SI1FQmdw0qlb6xkhLMvAwk1 RZDcMnKwLfbvJXlzl7Mkw1x sPHYoii2kISL0mMIusLgyx4 N7jGYbOUCkbRCeirMwAXMrW iX5ENotBX9shi88DSIbPXU9 if3ndBWogOfxxjGdtOMxAZy bB1YsEVLog383DYWdA4DvUI Xnb0K2caQlQsCgRHElgYG4r uB3PLBtJDf6cGJcktD6wrPu eSLxA5iswT17UxZbjUAbW4Y duZ84AnXtgTAfW4RllM37Ya NhjENhS1XpiE05SoHenVZmE MYryDHeVc6lpIImzLTzy1Cd vQSyGAfkS89md753KMGhnwP nF2jvfPHwflaqpXRdimftOP qfscR4ABDgIAGlZIczIOKiZ GZzMjBcbGFuZzEwMzNcaGlj vMzhSFlkXbAxPPCqDRjzE4u jJnXcHbUfXZNYUEZgCEZ5dJ 7myBZdrC5abGOoTE3eyHK0h Mr1ZUggt1Eftkkkl1GsjOio mEZlzySeZTO8em94gBKbhBS kSOLkbgKilz4aMBNfSdCiwC YmLXEuTYbvl804ZS80dF9pB CrjnESajVbyeQzghQdnxO2y cCChpD2fTKAncQmaxAWqaZQ fpgOzw35uiWncK2AtdXZbLW LojN4rgGBiLHoHMpPmZZF4Z SlccGFyfQ== SPECIMEN SOURCE (test w9qvtQEmOMEgcTYuCaRxGSH code = 3377) sMZPmc0taNEDziYEzTnCcGo NcZnRuYmpcdWMxXGRlZmYwe 6nvq792tFGmj6mwPISuZqB1 zGNfGWThzUEeN272f1tpa1p mjsXewRK3TVSxGZH0NQkqgr RiffE7CApvlLRfSwG2AWokl iFjCOuihpZlfqSvYtb5JDKi U588OKW9tTzdz8muBYR0HXF uATKfXcCgTg8ioOWmR171JI NpGNGWSLYpuYu2XRQuwuNds uMhySIMn431M495m7szVTMf kiUciWaCxfnvc2nnZ761FTF hcGVydzEyMjQwXHBhcGVyaD V6NDMlFZ2zzhwjEoNoKR3iz hblZaWiJL5rnev4RcPuPG9t cmdiNzIwXGhlYWRlcnkwXGZ oi8TxppbmNB2fC7Ryd6T2cN 9maXRcZGVmdGFiNzIwXGZvc e5ymODgVMpds6NyKCN3dsT1 pOAekKUuWEKmGT86Dmvgg0R wXtqrHXJ7VGKxziMzg0Yau5 kdGcUbrnGjH8ftA9HjFWPhA ABaYJHlEaAznkAug2Pwc0Zk rTTnpIw1p1uhEWYiNCLghLr rq1fcPBE0PJCmG1R1jAYgy8 dgRDxmDTItwMO7lafsTDomI QRhflS8rybmALffNDJefFP5 tshtFZjtUUSfImR5nrgwWRp uCJKmHFX4YBqdb288JYG1MD xzYmtwYWdlXHBnbmNvbnRcc GduZGVjXHBsYWluXHBsYWlu XGYwXGZzMjRccWxccGxhaW5 oJrImOpFjEPeoPJ3qMBMoZ9 pmxGAkXGGsBFUoN5ioMcKbi Q0udZhpTDbdzmSzQNqOKGRJ MX4CKPOhAKYFSeUYXyaIOFp bANZEPJXYQ16aQwWSFaPpsX FyfQ== GROSS DESCRIPTION n3yxdQEoAMIoqFFwBwZuFLT (test code = 3366) bBGAda5cxVMQufUDiPvNnPy NcZnRuYmpcdWMxXGRlZmYwe 1alt767oKDal1meKKLaTqO2 aEApCCZezJFeQ500MZKaNSv ne4hro3AgQMJudNZbi4H1JJ NIdlidfOn9iSdpB69vz6A2S phoG0ayTXOkDTAzE9FwDO0z YMTyCfd8EOZ7NMR4AGOuUML yZ2IgYT8uNITvkWNlIZd6y0 lqvZetJANxZWX6y4ybFUpnd eKcZJ9vln4ejIc5w1zjkkTa LMYzSQQshEOXZQZlP9WlqYp dZs9alLz1zMveDzwbGPO4Mb r0MW9eke00rha4gQgqLDMoi pipTpG7CDefQPUbmlqkMHo7 MFxtYXJnbDcyMFxtYXJncjc yMFxtYXJndDcyMFxtYXJnYj qrVZlmWKPxINS5BApig200I MT7QFiic8bbk3eodQOmLox3 NSBlUyTgPfooGSyvf0Oky2x vVSUagx0mNPZ4qVBlwMveh6 H4gMEiOEBjhQGxqvYrDRWfJ qG7LWbqDF4ago39UVQzTJU7 ek6czDMspDelouZbaYKcZEb jI5VcJVRfk787CQZpU9PcJI Dnh4T0njZqAaAzTIPxiWM5z qI6KIBhLMy1wLCotpP1vqCz pQBrW6vmbG04BgZybGLzJ9K tjO01ImQpxNRrT2AjeK40Wj MklPHrY9IqdU80OmYglLIrA BPzeQVyEb7jnJLhmVMgj2Uw mMCxLDcrS98qu523QDEppaH mD1uanUDqmqzfxZVgspboKB fnmgI5IUTpMCMaBJcsBRWaE GZzMjJcbGFuZzEwMzNcaGlj aMadSXfqFjAhGGIqVTxvB9p cZjFcZnMyMiBSZWNlaXZlZC AzNiBtbCBjeXRvcmljaCByZ CKyFbl2FTKcrcEvd1YnjZup OyBwcmVwYXJlZCBjZWxsIGJ hf4EqDXPsJDExkrJeDkYnxS Lyv1FjieRlzGZyCYWntUcrW 3RlZDogMDkwODIwXHBhciBS ZWNlaXZlZDogMDkwODIwXHB hcn0= MICROSCOPIC j5tqhSOcYZCkhTTxKiImUSR DESCRIPTION (test code aJFBks6xkDYWzkEYmYvHbHp = 3371) NcZnRuYmpcdWMxXGRlZmYwe 1mqn153sSMoi3joHQSaIkJ2 oSGqSIWskQFpX369k5ugn1d rjaBeoOO8SHAoGJQ8UZbkhn DkryX6YZuueBQiLyT4TOfeh gVbEUhshnIgfeYoWyy7GCSx Q920SIP0uHexo4fnKHO6FFC tSWOqWwVpAh5wrIDbT429OL EjNABSXXEkcKh1DGBzjeXgg yWvgHKKh552Z990w7ynYUSe fbIwtChTruatz8naG643UHU hcGVydzEyMjQwXHBhcGVyaD M9OQLiZR2yfybnBpXrKU5lg zcjBvMnEW3hatt9UdWqYN6v cmdiNzIwXGhlYWRlcnkwXGZ nn6ShseytNA0iF2Kji6R3aV 9maXRcZGVmdGFiNzIwXGZvc x4yhHPwCBmuq2WuRXV0hnX2 zUDkmMEwITKtOY59Nknrk4W kKvtpUDS5EBEysdKho8Akh5 iuZyUurkCqW1kkL4UgMKHpC TFeMBHsNiUowaDzt2Dvp9Mu lLKcpHp0f2kbDKOsDZJtmQi px5cvSWT7FSUgJ8F7oBYiz2 doRBvvDAHmePG1izwqEUnzS YUyndF7dwntUVitBXQzoXC9 foeqYIeiTQLfBcR7ttumFHg aWPZnTUR4URcku213ODW0JW xzYmtwYWdlXHBnbmNvbnRcc GduZGVjXHBsYWluXHBsYWlu XGYwXGZzMjRccWxccGxhaW5 aNrTmFqCzORiyRV5rFAZwM7 wizJCmURUcCCFzS7kdJiYao P9txJnqTUmuovLpAKNoyyTp ll8tZE6rZVGckk7= SPECIAL STUDIES (test n8iehRFdSLHme3geUTFfoCU code = 3376) uZzEwMzNcZnRuYmpcdWMxIH fbflGeXEler4PcT0VvXiKvI FxhbnNpXGRlZmxhbmcxMDMz INP7dlMbXCChMRlbDDKlAPs zVc1dbVScmLpkAaYjHCDiy6 iyziJKcakkcBf9c7pgSGFkN nG2uVBfCUakQ3oqbnPvzCDf E9QjxOZotHr6h0xzIpGtThR 4qGNgQFmtL9xifbEwaUItTF BcDOe4rA82MQLzfO5fqOFbE MvvtsQrFxB5WYsuDYEiCvP0 VCWdzBFzZBLoD1plLQLuWWl eODIiFPzcjQLfHSV5bHgfo9 K9vPTelKMqiQtzAaJwHrKiJ xGRk6LlUWh8vBbnK4HlLYWt FvP5xHFaLNWeRDvfQKTfLEZ vneQ2sNpvleKlx74fcRKuUI YwXGZzMjBcbGkwXHJpMCBDb 2ZbgUnzLIO1dPj9yIopIjnu IVX8Ggx6QS3qeh10vuk4oCd bJLJondhyPmN4UFndBPTbzr oqSYk0ZZmlGZQmdYD7WLVqw RThW5QgJICnLV5vijm9CVJ1 POqsRXFlKqI5LEXwmWUhEYQ krEjwNEkny524HDF8MvXrJB 9eO5Fev3D4uX5inJKbSLUzh KMwIcUlKNTbvh2mgTUmPYii y2LeRAU9zwB9iZLuiATrNQD xQX07Fvsjg6DoLvjed7WvK2 7dhKA2TGfmc1wfKH7vUuW8h iRwIXitu5nsrP8xBgE0GVan CK2aLP7wQXSueX8smcsqJLQ nYnJkcmhlYWRccGdicmRyZm 6dqWtpBYA6ISlaQ2rbiB1uF aW5XLnvO8uecL3mEHd1NNow lUS3AQGsnZ6dXG5qqrclp5b qMEctIJagNVNicgX7dzF5SB XwvZIlE8IxiN2lSLXuYL2bv ymjy3ypIUU8MRiuVVArIOT7 YvWoAELni1Xcsiz9RtCwv0G nvBEpSCutM55td083LYGucr IfH8xrlNHustmdbMRbudlgH BobxtM9ELFiDBHdKPlcLUAc XGZzMjJcbGFuZzEwMzNcaGl jaFxmMVxkYmNoXGYxXGxvY2 akXjKpN9RpATKoDpHgBHlmB BnqhAHdwTDkkTU9pS2aCS7a HLYpoEIcJ1XhZWCnpaWqpZP mQRI8lTVbaRVeSV3cPBmwkP Xue9kkc4UqM4bwlXfeeYO6Q K6oXGUqJIGvLZzmw7EtsS8e LlxwbGFpblxmMVxmczIyXGx ytmawMFKyQDgqQ9asKmSlJF MglCqiTUlkn2BmEJApLGAjM mvawaHyZIp0tvMoHYUpecne LEXksKgwiY0yAgWiMnQxEdh qUM0eGHFoF0cgtSLvXRVzTX DeY2inPcOlbH0stKwmTYrbS qQuZdUnVxJDa755lk0jQTZp hVNhjnSTeTJdpM2zPUejYSn jDWevbSRsHVvpf6stDRZrq3 i0eEOyCHRobtKzk5nlLFsvj vAsUCQkxASjyCSfMCSjh26l RLyqsBmigHasGTEqc7DfyIg mq5ReKxVmSPkxc8IkX99zwD JvbCBzbGlkZXMgcnVuIGFsb 51qc7blLVTaHxV0yKPpoJL4 gDItpGGjg3EkpNymTUZnx4b aYVPuie2limsekJCfd7AefL 5pbmcuIEludGVybmFsIHBvc 4v2jPOlTPZcKHOkLObdnBy0 KQWkw598cw8vljK8tOYuZIO 2YWlsYWJsZSBhcmUgZXZhbH VhdGVkXHBsYWluXGYxXGZzM jJcbGFuZzEwMzNcaGljaFxm QWwmMdGwZFGlWIqxH2qkGuX fD9VxAYUiFeGajEStJ0rcnQ FyXHBsYWluXGYxXGZzMjJcb GFuZzEwMzNcaGljaFxmMVxk UqQuNTGbUUwjK6qiXbFzC0R yXGZzMjIgIFxwbGFpblxmMV xmczIyXGxhbmcxMDMzXGhpY 6lvNlUlXKPfdMecZTygv6Rl QJLcXOZtVehnhtRiQGw2tlV oXHBhclxwbGFpblxmMVxmcz HlOBnzpsrzWVXwNJcbJ3cuA iHcTYZfbTkjCJawy2YtLJCo JAEfGixvpmOhFZzptFYtc4w sq4YsP6kpbKvuaJK1QCGqH8 tqvPGvjEF4YPQ2lH4aPRoou bMcGUJps1KqWJBhELOsRhM0 sQ3zAWE4RxUQbOahWCEwONx uXGYxXGZzMjJcbGFuZzEwMz NcaGljaFxmMVxkYmNoXGYxX OtrL0uyVwFmK3GvKDQkNeIz sOleQUbyGSn5JttmoUCulcr mMVxmczIyXGxhbmcxMDMzXG efJ7clFyMoRFLijIqbPUpde 2NoXGYxXGNmMlxmczIyIHMg CZZwpLVwyVRABJ32KPDmTYK oxCdjdI1rdJOLNIJcgaD7r6 N3MEauDWAkZLd6EBnmkgSoE OAlwG2dKPAjVE8mWRd4woVx XGZsq1LaJD2sMHYzbOGvCIO 4ZQVjp6HkX4Dth3WwSAClYU Oxnq8ozlGjCjCRoQUgZDGlu z73TFPqCQ2aI4giNOXbTNDa wfGasPDkg3AvROUviRC7yYV gCH8ZCwPRu39pFRGqBEGYhy TxXOMovBhrwAI6zgG5dU6rC iBUaGUgRkRBIGhhcyBkZXRl is7oojLcBQJiSPBfv3XtuKJ tpBUoepDsV2Lvq7IpXBPutg 03COnqpQTdkb97OP7sA1Vbc 4WnwN4lMHjrFCGdt1PobUJa nCPjTTKel2VzI3drrufzLGi ejJXebO7fWMRzTVy5YZPee5 NyDNRmb9YhUxCvnzIhZYDiN IYnKHUsnC73OQQ0gJpyxXgn lbRmVY1nTWJmbwIaXLNgMUV rhP1yONixvuFzXVLwgqH0c7 W9JJnrGOGdcxOvNipyRTH4j zOdcjS0pDBwP2plxpjyVIgn XKOan8JkyM6emDHJzREti8H gjCNxzGSNrZRvKW9wuwPaNP 7kAVM2KRedGWCDEVHhKTrpR PEaRDV9OTrxGnqiQME1oqFe ZYEcg4ZkHWyaW1ekB75efQg jvAw2iKAzgKxgwUQldWLhZK JpevH5x0Q3KRFri3JvtvzvZ HBsYWluXGYyXGZzMjJcbGFu ZzEwMzNcaGljaFxmMlxkYmN wPIYbKJxeM8lgUyIpZoHcOv ygMJE1lQ== Gross assessment was [facility] performed at ([facility], code = 2777) Department of Pathology, [address] [place] [address], Technical component [facility] was performed at ([facility], code = 2778) Department of Pathology, [address] [place] [address], Professional component 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 This surgical biopsy specimen shows this carcinoma [...] carcinoma of the lung is highly favored. 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 The interpretation of this case included the use of immunohistochemistry or special stains.Control Slides Examined: In-house known positive controls were evaluated along with the test tissue. These control slides run alongside of the patients sample show appropriate staining. Internal positive and negative controls when available are evaluated Immunohistochemistry technical testing was performed at [facility], Pathology Laboratory where it was developed [...] qualified to perform high complexity clinical laboratory testing.[facility], Department of Pathology, [address] [place] [address], [facility], [address] [place] [address], [facility], [facility] of [facility], [address] [place] [address]33, ZOHRKG [id number] 08:47:00Surgical Pathology Report Case: [id number] Authorizing Provider: Hermelindo Wynn MD Collected: 11/07/2019 07:23 PM Ordering Location: [facility] Received: 11/08/2019 09:13 AM SERVICES Pathologist: Asa Huber MD Specimens: A) -Bladder Tumor, Left anterior lateral wall bladder tumor B) - Bladder Tumor, Base of bladder tumor Immunostain for MANISHA-3 in order to compare with mediastinal tumor diagnosed subsequently:MANISHA-3 immunostain: Positive in uro thelial component; negative in small cell component.Additional CPT code:72777Jsprjtvn electronicallysigned by Asa Huber MD on 12/02/2019 [...] and its performance characteristics d etermined by [facility], Pathology Laboratory. It has not been [...] complexity clinical laboratory testing. Additional CPT code: 38104Rriihjqe electronically signed by Maria Elena Stuart MD [...] LYMPHOVASCULAR INVASION Signing Pathologist Direct Phone Line: [phone] signedby Asa Huber MD on 11/10/2019 at 3:59 PMA. 50% CONVENTIONAL UROTHELIAL, INCLUDING PAPILLARY COMPONENT AND 50% SMALL CELL CARCINOMAB. 80% SMALL CELL CARCINOMA, 15% CONVENTIONAL UROTHELIAL CARCINOMA AND 5% GLANDULAR [id number] S3Ugraw diagnosis: Malignancy neoplasm of overlapping sites of [...] entirely submitted in B1-B2. PA/pl A-B: Performed.TISSUE [id number] 18:49:00Surgical Pathology Report Case: [id number] Authorizing Provider: Triny Naqvi MD Collected: 11/29/2019 12:49 PM Ordering Location: [facility] Received: 11/29/2019 02:05 PM SERVICES Pathologist: Maria Elena Stuart MD Specimen: Lung, Left Lower Lobe, EBBX. Process in Cytology for Collodion Bag. Reflex Genetic Markers. LUNG, LEFT LOWER LOBE , ENDOBRONCHIAL BIOPSY:- POORLY DIFFERENTIATED SQUAMOUS CARCINOMA, FAVOR LUNG PRIMARY (SEE COMMENT) Signing Pathologist Direct Phone Line: [phone] signed by Maria Elena Stuart MD on 12/01/2019 at 6:49 PMUrothelial and squamous carcinomas can have some overlapping features. The prior bladder biopsy [id number] was reviewed. Based on the overall histologic features and immunohistochemical stains (negative GATA3, uroplakin III in current lung biopsy, and positive GATA3 in prior bladder biopsy ), history of smoking with a lung mass; a primary pulmonary squamous carcinoma is favored. INTRADEPARTMENTAL CONSULTATION: - Asa Huber MD has seen the case and agrees with the diagnosis.[id number], 79352, 20821 x 4Mediastinal lymphadenopathy; bladder cancerA. Lung, Left [...] included the use of immunohistochemistry or special stains.LPWG9-voxthjjnTZJ6-erpfvvqpW63-positiveUroplakin III-negativeNapsin A- negativeControl Slides Examined: In-house known positive controls were evaluated along with the test tissue. These control slides run alongside of the patientssample show appropriate staining. Internal positive and negative controls when available are evaluated Immunohistochemistry technical testing was performed at [facility], Pathology Laboratory where it was developed [...] qualified to perform high complexity clinical laboratory testing.[facility], Department of Pathology, [address] [place] [address], [facility], [address] [place] [address], [facility], [facility] of [facility], [address] [place] [address], Khq[employer] Cytometry Requisition 2019-11-30 17:18:00 Test Item Value Reference Range Interpretation Comments Flow Cytometry (test code See Separate Report = 2758) Case # (test code = 2759) [id number] [facility] [id number] 17:18:00 Test Item Value Reference Range Interpretation Comments FLOW CYTOMETRY RESULT See Separate Report POINTER (HEDY) (test code = 2758) FLOW CYTOMETRY AP CASE # [id number] (HEDY) (test code = 2759) Flow Ljafvpuyh1936-23-77 14:20:00 Test Item Value Reference Range Interpretation Comments Case Report (test code = Flow Cytometry Report 104) Case: [id number] Authorizing Provider: Triny Naqvi MD Collected: 11/29/2019 12:35 PM Ordering Location: [facility] Received: 11/29/2019 02:10 PM SERVICES Pathologist: Kali Borjas MD Specimen: Other Flow Interpretation [id number] (test code = 3364) TKuMYQxp9uuYEColIWlRv EwMzNcZnRuYmpcdWMxXGR dJdFkm8vvi352zNWmu5ri HGTiQaH1fRLmSHDymZZcG 823MYOeBKbvc1mrg7PzMC VrjDVsa7Q9XZAPstsbwMw 2aRwnY87mz0M0YvcdE2ad AIXwJZHkY2KsDV5iVKRyV ot0VDR0KZG6NBXnIXViC4 PnBR8bXSHysIEgOEc0l0g inJaaDGKqDMA5z8cgEZfh zkAaQG6yfl6gtJr7i5hnr zEgRGVmYXVsdCBQYXJhZ3 WfwDsdIa0ukWw3lUasRwa uUGN2Bgf0FE7aem27zok0 nLclHOWxdlsjXxJ3QSoiG BTqybbrHGh6JUloLZKagI cyMFxtYXJncjcyMFxtYXJ ndDcyMFxtYXJnYjcyMFxo TJTtUZH0OJorm473YGK0A Bgzd6jjj4bhsABvRoc7PG XfOjPvCkfuHIwey3Usi9w tHSKuhr0jLZH9mEXwmUhr s2D2eKRwRCXjkSIlonCsM WXxOhL3QJqjBX4jqu32ON FjDQR2rg0bvNNtrQzjcxT uwUVwTRilP6WfSDYyx512 MZZcJ1FrBDBmg7H1zgCbW lOzIXLflPD2reI3SPAbUG s4sAJatqQ6ojWknYDkV9s wdM05DsDgoQLwT8EgeD31 BhYpmWAkX6LhaD51WuRns AKiF5VgxK99YhMhfYUsFS VreAGmYx5idPVncHSyt9V ycDYlOXohM48jl681ADCz xrPrI9ondZQzokvidNHyt oybHDbebbE9PZRlAARcPN luXGYxXGZzMjBcbGFuZzE wMzNcaGljaFxmMVxkYmNo XKKlPXfbZ4wbJxDgUbMhA EVLIP5NLBzpPn2NEJrbSJ JFPiKBHY1NMQ7GNXNAOES WQ9UMZiHJSNuyGtqTUeOL CWIPEHSLOiy4GWIvevWpM g2tJTHBZbKSDzReSGCTFT 4EEI9KVKRYZDNMRGJLBEQ BQ65ddIVfKS5MDzVGGfJN A3dVImIsPhZRFyLXLW8XN OVoCReHXJmLZ7wYWZLeFM ZBSUxBQkxFIEZPUiBFVkF ZLJVDMP6YCDZcbxGvF5XF YGRRGE2ZEiHjmKZbdZ== Flow Interpretation y9scsJCePARmtDAiOqMuS Comment (test code = ATxVZEoz4tfHPGpjALaDj 3367) EwMzNcZnRuYmpcdWMxXGR iWnWiu0nex693tBUmn6rl AIJjVsM1eOZuVMDieWOuN 040AFAzDTvav9gky5HwHS TcoSKox6U4TPIPyxaukHr 9pOwtL61bn5R6JjxeT2ru AAPqLKUdW8HoYU7nZWTlT vs2FES7NOC0GWYsQEIbP1 FoVA3xYMPmrIWrAQh7r4p ghBnwHJOlCIA7k8crEEll utYpCT3vkd2fjPh3t5hal zEgRGVmYXVsdCBQYXJhZ3 ChpFjtGi7ebOc5mBmfNwg cFHE5Vhl2IA2qia48qdh0 wRsnFAKzrkzxQjE2YDlfL QYgdgvkIOc0LFxhDXFpbG cyMFxtYXJncjcyMFxtYXJ ndDcyMFxtYXJnYjcyMFxo WNXiFFT9JTxqt691DVL7H Cmjb3nuj9sgfAYkLbm5IF FoJyIwBipsHXudt5Csx7r mUJJshk2mLRR4kIBrzTih x5O7aKZrTJWueGVameTsB FUqff02mLTwzXJucVWsfl 5lmtZyjSNpfGYeADE7vJB elfVzBTGbuKTdPYHsAM9r vDFnSDYdwY1uyyrkYBYyM nJkcmhlYWRccGdicmRyZm 9cmValAJV4JPlbK7ddiD3 lCqL4XOlhA8kmoI5iBQm8 FBpizUL6HZDcmE4gUW3vx geyi0eeOkLiHG9igogge3 qeOjRyNU3vebv8v9ekTuV vZF4souepv1ooZwPtZQqo CCAqnpgoLUAqw9SkoinlZ WYng7DaK5BfuNmeI11edE iyW82vAIPilEjoyJ9xiBp vzO2eIvQwIeBkEVqtDFXe FBOmvGMnKKI2fWYllpPqd JWneYDsSIBoBEciVLQ1pQ BhclxwbGFpblxmMVxmczI vUUwrivsiOYNyLGhuD1pc LjWeURGnqAesTFufp2BpF GTfYSGrCujhaeMnRIh4sa DdBWVbg2qzP0m9r34wgCK 1DA9mZKUnPPJoDQgeWEAi XGZzMjBcbGFuZzEwMzNca GljaFxmMVxkYmNoXGYxXG wxW7efIaRsRmNjQLMbpU8 wtSRil2NmXTJBJJSoKn6N JJMxvVJtzZ5kMFVzYPdxJ GYxXGZzMjBcbGFuZzEwMz NcaGljaFxmMVxkYmNoXGY fSYdsO2niJbXdQ7SyRRIw TaVrwPYuJ9erAOyeyLSdk lxmMVxmczIwXGxhbmcxMD PpSJnwN8biVsBqWFBjqJe zEMoow7LzDROqGGEwSpMy DY7stjTUV9FkWGNuCWwqD GYxXGZzMjBcbGFuZzEwMz NcaGljaFxmMVxkYmNoXGY hPJouA1qsWzPnJ7YvFAHi HyJkgVJhB0vsBZZmu50uw IColDSsuLenqG4pBoFkUe VqUXpeXN8oWUXpL6nuaXW hQWOhXTQdF4geHmAkjD1m aFxmMVxmczIwICBccGxha H3nLbOsBdJeTRwcRY3xSA HaP3cppIZqRDXuABFwU5o qIzPynT0rnHdkBPrkGrDx ZnMyMFxsdHJjaCBldmlkZ R2zQHAtDjYlZT1xg9EkVP Z3yLUyFAFzhE9dnM5thKA iDHZgf4Tju6UkDPTekYyq xZ2sZoLjQlQxRKzeCI5cI IEvB3bpbFRdXGHiVMJdC5 ikQiCefG2xzFfeBWgxpaI wHQ7eJOEhE97gXoyjJQ46 CA19mDRzqaFqVjFDYXt8h XCnk1S2oHUmNUHojnFrEQ wxJSkgaWRlbnRpZmllZC4 gIFRoZXJlIGlzIGlccGxh rP2iQsHzEbNvNQntMU6nL TQiS7myeAMgHVAyLEDpC7 tvZoHnyM4slUkySUutMkY qXwUbDAevwOScqUBsn2Li GzqnzLMdfGBZBDe1aAAfr 2C0rGllWVM3DB67rqAad0 UwzVViaWZjOWi7gJXjt25 jBBB0SCj4DQIfi40vGFCz K62ltEYmHUUgg1JqSVdom SfkkrB7hYIjAWF8wH8sz0 c4LzfqzHLmsfkeGMgtkaS eYWqqnafpIRUlZOfsB3pk XoDzWOZibJrfZWfkr1PmJ GYxXGZzMjBccGFyXHBsYW luXGYxXGZzMjBcbGFuZzE wMzNcaGljaFxmMVxkYmNo SUAgVLpnH0rgXyIrL0YnW TYcHrMexCLkX0wkKRzozF FpblxmMVxmczIwXGxhbmc nXZGhYIdiC4iqMeLiZZFq pQadVVatb1ZkDGIwYDEbH jBccGFyfQ== CPT Code(s) (test code = u7aocWTfKTLdfDQiWtKxC 3357) JNiIMIfo9egBSMwiVVrZs EwMzNcZnRuYmpcdWMxXGR fIuBgi7zce449oKBvw0qg XLZmKtG7tZNpRTKrcQJjU 997VCDuRAohc7cqi6VfQM CmmJFor2A4QRABrcpnjAv 8iHgtV63ag1Z6FzksW9fs VGLqDOTiM2WsWF8hNTRbP sp0VES3TSY3ZVJfXYUpV6 BtQL8vNKOyeZOgGPr3h7n bcDfvEZGvYPU2f2cyZTtq dhThMU6jiw8neZs3m5hsk zEgRGVmYXVsdCBQYXJhZ3 WcyFcaPh5bcFh8rMiyIzh eMEJ5Vrj6YY9nbq59mwq1 fNilNARrznenYbZ9QNflE HRuyujvFCj9FGywTIJonC cyMFxtYXJncjcyMFxtYXJ ndDcyMFxtYXJnYjcyMFxo VURhOEC0KMluf954SVP2Q Xmix3axx1ssoTNdVte6CU IkKoUbZcqsEYnet6Mmg6g oUORgzd5rSQH1aXKjnTyw l1J6wNJlNOUxiMZgfrWnN JAuFdJ2TZatJC4gfn76HU DsJDA0lb7fvGXjrCarpjS vtDPbCTvgY8LgFDIzn644 NKArE3FvAMOcq1I3daExP rDzOOVpkCS6qzF1EHXsZZ m8rDRauaJ8ioHoiEIgI2u doJ88OwHlvJApN9NtoD03 YrOmpADwH7XhqL23HvEyr GXuP3QbrF38VkOepAEtXX AynFUwCb8zdGPeoTJir0N svGGmSCsbU91xk106ADIf eeKgW8nsdPNhxzypuKUkb rztCMzxalN1IWLxSRYaES luXGYxXGZzMjJcbGFuZzE wMzNcaGljaFxmMVxkYmNo SNFbBHlmM2zzTiIvVfAoK fC5CHI0FAmlzZKkghklID xmczIwXGxhbmcxMDMzXGh vV3gkMhNeYITdmPjvYJha m5MwCFNiCNJpVnLoySEfo Q== CLINICAL HISTORY (test r8uvrJFeVYXvwMPbDsJlA code = 7499) WAhJVCdb7sbFYYpnSJoJx EwMzNcZnRuYmpcdWMxXGR qHgTbs1mjs890vRHjv6hh LKGjDvO4kTZuLTIkbPHvP 932IIErVDirl1puf5IoWE QugWBjb9M3UFXltwrueNa 6cTvzB82iv3F8RrttY2ch PSGsFBIyH4FlGB5iMKEhA jq3WWS0AEA4FYAlUVUdR2 LdTO8nXPNnzLRiLGs8h0b hcVrzEOQcFNF4m0swFRyj drBjRT2fbh2qjOg5a4kxp zEgRGVmYXVsdCBQYXJhZ3 IscIniSl6ntWr0uHtgUtn yQLR2Whb1GX0wpj30ycd8 mEoqAVUkoapeXrA3JYoyR ZNgswjdTEz9BOdxBLQjiZ cyMFxtYXJncjcyMFxtYXJ ndDcyMFxtYXJnYjcyMFxo TYNpQKY7SJxdx146CSM9Y Bvml1ule1qspDXdIab6VV VbHmSyUtqzUOrhd1Xvj3f gXMFioi8mXFO8hOQedDny s3A3iNVbLPMrlHFsctWgT DUfNcE0CBwcGQ0nro00OP WlTYD6nx9mhBGdfLgmkiM xdKFnVTrmD7LiHZXjn727 KKXkN7DsWIVts8V7lrMnX cZxUKXdpUC5egA2NJOxRK t6vITznxG7ivMsbJGtZ4l kqJ60FuAefHEfT5NlfX09 EqPbgKVoD9WcjX97ObDjf KRzS1VmtA55LtTfyDRvEY LyuIBgWp7ssOUigPCzb3W zoMHsSMiaQ05cc314XVOi akBiD1alrYVtqayimDMcr hriVElmvoJ5TPefTymmjH FcbHRycGFyXHFsXHBsYWl uXGYxXGZzMjBcbGFuZzEw MzNcaGljaFxmMVxkYmNoX MKlJWtqS1nbNeBlYdAkZN Q3SUE4JVBfUTgfhIdazIY kaWFzdGluYWwgbWFzcyBc cGFyfQ== SPECIMEN SOURCE (test g7rlvYFmBECllCPbQdPhZ code = 3377) TAjHKHlz1qaEJPwhKEsPp EwMzNcZnRuYmpcdWMxXGR bGiLxc7pxe944zELud9dn IHGiSbX7hZTlYWVztYGpG 238ONCqXSkox2cdm5PlDU HdaDWod3B0EADBiczdpAw 6lBlaP14cc6R8QqtlW0wg OJZfVLJqZ0VaNR9iTYUjW dd2EHG1NNL7OHKcFEEuY6 RmKX4cXAObmXPoFBa5s8k pcHewIGYlPGO8r5gzTKor gkRrHB6vmz0udJl5y0otd zEgRGVmYXVsdCBQYXJhZ3 XqaDapGf3enUb3uThiIyb bTIH4Uze8MT4oye33aki7 fJfkQVWawbhrXlJ4PAytG IIrzueaTCa9BEgjGAEwvF cyMFxtYXJncjcyMFxtYXJ ndDcyMFxtYXJnYjcyMFxo DIIjQHQ5MJkxb429LLM1J Guts1idj0gsxACcBzo6WV FgTgNxZydwXQjmb8Icg8g oAPDzzm1nFMQ3fEYqoMib o6J5qMGoVXZfjDJtrhCaX KXxGrL8YJuaYC2nkc58ZX TeHKH3gy7abZTdkSznhkV ywZJbSNmoF2GuSVIwn514 CEBwZ9FwHIRug3D1ayUyF kVnWXOsfYQ8pwJ6CXNwUO w3gGAjnnG7naLdwOOcB9r uoJ35NtBvbGJjZ4FdlG10 NxAsuJLbY3ZoiW84QpVab VDwV7HdvK64HvKkjNTuHI JafCNdXq8wjXChiARgc2J mjCRvWGjgG68ue571UMHl doKwK2yaeJOhpzkqyPVdn rgdTBecnfY4RGPgdfCzmN nnmI4sLkSeArSvNRaiDM0 ePAYbS9llrIJuSFZdZPGs Z6rxFrCrmL9brQieHCfdb kEtYQoEHTqYGTHKW3PFRL BFQlVTIEZJTkUgTkVFREx FIEFTUElSQVRFXHBhcn0= CELLULAR BIOMARKER h1sqzGBxNSYdgBUnMeYsS ANALYSIS (test code = QZwDSUkc8ebPTUdcNYkCo 3380) EwMzNcZnRuYmpcdWMxXGR cAvIfe4wma070oSUqg0gu RBEbUvS9lNBnLUWsyCOoD 640QEOtGPfkx9pra0CqGK LdpHIai7S3AFJDmkwdjWp 5tIyyC70iq2R5HtwmB7gr DYNyRWHeG6OdEH7fMNSlF qb9YEX3EVR5DDWaDGLhB6 GpTA0qJLPdaMIzTCu3z6c ykUbaJWWrHDO4g3ohMKbv zeVoMT2pek9aeHi5x3dhj zEgRGVmYXVsdCBQYXJhZ3 JenNzlPv8piCf7uNydGem dCPF9Cmf2MG0pwt21myx5 pDslHJFxnavgXxP3RQstG ZBksizjUNa5XZfaAEBimF cyMFxtYXJncjcyMFxtYXJ ndDcyMFxtYXJnYjcyMFxo VXAbMVD9WJjnx745IGY8L Dwsw3hfn3igaDGdDrh9GI JiGnOsOzmlICwqy8Mmt6l vUCLnbv4wJNK0zNZaoDot s6I7zEPbTLGkwIJzzyOlI KEvPwF1HYfnUJ0vro13AH TaIAI9wt7jpVCgcIiztxP grUCyXEjiS0HtTNWue713 YLRoR2BhUGWix5Z1cfWjG iTnVVOavQC7vwN8KGVwGG c5mRYqvpP4ucAhaETyG4k skK94NjAmkLDnJ7ZmnV45 KdEgoFOjX5NwxJ76UuDbl WGnR3WtjH02MlIdfFLwCX DljYFmWu0fmRNskNWcd7L lcPLgEVtyQ03jy533LNSe wcUdX5ruaDJzrxztcEFws kpxJWtldcE2MOCottGwoS rjsP2uIkLmSpYnJMwqCD0 dXTPvH1zoaAKkFGHpOUVk P1vlWcOhnF5tvNqqAVhoj hJzQKZBWLdqd1TcTuOwGQ 6vCEVjKPweO1P2Qwajx5Y eIkMcWI4kTE1jJRLpDINA NTbiP6ZpTGlqJ6PbQRbkT 0QzLCBDRDIwLCBDRDQsIE NENDVccGFyfQ== IMMUNOPHENOTYPIC l9wimJRtDGBpeCAkCpKwP FINDINGS (test code = ZXqOJTok1biIZErhCFfIo 3373) EwMzNcZnRuYmpcdWMxXGR nAgGej7tpk318hPLgh2an UZWtTbR5tDLsCWZwjPKsU 068BOGsGFkjl3hjg1FwDZ DinCKew0E8JSWNvnswtGu 2z9waVcGkLkM6rOGcYEoe U8posxXyhUJwX4FzeKZea Uf4oLhbU26wn3Y9DbogY1 kwELIaKFByH7PaZN2pHGJ wQyt1ZHK0QLI8XWMeJUXq R7ExCE2zWOEthPTvOMt2o 3uouWhjQENvVYZ9s7ypDD hibhEfOX3ssq3ejVj6p8u jczEgRGVmYXVsdCBQYXJh H3KogMapMo7sjPr3jYtvO ymuXMJ2Ikm5BV2cbw20oq p7qSadAUXvlermAdB8AYx gZQLqvparDIu2OSghRHKi bDcyMFxtYXJncjcyMFxtY XJndDcyMFxtYXJnYjcyMF ttJKTrXMP8DWtif885ITO 7CVusr1jym8heiXVuYqn8 PKWjFyRrGxjuPSwev4Wzj 2wkJPJefj9hDQT6bBHniI uqk0F0uGPzRHZynXGpgpE nPYWkWsB0SZcsYS3hmk22 TBZqRYT1jj7phBRoxZhws gQtrSRsCVrjG8WvUSPmv5 24NSQrK8ThSBTwb5Q4bsA yRjRxULRgdSC5ncP4QQXg CAc7vPOdkwF4srBzjWLaO 3ehqN45CwJzcKRxE2UwuC 03HsPwcODtM9ZjvS54JvC urXHuU7OfaO91PbJvlAIr NRPwaPHtGh3rbTTxfNZvw 6NksXZsHLcvM45cr185AX RkgaUxY3isvUTiazgtfRP onqmvIUliohB7ZLCczoWh e1OqCVJjZXJ7MUfjPEmns Hq1mVQnwCegADUbbOzkcG 1cLtXqVqGuPHpuUG5kPJH bX4vfzQDhUAPrYTMsZ1xr ObBjiJ5okOumKBbrhbKoT FNwZWNpbWVuIFZpYWJpbG m6kTphQuspCREhvhd+XH5 cflx+RT61qRGqjaLbApOK myNodVYsIRSvuYctEWZ1K CE7WGagPKEwefi+XHBhci LGrRLmBl8whE46oT2gGHS ryXZkFKJhd06uIXAoITTw ZGVudGlmaWVkOlxwYXJcc UVhBBo5xGYdq9W3lNZxLq CSwinvjGIfH2L5HQnzoWl gtQkvJ3n1MHXtI25gkNIe r4UjVm28RVSlRiP2y7Vzx YRtTJvwjv5lNLDwKWaatk KkzU91LBXnP4J7QjNAPES jRFLmysGuCfR1RfFsTA2o QG1usg0adRZonMKpVUYgg K5dER8vXDMcHROgHA6tUX HtGEafVVYfgTvkTI5iUGH HCmZiztTvB1M8UlRbjmuz BGUEJIYfgSheFEriYL38t VWhMFPes2lmK4fgIYYiUB AkMTCtyLx3eECsKzU1rHL kONHwm6IspGE5wOXeRlUh SWYvmMijCD7fHVOoUss+L lxwYXJcflxwYXIgTXllbG 8dLU9cj09jQ9r8gHYezD8 tzIqbpKnrmnZ5UDNbBGpo PR08jYUaPGAoIozeS6L7X YWynxFzuIetyKQgk9FibS LntjHcgIGfLZI6HTAbp1Y rD2SeKJklKN83fO0ycEEb jwUyb17penatSQV9Tp00N H6mHIFngHFyUDTgqJifCS TbkcOfxI1zv8F9pAVxBGW foKYufQQlGJUrTAPns3Pr rP12LRwiK4HspIIqSSPur lx+XHBhciBUaGUgcmVtYW jdxH9iIGY2IW24miSiqtA seXplZCByZXByZXNlbnQg ko3uivldPgpxOUErtCbiK MDfk98ifQJoYNYuiMxwuT zlcZAnN0SxtUQcNPGsAPD kZWJyaXMuXHBhclxwbGFp blxmMlxmczIyXGxhbmcxM KIwROieO5caMzLpEJEbcG seIvugj4DmKDBvWLKzSjb mczIyXHBhclxwYXJkXHNz tFUwPUZ8bVFqlcQzjScsf XaozF9jGqRdVmKrTYefdD FpblxmMVxmczIwXGxhbmc cPVMvMWcgV0kiHfVtDYNz mZaySHnre7ImYJGnWNKiE jBccGFyfQ== DISCLAIMER (test code = y5hmkOYoUAIweJQnRvTrK 3363) XEsVPBca2eiZGXjoZJgZu EwMzNcZnRuYmpcdWMxXGR zZhMhi9wsd480dFRup5rs RLPpLmY0mHFaWPIqsIDiU 505CKVmHIkfb2ore5MdNZ JcwDDpb0G9TUEYjizdkMt 1eFerV22kp7V1ZxlqF6dm MQIaYCQnH7PgQO3oPWRzU zy4PSE9OLR9ZEXcYHTsN0 AmNV1oZICvtEGoXMv4o9r eoNqaFUDtCYN8c3mwSSip iyU7GH2mdn3feTh0v0prb zEgRGVmYXVsdCBQYXJhZ3 ZcgPipGy9xrGa6cXgaSdr oTVK1Vfo1CC5mmg45krr8 sZquOFXsikjoZtZ1HZypV TTfslikFCy5RBbpJYKknA cyMFxtYXJncjcyMFxtYXJ ndDcyMFxtYXJnYjcyMFxo ZWPfQZP1MAuvj098XFI5D Nfah2afb9gyeBGhVkl9OW IeZsYzPpaqIPqaw0Hnt0m lIWRzQzY4AEqnPT9kmf06 DWYzGTC8im5kpNEovKjit zXhfYVoZDxkB0EpNLGtb7 90FYLtH9XtOOXnf7T1qzL hMkQaFXYbcVK5khX7LEMz XYj3qZYaiqB5huTddQTuR 9gtdY41JkAtkPFkL3GsbS 21RlIvwOBpX5FsbV25TyF caPLdH8IzdC42RpLqzJTc XJFfkAGbCo2knVBouEJtl 5LhsZSaIXehC82jb687BP DjikKxF2tdgOBhyveirKL owiibGWwbhnB7OMEaFUPo YWluXGYxXGZzMjJcbGFuZ zEwMzNcaGljaFxmMVxkYm GdBFLgAYtwT0jhHmHlBaM oQyTUqUZlPXY5MCF8ehN7 DOBsIWNtxvRas5RvLJOgh qHdqVxphFYxvTKyJg8myE PxL2BsD1tcsdEveJAczUW 0aWNzIGRldGVybWluZWQg AnskJpX2oG2aXHW4NeMHi UlgQ7HhTKIcpPRluJNNAC 85GWBdaXVfCAMZeAS5FYm cvnYwnh10XGDrZP6kV9wh ANYmGYMgjjOeyNHdr5EtR SElgOX0fOCkJF3YCwZNj1 9kIGFuZCBEcnVnIEFkbWl skTT9sxG8fW8vJjOWtWMv GlBGDJxykzXsBNTlja7sc eIgQJVcUAIxq1UitSOutS VpfsFuW2Nqj2ElIAErwl7 1MJmdpVMrsh37LF7oQ5Nd q7LaiW9dRJOrj1eytTrrB Z2zpKQmSXCxCPrtdsVeSV BfzxQgiwVlf7NsC7O3lY2 bDRyfv7MfCt2aIJAeh0Ft hnAtBfWUfYikTAuoSg1fZ TXdnpismNIqR6BfqWigzW VkIHVuZGVyIHRoZSBDbGl yjCXoqAEOCGYthpC0z5J1 JBbfnZHndpGpBV27GBArB K5xtWBsnZHiy8UrIEi8GI AoIkNMSUEiKSBhcyBxdWF ebRAtXHUmaM0noUIuSa3g bSBoaWdoLWNvbXBsZXhpd CyfR7nxapblINdgxAIryK jdPm6cyAIbJMGryfVkxPy vuT8kNaCkNiGgFUiiyFSo xpixTEjbjgV3WYNpoj1= Technical component was [facility]'s performed at ([facility], = 2778) Department of Pathology, [address] [place] [address], Professional component [facility]. [place]'s was performed at ([facility], code = 2779) Department of Pathology, [address] [place] [address], [facility] [id number] 14:20:00Flow Cytometry Report Case: [id number] Authorizing Provider: Triny Naqvi MD Collected: 11/29/2019 12:35 PM Ordering Location: [facility] PERI[facility] Received: 11/29/2019 02:10 PM SERVICES [...] proper lymphoma evaluation. Recommend correlation with cytology. [id number] year with mediastinal mass LYMHPH NODE, EBUS FINE NEEDLE ASPIRATECD8, surface- kappa, CD56,surface-lambda, CD5, CD19, CD10, CD3, CD20, CD4, JN44Zbyxurmg Viability: 67.1% Number of EventsAcquired: 96762 The following populations are identified:Lymphocytes: Bright CD45+ [...] developed and their performance characteristics determined by [facility] They have not been cleared or approved by the U.S. Food and Drug Administration. The FDA has determined that such clearance or approval is not necessary. It should not be regarded as investigational or for research. This laboratory is certified under the Clinical Laboratory Improvement Amendments of 1988 ("CLIA") as qualified to perform high-complexity clinical testing.[facility], Department of Pathology, [address] [place] [address], [facility]igSt[facility], Department of Pathology, [address] [place] [address], JJXX FNA [id number] 16:00:00 Test Item Value Reference Range Interpretation Comments Cytology (test code = See Separate Report 1039) [facility] [id number] 16:00:00 Test Item Value Reference Range Interpretation Comments CYTOLOGY RESULT POINTER See Separate Report (BEAKER) (test code = 2629) [id number] 09:09:00 Test Item Value Reference Range Interpretation Comments MAGNESIUM (BEAKER) 2.0 mg/dL 1.6-2.6 Specimen slightly (test code = 627) hemolyzed [facility] ID - CARLOS [id number] 09:09:00 Test Item Value Reference Range Interpretation Comments PHOSPHORUS (BEAKER) 4.5 mg/dL 2.3-4.7 Specimen slightly (test code = 604) hemolyzed [facility] ID - CARLOS CCOMPREHENSIVE METABOLIC [id number] 09:09:00 Test Item Value Reference Range Interpretation [...] S NOT APPLICABLE FOR DIALYSIS PATIEN TS. [facility] ID - CARLOS CCalcium, [id number] 06:24:00 Test Item Value Reference Range Interpretation Comments Calcium, Ion (test code = 1993-) 1.21 mmol/L 1.12-1.27 pH, Blood (test code = 50392-1) 7.35 [facility] [id number] 06:24:00 Test Item Value Reference Range Interpretation Comments CALCIUM IONIZED (BEAKER) (test 1.21 mmol/L 1.12-1.27 code = 698) PH, BLOOD (BEAKER) (test code = 7.35 1810) CBC W/PLT COUNT & AUTO [id number] 06:18:00 Test Item Value Reference Range Interpretation [...] 0-1 PERCENT (BEAKER) (test code = 2801) [id number] 05:10:00 Test Item Value Reference Range Interpretation Comments PARTIAL THROMBOPLASTIN TIME 29.9 seconds 22.5-36.0 (BEAKER) (test code = 760) PROTHROMBIN [id number] 05:09:00 Test Item Value Reference Range Interpretation [...] is2.5-3.5 for patients wiht mechanical heart valves.SARS-COV2/RT-PCR ([facility]) 2019-11-28 13:24:00 Test Item Value Reference Range Interpretation Comments SARS-COV2/RT-PCR (test Negative Not Detected, Negative, code = 2840008) See external report for linked test SARS-COV-2 PERFORMING LAB [facility] (test code = 6422604) Negative result for this test determines that [...] 564(g) of the Act.Fact Sheet for Healthcare Providers:https://www.Iwebalize.SocialEngine/sites/default/files/product/documents/Fact_Shee m_YH_Idwzvsniq_Ebta_UNOC-ObO-7.pdfFact Sheet for Healthcare Patients:https://www.Iwebalize.SocialEngine/sites/default/files/product/ documents/Vzkc_Aboqc_Qninhktx_Pmsh_MKDF-TmC-5.pdfPerforming Laboratory:[facility], [place] [id number] 09:17:00 Test Item Value Reference Range Interpretation Comments PARTIAL THROMBOPLASTIN TIME 31.6 seconds 22.5-36.0 (BEAKER) (test code = 760) PROTHROMBIN [id number] 09:16:00 Test Item Value Reference Range Interpretation [...] INR is2.5-3.5 for patients wiht mechanical heart valves.[id number] 07:57:00 Test Item Value Reference Range Interpretation Comments PHOSPHORUS (BEAKER) (test code = 3.5 mg/dL 2.3-4.7 604) [facility] ID - BILL [id number] 07:57:00 Test Item Value Reference Range Interpretation Comments MAGNESIUM (BEAKER) (test code = 2.2 mg/dL 1.6-2.6 627) [facility] ID - BILL MCOMPREHENSIVE METABOLIC [id number] 07:57:00 Test Item Value Reference Range Interpretation [...] S NOT APPLICABLE FOR DIALYSIS PATIEN TS. [facility] ID - BILL MCBC W/PLT COUNT & AUTO [id number] 06:23:00 Test Item Value Reference Range Interpretation [...] 0-1 PERCENT (BEAKER) (test code = 2801) [id number] 08:57:00 Test Item Value Reference Range Interpretation Comments PHOSPHORUS (BEAKER) (test code = 3.5 mg/dL 2.3-4.7 604) [facility] ID Kimmy DANICA [id number] 08:57:00 Test Item Value Reference Range Interpretation Comments MAGNESIUM (BEAKER) (test code = 2.1 mg/dL 1.6-2.6 627) [facility] ID Kimmy MENDOZA FBASIC METABOLIC [id number] 08:57:00 Test Item Value Reference Range Interpretation [...] S NOT APPLICABLE FOR DIALYSIS PATIEN TS. [facility] GRAY MENDOZA FCALCIUM, [id number] 06:31:00 Test Item Value Reference Range Interpretation Comments CALCIUM IONIZED (BEAKER) (test 1.18 mmol/L 1.12-1.27 code = 698) PH, BLOOD (BEAKER) (test code = 7.36 8590) CBC W/PLT COUNT & AUTO [id number] 06:12:00 Test Item Value Reference Range Interpretation [...] 2801) ANG, TUNNEL CATH CENTRAL INS W/PORT [id number] 15:10:00Reason for exam:- >bladder cancerFINAL REPORT Right [...] the patient's medical record by the nurse. Farm Specialist: Cliff Crabtree MD Clerical Specialist: Ana Dey (resident). Approach: Right internal jugular [...] needle into the right atrium. A 4 Thai micropuncture sheath was placed and a 0.035 [...] MDReport Verified Date/Time: 11/26/2019 15:10:51 Reading Location: [place] [address] Angio Body Reading Room IR Port-a-Cath [id number] 15:10:00Interface, External Ris In - 11/26/2019 3:12 [...] the patient's medical record by the nurse. Farm Specialist: Cliff Crabtree MD Clerical Specialist: Ana Dey (resident). Approach: Right internal jugular [...] needle into the right atrium. A 4 Thai micropuncture sheath was placed and a 0.035 wire was advanced into the IVC. A subcutaneous tunnel and pocket were created in the right anterior chest wall by blunt dissection. The pocket was flushed with antibiotic solution. A 6 Thai Bard single lumen power injectable port was [...] MDReport Verified Date/Time: 11/26/2019 15:10:51 Reading Location: [facility] B1 P048 Angio Body Reading [facility], [id number] 06:21:00Unlisted Reason for Exam - Click Yes [...] or pelvis. Previous prostatectomy. Signed: Sameer Raya MDRepsaint [facility] Verified Date/Time: 11/26/2019 06:21:56 [facility] abdomen/pelvis without & with IV [id number] 06:21:00Interface, External Ris In - 11/26/2019 6:24 [...] Sameer Raya MDReport Verified Date/Time: 11/26/2019 06:21:56 [facility] without & with IV [id number] 06:21:00 Interface, External Ris In - 11/26/2019 [...] Sameer Raya MDReport Verified Date/Time: 11/26/2019 06:21:56 [facility])2019-11-25 17:40:00 Test Item Value Reference Range Interpretation Comments SARS-COV2/RT-PCR (test Negative Not Detected, Negative, code = 9844292) See external report for linked test SARS-COV-2 PERFORMING LAB [facility] (test code = 5187546) Negative result for this test determines that [...] 564(g) of the Act.Fact Sheet for Healthcare Providers:https://www.eGood/sites/default/files/product/documents/Fact_Sigrid burtond_KN_Jvvuovdhz_Dbvn_SNGV-XpI-1.pdfFact Sheet for Healthcare Patients:https://www.eGood/sites/default/files/product/ documents/Iffu_Pdwln_Xyymqdlj_Yerg_OTGB-ZmJ-0.pdfPerforming Laboratory:[facility], [place] [address]YOBHQIWSBLFDU METABOLIC [id number] 12:06:00 Test Item Value Reference Range Interpretation [...] S NOT APPLICABLE FOR DIALYSIS PATIEN TS. [facility] ID - PIAYA LPROTHROMBIN TIME/[id number] 11:59:00 Test Item Value Reference Range Interpretation [...] INR is2.5-3.5 for patients wiht mechanical heart valves.[id number] 11:59:00 Test Item Value Reference Range Interpretation Comments PARTIAL THROMBOPLASTIN TIME 32.9 seconds 22.5-36.0 (BEAKER) (test code = 760) CBC W/PLT COUNT & AUTO [id number] 11:42:00 Test Item Value Reference Range Interpretation [...] 0-1 PERCENT (BEAKER) (test code = 2801) ABORLorene, [id number] 12:40:00 Test Item Value Reference Range Interpretation Comments ABO Grouping (test code = 2588) A Rh Factor (test code = 2589) NEG [facility] [id number] 11:33:00 Test Item Value Reference Range Interpretation Comments Potassium (test code = 2823-3) 4.8 meq/L 3.6-5.5 Lab Interpretation (test code = Normal 11165-1) [facility] [id number] 11:33:00 Test Item Value Reference Range Interpretation Comments POTASSIUM (BEAKER) (test code = 4.8 meq/L 3.6-5.5 379)
[2020-08-21 04:03] LABS: Absolute Lymphocytes (CBC) 0.3 K/uL (0.7-4.9); Basophils % 0.6 % (0-1.3); Hematocrit 26.2 % (39.6-49.0); Lymphocytes % 9.4 % (15.3-44.8); MPV 8.8 fL (7.6-11.3); RBC Red Blood Cell Count 2.77 M/uL (4.33-5.43)
[2020-08-21 04:09] LABS: Protime INR 1.26
[2020-08-21 04:19] LABS: ALT/SGPT 33 U/L (12-78); AST/SGOT 24 U/L (15-37); Albumin 2.9 g/dL (3.4-5.0); Alkaline Phosphatase 65 U/L (45-117); BUN Blood Urea Nitrogen 21 mg/dL (7-18); Bicarbonate 25 mmol/L (21-32); Bilirubin Direct 0.1 mg/dL (0-0.2); Bilirubin Total 0.4 mg/dL (0.2-1.0); Glucose Level 134 mg/dL (74-106); Lipase 383 U/L (73-393); Magnesium 1.9 mg/dL (1.8-2.4); NT PRO-BNP 1491 pg/mL (<450); Potassium 3.9 mmol/L (3.5-5.1); Protein, Total 6.3 g/dL (6.4-8.2); Sodium Level 135 mmol/L (136-145); Troponin (Emerg Dept Use Only) < 0.02 ng/mL (0.0-0.045)
[2020-08-21 05:14] LABS: Blood Morphology Comment NOT SEEN (NOT SEEN); Platelet Estimate ADEQ
--- NOTE | 2020-08-21 07:20 | EDPHYS ---
Physician Documentation [facility] Name: Fuentes Mock Age: 74 yrs Sex: Male : 1945 Arrival Date: 08/21/2020 Time: 03:08 Bed 15 Private MD: Stuart Warren ED Physician Narendra Phelan HPI: 08/21 07:19 This 74 yrs old Male presents to ER via Ambulatory with complaints of Spiting tw4 up blood. Historical: - Allergies: 04:04 Ciprofloxacin; jm8 04:04 Levaquin; jm8 04:04 Sulfa (Sulfonamide Antibiotics); jm8 - Home Meds: 04:04 Lialda 1.2 gram Oral TbEC 2 tabs once daily [Active]; Macrobid Oral [Active]; jm8 Phenazopyridine Oral [Active]; - PMHx: 04:04 bladder ca and prostate ca; Atrial Fib; jm8 04:05 Cancer; lung; jm8 - Immunization history:: Adult Immunizations up to date, Client reports receiving the 2nd dose of the Covid vaccine. - Social history:: Smoking status: Patient reports the use of cigarette tobacco products, denies chronic smoking, but will smoke occasionally, cigars. ROS: 07:19 Constitutional: Negative for fever, chills, and weight loss, Eyes: Negative for injury, tw4 pain, redness, and discharge, Cardiovascular: Negative for chest pain, palpitations, and edema, Abdomen/GI: Negative for abdominal pain, nausea, vomiting, diarrhea, and constipation, Back: Negative for injury and pain, MS/Extremity: Negative for injury and deformity, Skin: Negative for injury, rash, and discoloration, Neuro: Negative for headache, weakness, numbness, tingling, and seizure. 07:19 Respiratory: Positive for hemoptysis. Exam: 07:19 Constitutional: This is a well developed, well nourished patient who is awake, alert, tw4 and in no acute distress. Head/Face: Normocephalic, atraumatic. Chest/axilla: Normal chest wall appearance and motion. Nontender with no deformity. No lesions are appreciated. Cardiovascular: Regular rate and rhythm with a normal S1 and S2. No gallops, murmurs, or rubs. Normal PMI, no JVD. No pulse deficits. Respiratory: Lungs have equal breath sounds bilaterally, clear to auscultation and percussion. No rales, rhonchi or wheezes noted. No increased work of breathing, no retractions or nasal flaring. Abdomen/GI: Soft, non-tender, with normal bowel sounds. No distension or tympany. No guarding or rebound. No evidence of tenderness throughout. Back: No spinal tenderness. No costovertebral tenderness. Full range of motion. MS/ Extremity: Pulses equal, no cyanosis. Neurovascular intact. Full, normal range of motion. Neuro: Awake and alert, GCS 15, oriented to person, place, time, and situation. Cranial nerves II-XII grossly intact. Motor strength 5/5 in all extremities. Sensory grossly intact. Cerebellar exam normal. Normal gait. Vital Signs: 03:30 BP 126 / 73; Pulse 107; Resp 18; Temp 99.8(O); Pulse Ox 94% on R/A; Weight 71.21 kg; oe Height 5 ft. 10 in. (177.80 cm); 05:00 BP 116 / 69; Pulse 99; Resp 16; Pulse Ox 95% on R/A; jm8 06:28 BP 112 / 71; Pulse 94; Resp 16; Pulse Ox 97% on R/A; jm8 07:56 BP 115 / 75; Pulse 95; Resp 17; Pulse Ox 97% ; jl7 09:00 BP 118 / 67; Pulse 93; Resp 15; Pulse Ox 97% ; jl7 03:30 Body Mass Index 22.53 (71.21 kg, 177.80 cm) oe MDM: 03:29 Patient medically screened. tw4 07:21 Differential Diagnosis: Obstructed Airway Bronchitis Influenza Upper Respiratory tw4 Infection Pharyngitis. Data reviewed: vital signs, nurses notes. Data interpreted: Pulse oximetry: Interpretation: normal. Counseling: I had a detailed discussion with the patient and/or guardian regarding: the historical points, exam findings, and any diagnostic results supporting the discharge/admit diagnosis, the presence of at least one elevated blood pressure reading (>120/80) during this emergency department visit, lab results. Awaiting: transfer to another facility. 08/21 03:26 Order name: Blood Culture Adult (2) tw4 08/21 03:26 Order name: BMP; Complete Time: 07:15 tw4 08/21 07:15 Interpretation: GFR > 90. 08/21 03:26 Order name: CBC with Diff; Complete Time: 07:15 08/21 03:26 Order name: Hepatic Function; Complete Time: 07:15 tw08/21 03:26 Order name: Lipase; Complete Time: 07:15 08/21 03:26 Order name: Magnesium; Complete Time: 07:15 08/21 03:26 Order name: NT PRO-BNP; Complete Time: 07:15 tw08/21 03:26 Order name: PT-INR; Complete Time: 07:15 08/21 03:26 Order name: Ptt, Activated; Complete Time: 07:15 08/21 03:26 Order name: Troponin (emerg Dept Use Only); Complete Time: 07:15 08/21 04:05 Order name: Manual Differential; Complete Time: 07:15 EDMS 08/21 03:26 Order name: XRAY CXR (1 view) 08/21 03:26 Order name: EKG; Complete Time: 03:28 08/21 03:26 Order name: Cardiac monitoring; Complete Time: 03:49 08/21 03:26 Order name: EKG - Nurse/Tech; Complete Time: 03:47 08/21 03:26 Order name: IV Saline Lock; Complete Time: 03:49 08/21 03:26 Order name: Labs collected and sent; Complete Time: 03:49 08/21 03:26 Order name: O2 Per Protocol; Complete Time: 03:49 08/21 03:26 Order name: O2 Sat Monitoring; Complete Time: 03:49 08/21 04:01 Order name: CT Chest For PE Angio 08/21 05:29 Order name: SARS-COV-2 RT PCR; Complete Time: 07:15 EDMS Administered Medications: No medications were administered Disposition: 08/21/20 07:19 Transfer ordered to [facility]. Diagnosis is Hemoptysis. - Reason for transfer: Higher level of care. - Accepting physician is DR HALL. - Condition is Stable. - Problem is an ongoing problem. - Symptoms have worsened. Signatures: Dispatcher [employer] EDMS Rain Jay RN RN jl7 Narendra Phelan MD MD tw4 David Woo RN RN jm8 Corrections: (The following items were deleted from the chart) 04:45 04:19 CORONAVIRUS ordered. EDMS EDMS 09:11 07:19 08/21/2020 07:19 Transfer ordered to [facility]. jl7 Diagnosis is Hemoptysis. Reason for transfer: Higher level of care. Accepting physician is DR HALL. Condition is Stable. Problem is an ongoing problem. Symptoms have worsened. tw4
--- NOTE | 2020-08-21 07:20 | ER ---
Nurse's Notes [facility] Name: Fuentes Mock Age: 74 yrs Sex: Male : 1945 Arrival Date: 08/21/2020 Time: 03:08 Bed 15 Private MD: Stuart Warren Diagnosis: Hemoptysis Presentation: 08/21 03:49 Chief complaint: Patient states: "I started coughing up blood last night around 7 pm jm8 and the then this morning around 1 am. I am currently being treated for lung cancer. Coronavirus screen: Client denies travel out of the [place] in the last 14 days. At this time, the client does not indicate any symptoms associated with coronavirus-19. Ebola Screen: Patient negative for fever greater than or equal to 101.5 degrees Fahrenheit, and additional compatible Ebola Virus Disease symptoms Patient denies exposure to infectious person. Patient denies travel to an Ebola-affected area in the 21 days before illness onset. Initial Sepsis Screen: Does the patient meet any 2 criteria? No. Patient's initial sepsis screen is negative. Does the patient have a suspected source of infection? No. Patient's initial sepsis screen is negative. Risk Assessment: Do you want to hurt yourself or someone else? Patient reports no desire to harm self or others. Onset of symptoms was August 20, 2020 at 19:00. 03:49 Method Of Arrival: Ambulatory [facility] 03:49 Acuity: ELY 3 jm8 Triage Assessment: 04:08 General: Appears in no apparent distress. comfortable. General: Behavior is calm, jm8 cooperative, appropriate for age. Pain: Denies pain. EENT: No deficits noted. No signs and/or symptoms were reported regarding the EENT system. Neuro: No deficits noted. Level of Consciousness is awake, alert, obeys commands, Oriented to person, place, time. Cardiovascular: No deficits noted. Respiratory: Reports shortness of breath on exertion cough that is productive, since last night blood Airway is patent Trachea midline Respiratory effort is even, unlabored, Respiratory pattern is regular, symmetrical. GI: No deficits noted. No signs and/or symptoms were reported involving the gastrointestinal system. : No deficits noted. No signs and/or symptoms were reported regarding the genitourinary system. Derm: No deficits noted. No signs and/or symptoms reported regarding the dermatologic system. Skin is intact, is healthy with good turgor, Skin is dry, Skin is pink, warm \\T\\ dry. Skin temperature is warm. Historical: - Allergies: 04:04 Ciprofloxacin; jm8 04:04 Levaquin; jm8 04:04 Sulfa (Sulfonamide Antibiotics); jm8 - Home Meds: 04:04 Lialda 1.2 gram Oral TbEC 2 tabs once daily [Active]; Macrobid Oral [Active]; jm8 Phenazopyridine Oral [Active]; - PMHx: 04:04 bladder ca and prostate ca; Atrial Fib; jm8 04:05 Cancer; lung; jm8 - Immunization history:: Adult Immunizations up to date, Client reports receiving the 2nd dose of the Covid vaccine. - Social history:: Smoking status: Patient reports the use of cigarette tobacco products, denies chronic smoking, but will smoke occasionally, cigars. Screenin:07 Abuse screen: Denies threats or abuse. Denies injuries from another. Nutritional [facility] screening: No deficits noted. Tuberculosis screening: No symptoms or risk factors identified. Fall Risk IV access (20 points). Assessment: 04:18 Reassessment: see triage assessment. 8 07:00 Reassessment: Patient appears in no apparent distress at this time. No changes from [facility] previously documented assessment. Patient and/or family updated on plan of care and expected duration. Pain level reassessed. Patient is alert, oriented x 3, equal unlabored respirations, skin warm/dry/pink. 07:45 Reassessment: Dr. Phelan at bedside updating pt on POC. 7 09:10 Reassessment: [facility] ambulance at bedside to transport pt. [facility] Vital Signs: 03:30 BP 126 / 73; Pulse 107; Resp 18; Temp 99.8(O); Pulse Ox 94% on R/A; Weight 71.21 kg; oe Height 5 ft. 10 in. (177.80 cm); 05:00 BP 116 / 69; Pulse 99; Resp 16; Pulse Ox 95% on R/A; 8 06:28 BP 112 / 71; Pulse 94; Resp 16; Pulse Ox 97% on R/A; 8 07:56 BP 115 / 75; Pulse 95; Resp 17; Pulse Ox 97% ; jl7 09:00 BP 118 / 67; Pulse 93; Resp 15; Pulse Ox 97% ; jl7 03:30 Body Mass Index 22.53 (71.21 kg, 177.80 cm) oe ED Course: 03:08 Patient arrived in ED. es 03:08 Stuart Warren MD is Private Physician. es 03:26 Narendra Phelan MD is Attending Physician. tw4 04:03 Triage completed. jm8 04:07 Arm band placed on right wrist. jm8 04:08 Patient has correct armband on for positive identification. Side rails up X2. Bed in jm8 low position. Call light in reach. 04:10 No provider procedures requiring assistance completed. Inserted saline lock: 20 gauge jm8 in right antecubital area, using aseptic technique. 04:17 XRAY CXR (1 view) In Process Unspecified. EDMS 04:46 CT Chest For PE Angio In Process Unspecified. EDMS 06:48 initiated a transfer with Pat Shearer from [facility]. mw2 06:58 doc to doc with Dr. Ospina from [facility]. mw2 07:14 Rain Jay, RN is Primary Nurse. jl7 07:56 Patient transferred, IV remains in place. intact, No redness/swelling at site. jl7 Administered Medications: No medications were administered Outcome: 07:19 ER care complete, transfer ordered by . tw4 09:10 Transferred by ground EMS to [facility], Transfer form completed. jl7 09:10 Condition: stable 09:10 Discharge instructions given to patient, Instructed on the need for transfer, Demonstrated understanding of instructions. 09:11 Patient left the ED. jl7 Signatures: Dispatcher [employer] EDMS Kaylee Goode [place] oe Rain Jay, RN RN jl7 Narendra Phelan MD MD tw4 Bryan Sharma mw2 David Woo, RN RN jm8
--- NOTE | 2020-08-21 07:28 | RAD REPORT ---
EXAM DESCRIPTION: [place] Single View08/21/2020 4:17 am CLINICAL HISTORY: Hemoptysis COMPARISON: June 2020 FINDINGS: Patchy left upper lobe opacities have developed. Remainder lungs appear clear of acute infiltrate. Heart is mildly enlarged. Central venous catheter has its tip in the superior vena cava IMPRESSION: Moderate patchy left upper lobe opacities may represent pneumonia or pneumonitis
[2020-08-21 09:23] VITALS: TEMP 99.8
[2020-08-21 09:25] VITALS: O2SAT 97
[2020-08-21 09:28] VITALS: BP 118/67
--- NOTE | 2020-08-21 10:46 | RAD REPORT ---
EXAM DESCRIPTION: CT - Chest For Pe Angio - 08/21/2020 6:36 am CLINICAL HISTORY: The patient is 74 years old and is Male; HEMOPTYSIS TECHNIQUE: Axial computed tomographic angiography images of the chest with intravenous contrast. S agittal and coronal reformatted images were created and reviewed. This CT exam was performed using one or more of the following dose reduction techniques: automated exposure control, adjustment of t he mA and/or kV according to patient size, and/or use of iterative reconstruction technique. MIP re constructed images were created and reviewed. COMPARISON: CT angiography chest June 28, 2020. FINDINGS: Pulmonary arteries: No PE identified. Aorta: No acute findings. No thoracic aortic aneurysm. Lungs: Centrilobular emphysema. Groundglass opacities in the left upper lobe may be secondary to pneumonia. Residual groundglass opacities in the left lower lobe though improved from the prior study . Pleural space: Small left pleural effusion, mildly increased from the previous exam. No pneumothorax. Heart: Cardiomegaly. No significant pericardial effusion. Bones/joints: Pectus excavatum. Mild degenerative disc disease in the thoracic spine. Multiple vert ebral Schmorl's nodes. No acute compression fracture. Old right scapular fracture. No dislocation. Soft tissues: Unremarkable. Lymph nodes: Soft tissue density again noted posterior to the left mainstem bronchus, also abutti ng the esophagus. It is uncertain if this is pathologic adenopathy and/or related to esophageal patho logy. Calcified lymph nodes again noted consistent with prior granulomatous organism exposure. IMPRESSION: 1. No PE identified. 2. Centrilobular emphysema. Groundglass opacities in the left upper lobe may be secondary to pneumo kedar. Residual groundglass opacities in the left lower lobe though improved from the prior study. 3. Small left pleural effusion, mildly increased from the previous exam. 4. Cardiomegaly. 5. Soft tissue density again noted posterior to the left mainstem bronchus, also abutting the esoph heather. It is uncertain if this is pathologic adenopathy and/or related to esophageal pathology. Electronically signed by: Faiza Padilla MD 08/21/2020 5:26 AM CDT Due to temporary technical issues with the PACS/Fluency reporting system, reports are being signed by the in house radiologists without review as a courtesy to insure prompt reporting. The interpreting radiologist is fully responsible for the content of the report.
--- NOTE | 2020-08-22 12:00 | EKG ---
Test Date: 2020-08-21 Test Time: 03:44:10 Market Development Director: [place] MEASUREMENT RESULTS: Intervals: Rate: 103 AL: 158 QRSD: 128 QT: 396 QTc: 518 [place]: P: 72 AL: 158 QRS: 78 T: 60 INTERPRETIVE STATEMENTS: Sinus tachycardia Possible Left atrial enlargement Right bundle branch block ST elevation, consider inferior injury or acute infarct ACUTE MA Abnormal ECG Compared to ECG 06/28/2020 07:45:49 ST (T wave) deviation now present Myocardial infarct finding now present Sinus rhythm no longer present Electronically Signed On 08-22-20 11:54:22 CDT by Dominic Zamudio
== END 2020-08-21 09:11 | disposition short-term general hospital (02) ==
LOC: ER 03:04
DX: R04.2 Hemoptysis (principal); F17.210 Nicotine dependence, cigarettes, uncomplicated; Z85.46 Personal history of malignant neoplasm of prostate; Z85.51 Personal history of malignant neoplasm of bladder; Z85.118 Personal history of other malignant neoplasm of bronchus and lung; I48.91 Unspecified atrial fibrillation; Z20.822 Contact with and (suspected) exposure to COVID-19
CPT/HCPCS: 93005; 87040 ×2; 85025; 80048; 36415; 83735; 85610; 80076; 85730; 84484; 83690; 83880; 71275; 71045; U0003; Q9967; 77336; 99285